=== PATIENT | female | born 1935 | race Caucasian/White ===

== ENCOUNTER 2016-03-07 17:02 | Inpatient (IN) | payer MEDICARE ==
[2016-03-07 18:18] LABS: Glucose,Whole Blood 240 mg/dL (75-99)
[2016-03-07] MEDS ORDERED: ALPRAZolam 0.25 MG TAB PO PRN (18:30)
[2016-03-07] MEDS ORDERED: TEMAZEPAM 7.5 MG CAP PO PRN (18:30)
[2016-03-07] MEDS ORDERED: LEVOFLOXACIN 500 MG TAB PO STA (18:34)
[2016-03-07] MEDS ORDERED: IPRATROPIUM-ALBUTEROL 3 ML NEB INHALATION PRN (18:40)
--- NOTE | 2016-03-07 19:24 | XR ---
EXAMINATION TYPE: XR chest 1V portable DATE OF EXAM: 03/07/2016 7:08 PM COMPARISON: 03/29/2015 HISTORY: Short of breath TECHNIQUE: Single frontal view of the chest is obtained. FINDINGS: Heart size is normal. Lungs are clear of consolidation. There are no hilar masses. Thoraci c aorta is atheromatous. There is no pleural effusion. IMPRESSION: No active cardiopulmonary disease. No change.
[2016-03-07 19:27] LABS: Basophils % (A) 0 %; CH 26.2; CHCM 29.6; Eosinophils # (A) 0.1 k/uL (0-0.7); Eosinophils % (A) 1 %; HCT 34.7 % (34.0-46.0); HDW 2.47; HGB 10.3 gm/dL (11.4-16.0); Hypochromasia Marked; Luc # (Auto) 0.03; Luc % (Auto) 0; Lymphocytes # (A) 0.5 k/uL (1.0-4.8); Lymphocytes % (A) 3 %; MCH 26.3 pg (25.0-35.0); MCHC 29.6 g/dL (31.0-37.0); MCV 88.8 fL (80.0-100.0); Mean Platelet Volume 6.7; Monocytes # (A) 0.3 k/uL (0-1.0); Monocytes % (A) 2 %; Neutrophils # (A) 15.3 k/uL (1.3-7.7); Neutrophils % (A) 94 %; RDW 13.1 % (11.5-15.5); WBC 16.3 k/uL (3.8-10.6); WBC (Perox) 17.69
[2016-03-07 19:34] LABS: Calcium 9.4 mg/dL (8.4-10.2); Potassium 5.3 mmol/L (3.5-5.1); Total Bilirubin 0.4 mg/dL (0.2-1.3); Total Protein 6.2 g/dL (6.3-8.2)
[2016-03-07] MEDS ORDERED: SYMBICORT 80-4.5 MCG INHALER INHALATION SCH (20:00)
[2016-03-07] MEDS ORDERED: SALMETEROL PO SCH (20:00)
[2016-03-07] MEDS ORDERED: FLUTICASONE PO SCH (20:00)
[2016-03-07 20:04] LABS: Hemoglobin A1C 6.3 % (4.2-6.1)
[2016-03-07] MEDS: IPRATROPIUM-ALBUTEROL 3 ML NEB INHALATION SCH (20:24)
[2016-03-07] MEDS: FUROSEMIDE 20 MG TAB PO SCH (21:30)
[2016-03-07] MEDS: LISINOPRIL 20 MG TAB PO SCH (21:31)
[2016-03-07] MEDS: ATORVASTATIN 10 MG TAB PO SCH (21:31)
[2016-03-07] MEDS: guaiFENesin 600 MG TABLET.ER PO SCH (21:33)
--- NOTE | 2016-03-07 22:33 | HP ---
Mrs. Beltrán is an 80-year-old female. She presented to the office with increasing shortness of breath over several weeks with some cough with marked dyspnea on exertion minimally with just getting up from her bed or chair and a little movement in the house. She was found by her home nursing to have FiO2s in the 70s and 80s and in the office she was initially 77, came up to 81. She has had no chest pain with this, but has generally been fatigued with a somewhat poor appetite. PAST MEDICAL HISTORY: Patient does have a history of COPD and has had some intermittent exacerbations. Her FEV1 in the past and has been only 34% predicted, indicating a rather severe state of COPD. Other history includes that of hypertension, osteoarthritis of the knees. She does have type 2 diabetes with chronic kidney disease stage 3. She does use oxygen at home. Other surgeries include a total knee replacement on the right and she has had a previous left breast lumpectomy associated with radiation treatments back in 2004. She has had previous esophageal dilation and right carotid endarterectomy repair also in the past. Her medications at home included: 1. Albuterol for her respiratory treatments 4 times a day. 2. Amlodipine 10 mg in the morning and 5 mg in the evening. 3. Aspirin 81 mg daily. 4. Atorvastatin 10 mg at bedtime here in hospital. 5. She was on Zocor at home at 20 mg at bedtime. 6. Metformin 500 mg at breakfast. 7. Prednisone 10 mg daily. 8. Quinapril 20 mg at bedtime for blood pressure. 9. Felodipine 10 mg daily with 5 mg in the evening. 10. Lasix 20 mg per 48 hours 11. Advair inhaler; 500/50, 1 inhalation twice a day. THERE WAS A HISTORY OF ALLERGY TO DOXYCYCLINE AND GLUCOSAMINE, IODINATED CONTRAST DYE TIME, SULFA AND BACLOFEN. WITH THE FIRST 4, SHE DEVELOPED RASHES. WITH BACLOFEN, SHE HAD SOME MENTAL CONFUSION. REVIEW OF SYSTEMS: As mentioned in the history of present illness, she had no unusual headache. No nausea or vomiting. No chest pain, but extreme shortness of breath and with minimal exertion along with orthopnea requiring her to lie in a recliner at night to rest, but no hemoptysis. No urinary or bowel symptomatology. No unusual edema. FAMILY HISTORY: Father at 57 of a lung blood clot. There is history of diabetes and coronary artery disease in her family. She had a sister that apparently had bladder cancer and also another sister had brain cancer. SOCIAL HISTORY: The patient does have her own home. Apparently, she for the most part takes care of herself, but has had some visiting nurses. She is a former heavy smoker. She is for several years now. On physical examination, her pulse was up to 108, temperature was 98, respirations were 18 with a prolonged expiratory phase. Blood pressure 128/75. Once again, saturations at the office were 77 and 81 on 2L. Here, her saturation has improved up to 92. There is some prolonged expiratory phase and pursed lip breathing, some use of accessory muscles. Head and neck otherwise extraocular movements are intact. Neck reveals no adenopathy, thyromegaly or bruits. Breasts and pelvic deferred. Lungs revealed diminished breath sounds diffusely. No definite wheeze. Heart tones were regular without murmurs, rubs appreciated. ABDOMEN: Mildly obese, but soft and nontender without organomegaly. EXTREMITIES: Reveal no unusual edema. NEUROLOGIC: She is alert. Cranial nerves were intact and no focal weakness noted. Laboratory testing revealed a white count elevated at 16 with hemoglobin 10.8 and a platelet count of 333. Electrolytes revealed sodium of 143 with potassium 5.3, chloride of 96, CO2 content of 40, BUN of 33 with creatinine of 1.4, glucose was 239, but her A1c is 6.3. Calcium was 9.4, albumin normal at 3.5. AST and, ALT and alk phos were normal, bilirubin was 0.4. The patient did have a chest x-ray, did not show any acute changes and. Overall impression at this point: 1. Acute exacerbation of chronic obstructive pulmonary disease with respiratory failure associated with dyspnea, shortness of breath and hypoxia. Patient with underlying severe chronic obstructive pulmonary disease with FEV1 of 34%. 2. She also does have underlying history diabetes type 2 with 3. Chronic kidney disease stage 3. 4. Hypertension. 5. Degenerative joint disease. 6. Previous right knee surgery. 7. There is a previous history of left breast lumpectomy and previous tamoxifen treatment. 8. History of previous right carotid endarterectomy. 9. Previous history of esophageal stenosis, post dilatation. 10. Previous history of left thyroid nodule, but has not changed for a couple years now. At this point, plans are to add corticosteroids, antibiotics, respiratory treatments. We will ask Pulmonary to evaluate for further recommendations. Also recommend physical and occupational therapy and further recommendations and treatment pending clinical response and results of above. MTDD
[2016-03-08] MEDS: methylPREDNISolone SOD SUCCI 40 MG/ML 1 ML VIAL IV SCH ×5 (00:37→23:39)
[2016-03-08 07:18] LABS: Glucose,Whole Blood 195 mg/dL (75-99)
--- NOTE | 2016-03-08 07:41 | P.PN ---
Progress Note - Text The patient is an 80-year-old female who yesterday presented to the office and was admitted with the gradual increasing in shortness of breath and dyspnea on exertion. Patient was unable to ambulate in her house without dropping her oxygen saturation down into the 70s and 80s. She had some cough but no chest pain. No hemoptysis. Patient does have underlying severe COPD with a previous FEV1 of 34%. She also has comorbidities with hypertension, osteoarthritis chronic kidney disease and is dependent on oxygen and also prednisone at home. This morning she states she did have some trouble sleeping. Vital signs this morning though reveals her temperature to be 97.5 with a pulse of 74 and respirations 16. Her blood pressure is elevated on corticosteroids at 185/75 and she is 97% saturated on 3 L nasal cannula. She is overall alert. Lungs are clear but diminished. Heart tones are regular. Abdomen nontender. No unusual edema or focal neurological changes at this time. Impressions and plans: We will continue with antibiotics in the form of Levaquin along with corticosteroids and her respiratory treatments. Please see results of her labs and chest x-ray. We will repeat basic metabolic panel tomorrow. Await further recommendations from pulmonary medicine. Patient wants to return home and we will ask physical and occupational therapy to evaluate. Overall prognosis is guarded in light of her underlying lung disease. Dr. Orozco is beef boner if any problems over the weekend.
[2016-03-08] MEDS: IPRATROPIUM-ALBUTEROL 3 ML NEB INHALATION SCH ×4 (07:49→19:10)
[2016-03-08] MEDS: metFORMIN 500 MG TAB PO SCH (08:39)
[2016-03-08] MEDS: INSULIN LISPRO (humaLOG) 300 UNIT/3 ML VIAL SQ SCH ×2 (08:40→17:31)
[2016-03-08] MEDS: VIT A,C & E-LUTEIN-MINERALS 1 EACH TAB PO SCH (09:12)
[2016-03-08] MEDS: guaiFENesin 600 MG TABLET.ER PO SCH ×2 (09:12→20:30)
[2016-03-08] MEDS: ASPIRIN 81 MG CHEW PO SCH (09:12)
[2016-03-08] MEDS: LEVOFLOXACIN 250 MG TAB PO SCH (09:12)
[2016-03-08] MEDS: amLODIPine 10 MG TAB PO SCH (09:12)
[2016-03-08 12:05] LABS: Glucose,Whole Blood 162 mg/dL (75-99)
--- NOTE | 2016-03-08 13:21 | P.CNPUL ---
History of Present Illness Consult date: 03/08/16 Requesting physician: Los Anderson Reason for consult: dyspnea Chief complaint: Shortness of breath with minimal exertion, cough, congestion History of present illness: This is a very pleasant 80-year-old female patient who follows in our office for advanced oxygen-dependent chronic obstructive pulmonary disease. Her baseline FEV1 value is 34% of predicted. She also has a history of diabetes mellitus, hyperlipidemia, hypertension, osteoarthritis, hypothyroidism, breast cancer, chronic anemia. She presented here on 03/07/2016 after being seen by her primary care physician Dr. Anderson. She had been complaining of worsening shortness of breath on minimal exertion, cough and congestion. She was quite hypoxic with O2 saturations in the 70s and 80s. We're consulting today for acute exacerbation of her chronic obstructive pulmonary disease. Her chest x- ray did not reveal any acute pulmonary process. She is afebrile. White count 16.3. His current maintaining good O2 saturations in the low 90s on 3 L/m per nasal cannula. She is slightly tachycardic. She has been initiated on bronchodilators, Symbicort, IV Solu-Medrol and empiric and hematocrit form of Levaquin. States she is breathing slightly better today as compared to yesterday but not quite back to her baseline. Her main concern is that of dyspnea on minimal exertion. Review of Systems 14 point review of system was conducted. All negative other than as mentioned in HPI. Past Medical History Past Medical History: COPD, Diabetes Mellitus, Hyperlipidemia, Hypertension, Osteoarthritis (OA), Pneumonia, Thyroid Disorder Additional Past Medical History / Comment(s): COPD , anemia, chronic hypoxic respiratory failure and the patient has been on oxygen at 2.5 L/m nasal cannula , lt breast cancer, , chronic sinus disease,djd emphysema, thyroid nodule History of Any Multi-Drug Resistant Organisms: None Reported Past Surgical History: Breast Surgery, Orthopedic Surgery, Tonsillectomy Additional Past Surgical History / Comment(s): 2002 lt lumpectomy and 35 radiation tx,2005 right carotid endarectomy, rt knee arthroscopy,2010 right knee replacement 2007 bilateral cataract , had esophageal dilation via EGD Past Anesthesia/Blood Transfusion Reactions: Postoperative Nausea & Vomiting ( PONV) Additional Past Anesthesia/Blood Transfusion Reaction / Comment(s): vomited after surg. Past Psychological History: No Psychological Hx Reported Smoking Status: Former smoker Past Alcohol Use History: None Reported Additional Past Alcohol Use History / Comment(s): per pt's daughter-pt quit smoking 20 years ago Past Drug Use History: None Reported - Past Family History Father Family Medical History: Coronary Artery Disease (CAD) Additional Family Medical History / Comment(s): young from heart problems Mother Family Medical History: Asthma, COPD Medications and Allergies Home Medications Medication Instructions Recorded Confirmed Type Quinapril HCl [Accupril] 20 mg PO HS 10/06/13 03/07/16 History Vit A,C & E/Lutein/Minerals 1 tab PO DAILY 10/06/13 03/07/16 History [Ocuvite with Lutein Tablet] metFORMIN HCL [Glucophage] 500 mg PO [id number] 10/06/13 03/07/16 History Felodipine [Felodipine ER] 5 mg PO DAILY 06/07/14 03/07/16 History Felodipine [Felodipine ER] 10 mg PO DAILY 06/07/14 03/07/16 History Albuterol Nebulized [Ventolin 2.5 mg INHALATION RT-QID PRN 06/28/14 03/07/16 History Nebulized] Aspirin EC [Ecotrin Low Dose] 81 mg PO HS 06/28/14 03/07/16 History Fluticasone/Salmeterol [Advair 1 inhalation PO RT-BID 03/07/16 03/07/16 History 500-50 Diskus] Furosemide [Lasix] 20 mg PO Q48H 03/07/16 03/07/16 History Simvastatin [Zocor] 20 mg PO HS 03/07/16 03/07/16 History predniSONE 10 mg PO DAILY 03/07/16 03/07/16 History Allergies Allergy/AdvReac Type Severity Reaction Status Date / Time doxycycline Allergy Rash/Hives Verified 03/07/16 19:09 glucosamine Allergy Rash/Hives Verified 03/07/16 19:09 Iodinated Contrast Media - Allergy Rash/Hives Verified 03/07/16 19:09 Oral and [Iodinated Contrast Media - IV Dye] Sulfa (Sulfonamide Allergy Rash/Hives Verified 03/07/16 19:09 Antibiotics) baclofen AdvReac Confusion Verified 03/07/16 19:09 Physical Exam Vitals: Vital Signs Temp Pulse Pulse Resp BP Pulse Ox 03/08/16 11:19 100 03/08/16 11:05 100 03/08/16 07:49 97 03/08/16 07:00 97.5 F L 74 16 185/75 97 03/07/16 23:00 96.5 F L 68 18 188/79 97 03/07/16 20:32 108 H 03/07/16 20:24 104 H 03/07/16 18:25 98.1 F 83 18 128/75 92 L Intake and Output 03/07/16 03/08/16 03/08/16 22:59 06:59 14:59 Other: Voiding Method Toilet # Voids 1 1 Weight 75 kg GENERAL EXAM: Alert, comfortable at rest in no apparent distress. HEAD: Normocephalic. EYES: Normal reaction of pupils, equal size. NOSE: Clear with pink turbinates. THROAT: No erythema or exudates. NECK: No masses, no JVD. CHEST: No chest wall deformity. LUNGS: Equal air entry with bilateral end expiratory wheeze. Diminished. CVS: S1 and S2 normal with no audible murmurs, regular rhythm. ABDOMEN: No hepatosplenomegaly, normal bowel sounds, no guarding or rigidity. SPINE: No scoliosis or deformity SKIN: No rashes CENTRAL NERVOUS SYSTEM: No focal deficits, tone is normal in all 4 extremities. Extremities: There is no significant peripheral edema. No clubbing, no cyanosis. Peripheral pulses are intact. Results - Laboratory Findings CBC and BMP: 03/07/16 19:07 03/07/16 19:07 Abnormal lab findings: Abnormal Labs 03/07/16 03/07/16 03/07/16 18:16 19:07 19:07 WBC 16.3 H Hgb 10.3 L MCHC 29.6 L Neutrophils # 15.3 H Lymphocytes # 0.5 L Potassium 5.3 H Chloride 96 L Carbon Dioxide 40 H* BUN 33 H Creatinine 1.34 H Glucose 239 H POC Glucose (mg/dL) 240 H Hemoglobin A1c Total Protein 6.2 L 03/07/16 03/08/16 03/08/16 19:07 07:17 11:47 WBC Hgb MCHC Neutrophils # Lymphocytes # Potassium Chloride Carbon Dioxide BUN Creatinine Glucose POC Glucose (mg/dL) 195 H 162 H Hemoglobin A1c 6.3 H Total Protein - Diagnostic Findings Chest x-ray: image reviewed (No acute pulmonary process.) Assessment and Plan Plan: Impression: #1 Acute exacerbation of severe Gold stage III/IV oxygen dependent chronic obstructive pulmonary disease, complicated by purulent tracheobronchitis. #2 Dyspnea on exertion secondary to above. #3 ML history of chronic tobacco addiction quit approximately 20 years ago. #4 Hyperlipidemia. #5 Hypertension. #6 Diabetes mellitus. #7 Osteoarthritis. #8 Hypothyroidism. #9 Chronic anemia. #10 Chronic sinus disease. #11 History of breast cancer. Plan: The patient was seen and evaluated by Dr. Hills. Her chest x-ray and labs were reviewed. We'll go ahead and continue with her current medications including bronchodilators, Symbicort, IV Solu-Medrol, para antibiotics in the form of Levaquin. We will increase her activity as tolerated. We'll continue to follow make further recommendations based on her clinical status. Time with Patient: Greater than 30
[2016-03-08 17:34] LABS: Glucose,Whole Blood 280 mg/dL (75-99)
[2016-03-08] MEDS: SYMBICORT 160-4.5 MCG INHALER INHALATION SCH (19:10)
[2016-03-08] MEDS: ATORVASTATIN 10 MG TAB PO SCH (20:30)
[2016-03-08] MEDS: LISINOPRIL 20 MG TAB PO SCH (20:30)
[2016-03-08] MEDS: TEMAZEPAM 15 MG CAP PO PRN (21:24)
[2016-03-09] MEDS: methylPREDNISolone SOD SUCCI 40 MG/ML 1 ML VIAL IV SCH ×3 (06:40→23:00)
[2016-03-09 07:45] LABS: Glucose,Whole Blood 215 mg/dL (75-99)
[2016-03-09] MEDS: SYMBICORT 160-4.5 MCG INHALER INHALATION SCH ×2 (08:17→20:48)
[2016-03-09] MEDS: IPRATROPIUM-ALBUTEROL 3 ML NEB INHALATION SCH ×4 (08:17→20:48)
[2016-03-09] MEDS: amLODIPine 10 MG TAB PO SCH (08:49)
[2016-03-09] MEDS: guaiFENesin 600 MG TABLET.ER PO SCH ×2 (08:49→21:44)
[2016-03-09] MEDS: LEVOFLOXACIN 250 MG TAB PO SCH (08:50)
[2016-03-09] MEDS: metFORMIN 500 MG TAB PO SCH (08:50)
[2016-03-09] MEDS: INSULIN LISPRO (humaLOG) 300 UNIT/3 ML VIAL SQ SCH ×3 (08:50→21:47)
[2016-03-09] MEDS: ASPIRIN 81 MG CHEW PO SCH (08:50)
[2016-03-09] MEDS: VIT A,C & E-LUTEIN-MINERALS 1 EACH TAB PO SCH (08:51)
--- NOTE | 2016-03-09 10:21 | P.PN ---
Progress Note - Text The patient is an 80-year-old female who 2 days previous was admitted with exacerbation of COPD. Acute on chronic respiratory failure. Patient does have rather severe COPD with an FEV1 of 34%, also requiring home oxygen and fairly chronic outpatient prednisone treatment. Patient has been on antibiotics and respiratory treatments along with her inhalers and is showing some improvement she states. She states she was able to shower with less shortness of breath. Last vital signs reveal temperature 90.8 with a pulse of 76 and respirations 16. Blood pressure is 142/72 and she is 99% saturated on 3 L. She is lying flat in bed. Head and neck exam unremarkable. Lungs do reveal some improvement in breath entry at the bases. No marked wheezing. Heart tones regular. Abdomen nontender. No unusual edema noted. She does have diffuse tremors but no focal deficits noted. Laboratory values Lactic acid level was down to 1.3. Blood sugars have been around or over 200 as she is on prednisone. Impressions and plans Exacerbation of underlying severe COPD with acute on chronic respiratory failure. Asthmatic bronchitis. Continue medications. Have tapered prednisone slightly to 40 mg every 8 hours. Repeat basic metabolic panel and thyroid labs are ordered. Continue with physical and occupational therapy treatment and evaluation. Hopefully discharge back to home over the next 24-48 hours. Pending clinical response and results of above. Long-term prognosis guarded. Discussed with patient and staff this morning. Pulmonary medicine note regarded and appreciated.
--- NOTE | 2016-03-09 13:37 | P.PN ---
Subjective Principal diagnosis: Acute exacerbation of COPD This is a very pleasant 80-year-old female patient who follows in our office for advanced oxygen-dependent chronic obstructive pulmonary disease. Her baseline FEV1 value is 34% of predicted. She also has a history of diabetes mellitus, hyperlipidemia, hypertension, osteoarthritis, hypothyroidism, breast cancer, chronic anemia. She presented here on 03/07/2016 after being seen by her primary care physician Dr. Anderson. She had been complaining of worsening shortness of breath on minimal exertion, cough and congestion. She was quite hypoxic with O2 saturations in the 70s and 80s. We're consulting today for acute exacerbation of her chronic obstructive pulmonary disease. Her chest x- ray did not reveal any acute pulmonary process. She is afebrile. White count 16.3. His current maintaining good O2 saturations in the low 90s on 3 L/m per nasal cannula. She is slightly tachycardic. She has been initiated on bronchodilators, Symbicort, IV Solu-Medrol and empiric and hematocrit form of Levaquin. States she is breathing slightly better today as compared to yesterday but not quite back to her baseline. Her main concern is that of dyspnea on minimal exertion. Patient was reevaluated today on 03/09/2016, she is feeling definitely better, breathing a bit easier, less shortness of breath, hardly any cough, no wheezing. Objective - Vital Signs Vital signs: Vital Signs Temp 98 F 03/09/16 07:00 Pulse 76 03/09/16 11:41 Resp 16 03/09/16 07:00 BP 142/72 03/09/16 07:00 Pulse Ox 99 03/09/16 08:18 Intake & Output 03/08/16 03/09/16 03/09/16 18:59 06:59 18:59 Other: Voiding Method Toilet # Voids 2 2 - Exam GENERAL EXAM: Alert, comfortable at rest in no apparent distress. HEAD: Normocephalic. EYES: Normal reaction of pupils, equal size. NOSE: Clear with pink turbinates. THROAT: No erythema or exudates. NECK: No masses, no JVD. CHEST: No chest wall deformity. LUNGS: Equal air entry with bilateral end expiratory wheeze. Diminished. CVS: S1 and S2 normal with no audible murmurs, regular rhythm. ABDOMEN: No hepatosplenomegaly, normal bowel sounds, no guarding or rigidity. SPINE: No scoliosis or deformity SKIN: No rashes CENTRAL NERVOUS SYSTEM: No focal deficits, tone is normal in all 4 extremities. Extremities: There is no significant peripheral edema. No clubbing, no cyanosis. Peripheral pulses are intact. - Labs CBC & Chem 7: 03/07/16 19:07 03/09/16 10:52 Labs: Abnormal Lab Results - Last 24 Hours (Table) 03/08/16 03/09/16 03/09/16 Range/Units 17:21 07:43 10:52 Chloride 97 L (98-107) mmol/L Carbon Dioxide 36 H (22-30) mmol/L BUN 45 H (7-17) mg/dL Creatinine 1.69 H (0.52-1.04) mg/dL Glucose 281 H (74-99) mg/dL POC Glucose (mg/dL) 280 H 215 H (75-99) mg/dL Assessment and Plan Plan: #1 Acute exacerbation of severe Gold stage III/IV oxygen dependent chronic obstructive pulmonary disease, complicated by purulent tracheobronchitis. #2 Dyspnea on exertion secondary to above. #3 ML history of chronic tobacco addiction quit approximately 20 years ago. #4 Hyperlipidemia. #5 Hypertension. #6 Diabetes mellitus. #7 Osteoarthritis. #8 Hypothyroidism. #9 Chronic anemia. #10 Chronic sinus disease. #11 History of breast cancer. Pulmonary: Continue present meds, continue bronchodilators and steroids, antibiotics, consider discharge planning in the next 24 hours. Time with Patient: Less than 30
[2016-03-09 16:39] LABS: Glucose,Whole Blood 164 mg/dL (75-99)
[2016-03-09] MEDS: FUROSEMIDE 20 MG TAB PO SCH (21:43)
[2016-03-09] MEDS: LISINOPRIL 20 MG TAB PO SCH (21:44)
[2016-03-09] MEDS: ATORVASTATIN 10 MG TAB PO SCH (21:44)
[2016-03-09 21:51] LABS: Glucose,Whole Blood 246 mg/dL (75-99)
[2016-03-09] MEDS: TEMAZEPAM 15 MG CAP PO PRN (23:00)
[2016-03-10 07:15] LABS: Glucose,Whole Blood 220 mg/dL (75-99)
[2016-03-10] MEDS: IPRATROPIUM-ALBUTEROL 3 ML NEB INHALATION SCH ×4 (07:35→20:27)
[2016-03-10] MEDS: SYMBICORT 160-4.5 MCG INHALER INHALATION SCH ×3 (07:35→20:27)
--- NOTE | 2016-03-10 08:08 | P.PN ---
Progress Note - Text The patient was admitted 3 days previous with exacerbation of severe COPD. Patient has been treated with antibiotics along with corticosteroids and respiratory treatments. She has had some problems with sleeping through the night. She also states she was somewhat more short of breath last night. Vital signs reveal temperature 96.3 with a pulse of 68 and respirations 19. Blood pressure was elevated this morning at 190/79 and she is 95% saturated on 2 L. Lungs are generally clear but diminished at bases. Heart tones were regular. No unusual edema. No focal deficits. Recent blood sugar was 220. Thyroid function testing was normal. Potassium was 5.0. Overall impressions and plans Patient continues to slowly respond with her exacerbation of COPD. Pulmonary notes regarded. Patient has been placed on oral prednisone 40 mg daily. We'll continue with physical therapy today and discharge planning. Further recommendations to follow.
[2016-03-10] MEDS: metFORMIN 500 MG TAB PO SCH (08:19)
[2016-03-10] MEDS: amLODIPine 10 MG TAB PO SCH (08:19)
[2016-03-10] MEDS: ASPIRIN 81 MG CHEW PO SCH (08:19)
[2016-03-10] MEDS: guaiFENesin 600 MG TABLET.ER PO SCH ×2 (08:19→21:24)
[2016-03-10] MEDS: VIT A,C & E-LUTEIN-MINERALS 1 EACH TAB PO SCH (08:19)
[2016-03-10] MEDS: LEVOFLOXACIN 250 MG TAB PO SCH (08:20)
[2016-03-10] MEDS: INSULIN LISPRO (humaLOG) 300 UNIT/3 ML VIAL SQ SCH ×4 (08:20→21:24)
[2016-03-10] MEDS: methylPREDNISolone SOD SUCCI 40 MG/ML 1 ML VIAL IV SCH (08:26)
[2016-03-10] MEDS ORDERED: predniSONE 20 MG TAB PO SCH (09:00)
--- NOTE | 2016-03-10 12:15 | P.PN ---
Subjective Principal diagnosis: This is a very pleasant 80-year-old female patient who follows in our office for advanced oxygen-dependent chronic obstructive pulmonary disease. Her baseline FEV1 value is 34% of predicted. She also has a history of diabetes, hyperlipidemia, hypertension, hypothyroidism, breast cancer and chronic anemia. She presented here on 03/07/2016 after being seen by her primary care physician Dr. Anderson. She is complaining of increasing shortness of breath. We are seeing her for an acute exacerbation of her COPD. Her chest x-ray did not reveal any acute pulmonary process. Today she is awake and alert in no acute distress. She's been up ambulating with assistance. She is better today as compared to yesterday. She is maintaining good O2 saturations in the mid 90s on 2 L/m per nasal cannula. Currently afebrile Objective - Vital Signs Vital signs: Vital Signs Temp 96.3 F L 03/10/16 07:00 Pulse 72 03/10/16 11:36 Resp 19 03/10/16 07:00 BP 190/79 03/10/16 07:00 Pulse Ox 95 03/10/16 07:35 Intake & Output 03/09/16 03/10/16 03/10/16 18:59 06:59 18:59 Intake Total 350 Balance 350 Weight 77 kg Intake: Oral 350 Other: Voiding Method Toilet Toilet # Voids 1 1 - Exam GENERAL EXAM: Alert, active, comfortable in no apparent distress. HEAD: Normocephalic. EYES: Normal reaction of pupils, equal size. NOSE: Clear with pink turbinates. THROAT: No erythema or exudates. NECK: No masses, no JVD. CHEST: No chest wall deformity. LUNGS: Equal air entry with end expiratory wheeze bilaterally. Diminished. CVS: S1 and S2 normal with no audible murmurs, regular rhythm. ABDOMEN: No hepatosplenomegaly, normal bowel sounds, no guarding or rigidity. SPINE: No scoliosis or deformity SKIN: No rashes CENTRAL NERVOUS SYSTEM: No focal deficits, tone is normal in all 4 extremities. Extremities: There is no significant peripheral edema. No clubbing, no cyanosis. Peripheral pulses are intact. - Labs CBC & Chem 7: 03/07/16 19:07 03/09/16 10:52 Labs: Abnormal Lab Results - Last 24 Hours (Table) 03/09/16 03/09/1603/10/17 Range/Units 16:26 21:47 07:13 POC Glucose (mg/dL) 164 H 246 H 220 H (75-99) mg/dL Assessment and Plan Plan: Impression: #1 Acute exacerbation of severe Gold stage III/IV oxygen dependent chronic obstructive pulmonary disease, complicated by purulent tracheobronchitis. #2 Dyspnea on exertion secondary to above. #3 ML history of chronic tobacco addiction quit approximately 20 years ago. #4 Hyperlipidemia. #5 Hypertension. #6 Diabetes mellitus. #7 Osteoarthritis. #8 Hypothyroidism. #9 Chronic anemia. #10 Chronic sinus disease. #11 History of breast cancer. Plan: The patient was seen and evaluated by Dr. Cordero. We will continue with her current medications including bronchodilators, Symbicort, IV Solu-Medrol, empiric antibiotics in the form of Levaquin. We will increase her activity as tolerated. We'll continue to follow make further recommendations based on her clinical status. We will plan for discharge in a.m.
[2016-03-10 12:42] LABS: Glucose,Whole Blood 165 mg/dL (75-99)
[2016-03-10] MEDS ORDERED: amLODIPine 5 MG TAB PO STA (14:56)
[2016-03-10 17:03] LABS: Glucose,Whole Blood 234 mg/dL (75-99)
[2016-03-10 21:09] LABS: Glucose,Whole Blood 300 mg/dL (75-99)
[2016-03-10] MEDS: LISINOPRIL 20 MG TAB PO SCH (21:24)
[2016-03-10] MEDS: ATORVASTATIN 10 MG TAB PO SCH (21:24)
[2016-03-10 22:31] LABS: Glucose,Whole Blood 235 mg/dL (75-99)
[2016-03-10] MEDS ORDERED: INSULIN LISPRO (humaLOG) 300 UNIT/3 ML VIAL SQ ONE (22:39)
[2016-03-10] MEDS: TEMAZEPAM 15 MG CAP PO PRN (23:25)
--- NOTE | 2016-03-11 07:28 | P.PN ---
Progress Note - Text The patient is a 80-year-old female with a severe COPD with exacerbation. She has been treated with a tapering dosages of corticosteroids along with respiratory treatments and antibiotics. She is also had physical therapy. She has been generally improving and doing better. Temperature is 96.2 with a pulse of 71 and respirations 18 and nonlabored. Blood pressure 141/64 and she is 95% saturated on room air. Lungs are generally clear although diminished. Heart tones regular. Abdomen soft and nontender. No unusual distal edema. No new neurological deficits. Accu-Cheks are still in the 200 range. Impressions and plans: Pulmonary note regarded. Patient clinically is doing better and would like to go home. Patient will continue on her respiratory treatments, diabetic medications and hypertensive medications at home. We will send into her [facility] pharmacy prednisone taper along with completing a course of Levaquin and medication temazepam 15 mg for insomnia. Overall prognosis is still very guarded. She will follow up in office in 7-10 days and call if any questions or concerns or problems. Continue with home nursing.
[2016-03-11 07:53] LABS: Glucose,Whole Blood 121 mg/dL (75-99)
[2016-03-11] MEDS: INSULIN LISPRO (humaLOG) 300 UNIT/3 ML VIAL SQ SCH (07:56)
[2016-03-11 08:03] VITALS: BP 190/74; RESP 22; TEMP 97.3
[2016-03-11] MEDS: SYMBICORT 160-4.5 MCG INHALER INHALATION SCH (08:26)
[2016-03-11] MEDS: IPRATROPIUM-ALBUTEROL 3 ML NEB INHALATION SCH ×2 (08:26→11:58)
[2016-03-11] MEDS: guaiFENesin 600 MG TABLET.ER PO SCH (08:59)
[2016-03-11] MEDS: ASPIRIN 81 MG CHEW PO SCH (08:59)
[2016-03-11] MEDS ORDERED: predniSONE 10 MG TAB PO SCH (09:00)
[2016-03-11] MEDS: LEVOFLOXACIN 250 MG TAB PO SCH (09:00)
[2016-03-11] MEDS: amLODIPine 10 MG TAB PO SCH (09:01)
[2016-03-11] MEDS: VIT A,C & E-LUTEIN-MINERALS 1 EACH TAB PO SCH (09:01)
--- NOTE | 2016-03-11 12:01 | P.PN ---
Subjective Principal diagnosis: This is a very pleasant 80-year-old female patient who follows in our office for advanced oxygen-dependent chronic obstructive pulmonary disease. Her baseline FEV1 value is 34% of predicted. She also has a history of diabetes, hyperlipidemia, hypertension, hypothyroidism, breast cancer and chronic anemia. She presented here on 03/07/2016 after being seen by her primary care physician Dr. Anderson. She was complaining of increasing shortness of breath. We are seeing her for an acute exacerbation of her COPD. Her chest x-ray did not reveal any acute pulmonary process. Today 03/11/16 she is awake and alert in no acute distress. She's been up ambulating with assistance. She is better today as compared to yesterday. She is maintaining good O2 saturations in the mid 90s on 2 L/m per nasal cannula. Currently afebrile and she is anxious to go home. Objective - Vital Signs Vital signs: Vital Signs Temp 97.3 F L 03/11/16 07:00 Pulse 76 03/11/16 08:39 Resp 22 03/11/16 08:00 BP 190/74 03/11/16 07:00 Pulse Ox 99 03/11/16 07:00 Intake & Output 03/10/16 03/11/16 03/11/16 18:59 06:59 18:59 Intake Total 100 Balance 100 Weight 78 kg Intake: Oral 100 Other: Voiding Method Toilet Toilet Toilet # Voids 2 1 - Exam GENERAL EXAM: Alert, active, comfortable in no apparent distress. HEAD: Normocephalic. EYES: Normal reaction of pupils, equal size. NOSE: Clear with pink turbinates. THROAT: No erythema or exudates. NECK: No masses, no JVD. CHEST: No chest wall deformity. LUNGS: Equal air entry with end expiratory wheeze bilaterally. Diminished. CVS: S1 and S2 normal with no audible murmurs, regular rhythm. ABDOMEN: No hepatosplenomegaly, normal bowel sounds, no guarding or rigidity. SPINE: No scoliosis or deformity SKIN: No rashes CENTRAL NERVOUS SYSTEM: No focal deficits, tone is normal in all 4 extremities. Extremities: There is no significant peripheral edema. No clubbing, no cyanosis. Peripheral pulses are intact. - Labs CBC & Chem 7: 03/07/16 19:07 03/09/16 10:52 Labs: Abnormal Lab Results - Last 24 Hours (Table) 03/10/16 03/10/16 03/10/16 Range/Units 12:32 17:00 21:05 POC Glucose (mg/dL) 165 H 234 H 300 H (75-99) mg/dL 03/10/16 03/11/16 Range/Units 22:29 07:25 POC Glucose (mg/dL) 235 H 121 H (75-99) mg/dL Assessment and Plan Plan: Impression: #1 Acute exacerbation of severe Gold stage III/IV oxygen dependent chronic obstructive pulmonary disease, complicated by purulent tracheobronchitis. #2 Dyspnea on exertion secondary to above. #3 ML history of chronic tobacco addiction quit approximately 20 years ago. #4 Hyperlipidemia. #5 Hypertension. #6 Diabetes mellitus. #7 Osteoarthritis. #8 Hypothyroidism. #9 Chronic anemia. #10 Chronic sinus disease. #11 History of breast cancer. Plan: The patient was seen and evaluated by Dr. Cordero. She is cleared for discharge from the pulmonary standpoint. She'll complete her course of antibiotics, prednisone burst taper and continue her current bronchodilators and Symbicort. She'll follow-up in our office in 1-2 weeks' time. She is however encouraged to call sooner with any recurrence of symptoms or other questions or concerns.
[2016-03-11 12:12] VITALS: PULSE 77
--- NOTE | 2016-03-12 17:48 | DS ---
DATE OF ADMISSION: 03/07/2016 DATE OF DISCHARGE: 03/11/2016 This is an 80-year-old female who presented initially with shortness of breath gradually worsening with some cough, mostly short of breath with any minimal exertion even getting up from her bed or moving small amounts in her house, going to the bathroom and shower and she was extremely short of breath. She was having pO2 in the 70s and 80s at home and office and she was admitted for further work-up and treatment and evaluation and previously was diagnosed with chronic obstructive pulmonary disease with an FEV1 of 34%. Other comorbidities included: Her hypertension and diabetes, chronic disease and degenerative joint disease. The patient was placed on corticosteroids and antibiotics, respiratory treatments and her inhalers and was seen in consultation by Dr. Hills from pulmonary medicine. The patient also seen by physical and occupational therapy. Initial laboratory work-up revealed a white count up to 16 and a hemoglobin 10.8 and a platelet count of 333. Sodium was 142, potassium 5.3, chloride 96, CO2 content of 40, BUN of 33 with creatinine of 1.4 and her glucose was elevated at 239. Her A1c was controlled at 6.3, calcium 9.4, albumin 3.5. Liver function tests were good. Her chest x-ray did not show any acute changes. Once again, patient gradually improved and was able to improve with therapy. She was able to be switched to oral prednisone. She did have some elevation in her blood sugars that were controlled to some extent with insulin but with general condition improving plans are for her to be discharged to home. She will remain on: 1. Albuterol, respiratory treatments 4 times a day. 2. Aspirin 81 mg. 3. She is on Felodipine 10 mg in the morning and 5 mg in the evening for her blood pressure. 4. Advair 500/550 1 inhalation twice a day. 5. Lasix 20 mg every other day. 6. Quinapril 20 mg at bedtime. 7. Zocor 20 mg. 8. Vitamin replacement therapy with Ocuvite. 9. Metformin 5 mg at breakfast. 10. Tapering dosages of prednisone 10 mg tablets 3 for 5 days, 2 for 5 days and one for 5 days. 11. She also may use of lorazepam 5 mg 1 during the day and one if needed at night for sleep. 12. Finish off her course of Levaquin 500 mg daily for 5 days. FINAL DIAGNOSIS(ES): 1. Acute exacerbation of chronic obstructive pulmonary disease with acute on chronic respiratory failure resulting in hypoxia and severe weakness in this patient with underlying severe chronic obstructive pulmonary disease with FEV1 of 34. 2. Hyperkalemia on presentation. 3. 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 4. Chronic kidney disease stage III by history. 5. Hypertension. 6. Degenerative joint disease. 7. Previous right knee surgery. 8. History of previous left breast lumpectomy and previous tamoxifen treatment for cancer. 9. History of right carotid endarterectomy. 10. History of esophageal stenosis status post dilatation. 11. Previous history of left thyroid nodule that has now been unchanged. Once again, the patient to follow-up in the office in 5 to 7 days. Call if any questions, concerns or problems. Also home visiting nurses. DIET: Regular. As tolerated. Activities as tolerated. Prognosis still is overall guarded in light of the multiple medical problems and the seriousness of her underlying lung disease. CHRIS
== END 2016-03-11 13:11 | disposition home health service (06) | DRG 190 ==
LOC: 4MS4W 17:32
PROVIDERS: ADMIT Internal Medicine; ATTEND Internal Medicine
DX: J44.1 Chronic obstructive pulmonary disease with (acute) exacerbation (principal); J96.21 Acute and chronic respiratory failure with hypoxia; E11.22 Type 2 diabetes mellitus with diabetic chronic kidney disease; E11.65 Type 2 diabetes mellitus with hyperglycemia; D64.9 Anemia, unspecified; E03.9 Hypothyroidism, unspecified; E66.9 Obesity, unspecified; E78.5 Hyperlipidemia, unspecified; E87.5 Hyperkalemia; G47.00 Insomnia, unspecified; I12.9 Hypertensive chronic kidney disease with stage 1 through stage 4 chronic kidney disease, or unspecified chronic kidney disease; J45.909 Unspecified asthma, uncomplicated; M17.0 Bilateral primary osteoarthritis of knee; N18.3 Chronic kidney disease, stage 3 (moderate); E04.1 Nontoxic single thyroid nodule; J32.9 Chronic sinusitis, unspecified; Z79.82 Long term (current) use of aspirin; Z79.84 Long term (current) use of oral hypoglycemic drugs; Z79.52 Long term (current) use of systemic steroids; Z79.899 Other long term (current) drug therapy; Z85.3 Personal history of malignant neoplasm of breast; Z87.891 Personal history of nicotine dependence; Z96.651 Presence of right artificial knee joint; Z99.81 Dependence on supplemental oxygen; Z88.2 Allergy status to sulfonamides; Z88.8 Allergy status to other drugs, medicaments and biological substances; Z88.1 Allergy status to other antibiotic agents; Z91.041 Radiographic dye allergy status; Z82.49 Family history of ischemic heart disease and other diseases of the circulatory system
CPT/HCPCS: 71010; 80048; 80053; 83036; 83605; 84443; 85025; 93005; 94640; 94760

== ENCOUNTER 2016-03-27 22:18 | Inpatient (IN) | payer MEDICARE ==
[2016-03-27] MEDS ORDERED: methylPREDNISolone SOD SUCCI 125 MG/2 ML VIAL IV STA (22:32)
[2016-03-27] MEDS ORDERED: IPRATROPIUM 0.5 MG/2.5 ML NEBU INHALATION STA (22:32)
[2016-03-27] MEDS ORDERED: ALBUTEROL NEBULIZED 2.5 MG/3 ML INHALATION STA (22:32)
[2016-03-27] MEDS ORDERED: LORazepam 2 MG/ML SYRINGE IV STA (22:32)
--- NOTE | 2016-03-27 22:35 | ED ---
General Adult HPI - General Chief complaint: Shortness of Breath Stated complaint: chest pains Time Seen by Provider: 03/27/16 22:22 Source: patient, RN notes reviewed, old records reviewed Mode of arrival: EMS Limitations: no limitations - History of Present Illness Initial comments: This is an 80-year-old female here for evaluation. This patient presents today for evaluation of shortness of breath, severe shortness of breath and history of COPD. Patient was last Hospital admission about a month ago. States she's had no fevers her chest pain since then, significant shortness of breath, patient is on home oxygen. No travel history no significant sick contacts, patient states he tries to keep herself. Again no leg pain or chest pain, no rashes, is taking medication as prescribed - Related Data Home Medications Medication Instructions Recorded Confirmed Quinapril HCl [Accupril] 20 mg PO HS 10/06/13 03/27/16 Vit A,C & E/Lutein/Minerals 1 tab PO DAILY 10/06/13 03/27/16 [Ocuvite with Lutein Tablet] metFORMIN HCL [Glucophage] 500 mg PO AC-[id number] 10/06/13 03/27/16 Felodipine [Felodipine ER] 5 mg PO DAILY 06/07/14 03/27/16 Felodipine [Felodipine ER] 10 mg PO DAILY 06/07/14 03/27/16 Albuterol Nebulized [Ventolin 2.5 mg INHALATION RT-QID PRN 06/28/14 03/27/16 Nebulized] Aspirin EC [Ecotrin Low Dose] 81 mg PO HS 06/28/14 03/27/16 Fluticasone/Salmeterol [Advair 1 puff INHALATION RT-BID 03/07/16 03/27/16 500-50 Diskus] Furosemide [Lasix] 20 mg PO Q48H 03/07/16 03/27/16 Simvastatin [Zocor] 20 mg PO HS 03/07/16 03/27/16 Allergies Allergy/AdvReac Type Severity Reaction Status Date / Time doxycycline Allergy Rash/Hives Verified 03/27/16 22:37 glucosamine Allergy Rash/Hives Verified 03/27/16 22:37 Iodinated Contrast Media - Allergy Rash/Hives Verified 03/27/16 22:37 Oral and [Iodinated Contrast Media - IV Dye] Sulfa (Sulfonamide Allergy Rash/Hives Verified 03/27/16 22:37 Antibiotics) baclofen AdvReac Confusion Verified 03/27/16 22:37 Review of Systems ROS Statement: Those systems with pertinent positive or pertinent negative responses have been documented in the HPI. ROS Other: All systems not noted in ROS Statement are negative. Past Medical History Past Medical History: COPD, Diabetes Mellitus, Hyperlipidemia, Hypertension, Osteoarthritis (OA), Pneumonia, Thyroid Disorder Additional Past Medical History / Comment(s): COPD , anemia, chronic hypoxic respiratory failure and the patient has been on oxygen at 2.5 L/m nasal cannula , lt breast cancer, , chronic sinus disease,djd emphysema, thyroid nodule History of Any Multi-Drug Resistant Organisms: None Reported Past Surgical History: Breast Surgery, Orthopedic Surgery, Tonsillectomy Additional Past Surgical History / Comment(s): 2002 lt lumpectomy and 35 radiation tx,2004 right carotid endarectomy, rt knee arthroscopy,2009 right knee replacement 2006 bilateral cataract , had esophageal dilation via EGD Past Anesthesia/Blood Transfusion Reactions: Postoperative Nausea & Vomiting ( PONV) Additional Past Anesthesia/Blood Transfusion Reaction / Comment(s): vomited after surg. Past Psychological History: No Psychological Hx Reported Smoking Status: Former smoker Past Alcohol Use History: None Reported Additional Past Alcohol Use History / Comment(s): per pt's daughter-pt quit smoking 20 years ago Past Drug Use History: None Reported - Past Family History Father Family Medical History: Coronary Artery Disease (CAD) Additional Family Medical History / Comment(s): young from heart problems Mother Family Medical History: Asthma, COPD General Exam Limitations: no limitations General appearance: alert, in no apparent distress, anxious, in distress, obese Head exam: Present: atraumatic, normocephalic, normal inspection Eye exam: Present: normal appearance, PERRL, EOMI. Absent: scleral icterus, conjunctival injection, periorbital swelling ENT exam: Present: normal exam, mucous membranes moist Neck exam: Present: normal inspection. Absent: tenderness, meningismus, lymphadenopathy Respiratory exam: Present: normal lung sounds bilaterally, wheezes, decreased breath sounds, prolonged expiratory. Absent: respiratory distress, rales, rhonchi, stridor Cardiovascular Exam: Present: regular rate, normal rhythm, normal heart sounds. Absent: systolic murmur, diastolic murmur, rubs, gallop, clicks GI/Abdominal exam: Present: soft, normal bowel sounds. Absent: distended, tenderness, guarding, rebound, rigid Extremities exam: Present: normal inspection, full ROM, normal capillary refill. Absent: tenderness, pedal edema, joint swelling, calf tenderness Back exam: Present: normal inspection Neurological exam: Present: alert, oriented X3, CN II-XII intact Psychiatric exam: Present: normal affect, normal mood Skin exam: Present: warm, dry, intact, normal color. Absent: rash Course Vital Signs 03/27/16 03/27/16 03/27/16 22:27 22:51 23:24 Temperature 98.2 F Pulse Rate 86 96 98 Respiratory 26 H Rate Blood Pressure 175/73 O2 Sat by Pulse 95 Oximetry 03/27/16 23:25 Temperature Pulse Rate 99 Respiratory 24 Rate Blood Pressure 169/67 O2 Sat by Pulse 97 Oximetry - Reevaluation(s) Reevaluation #1: 03/28/16 00:25 mild impreovement with prolonged breathing treatment EKG Findings - EKG Comments: EKG Findings:: EKG shows normal sinus rhythm rate of 91, DE 154, QRS 74, QTC 423 Medical Decision Making - Medical Decision Making 80 female here for evaluation. Patient coming in here for evaluation of multiple issues also shortness of breath cough and congestion. Patient is having severe COPD exacerbation will be admitted for breathing treatments and steroids. Monitoring of cardiopulmonary disease and collapse - Lab Data Result diagrams: 03/27/16 22:49 03/27/16 22:49 Lab Results 03/27/16 03/27/16 03/27/16 Range/Units 22:49 22:49 22:49 WBC 8.5 (3.8-10.6) k/uL RBC 3.61 L (3.80-5.40) m/uL Hgb 9.6 L (11.4-16.0) gm/dL Hct 31.9 L (34.0-46.0) % MCV 88.3 (80.0-100.0) fL MCH 26.5 (25.0-35.0) pg MCHC 30.0 L (31.0-37.0) g/dL RDW 13.4 (11.5-15.5) % Plt Count 232 (150-450) k/uL Neutrophils % 89 % Lymphocytes % 6 % Monocytes % 4 % Eosinophils % 1 % Basophils % 0 % Neutrophils # 7.5 (1.3-7.7) k/uL Lymphocytes # 0.5 L (1.0-4.8) k/uL Monocytes # 0.3 (0-1.0) k/uL Eosinophils # 0.1 (0-0.7) k/uL Basophils # 0.0 (0-0.2) k/uL Hypochromasia Marked PT (9.0-12.0) sec INR (<1.1) APTT (22.0-30.0) sec Sodium 143 (137-145) mmol/L Potassium 5.3 H (3.5-5.1) mmol/L Chloride 97 L (98-107) mmol/L Carbon Dioxide 41 H* (22-30) mmol/L Anion Gap 5 mmol/L BUN 26 H (7-17) mg/dL Creatinine 1.53 H (0.52-1.04) mg/dL Est GFR (MDRD) Af Amer 40 (>60 ml/min/1.73 sqM) Est GFR (MDRD) Non-Af 33 (>60 ml/min/1.73 sqM) Glucose 244 H (74-99) mg/dL Calcium 9.4 (8.4-10.2) mg/dL Magnesium 2.4 H (1.6-2.3) mg/dL Total Bilirubin 0.5 (0.2-1.3) mg/dL AST 177 H (14-36) U/L ALT 96 H (9-52) U/L Alkaline Phosphatase 240 H (38-126) U/L Total Creatine Kinase 22 L (30-135) U/L CK-MB (CK-2) 1.9 (0.0-2.4) ng/mL CK-MB (CK-2) Rel Index 8.6 Troponin I 0.045 H* (0.000-0.034) ng/mL NT-Pro-B Natriuret Pep pg/mL Total Protein 5.6 L (6.3-8.2) g/dL Albumin 3.1 L (3.5-5.0) g/dL Influenza Type A RNA (Not Detectd) Influenza Type B (PCR) (Not Detectd) 03/27/16 03/27/16 03/27/16 Range/Units 22:49 22:49 22:49 WBC (3.8-10.6) k/uL RBC (3.80-5.40) m/uL Hgb (11.4-16.0) gm/dL Hct (34.0-46.0) % MCV (80.0-100.0) fL MCH (25.0-35.0) pg MCHC (31.0-37.0) g/dL RDW (11.5-15.5) % Plt Count (150-450) k/uL Neutrophils % % Lymphocytes % % Monocytes % % Eosinophils % % Basophils % % Neutrophils # (1.3-7.7) k/uL Lymphocytes # (1.0-4.8) k/uL Monocytes # (0-1.0) k/uL Eosinophils # (0-0.7) k/uL Basophils # (0-0.2) k/uL Hypochromasia PT 9.3 (9.0-12.0) sec INR 0.9 (<1.1) APTT 22.1 (22.0-30.0) sec Sodium (137-145) mmol/L Potassium (3.5-5.1) mmol/L Chloride (98-107) mmol/L Carbon Dioxide (22-30) mmol/L Anion Gap mmol/L BUN (7-17) mg/dL Creatinine (0.52-1.04) mg/dL Est GFR (MDRD) Af Amer (>60 ml/min/1.73 sqM) Est GFR (MDRD) Non-Af (>60 ml/min/1.73 sqM) Glucose (74-99) mg/dL Calcium (8.4-10.2) mg/dL Magnesium (1.6-2.3) mg/dL Total Bilirubin (0.2-1.3) mg/dL AST (14-36) U/L ALT (9-52) U/L Alkaline Phosphatase (38-126) U/L Total Creatine Kinase (30-135) U/L CK-MB (CK-2) (0.0-2.4) ng/mL CK-MB (CK-2) Rel Index Troponin I (0.000-0.034) ng/mL NT-Pro-B Natriuret Pep 974 pg/mL Total Protein (6.3-8.2) g/dL Albumin (3.5-5.0) g/dL Influenza Type A RNA Not Detected (Not Detectd) Influenza Type B (PCR) Not Detected (Not Detectd) - Radiology Data Radiology results: report reviewed (Chest x-ray is no changes), image reviewed Critical Care Time Critical Care Time: Yes Total Critical Care Time: 31 Disposition Clinical Impression: COPD (chronic obstructive pulmonary disease), Acute exacerbation of chronic obstructive airways disease, Hypoxia Disposition: ADMITTED IP TO THIS HOSP Condition: Fair
[2016-03-27 23:01] LABS: Basophils % (A) 0 %; CH 26.5; Eosinophils # (A) 0.1 k/uL (0-0.7); Eosinophils % (A) 1 %; HCT 31.9 % (34.0-46.0); HGB 9.6 gm/dL (11.4-16.0); Hypochromasia Marked; Luc # (Auto) 0.06; Luc % (Auto) 1; Lymphocytes # (A) 0.5 k/uL (1.0-4.8); Lymphocytes % (A) 6 %; MCH 26.5 pg (25.0-35.0); MCV 88.3 fL (80.0-100.0); Mean Platelet Volume 7.6; Monocytes # (A) 0.3 k/uL (0-1.0); Monocytes % (A) 4 %; Neutrophils # (A) 7.5 k/uL (1.3-7.7); Neutrophils % (A) 89 %; RBC 3.61 m/uL (3.80-5.40); RDW 13.4 % (11.5-15.5); WBC 8.5 k/uL (3.8-10.6); WBC (Perox) 8.53
[2016-03-27 23:17] LABS: Calcium 9.4 mg/dL (8.4-10.2); Magnesium 2.4 mg/dL (1.6-2.3); Potassium 5.3 mmol/L (3.5-5.1); Total Bilirubin 0.5 mg/dL (0.2-1.3); Total Protein 5.6 g/dL (6.3-8.2)
[2016-03-27 23:21] LABS: INR 0.9 (<1.1); Partial Thromboplastin Time 22.1 sec (22.0-30.0); Prothrombin Time 9.3 sec (9.0-12.0)
[2016-03-27 23:33] LABS: Creatine Kinase MB 1.9 ng/mL (0.0-2.4)
[2016-03-27 23:44] LABS: Troponin I 0.045 ng/mL (0.000-0.034)
--- NOTE | 2016-03-27 23:49 | XR ---
EXAMINATION TYPE: XR chest 2V DATE OF EXAM: 03/27/2016 11:37 PM COMPARISON: 03/07/2016 HISTORY: Hypoxemia TECHNIQUE: Frontal and lateral views of the chest are obtained. FINDINGS: There is coarsening of interstitial markings. There is no pleural effusion. There is no gr oss heart failure. There are chest leads. Heart size is normal. There are no hilar masses. There is m ild thoracic kyphotic curvature. IMPRESSION: Mild pulmonary fibrotic changes. No heart failure or pulmonary consolidation. Inspiratio n is less than old exam.
[2016-03-28] MEDS: SODIUM CHLORIDE 0.9% 1,000 ML IV SCH ×3 (00:42→20:44)
--- NOTE | 2016-03-28 01:17 | US ---
EXAMINATION TYPE: US gallbladder DATE OF EXAM: 03/28/2016 12:25 AM COMPARISON: NONE CLINICAL HISTORY: elevLFTs. Difficult/limited exam. Patient constantly moving during exam, unable to take a deep breath in and hold it. EXAM MEASUREMENTS: Liver Length: 15.5 cm Gallbladder Wall: 0.3 cm CBD: 0.4 cm Right Kidney: 10.7 x 5.4 x 5.2 cm TECHNOLOGIST IMPRESSION: Pancreas: Obscured by bowel gas Liver: Limited visualization, Obscured by overlying bowel gas. Visualized portions are heterogeneous Gallbladder: Multiple echogenic foci with posterior shadowing present Evidence for sonographic Reyes's sign: No CBD: wnl as visualized, distal portion obscured by bowel gas Right Kidney: No hydronephrosis or masses seen IMPRESSION: Numerous gallstones. No dilated ducts. No focal liver defect.
[2016-03-28] MEDS ORDERED: LISINOPRIL 10 MG TAB PO STA (06:30)
[2016-03-28 06:47] LABS: Glucose,Whole Blood 253 mg/dL (75-99)
[2016-03-28] MEDS: methylPREDNISolone SOD SUCCI 125 MG/2 ML VIAL IV SCH ×4 (07:16→23:22)
[2016-03-28] MEDS: INSULIN LISPRO (humaLOG) 300 UNIT/3 ML VIAL SQ SCH ×4 (07:56→21:25)
[2016-03-28] MEDS ORDERED: SYMBICORT 160-4.5 MCG INHALER INHALATION SCH (08:00)
--- NOTE | 2016-03-28 08:11 | P.HPIM ---
History of Present Illness Patient presented with shortness of breath. History of present illness: The patient is an 80-year-old female who has underlying severe COPD and presented to the emergency room by EMS with shortness of breath last night. Apparently she woke up in the middle of the night and could not breathe at all. States she could not get any air in. She felt very panicky. She is having marked trouble with sleeping at night which has been somewhat of a chronic problem. She apparently is also getting weaker and having more difficulty taking care of herself at home. Past medical history: As mentioned patient does have rather severe COPD with an FEV1 of only 34%. Patient is on home oxygen and has home nebulizer treatments. The patient is followed by pulmonary medicine Dr. Arana as an outpatient. Other past medical history includes hypertension, degenerative joint disease of the knees. Type 2 diabetes and chronic kidney disease stage III. Previous surgeries include a right total knee replacement and a previous left breast lumpectomy with radiation treatments back in 2004. She has had previous esophageal dilatation and also a right carotid endarterectomy repair in the past. Medications: Patient relates ALLERGIES to doxycycline and glucosamine along with contrast dye and sulfa and baclofen. Apparently she developed rashes with the first 4 and mental confusion with baclofen. Home medications: Please refer to list Albuterol treatments at home 4 times a day. Amlodipine 10 mg in the morning and 5 mg in the evening Aspirin 81 mg daily Simvastatin 20 mg at at bedtime. For cholesterol Metformin 500 mg at breakfast Patient is on maintenance prednisone at home. Quinapril 20 mg at bedtime for blood pressure. Furosemide 20 mg every 48 hours. Advair Diskus 500-50 one inhalation twice a day. Review of systems: Basically as in the history of present illness. No definite fever or chills associated with this. No unusual headaches. No nausea or vomiting. Patient denies any abdominal pain. No new urinary or bowel symptoms. She does at times get some trace edema in the lower extremities. No hemoptysis. Family history: Apparently her father of blood clots at the age of 57. There is also a history of diabetes along with coronary artery disease in her family. The patient has a sister apparently had bladder cancer and another sister with brain cancer. Social history: Patient apparently still lives in her own home. Family members are present. Apparently they do have other responsibilities. She is a former heavy smoker. Has been for several years now about 10. Physical examination: The patient is a frail, tremulous female with prolonged expiratory phase breathing and shortness of breath at rest interfering with her conversation. Vital signs reveal temperature of 97.4 with a pulse of 90 and respirations 20. Blood pressure was 173/80 and she is 94% saturated on 3 L nasal cannula. Once again there is a prolonged expiratory phase. Head and neck exam that was unremarkable with extraocular movements intact. No definite adenopathy thyromegaly or bruits detected in the neck. Breath sounds are generally diminished especially at the bases. No definite wheezing heard at this time. Heart tones were regular. No definite murmurs or rubs appreciated. Abdomen was mildly distended but soft and nontender. No definite organomegaly. Pelvic and breast exam deferred. 1+ edema. No calf tenderness. She is alert and oriented. Moving all extremities without focal deficits. No cranial nerve deficits noted. Generally frail and generalized weakness noted. Lab testing: White count was 8.5 with a hemoglobin 9.6 and a MCV of 88. Platelet count of 232. INR is 0.9. Sodium 143 with a potassium of 5.3 and a CO2 content of 41. BUN was 26 with a creatinine of 1.53 given her GFR of 33. Blood sugar elevated at 244. AST is elevated at 177 with a a.l. T of 96. Alk phos also elevated 240. CK was low at 22 and troponin mildly elevated 0.045. Albumin low at 3.1. Influenza A and B were did not detected. Chest x-ray showed some mild fibrotic changes no acute evidence of failure or consolidation. Ultrasound of the gallbladder revealed some scaring by bowel gas. There was evidence of echogenic foci present. No hydro-nephrosis.. Impressions and plans: 1. Exacerbation of severe COPD with severe shortness of breath. 2. Elevated liver function testing of unknown origin at this time. 3. Chronic kidney disease stage III. 4. Other comorbidities include: Hypertension, osteoarthritis of the knees, underlying diabetes. 5. Previous surgeries that include esophageal dilatation and right carotid endarterectomy. History also of left breast lumpectomy with radiation treatments back in 2004. Patient to receive IV corticosteroids along with her respiratory treatments and other pulmonary medications. Consultation with pulmonary medicine. Patient also to have repeat laboratory testing to evaluate liver function tests. Further recommendations pending results. Discharge planning with social work consult. Discussed with patient and staff at bedside this morning. Long-term prognosis guarded. Past Medical History Past Medical History: COPD, Diabetes Mellitus, Hyperlipidemia, Hypertension, Osteoarthritis (OA), Pneumonia, Thyroid Disorder Additional Past Medical History / Comment(s): COPD , anemia, chronic hypoxic respiratory failure and the patient has been on oxygen at 2.5 L/m nasal cannula , lt breast cancer, , chronic sinus disease,djd emphysema, thyroid nodule History of Any Multi-Drug Resistant Organisms: None Reported Past Surgical History: Breast Surgery, Orthopedic Surgery, Tonsillectomy Additional Past Surgical History / Comment(s): 2002 lt lumpectomy and 35 radiation tx,2005 right carotid endarectomy, rt knee arthroscopy,2009 right knee replacement 2007 bilateral cataract , had esophageal dilation via EGD Past Anesthesia/Blood Transfusion Reactions: Postoperative Nausea & Vomiting ( PONV) Additional Past Anesthesia/Blood Transfusion Reaction / Comment(s): vomited after surg. Past Psychological History: No Psychological Hx Reported Smoking Status: Former smoker Past Alcohol Use History: None Reported Additional Past Alcohol Use History / Comment(s): per pt's daughter-pt quit smoking 20 years ago Past Drug Use History: None Reported - Past Family History Father Family Medical History: Coronary Artery Disease (CAD) Additional Family Medical History / Comment(s): young from heart problems Mother Family Medical History: Asthma, COPD Medications and Allergies Home Medications Medication Instructions Recorded Confirmed Type Quinapril HCl [Accupril] 20 mg PO HS 10/06/13 03/27/16 History Vit A,C & E/Lutein/Minerals 1 tab PO DAILY 10/06/13 03/27/16 History [Ocuvite with Lutein Tablet] metFORMIN HCL [Glucophage] 500 mg PO AC-BRKFST 10/06/13 03/27/16 History Felodipine [Felodipine ER] 5 mg PO DAILY 06/07/14 03/27/16 History Felodipine [Felodipine ER] 10 mg PO DAILY 06/07/14 03/27/16 History Albuterol Nebulized [Ventolin 2.5 mg INHALATION RT-QID PRN 06/28/14 03/27/16 History Nebulized] Aspirin EC [Ecotrin Low Dose] 81 mg PO HS 06/28/14 03/27/16 History Fluticasone/Salmeterol [Advair 1 puff INHALATION RT-BID 03/07/16 03/27/16 History 500-50 Diskus] Furosemide [Lasix] 20 mg PO Q48H 03/07/16 03/27/16 History Simvastatin [Zocor] 20 mg PO HS 03/07/16 03/27/16 History Allergies Allergy/AdvReac Type Severity Reaction Status Date / Time doxycycline Allergy Rash/Hives Verified 03/27/16 22:37 glucosamine Allergy Rash/Hives Verified 03/27/16 22:37 Iodinated Contrast Media - Allergy Rash/Hives Verified 03/27/16 22:37 Oral and [Iodinated Contrast Media - IV Dye] Sulfa (Sulfonamide Allergy Rash/Hives Verified 03/27/16 22:37 Antibiotics) baclofen AdvReac Confusion Verified 03/27/16 22:37 Physical Exam Vitals: Vital Signs Temp Pulse Pulse Resp BP BP Pulse Ox 03/28/16 04:00 97.4 F L 90 20 173/80 94 L 03/28/16 00:35 97.7 F 80 22 154/89 92 L Intake and Output 03/27/16 03/28/16 03/28/16 22:59 06:59 14:59 Intake Total 600 Balance 600 Intake: IV 600 Sodium Chloride 0.9% 1, 600 000 ml @ 100 mls/hr IV . Q10H [facility] Rx#:[id number] Other: Voiding Method Bedside Commode Weight 73.6 kg Results CBC & Chem 7: 03/27/16 22:49 03/27/16 22:49 Labs: Abnormal Lab Results - Last 24 Hours (Table) 03/28/16 Range/Units 06:46 POC Glucose (mg/dL) 253 H (75-99) mg/dL Thrombosis Risk Factor Assmnt - Choose All That Apply Any of the Below Risk Factors Present?: Yes Each Factor Represents 1 point: Abnormal pulmonary function (COPD), Obesity ( BMI >25) Other Risk Factors: Yes Each Risk Factor Represents 3 Points: Age 75 years or older Other congenital or acquired thrombophilia - If yes, enter type in comment: Yes Thrombosis Risk Factor Assessment Total Risk Factor Score: 5 Thrombosis Risk Factor Assessment Level: High Risk
[2016-03-28] MEDS: IPRATROPIUM-ALBUTEROL 3 ML NEB INHALATION SCH ×4 (08:59→20:21)
[2016-03-28] MEDS ORDERED: ENOXAPARIN 40 MG/0.4 ML SYRINGE SQ SCH (09:00)
[2016-03-28] MEDS ORDERED: FUROSEMIDE 20 MG TAB PO SCH (09:00)
[2016-03-28] MEDS ORDERED: FELODIPINE 10 MG PO SCH (09:00)
[2016-03-28 12:02] LABS: Glucose,Whole Blood 275 mg/dL (75-99)
[2016-03-28] MEDS: amLODIPine 5 MG TAB PO SCH (12:30)
[2016-03-28 12:31] LABS: Hemoglobin A1C 6.5 % (4.2-6.1)
[2016-03-28] MEDS: LISINOPRIL 20 MG TAB PO SCH (12:31)
[2016-03-28] MEDS: VIT A,C & E-LUTEIN-MINERALS 1 EACH TAB PO SCH (12:31)
[2016-03-28] MEDS: SERTRALINE 25 MG TAB PO SCH (12:32)
--- NOTE | 2016-03-28 16:45 | P.CNPUL ---
History of Present Illness Consult date: 03/28/16 Requesting physician: [place] Reason for consult: COPD Chief complaint: Shortness of breath History of present illness: This is an 80-year-old female with history of severe COPD, FEV1 is in the range of 34%, she is O2 dependent, but not prednisone dependent, patient usually sees Dr. Arana. Patient was admitted this time with relatively acute presentation of shortness of breath, patient woke up in the middle of the night last night with shortness of breath and did not get any air. Patient became more anxious, and as she became more panicky, shortness of breath became more pronounced. Patient was brought in admitted, and this consult was initiated. Denies any fever no chills no hemoptysis, she has occasional cough and wheezing , physical examination today revealed mostly diminished breath sounds, no rhonchi, no wheezes. I felt that the presentation is mostly a presentation of acute COPD exacerbation compounded by panic-like attack and anxiety as she became short of breath. Hence I recommended adding Zoloft today at 25 mg daily on a trial basis. Review of Systems 14 point review of systems were obtained, please refer to pertinent positives and negatives as per HPI Past Medical History Past Medical History: COPD, Diabetes Mellitus, Hyperlipidemia, Hypertension, Osteoarthritis (OA), Pneumonia, Thyroid Disorder Additional Past Medical History / Comment(s): COPD , anemia, chronic hypoxic respiratory failure and the patient has been on oxygen at 2.5 L/m nasal cannula , lt breast cancer, , chronic sinus disease,djd emphysema, thyroid nodule History of Any Multi-Drug Resistant Organisms: None Reported Past Surgical History: Breast Surgery, Orthopedic Surgery, Tonsillectomy Additional Past Surgical History / Comment(s): 2002 lt lumpectomy and 35 radiation tx,2005 right carotid endarectomy, rt knee arthroscopy,2010 right knee replacement 2007 bilateral cataract , had esophageal dilation via EGD Past Anesthesia/Blood Transfusion Reactions: Postoperative Nausea & Vomiting ( PONV) Additional Past Anesthesia/Blood Transfusion Reaction / Comment(s): vomited after surg. Past Psychological History: No Psychological Hx Reported Smoking Status: Former smoker Past Alcohol Use History: None Reported Additional Past Alcohol Use History / Comment(s): per pt's daughter-pt quit smoking 20 years ago Past Drug Use History: None Reported - Past Family History Father Family Medical History: Coronary Artery Disease (CAD) Additional Family Medical History / Comment(s): young from heart problems Mother Family Medical History: Asthma, COPD Medications and Allergies Home Medications Medication Instructions Recorded Confirmed Type Quinapril HCl [Accupril] 20 mg PO HS 10/06/13 03/27/16 History Vit A,C & E/Lutein/Minerals 1 tab PO DAILY 10/06/13 03/27/16 History [Ocuvite with Lutein Tablet] metFORMIN HCL [Glucophage] 500 mg PO AC-BRKFST 10/06/13 03/27/16 History Felodipine [Felodipine ER] 5 mg PO DAILY 06/07/14 03/27/16 History Felodipine [Felodipine ER] 10 mg PO DAILY 06/07/14 03/27/16 History Albuterol Nebulized [Ventolin 2.5 mg INHALATION RT-QID PRN 06/28/14 03/27/16 History Nebulized] Aspirin EC [Ecotrin Low Dose] 81 mg PO HS 06/28/14 03/27/16 History Fluticasone/Salmeterol [Advair 1 puff INHALATION RT-BID 03/07/16 03/27/16 History 500-50 Diskus] Furosemide [Lasix] 20 mg PO Q48H 03/07/16 03/27/16 History Simvastatin [Zocor] 20 mg PO HS 03/07/16 03/27/16 History Allergies Allergy/AdvReac Type Severity Reaction Status Date / Time doxycycline Allergy Rash/Hives Verified 03/27/16 22:37 glucosamine Allergy Rash/Hives Verified 03/27/16 22:37 Iodinated Contrast Media - Allergy Rash/Hives Verified 03/27/16 22:37 Oral and [Iodinated Contrast Media - IV Dye] Sulfa (Sulfonamide Allergy Rash/Hives Verified 03/27/16 22:37 Antibiotics) baclofen AdvReac Confusion Verified 03/27/16 22:37 Physical Exam Vitals: Vital Signs Temp Pulse Pulse Resp BP BP Pulse Ox 03/28/16 15:30 92 03/28/16 15:19 90 03/28/16 12:24 96 03/28/16 12:13 96 03/28/16 12:00 100 16 200/84 96 03/28/16 09:11 92 03/28/16 09:02 92 94 L 03/28/16 08:00 97 F L 92 20 195/91 92 L 03/28/16 04:00 97.4 F L 90 20 173/80 94 L 03/28/16 00:35 97.7 F 80 22 154/89 92 L Intake and Output 03/28/16 03/28/16 03/28/16 06:59 14:59 22:59 Intake Total 600 300 Balance 600 300 Intake: IV 600 Sodium Chloride 0.9% 1, 600 000 ml @ 100 mls/hr IV . Q10H [facility] Rx#:[id number] Oral 300 Other: Voiding Method Bedside Commode Bedside Commode # Voids 1 Weight 73.6 kg Physical Exam: Revealed an 80-year-old female in no distress HEENT:[Neck is supple.] [No neck masses.] [No thyromegaly.] [No JVD.] Chest: [Diminished breath sounds at the bases no crackles or rhonchi or wheezes. ] Cardiac Exam: [Normal S1 and S2, no S3 gallop, no murmur.] Abdomen: [Soft, nontender, no megaly, no rebound, no guarding, normal bowel sounds.] Extremities: [No clubbing, no edema, no cyanosis.] Neurological Exam: [No focal neurologic deficit.] Results - Laboratory Findings CBC and BMP: 03/27/16 22:49 03/27/16 22:49 PT/INR, D-dimer PT 9.3 sec (9.0-12.0) 03/27/16 22:49 INR 0.9 (<1.1) 03/27/16 22:49 Abnormal lab findings: Abnormal Labs 03/28/16 03/28/16 06:46 12:01 POC Glucose (mg/dL) 253 H 275 H - Diagnostic Findings Chest x-ray: image reviewed (Minimal fibrotic changes noted otherwise chest x- ray is unremarkable. There is mostly coarse interstitial markings no evidence of acute active disease.) Assessment and Plan Plan: Impression: 1 acute exacerbation of severe gold stage IV COPD. 2 acute anxiety compounding her symptoms of shortness of breath related mostly to COPD. 3 multiple comorbidities including hypertension, degenerative joint disease, diabetes. Recommendation: Patient seems to be doing quite well with the present course of treatment as outlined and recommended by Dr. Gil, I recommended that we continue the same, added to 25 mg of Zoloft on a daily basis, continue Xanax, consider discharge planning in the next 24 hours. Time with Patient: Greater than 30
[2016-03-28 16:48] LABS: Glucose,Whole Blood 174 mg/dL (75-99)
[2016-03-28] MEDS: SYMBICORT 160-4.5 MCG INHALER INHALATION SCH (20:21)
[2016-03-28] MEDS ORDERED: ATORVASTATIN 10 MG TAB PO SCH (21:00)
[2016-03-28] MEDS ORDERED: INSULIN LISPRO (humaLOG) 300 UNIT/3 ML VIAL SQ ONE (21:01)
[2016-03-28 21:12] LABS: Glucose,Whole Blood 257 mg/dL (75-99)
[2016-03-28] MEDS: ASPIRIN 81 MG CHEW PO SCH (21:25)
[2016-03-29] MEDS: SODIUM CHLORIDE 0.9% 1,000 ML IV SCH (06:12)
[2016-03-29 06:16] LABS: Basophils % (A) 0 %; CHCM 28.7; Eosinophils % (A) 0 %; HCT 31.6 % (34.0-46.0); HDW 2.42; HGB 9.2 gm/dL (11.4-16.0); Hypochromasia Marked; Luc # (Auto) 0.04; Luc % (Auto) 0; Lymphocytes # (A) 0.3 k/uL (1.0-4.8); Lymphocytes % (A) 2 %; MCH 26.5 pg (25.0-35.0); MCHC 29.2 g/dL (31.0-37.0); MCV 90.8 fL (80.0-100.0); Mean Platelet Volume 6.9; Monocytes # (A) 0.2 k/uL (0-1.0); Monocytes % (A) 1 %; Neutrophils # (A) 14.8 k/uL (1.3-7.7); Neutrophils % (A) 96 %; RBC 3.48 m/uL (3.80-5.40); RDW 13.1 % (11.5-15.5); WBC 15.3 k/uL (3.8-10.6); WBC (Perox) 16.44
[2016-03-29] MEDS: methylPREDNISolone SOD SUCCI 125 MG/2 ML VIAL IV SCH (06:28)
[2016-03-29] MEDS: INSULIN LISPRO (humaLOG) 300 UNIT/3 ML VIAL SQ SCH ×4 (06:30→20:36)
[2016-03-29 06:35] LABS: Calcium 9.1 mg/dL (8.4-10.2); Potassium 5.6 mmol/L (3.5-5.1); Total Bilirubin 0.3 mg/dL (0.2-1.3); Total Protein 5.8 g/dL (6.3-8.2)
[2016-03-29 06:41] LABS: Glucose,Whole Blood 240 mg/dL (75-99)
[2016-03-29] MEDS ORDERED: metFORMIN 500 MG TAB PO SCH (07:30)
[2016-03-29] MEDS: IPRATROPIUM-ALBUTEROL 3 ML NEB INHALATION SCH ×4 (08:09→19:53)
[2016-03-29] MEDS: SYMBICORT 160-4.5 MCG INHALER INHALATION SCH ×2 (08:10→19:54)
[2016-03-29] MEDS: VIT A,C & E-LUTEIN-MINERALS 1 EACH TAB PO SCH (08:48)
[2016-03-29] MEDS: SERTRALINE 25 MG TAB PO SCH (08:48)
[2016-03-29] MEDS: LISINOPRIL 20 MG TAB PO SCH (08:48)
[2016-03-29] MEDS: amLODIPine 5 MG TAB PO SCH (08:48)
[2016-03-29] MEDS: ENOXAPARIN 30 MG/0.3 ML SYRINGE SQ SCH (08:49)
--- NOTE | 2016-03-29 10:43 | P.PN ---
Progress Note - Text The patient is an 80-year-old female with very severe underlying COPD who presented to the emergency room 2 nights ago with worsening shortness of breath. It actually seemed to cause her to have a panic attack on top of her exacerbation of COPD. Patient has been seen by pulmonary medicine. Patient has been treated with corticosteroids along with her respiratory treatments and inhalers. Zoloft also has been added. She is somewhat doing better. Patient was seen by physical therapy yesterday and did have some weakness and balance difficulties. Blood sugar being on steroids her IV steroids has been elevated. Vital signs reveal a temperature of 96 with a pulse of 76 and respirations 20 nonlabored but shallow. Initial blood pressure was 193/78 and she is 92% saturated on 3 L nasal cannula. Breath sounds overall diminished. But no wheezing. Heart tones are distant but regular. Abdomen is soft and nontender. No edema. She does have mild tremulousness but no focal weakness noted. She is alert and oriented. Laboratory values: White count is elevated to 15.3 and her hemoglobin is 9.2 with a white blood count of 266. Sodium 141 with a elevated potassium of 5.6. Her CO2 content is 32. BUN is 38 with creatinine 1.71 giving her a GFR of 29 and her blood sugars have been in the 200 range. Liver function tests are still elevated but improved with a AST down to 33 but ALT of 78 and an alk phos of 190. Bilirubin was normal at 0.3. Albumin is low at 3.2. Impressions and plans: Overall this 80-year-old frail female with very severe COPD presents with further exacerbation along with panic attacks. We will change her prednisone to oral. Continue with physical therapy and her other pulmonary medications. We have added long-acting getting insulin and medication for her blood sugars. Discussed with patient and nursing staff and pulmonary medicine this morning. Possible discharge to home tomorrow. Home nursing care. Prognosis is guarded.
[2016-03-29] MEDS ORDERED: predniSONE 20 MG TAB PO SCH (10:45)
--- NOTE | 2016-03-29 11:10 | P.PN ---
Subjective Principal diagnosis: Acute exacerbation of COPD This is an 80-year-old female with history of severe COPD, FEV1 is in the range of 34%, she is O2 dependent, but not prednisone dependent, patient usually sees Dr. Arana. Patient was admitted this time with relatively acute presentation of shortness of breath, patient woke up in the middle of the night last night with shortness of breath and did not get any air. Patient became more anxious, and as she became more panicky, shortness of breath became more pronounced. Patient was brought in admitted, and this consult was initiated. Denies any fever no chills no hemoptysis, she has occasional cough and wheezing , physical examination today revealed mostly diminished breath sounds, no rhonchi, no wheezes. I felt that the presentation is mostly a presentation of acute COPD exacerbation compounded by panic-like attack and anxiety as she became short of breath. Hence I recommended adding Zoloft today at 25 mg daily on a trial basis. Patient was reevaluated today on 03/29/2016, feeling a bit better, breathing easier, no cough no wheezing no shortness of breath at rest. Patient did not sleep well last night. Remains a bit anxious. Labs were reviewed, she has a hyperkalemia with a potassium of 5.6, renal profile seems to be a bit worsening , and she has leukocytosis with WBC count of 15.3, hemoglobin is 9.2. Sugar seems to be running high. Liver enzymes seem to be improving. In the meantime I will go ahead and hold her atorvastatin and I will hold her Lasix. Considering the rise in her creatinine, metformin would have to be placed on hold also. Considering her insomnia I will go ahead and cut down her prednisone to 20 mg daily instead of 40 mg daily. Objective - Vital Signs Vital signs: Vital Signs Temp 96.0 F L 03/29/16 08:00 Pulse 76 03/29/16 08:20 Resp 20 03/29/16 08:00 BP 193/78 03/29/16 08:00 Pulse Ox 92 L 03/29/16 08:00 Intake & Output 03/28/16 03/29/16 03/29/16 18:59 06:59 18:59 Intake Total 500 1300 Output Total 250 Balance 500 -250 1300 Weight 75.1 kg Intake: IV 1200 Sodium Chloride 0.9% 1, 1200 000 ml @ 100 mls/hr IV . Q10H [facility] Rx#:[id number] Oral 500 100 Output: Urine 250 Other: Voiding Method Bedside Commode Bedside Commode Bedside Commode # Voids 1 1 # Bowel Movements 1 - Exam Physical Exam: Revealed an 80-year-old female in no distress HEENT:[Neck is supple.] [No neck masses.] [No thyromegaly.] [No JVD.] Chest: [Diminished breath sounds at the bases no crackles or rhonchi or wheezes. ] Cardiac Exam: [Normal S1 and S2, no S3 gallop, no murmur.] Abdomen: [Soft, nontender, no megaly, no rebound, no guarding, normal bowel sounds.] Extremities: [No clubbing, no edema, no cyanosis.] Neurological Exam: [No focal neurologic deficit.] - Labs CBC & Chem 7: 03/29/16 05:51 03/29/16 05:51 Labs: Abnormal Lab Results - Last 24 Hours (Table) 03/28/16 03/28/16 03/28/16 Range/Units 12:01 16:44 20:53 WBC (3.8-10.6) k/uL RBC (3.80-5.40) m/uL Hgb (11.4-16.0) gm/dL Hct (34.0-46.0) % MCHC (31.0-37.0) g/dL Neutrophils # (1.3-7.7) k/uL Lymphocytes # (1.0-4.8) k/uL Potassium (3.5-5.1) mmol/L Carbon Dioxide (22-30) mmol/L BUN (7-17) mg/dL Creatinine (0.52-1.04) mg/dL Glucose (74-99) mg/dL POC Glucose (mg/dL) 275 H 174 H 257 H (75-99) mg/dL ALT (9-52) U/L Alkaline Phosphatase (38-126) U/L Total Protein (6.3-8.2) g/dL Albumin (3.5-5.0) g/dL 03/29/16 03/29/16 03/29/16 Range/Units 05:51 05:51 06:15 WBC 15.3 H (3.8-10.6) k/uL RBC 3.48 L (3.80-5.40) m/uL Hgb 9.2 L (11.4-16.0) gm/dL Hct 31.6 L (34.0-46.0) % MCHC 29.2 L (31.0-37.0) g/dL Neutrophils # 14.8 H (1.3-7.7) k/uL Lymphocytes # 0.3 L (1.0-4.8) k/uL Potassium 5.6 H (3.5-5.1) mmol/L Carbon Dioxide 32 H (22-30) mmol/L BUN 38 H (7-17) mg/dL Creatinine 1.71 H (0.52-1.04) mg/dL Glucose 229 H (74-99) mg/dL POC Glucose (mg/dL) 240 H (75-99) mg/dL ALT 78 H (9-52) U/L Alkaline Phosphatase 190 H (38-126) U/L Total Protein 5.8 L (6.3-8.2) g/dL Albumin 3.2 L (3.5-5.0) g/dL Assessment and Plan Plan: Impression: 1 acute exacerbation of severe gold stage IV COPD. 2 acute anxiety compounding her symptoms of shortness of breath related mostly to COPD. 3 multiple comorbidities including hypertension, degenerative joint disease, diabetes. 4 worsening renal failure picture, abnormal liver enzymes, anxiety, hence I have recommended holding atorvastatin, discontinue Lasix, cut down prednisone to 20 mg daily, stop metformin and possible discharge planning early next week. Recommendation: Patient seems to be doing quite well with the present course of treatment as outlined and recommended by Dr. Gil, I recommended that we continue the same, added to 25 mg of Zoloft on a daily basis, continue Xanax, today, I have made changes to the medications above. And will continue to follow. Monitor renal profile and electrolytes closely. Monitor liver enzymes Time with Patient: Less than 30
[2016-03-29 11:51] LABS: Glucose,Whole Blood 282 mg/dL (75-99)
[2016-03-29 16:45] LABS: Glucose,Whole Blood 204 mg/dL (75-99)
[2016-03-29] MEDS: ALPRAZolam 0.25 MG TAB PO PRN (20:26)
[2016-03-29] MEDS: ASPIRIN 81 MG CHEW PO SCH (20:27)
[2016-03-29] MEDS: INSULIN GLARGINE 100 UNIT/ML 10 ML VIAL SQ SCH (20:35)
[2016-03-29 20:38] LABS: Glucose,Whole Blood 245 mg/dL (75-99)
[2016-03-30] MEDS: ALPRAZolam 0.25 MG TAB PO PRN ×2 (02:09→20:26)
[2016-03-30 05:58] LABS: Glucose,Whole Blood 142 mg/dL (75-99)
[2016-03-30] MEDS: INSULIN LISPRO (humaLOG) 300 UNIT/3 ML VIAL SQ SCH ×4 (06:53→21:44)
[2016-03-30] MEDS: GLIMEPIRIDE 1 MG TAB PO SCH (06:53)
[2016-03-30] MEDS: IPRATROPIUM-ALBUTEROL 3 ML NEB INHALATION SCH ×4 (07:42→20:04)
[2016-03-30] MEDS: SYMBICORT 160-4.5 MCG INHALER INHALATION SCH ×2 (07:42→20:04)
[2016-03-30] MEDS: SERTRALINE 25 MG TAB PO SCH (08:12)
[2016-03-30] MEDS: amLODIPine 5 MG TAB PO SCH (08:12)
[2016-03-30] MEDS: VIT A,C & E-LUTEIN-MINERALS 1 EACH TAB PO SCH (08:12)
[2016-03-30] MEDS: LISINOPRIL 20 MG TAB PO SCH (08:12)
[2016-03-30] MEDS: predniSONE 20 MG TAB PO SCH (08:12)
[2016-03-30] MEDS: ENOXAPARIN 30 MG/0.3 ML SYRINGE SQ SCH (08:13)
--- NOTE | 2016-03-30 10:19 | P.PN ---
Progress Note - Text The patient is an 80-year-old female who has very severe underlying COPD with a FEV1 of less than 34%. The patient was admitted to 3 nights ago with worsening shortness of breath. She has had some improvement with corticosteroids and respiratory treatments. She has also been started on Zoloft due to her anxiety and panic attacks related to her shortness of breath. This morning she is a bit harder to arouse but does answer questions appropriately. Denies any unusual pain. Vital signs reveal temperature 96.6 with a pulse of 78 and respirations 20. Blood pressure is 184/77 and she is 93% saturated on 3 L. Lungs do reveal some scattered crepitations. Heart tones were regular. Abdomen nontender. No unusual edema. No specific focal neurological deficits. Weight is down from 75.1 kg to 74.2 kg. Impressions and plans: Overall this lady with severe underlying COPD with exacerbation and acute on chronic respiratory failure. She is very frail and weak. Patient has had some laboratory abnormalities regarding potassium and renal function. We will repeat metabolic panel and CBC today. Also further arrangements for home care are to be made. Family is looking into obtaining a hospital bed. Discussed with patient and staff. They will need to work with social work. Possible discharge over the next 24-48 hours pending further clinical response and results of above. Long-term prognosis is very guarded in light of the severe underlying lung disease and other comorbidities. Pulmonary is attempting to wean her prednisone down to prevent further side effects. Patient can be placed on the general medical floor for further treatment.
[2016-03-30 11:09] LABS: Basophils % (A) 0 %; CH 25.9; CHCM 28.6; Eosinophils # (A) 0.1 k/uL (0-0.7); Eosinophils % (A) 0 %; HCT 30.9 % (34.0-46.0); HDW 2.47; HGB 9.3 gm/dL (11.4-16.0); Hypochromasia Marked; Luc # (Auto) 0.18; Luc % (Auto) 1; Lymphocytes # (A) 0.8 k/uL (1.0-4.8); Lymphocytes % (A) 5 %; MCH 27.2 pg (25.0-35.0); MCV 90.8 fL (80.0-100.0); Monocytes # (A) 0.7 k/uL (0-1.0); Monocytes % (A) 4 %; Neutrophils # (A) 15.4 k/uL (1.3-7.7); Neutrophils % (A) 90 %; RDW 13.1 % (11.5-15.5); WBC 17.2 k/uL (3.8-10.6)
[2016-03-30 11:10] LABS: Calcium 9.1 mg/dL (8.4-10.2); Total Bilirubin 0.3 mg/dL (0.2-1.3); Total Protein 5.5 g/dL (6.3-8.2)
[2016-03-30 12:02] LABS: Glucose,Whole Blood 159 mg/dL (75-99)
--- NOTE | 2016-03-30 12:11 | XR ---
EXAMINATION TYPE: XR chest 1V portable DATE OF EXAM: 03/30/2016 12:03 PM COMPARISON: 03/27/2016 INDICATION: Elevated white count difficulty breathing TECHNIQUE: Single frontal view of the chest is obtained. FINDINGS: The heart size is normal. The pulmonary vasculature is slightly prominent. Mild infiltrate is within the lingula. IMPRESSION: 1. Correlate for lingular atelectasis. Pneumonia is not excluded. 2. Mild volume overload developing from prior study
--- NOTE | 2016-03-30 12:14 | P.PN ---
Subjective Principal diagnosis: Acute exacerbation of COPD This is an 80-year-old female with history of severe COPD, FEV1 is in the range of 34%, she is O2 dependent, but not prednisone dependent, patient usually sees Dr. Arana. Patient was admitted this time with relatively acute presentation of shortness of breath, patient woke up in the middle of the night last night with shortness of breath and did not get any air. Patient became more anxious, and as she became more panicky, shortness of breath became more pronounced. Patient was brought in admitted, and this consult was initiated. Denies any fever no chills no hemoptysis, she has occasional cough and wheezing , physical examination today revealed mostly diminished breath sounds, no rhonchi, no wheezes. I felt that the presentation is mostly a presentation of acute COPD exacerbation compounded by panic-like attack and anxiety as she became short of breath. Hence I recommended adding Zoloft today at 25 mg daily on a trial basis. Patient was reevaluated today on 03/29/2016, feeling a bit better, breathing easier, no cough no wheezing no shortness of breath at rest. Patient did not sleep well last night. Remains a bit anxious. Labs were reviewed, she has a hyperkalemia with a potassium of 5.6, renal profile seems to be a bit worsening , and she has leukocytosis with WBC count of 15.3, hemoglobin is 9.2. Sugar seems to be running high. Liver enzymes seem to be improving. In the meantime I will go ahead and hold her atorvastatin and I will hold her Lasix. Considering the rise in her creatinine, metformin would have to be placed on hold also. Considering her insomnia I will go ahead and cut down her prednisone to 20 mg daily instead of 40 mg daily. Patient was reevaluated today on 03/30/2016, he seems to be doing a bit better compared to the last few days. Her labs were reviewed, potassium is down to 5.0. BUN and creatinine are a bit elevated at 47 and 1.78 respectively. WBC count is 17.2 looking back at my last note yesterday, I did recommend stopping her metformin, because of her worsening renal profile I have also stopped her atorvastatin because of her elevated liver enzymes . I have also cut down her prednisone because of leukocytosis. Another set of labs will be ordered for a.m. In the meantime the patient will remain on bronchodilators for her COPD. Objective - Vital Signs Vital signs: Vital Signs Temp 97.4 F L 03/30/16 11:19 Pulse 73 03/30/16 11:57 Resp 20 03/30/16 11:20 BP 151/67 03/30/16 11:19 Pulse Ox 98 03/30/16 11:19 Intake & Output 03/29/16 03/30/16 03/30/16 18:59 06:59 18:59 Intake Total 2040 220 Output Total 250 500 Balance 1790 -280 Weight 74.2 kg Intake: IV 1700 Sodium Chloride 0.9% 1, 1700 000 ml @ 100 mls/hr IV . Q10H [facility] Rx#:[id number] Oral 340 220 Output: Urine 250 500 Other: Voiding Method Bedside Commode Bedside Commode Bedside Commode # Voids 1 1 # Bowel Movements 1 - Exam Physical Exam: Revealed an 80-year-old female in no distress HEENT:[Neck is supple.] [No neck masses.] [No thyromegaly.] [No JVD.] Chest: [Diminished breath sounds at the bases no crackles or rhonchi or wheezes. ] Cardiac Exam: [Normal S1 and S2, no S3 gallop, no murmur.] Abdomen: [Soft, nontender, no megaly, no rebound, no guarding, normal bowel sounds.] Extremities: [No clubbing, no edema, no cyanosis.] Neurological Exam: [No focal neurologic deficit.] - Labs CBC & Chem 7: 03/30/16 10:39 03/30/16 07:31 Labs: Abnormal Lab Results - Last 24 Hours (Table) 03/29/16 03/29/16 03/30/16 Range/Units 16:43 20:30 05:56 WBC (3.8-10.6) k/uL RBC (3.80-5.40) m/uL Hgb (11.4-16.0) gm/dL Hct (34.0-46.0) % MCHC (31.0-37.0) g/dL Neutrophils # (1.3-7.7) k/uL Lymphocytes # (1.0-4.8) k/uL Carbon Dioxide (22-30) mmol/L BUN (7-17) mg/dL Creatinine (0.52-1.04) mg/dL Glucose (74-99) mg/dL POC Glucose (mg/dL) 204 H 245 H 142 H (75-99) mg/dL ALT (9-52) U/L Alkaline Phosphatase (38-126) U/L Total Protein (6.3-8.2) g/dL Albumin (3.5-5.0) g/dL 03/30/16 03/30/16 03/30/16 Range/Units 07:31 10:39 11:41 WBC 17.2 H (3.8-10.6) k/uL RBC 3.40 L (3.80-5.40) m/uL Hgb 9.3 L (11.4-16.0) gm/dL Hct 30.9 L (34.0-46.0) % MCHC 30.0 L (31.0-37.0) g/dL Neutrophils # 15.4 H (1.3-7.7) k/uL Lymphocytes # 0.8 L (1.0-4.8) k/uL Carbon Dioxide 32 H (22-30) mmol/L BUN 47 H (7-17) mg/dL Creatinine 1.78 H (0.52-1.04) mg/dL Glucose 161 H (74-99) mg/dL POC Glucose (mg/dL) 159 H (75-99) mg/dL ALT 67 H (9-52) U/L Alkaline Phosphatase 147 H (38-126) U/L Total Protein 5.5 L (6.3-8.2) g/dL Albumin 3.0 L (3.5-5.0) g/dL Assessment and Plan Plan: Impression: 1 acute exacerbation of severe gold stage IV COPD. 2 acute anxiety compounding her symptoms of shortness of breath related mostly to COPD. 3 multiple comorbidities including hypertension, degenerative joint disease, diabetes. 4 worsening renal failure picture, abnormal liver enzymes, anxiety, hence I have recommended holding atorvastatin, discontinue Lasix, cut down prednisone to 20 mg daily, stop metformin and possible discharge planning early next week. Recommendation: Recheck labs tomorrow, and if improved, consider discharge planning and follow-up on outpatient basis. Time with Patient: Less than 30
[2016-03-30 17:31] LABS: Glucose,Whole Blood 223 mg/dL (75-99)
[2016-03-30 21:08] LABS: Glucose,Whole Blood 178 mg/dL (75-99)
[2016-03-30] MEDS: INSULIN GLARGINE 100 UNIT/ML 10 ML VIAL SQ SCH (21:43)
[2016-03-30] MEDS: ASPIRIN 81 MG CHEW PO SCH (23:28)
[2016-03-31] MEDS: ALPRAZolam 0.25 MG TAB PO PRN ×2 (05:02→22:41)
[2016-03-31] MEDS: SYMBICORT 160-4.5 MCG INHALER INHALATION SCH ×3 (07:18→20:06)
[2016-03-31] MEDS: IPRATROPIUM-ALBUTEROL 3 ML NEB INHALATION SCH ×4 (07:18→20:07)
[2016-03-31 07:42] LABS: Glucose,Whole Blood 94 mg/dL (75-99)
[2016-03-31 07:42] LABS: Glucose,Whole Blood 68 mg/dL (75-99)
--- NOTE | 2016-03-31 08:31 | P.PN ---
Progress Note - Text The patient is a 80-year-old female with the very severe underlying COPD with an FEV1 of 34%. Patient has been hospitalized here about 4 days now and did show some improvement with corticosteroids and respiratory treatments. She was started on Zoloft because she has had some recurrent panic attacks. Anxiety seemed to worsen her spells of shortness of breath. This morning she is somewhat fatigued but easily aroused. Vital signs reveal a temperature 97.5 with a pulse of 92 and respirations 24. Blood pressure is 160/101 and she is 90% saturated on 4 L although previous O2 saturation was 80. There is use of accessory muscles at rest. Breath sounds are generally diminished as they have been. Heart tones are regular. Abdomen is distended but nontender. No unusual edema or focal weakness noted. Blood sugar this morning from 68-94. Her chest x-ray was rotated but there was some question of lingular atelectasis and mild volume overload. Impressions and plans: Acute on chronic respiratory failure with exacerbation of very severe COPD in this frail patient with generalized medical debility. He has been discussion with patient returning to home with a hospital bed and home care. Waiting finalization of discharge planning and social care. We have increased her Zoloft to 50 mg to prevent further panic attacks and for her anxiety. Increased her Xanax to 4 times a day if needed for anxiety. Her prednisone has been decreased down to 20 mg and blood sugars seem to be doing better despite stopping her metformin. Labs attempting to obtain a.m. blood work. I do not see any notes from physical therapy from yesterday. Further recommendations to follow.
[2016-03-31 09:55] LABS: Calcium 9.5 mg/dL (8.4-10.2); Potassium 5.4 mmol/L (3.5-5.1)
[2016-03-31] MEDS: GLIMEPIRIDE 1 MG TAB PO SCH (10:04)
[2016-03-31] MEDS: INSULIN LISPRO (humaLOG) 300 UNIT/3 ML VIAL SQ SCH ×4 (10:04→22:19)
[2016-03-31] MEDS: ENOXAPARIN 30 MG/0.3 ML SYRINGE SQ SCH (10:10)
[2016-03-31] MEDS: amLODIPine 5 MG TAB PO SCH (10:10)
[2016-03-31] MEDS: predniSONE 20 MG TAB PO SCH (10:10)
[2016-03-31] MEDS: VIT A,C & E-LUTEIN-MINERALS 1 EACH TAB PO SCH (10:11)
[2016-03-31] MEDS: LISINOPRIL 20 MG TAB PO SCH (10:11)
--- NOTE | 2016-03-31 11:49 | P.PN ---
Subjective Progress note dated 03/31/2016 next This is a 80-year-old female who was admitted back on March 27. The patient apparently had a bad night last night and her COPD is really getting the best of her. 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 Today we talk about CODE STATUS. She would not want to be on life support I think that's appropriate. We are going to attempt some BiPAP therapy to see if we can't bridge her back to her normal baseline. She is very short of breath. Very lethargic and somnolent. I gave BiPAP orders with settings of 10 and 5 for IPAP and EPAP ingest enough FiO2 her so that her saturations are in the high 80s low 90s. Also, we should be very careful by any sedatives hypnotics narcotics, etc. The nurse to put in the DO NOT RESUSCITATE order. Objective - Vital Signs Vital signs: Vital Signs Temp 97.5 F L 03/31/16 07:20 Pulse 76 03/31/16 11:42 Resp 24 03/31/16 07:20 BP 168/101 03/31/16 07:20 Pulse Ox 90 L 03/31/16 07:45 Intake & Output 03/30/16 03/31/16 03/31/16 18:59 06:59 18:59 Intake Total 440 500 125 Output Total 500 Balance -60 500 125 Intake: Oral 440 500 125 Output: Urine 500 Other: Voiding Method Bedside Commode Bedside Commode # Voids 2 2 # Bowel Movements 1 0 - Exam No acute distress. Very lethargic. Somewhat tachypnea. No audible wheezing. HEENT examination is grossly unremarkable. Mucous membranes are moist. There are no oral lesions. Neck supple. Full range of motion. No adenopathy. Cardiovascular examination reveals distant heart sounds. S1-S2 normal. No S3- S4 or murmur. Lungs reveal some coarse rhonchi. Breath sounds are diminished. This prolongation on forced maneuver. Abdomen soft bowel sounds are heard. Extremities are intact. - Labs CBC & Chem 7: 03/30/16 10:39 03/31/16 08:31 Labs: Abnormal Lab Results - Last 24 Hours (Table) 03/30/16 03/30/16 03/30/16 Range/Units 11:41 17:03 20:36 Sodium (137-145) mmol/L Potassium (3.5-5.1) mmol/L Chloride (98-107) mmol/L Carbon Dioxide (22-30) mmol/L BUN (7-17) mg/dL Creatinine (0.52-1.04) mg/dL Glucose (74-99) mg/dL POC Glucose (mg/dL) 159 H 223 H 178 H (75-99) mg/dL 03/31/16 03/31/16 Range/Units 07:17 08:31 Sodium 151 H (137-145) mmol/L Potassium 5.4 H (3.5-5.1) mmol/L Chloride 109 H (98-107) mmol/L Carbon Dioxide 34 H (22-30) mmol/L BUN 45 H (7-17) mg/dL Creatinine 1.35 H (0.52-1.04) mg/dL Glucose 109 H (74-99) mg/dL POC Glucose (mg/dL) 68 L (75-99) mg/dL Assessment and Plan (1) Acute exacerbation of chronic obstructive airways disease Status: Acute (2) COPD (chronic obstructive pulmonary disease) Status: Acute (3) Hypoxia Status: Acute (4) Hypoxemia Status: Acute (5) Pneumonia Status: Acute (6) Respiratory distress, acute Status: Acute Plan: Plan dated 03/31/2016 The patient will go on BiPAP at 10 and 5 and oxygen will be bled in to maintain saturations in the high 80s low 90s. The patient has very severe COPD. I review her medications. We did talk about CODE STATUS. She would not want to be on life support. I think it's appropriate. Anyway discussed that with the nurse. We'll continue to follow. Medications labs and x-rays all reviewed. Time with Patient: Less than 30
[2016-03-31 12:34] LABS: Glucose,Whole Blood 118 mg/dL (75-99)
[2016-03-31 17:13] LABS: Glucose,Whole Blood 125 mg/dL (75-99)
[2016-03-31] MEDS: SERTRALINE 50 MG TAB PO SCH ×2 (21:12→22:28)
[2016-03-31] MEDS: ASPIRIN 81 MG CHEW PO SCH ×2 (21:12→22:27)
[2016-03-31] MEDS: INSULIN GLARGINE 100 UNIT/ML 10 ML VIAL SQ SCH (22:19)
[2016-03-31 22:21] LABS: Glucose,Whole Blood 303 mg/dL (75-99)
[2016-04-01] MEDS: SYMBICORT 160-4.5 MCG INHALER INHALATION SCH ×2 (07:09→19:24)
[2016-04-01] MEDS: IPRATROPIUM-ALBUTEROL 3 ML NEB INHALATION SCH ×4 (07:09→19:24)
[2016-04-01 07:54] LABS: Glucose,Whole Blood 61 mg/dL (75-99)
[2016-04-01 08:15] LABS: Glucose,Whole Blood 102 mg/dL (75-99)
--- NOTE | 2016-04-01 08:19 | P.PN ---
Progress Note - Text The patient is an 80-year-old female with very severe COPD who was readmitted on the ninth of this month with an exacerbation. She was also having intermittent panic attacks and very anxious about her situation. She was becoming more and more fatigued with decreasing FiO2's. The patient was seen by pulmonary medicine yesterday and placed on BiPAP. The patient this morning states she feels very weak. She does seem to be in less respiratory distress with less use of accessory muscles this morning. She is trying to eat some breakfast this morning with assistance. Not all of this morning's vitals are documented but so far she is 98% saturated on 5 L high flow. Her pulse is 68. Her last temperature was 97 axillary and blood pressure 164/59. Respiratory rate was 20. There is some mild inspiratory wheeze and diminished breath sounds. Heart tones are regular. No abdominal discomfort. No unusual edema at this time and no focal neurological changes. She is very frail with generalized weakness. Accu-Chek is 102 this morning but had been down to 61 and up to 303 during the night. Impressions and plans: Overall does appear this 80-year-old female with very severe COPD is doing somewhat better this morning although will await further pulmonary reevaluation today. She has been made a no code no CPR. If there is more improvement I do think she may be a extended care facility candidate as opposed to returning to her home. She does seem to need a lot of ancillary care. It appears she may the ready for placement with further improvement over the next 24-48 hours.
[2016-04-01] MEDS: INSULIN LISPRO (humaLOG) 300 UNIT/3 ML VIAL SQ SCH ×4 (08:37→20:51)
[2016-04-01] MEDS: VIT A,C & E-LUTEIN-MINERALS 1 EACH TAB PO SCH (08:39)
[2016-04-01] MEDS: predniSONE 20 MG TAB PO SCH (08:39)
[2016-04-01] MEDS: ENOXAPARIN 30 MG/0.3 ML SYRINGE SQ SCH (08:40)
[2016-04-01] MEDS: amLODIPine 5 MG TAB PO SCH (08:40)
[2016-04-01] MEDS: GLIMEPIRIDE 1 MG TAB PO SCH (08:40)
[2016-04-01] MEDS: LISINOPRIL 20 MG TAB PO SCH (08:40)
--- NOTE | 2016-04-01 10:48 | CDI ---
In responding to this query, please exercise your independent professional judgment. The [facility] Coding Staff and Clinical Documentation Specialists appreciate your assistance in clarifying documentation, maintaining compliance with coding guidelines, accurately documenting patients condition and capturing severity of illness. The fact that a question is asked does not imply that any particular answer is desired or expected. Communication forms are a method of clarifying documentation and are not made part of the Legal Health Record. Thank you in advance for your clarification. Last Revision, December 2014 Tammy Talbert [address] [facility] [place] [address] Documentation Clarification Form Date: 04/01/2016 10:33:00 AM From: Sandra Angeles RN, CCDS Admit Date: 03/27/2016 11:35:00 PM Patient Name: Mita Beltrán Visit Number: [id number] Dr. Los Anderson History/Risk Factors: Severe Gold stage 4 COPD, acute anxiety Clinical Indicators: Patient presents with a BUN: //47/45 CR: 1.53/1.71/1.78/1.35 GFR: /// Patients baseline 03/11/16 BUN: 45 CR: 1.34/1.69 GFR: 38/03/30 Pulmonary Progress Note: "worsening renal failure picture, abnormal liver enzymes, anxiety, hence I have recommended holding atorvastatin, discontinue Lasix, cut down prednisone to 20 mg daily, stop metformin and possible discharge planning early next week." Treatment: Consults: IVF: 0.9%NS @ 100 cc/hr Lasix: 20 mg PO Q 48 hrs In order to capture the severity of condition, please clarify if the condition signifies: Acute renal failure Please specify (if known): Cortical, Medullary, or Tubular Necrosis? Acute kidney injury Acute on chronic renal failure Chronic renal failure, please stage Chronic kidney disease (CKD) and please stage Stage 1 GFR >90 Stage 2 GFR 60-89 Stage 3 GFR 30-59 Stage 4 GFR 15-29 Stage 5 GFR <15 ESRD Unable to determine Other, specify Please document in your progress notes and discharge summary in order to capture severity of illness and risk of mortality. Include clinical findings that support your diagnosis. FYI: Press F11 to launch patient chart. Place X here if this finding has no clinical significance, is not applicable or if you are not able to provide any additional documentation. MTDD
[2016-04-01 12:03] LABS: Glucose,Whole Blood 161 mg/dL (75-99)
--- NOTE | 2016-04-01 14:57 | P.PN ---
Subjective Progress note dated 03/31/2016 next This is a 80-year-old female who was admitted back on March 27. The patient apparently had a bad night last night and her COPD is really getting the best of her. 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 Today we talk about CODE STATUS. She would not want to be on life support I think that's appropriate. We are going to attempt some BiPAP therapy to see if we can't bridge her back to her normal baseline. She is very short of breath. Very lethargic and somnolent. I gave BiPAP orders with settings of 10 and 5 for IPAP and EPAP ingest enough FiO2 her so that her saturations are in the high 80s low 90s. Also, we should be very careful by any sedatives hypnotics narcotics, etc. The nurse to put in the DO NOT RESUSCITATE order. Progress note dated 04/01/2016 This is an 80-year-old female who was admitted admitted back on March 27. She has history of severe COPD. We placed her on BiPAP therapy. She's got gold stage III/4 COPD. The patient is doing better. Feeling better. It seems like the BiPAP has helped. She is no code. We talked about CODE STATUS couple days ago. He is awake and alert. Sitting on the commode. Family members present. We explained the problem with CO2 retention. She is a do not DO NOT RESUSCITATE. I did mention to the nurse it was very important to discontinue all sedatives hypnotics and narcotics because they can contribute to her respiratory demise. Objective - Vital Signs Vital signs: Vital Signs Temp 96.2 F L 04/01/16 07:00 Pulse 81 04/01/16 11:42 Resp 18 04/01/16 07:00 BP 161/67 04/01/16 07:00 Pulse Ox 98 04/01/16 07:10 Intake & Output 03/31/16 04/01/16 04/01/16 18:59 06:59 18:59 Intake Total 125 325 Output Total 1200 Balance 125 -875 Intake: Oral 125 325 Output: Urine 1200 Other: # Voids 1 3 # Bowel Movements 1 - Exam No acute distress. Very lethargic. Somewhat tachypnea. No audible wheezing. HEENT examination is grossly unremarkable. Mucous membranes are moist. There are no oral lesions. Neck supple. Full range of motion. No adenopathy. Cardiovascular examination reveals distant heart sounds. S1-S2 normal. No S3- S4 or murmur. Lungs reveal some coarse rhonchi. Breath sounds are diminished. This prolongation on forced maneuver. Abdomen soft bowel sounds are heard. Extremities are intact. - Labs CBC & Chem 7: 03/30/16 10:39 03/31/16 08:31 Labs: Abnormal Lab Results - Last 24 Hours (Table) 03/31/16 03/31/16 04/01/16 Range/Units 16:46 21:52 07:52 POC Glucose (mg/dL) 125 H 303 H 61 L (75-99) mg/dL 04/01/16 04/01/16 Range/Units 08:13 12:01 POC Glucose (mg/dL) 102 H 161 H (75-99) mg/dL Assessment and Plan (1) Acute exacerbation of chronic obstructive airways disease Status: Acute (2) COPD (chronic obstructive pulmonary disease) Status: Acute (3) Hypoxia Status: Acute (4) Hypoxemia Status: Acute (5) Pneumonia Status: Acute (6) Respiratory distress, acute Status: Acute Plan: Plan dated 03/31/2016 The patient will go on BiPAP at 10 and 5 and oxygen will be bled in to maintain saturations in the high 80s low 90s. The patient has very severe COPD. I review her medications. We did talk about CODE STATUS. She would not want to be on life support. I think it's appropriate. Anyway discussed that with the nurse. We'll continue to follow. Medications labs and x-rays all reviewed. Plan dated 04/01/2016 The patient is doing much better. The BiPAP seemed to help. She is a no code. Family members are in the room. Hopefully this Can be discharged soon from the hospital. She may benefit from either a Trilogy ventilator at nighttime or BiPAP at night time for chronic respiratory failure. We'll discuss that with her before discharge. Additional recommendations suggestions are forthcoming. Time with Patient: Less than 30
[2016-04-01 17:26] LABS: Glucose,Whole Blood 105 mg/dL (75-99)
[2016-04-01 20:37] LABS: Glucose,Whole Blood 293 mg/dL (75-99)
[2016-04-01] MEDS: SERTRALINE 50 MG TAB PO SCH (20:51)
[2016-04-01] MEDS: ASPIRIN 81 MG CHEW PO SCH (20:51)
[2016-04-01] MEDS: INSULIN GLARGINE 100 UNIT/ML 10 ML VIAL SQ SCH (20:51)
[2016-04-02 02:05] LABS: Glucose,Whole Blood 69 mg/dL (75-99)
[2016-04-02 03:04] LABS: Glucose,Whole Blood 110 mg/dL (75-99)
[2016-04-02] MEDS: SYMBICORT 160-4.5 MCG INHALER INHALATION SCH ×2 (07:15→19:37)
[2016-04-02] MEDS: IPRATROPIUM-ALBUTEROL 3 ML NEB INHALATION SCH ×4 (07:15→19:37)
[2016-04-02 07:16] LABS: Glucose,Whole Blood 64 mg/dL (75-99)
[2016-04-02 07:47] LABS: Glucose,Whole Blood 90 mg/dL (75-99)
--- NOTE | 2016-04-02 08:28 | P.PN ---
Progress Note - Text The patient is a 80-year-old female with very severe underlying COPD readmitted with acute exacerbation. The patient has been seen by pulmonary medicine and given a trial of BiPAP. According to staff she was on 3 L nasal through the night and generally did well. She is somewhat fatigued this morning but aroused. Temperature is 97.6 with a pulse of 76 and respirations 18. Blood pressure is elevated this morning at 191/77 but she has not received her morning blood pressure medications yet. Lungs are generally diminished. Heart tones are regular. Abdomen nontender. No unusual edema. No focal neurological changes. Basic metabolic panel is pending this morning. Patient has continued to have some low blood sugars in the morning. We will decrease her evening Lantus to 6 units. Impressions and plans: Overall this frail female with very severe COPD. Other comorbidities include chronic stage III renal failure and hypertension. Discharge planning and social work are on the case. We'll await further recommendations from pulmonary medicine. Overall prognosis is very guarded. She is no code no CPR. Discussed with patient and staff this morning.
[2016-04-02] MEDS: INSULIN LISPRO (humaLOG) 300 UNIT/3 ML VIAL SQ SCH ×4 (08:34→20:52)
[2016-04-02] MEDS: predniSONE 20 MG TAB PO SCH (08:36)
[2016-04-02] MEDS: ENOXAPARIN 30 MG/0.3 ML SYRINGE SQ SCH (08:36)
[2016-04-02] MEDS: VIT A,C & E-LUTEIN-MINERALS 1 EACH TAB PO SCH (08:36)
[2016-04-02] MEDS: GLIMEPIRIDE 1 MG TAB PO SCH (08:36)
[2016-04-02] MEDS: LISINOPRIL 20 MG TAB PO SCH (08:36)
[2016-04-02] MEDS: amLODIPine 5 MG TAB PO SCH (08:36)
[2016-04-02 09:17] LABS: Calcium 9.1 mg/dL (8.4-10.2); Potassium 4.7 mmol/L (3.5-5.1)
--- NOTE | 2016-04-02 11:00 | P.PN ---
Subjective Progress note dated 03/31/2016 next This is a 80-year-old female who was admitted back on March 27. The patient apparently had a bad night last night and her COPD is really getting the best of her. 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 Today we talk about CODE STATUS. She would not want to be on life support I think that's appropriate. We are going to attempt some BiPAP therapy to see if we can't bridge her back to her normal baseline. She is very short of breath. Very lethargic and somnolent. I gave BiPAP orders with settings of 10 and 5 for IPAP and EPAP ingest enough FiO2 her so that her saturations are in the high 80s low 90s. Also, we should be very careful by any sedatives hypnotics narcotics, etc. The nurse to put in the DO NOT RESUSCITATE order. Progress note dated 04/01/2016 This is an 80-year-old female who was admitted admitted back on March 27. She has history of severe COPD. We placed her on BiPAP therapy. She's got gold stage III/4 COPD. The patient is doing better. Feeling better. It seems like the BiPAP has helped. She is no code. We talked about CODE STATUS couple days ago. He is awake and alert. Sitting on the commode. Family members present. We explained the problem with CO2 retention. She is a do not DO NOT RESUSCITATE. I did mention to the nurse it was very important to discontinue all sedatives hypnotics and narcotics because they can contribute to her respiratory demise. Progress note dated 04/02/2016 This is a pleasant 80-year-old female with a history of severe COPD. She has stage IV disease. Currently doing recently well. Seem to be improved on BiPAP therapy. We talked about some options for discharge including BiPAP versus an AVAPS vs a trilogy ventilator. We are going to have them remove her blood gas her oxygen and check a blood gas of 15-20 minutes. Overall prognosis is poor though. She is a DO NOT RESUSCITATE and does not one intubation mechanical ventilation. Objective - Vital Signs Vital signs: Vital Signs Temp 97.6 F 04/02/16 07:00 Pulse 76 04/02/16 07:25 Resp 18 04/02/16 07:00 BP 191/77 04/02/16 07:00 Pulse Ox 93 L 04/02/16 07:00 Intake & Output 04/01/16 04/02/16 04/02/16 18:59 06:59 18:59 Other: Voiding Method Bedside Commode # Voids 4 2 1 # Bowel Movements 1 1 - Exam No acute distress. Very lethargic. Somewhat tachypnea. No audible wheezing. HEENT examination is grossly unremarkable. Mucous membranes are moist. There are no oral lesions. Neck supple. Full range of motion. No adenopathy. Cardiovascular examination reveals distant heart sounds. S1-S2 normal. No S3- S4 or murmur. Heart sounds are distant Lungs reveal some coarse rhonchi. Breath sounds are diminished. This prolongation on forced maneuver. Abdomen soft bowel sounds are heard. Extremities are intact. No edema - Labs CBC & Chem 7: 03/30/16 10:39 04/02/16 08:01 Labs: Abnormal Lab Results - Last 24 Hours (Table) 04/01/16 04/01/16 04/01/16 Range/Units 12:01 17:25 20:35 Carbon Dioxide (22-30) mmol/L BUN (7-17) mg/dL Creatinine (0.52-1.04) mg/dL POC Glucose (mg/dL) 161 H 105 H 293 H (75-99) mg/dL 04/02/16 04/02/16 04/02/16 Range/Units 02:03 03:03 07:15 Carbon Dioxide (22-30) mmol/L BUN (7-17) mg/dL Creatinine (0.52-1.04) mg/dL POC Glucose (mg/dL) 69 L 110 H 64 L (75-99) mg/dL 04/02/16 Range/Units 08:01 Carbon Dioxide 41 H* (22-30) mmol/L BUN 32 H (7-17) mg/dL Creatinine 1.20 H (0.52-1.04) mg/dL POC Glucose (mg/dL) (75-99) mg/dL Assessment and Plan (1) Acute exacerbation of chronic obstructive airways disease Status: Acute (2) COPD (chronic obstructive pulmonary disease) Status: Acute (3) Hypoxia Status: Acute (4) Hypoxemia Status: Acute (5) Pneumonia Status: Acute (6) Respiratory distress, acute Status: Acute Plan: Plan dated 03/31/2016 The patient will go on BiPAP at 10 and 5 and oxygen will be bled in to maintain saturations in the high 80s low 90s. The patient has very severe COPD. I review her medications. We did talk about CODE STATUS. She would not want to be on life support. I think it's appropriate. Anyway discussed that with the nurse. We'll continue to follow. Medications labs and x-rays all reviewed. Plan dated 04/01/2016 The patient is doing much better. The BiPAP seemed to help. She is a no code. Family members are in the room. Hopefully this Can be discharged soon from the hospital. She may benefit from either a Trilogy ventilator at nighttime or BiPAP at night time for chronic respiratory failure. We'll discuss that with her before discharge. Additional recommendations suggestions are forthcoming. Plan dated 04/02/2016 The patient will have her oxygen removed. We'll do a room air resting arterial blood gas. We'll see if she qualifies for one of the post discharge ventilator assist device as mentioned above. Overall prognosis is poor. When she is discharged, she apparently is undergoing move in with her daughter. Likewise, she should be discharged discharged on all her usual medications including a prednisone burst and taper and some antibiotics. Time with Patient: Less than 30
[2016-04-02 11:21] LABS: ABG PH 7.33 (7.35-7.45)
[2016-04-02 11:22] LABS: ABG Base Excess 13.7 mmol/L; ABG HCO3 40 mmol/L (21-25); ABG PCO2 77 mmHg (35-45); ABG PO2 29 mmHg (83-108); ABG TCO2 42 mmol/L (19-24)
[2016-04-02 11:53] LABS: Glucose,Whole Blood 145 mg/dL (75-99)
[2016-04-02 16:54] LABS: ABG PCO2 65 mmHg (35-45)
[2016-04-02 16:55] LABS: ABG HCO3 40 mmol/L (21-25); ABG PO2 65 mmHg (83-108); ABG TCO2 42 mmol/L (19-24)
[2016-04-02 17:11] LABS: Glucose,Whole Blood 243 mg/dL (75-99)
[2016-04-02 20:37] LABS: Glucose,Whole Blood 194 mg/dL (75-99)
[2016-04-02] MEDS: SERTRALINE 50 MG TAB PO SCH (20:52)
[2016-04-02] MEDS: INSULIN GLARGINE 100 UNIT/ML 10 ML VIAL SQ SCH (20:52)
[2016-04-02] MEDS: ASPIRIN 81 MG CHEW PO SCH (20:52)
[2016-04-02 23:43] LABS: Glucose,Whole Blood 40 mg/dL (75-99)
[2016-04-03 00:12] LABS: Glucose,Whole Blood 79 mg/dL (75-99)
[2016-04-03 07:35] LABS: Glucose,Whole Blood 73 mg/dL (75-99)
[2016-04-03] MEDS: INSULIN LISPRO (humaLOG) 300 UNIT/3 ML VIAL SQ SCH ×4 (07:39→21:18)
[2016-04-03] MEDS: GLIMEPIRIDE 1 MG TAB PO SCH (07:39)
[2016-04-03] MEDS: SYMBICORT 160-4.5 MCG INHALER INHALATION SCH ×2 (07:42→20:07)
[2016-04-03] MEDS: IPRATROPIUM-ALBUTEROL 3 ML NEB INHALATION SCH ×4 (07:42→20:07)
--- NOTE | 2016-04-03 08:06 | P.PN ---
Progress Note - Text The patient once again is an 80-year-old female who does have underlying very severe COPD who was readmitted with acute exacerbation. Please refer to notes by pulmonary medicine. She has had a trial of BiPAP previously. This morning she was awakened. She seems much calmer and states she feels somewhat better this morning. She is alert and oriented and not as somnolent. No chest pain. Vital signs reveal temperature 97.7 with a pulse of 80 and respirations 22. Blood pressure is 164/68 and she is 95% saturated on 3 L nasal cannula at this time. Head and neck exam unremarkable. Lungs are diminished at bases but overall clear without wheezing this morning. Heart tones are distant but regular. Abdomen is nontender. No edema. No focal neurological changes. Laboratory: The patient blood sugar did go down to 40 late last night and is presently 73. Blood gases from yesterday revealed the pH is 7.4 with a pCO2 65 and a pO2 of 65. Total CO2 was 42. And O2 saturation was 91 on FiO2 of 32. Electrolytes from yesterday reveal the potassium 4.7 is sodium 145. Carbon dioxide was 41. BUN was 32 with creatinine 1.2 given her a GFR of 43. Impressions and plans: Overall this 80-year-old female with very severe COPD seems to be gradually improving clinically. Social service and discharge planning are on the case to try to arrange for the best outpatient situation for her as once again patient is very frail and debilitated along with her underlying COPD. Prognosis guarded. Patient is no code no CPR.
[2016-04-03] MEDS: amLODIPine 5 MG TAB PO SCH (09:49)
[2016-04-03] MEDS: ENOXAPARIN 30 MG/0.3 ML SYRINGE SQ SCH (09:49)
[2016-04-03] MEDS: VIT A,C & E-LUTEIN-MINERALS 1 EACH TAB PO SCH (09:50)
[2016-04-03] MEDS: predniSONE 20 MG TAB PO SCH (09:50)
[2016-04-03] MEDS: LISINOPRIL 20 MG TAB PO SCH (09:50)
[2016-04-03 11:01] VITALS: BMI 30.9
[2016-04-03 11:37] LABS: Glucose,Whole Blood 167 mg/dL (75-99)
--- NOTE | 2016-04-03 14:16 | P.PN ---
Subjective Progress note dated 03/31/2016 next This is a 80-year-old female who was admitted back on March 27. The patient apparently had a bad night last night and her COPD is really getting the best of her. 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 Today we talk about CODE STATUS. She would not want to be on life support I think that's appropriate. We are going to attempt some BiPAP therapy to see if we can't bridge her back to her normal baseline. She is very short of breath. Very lethargic and somnolent. I gave BiPAP orders with settings of 10 and 5 for IPAP and EPAP ingest enough FiO2 her so that her saturations are in the high 80s low 90s. Also, we should be very careful by any sedatives hypnotics narcotics, etc. The nurse to put in the DO NOT RESUSCITATE order. Progress note dated 04/01/2016 This is an 80-year-old female who was admitted admitted back on March 27. She has history of severe COPD. We placed her on BiPAP therapy. She's got gold stage III/4 COPD. The patient is doing better. Feeling better. It seems like the BiPAP has helped. She is no code. We talked about CODE STATUS couple days ago. He is awake and alert. Sitting on the commode. Family members present. We explained the problem with CO2 retention. She is a do not DO NOT RESUSCITATE. I did mention to the nurse it was very important to discontinue all sedatives hypnotics and narcotics because they can contribute to her respiratory demise. Progress note dated 04/02/2016 This is a pleasant 80-year-old female with a history of severe COPD. She has stage IV disease. Currently doing recently well. Seem to be improved on BiPAP therapy. We talked about some options for discharge including BiPAP versus an AVAPS vs a trilogy ventilator. We are going to have them remove her blood gas her oxygen and check a blood gas of 15-20 minutes. Overall prognosis is poor though. She is a DO NOT RESUSCITATE and does not one intubation mechanical ventilation. Progress note dated 04/03/2016 This is a pleasant 80-year-old female with history of severe COPD. Her room air resting blood gas yesterday showed profound hypoxemia and significant hypercapnia. I believe her PaCO2 is close to 80. Anyway we thought that we would discharge her with BiPAP or another device to help her with the work of breathing particularly at nighttime. Today heard daughters in the room. The patient looks excellent. Seems brighter. More alert. Doesn't appear to be in any distress. I think the plan is to discharge her to [facility] leg care home. If they do, I can see her there. Objective - Vital Signs Vital signs: Vital Signs Temp 97.7 F 04/03/16 07:00 Pulse 82 04/03/16 07:58 Resp 22 04/03/16 07:00 BP 164/68 04/03/16 07:00 Pulse Ox 95 04/03/16 07:00 Intake & Output 04/02/16 04/03/16 04/03/16 18:59 06:59 18:59 Intake Total 200 Balance 200 Weight 74.2 kg Intake: Oral 200 Other: Voiding Method Bedside Commode Bedside Commode # Voids 1 3 # Bowel Movements 1 - Exam No acute distress. Very lethargic. Somewhat tachypnea. No audible wheezing. HEENT examination is grossly unremarkable. Mucous membranes are moist. There are no oral lesions. Neck supple. Full range of motion. No adenopathy. Cardiovascular examination reveals distant heart sounds. S1-S2 normal. No S3- S4 or murmur. Heart sounds are distant Lungs reveal some coarse rhonchi. Breath sounds are diminished. This prolongation on forced maneuver. Abdomen soft bowel sounds are heard. Extremities are intact. No edema - Labs CBC & Chem 7: 03/30/16 10:39 04/02/16 08:01 Labs: Abnormal Lab Results - Last 24 Hours (Table) 04/02/16 04/02/16 04/02/16 Range/Units 15:22 17:10 20:35 ABG pCO2 65 H (35-45) mmHg ABG pO2 65 L (83-108) mmHg ABG HCO3 40 H* (21-25) mmol/L ABG Total CO2 42 H (19-24) mmol/L ABG O2 Saturation 91.0 L (94-97) % POC Glucose (mg/dL) 243 H 194 H (75-99) mg/dL 04/02/16 04/03/16 04/03/16 Range/Units 23:31 07:11 11:35 ABG pCO2 (35-45) mmHg ABG pO2 (83-108) mmHg ABG HCO3 (21-25) mmol/L ABG Total CO2 (19-24) mmol/L ABG O2 Saturation (94-97) % POC Glucose (mg/dL) 40 L 73 L 167 H (75-99) mg/dL Assessment and Plan (1) Acute exacerbation of chronic obstructive airways disease Status: Acute (2) COPD (chronic obstructive pulmonary disease) Status: Acute (3) Hypoxia Status: Acute (4) Hypoxemia Status: Acute (5) Pneumonia Status: Acute (6) Respiratory distress, acute Status: Acute Plan: Plan dated 03/31/2016 The patient will go on BiPAP at 10 and 5 and oxygen will be bled in to maintain saturations in the high 80s low 90s. The patient has very severe COPD. I review her medications. We did talk about CODE STATUS. She would not want to be on life support. I think it's appropriate. Anyway discussed that with the nurse. We'll continue to follow. Medications labs and x-rays all reviewed. Plan dated 04/01/2016 The patient is doing much better. The BiPAP seemed to help. She is a no code. Family members are in the room. Hopefully this Can be discharged soon from the hospital. She may benefit from either a Trilogy ventilator at nighttime or BiPAP at night time for chronic respiratory failure. We'll discuss that with her before discharge. Additional recommendations suggestions are forthcoming. Plan dated 04/02/2016 The patient will have her oxygen removed. We'll do a room air resting arterial blood gas. We'll see if she qualifies for one of the post discharge ventilator assist device as mentioned above. Overall prognosis is poor. When she is discharged, she apparently is undergoing move in with her daughter. Likewise, she should be discharged discharged on all her usual medications including a prednisone burst and taper and some antibiotics. Plan dated 04/03/2016 Likely discharge probably tomorrow. She probably will go to [facility] or I can see her in consultation. I'm not sure who her doctor there will be. She she been placed on a prednisone burst and taper beginning with 40 or 50 mg a day and tapering the dose down by 10 mg every 3 for 5 days. In addition, she should be discharged home on usual medications and a short course of antibiotics. Finally, we think either a BiPAP device a Trilogy ventilator for AVAPS device would be reasonable for her. We'll see what is allowed. Again I can see her at [facility] should she be discharged there. Time with Patient: Less than 30
[2016-04-03 17:35] LABS: Glucose,Whole Blood 158 mg/dL (75-99)
[2016-04-03 20:55] LABS: Glucose,Whole Blood 203 mg/dL (75-99)
[2016-04-03] MEDS: ASPIRIN 81 MG CHEW PO SCH (21:18)
[2016-04-03] MEDS: SERTRALINE 50 MG TAB PO SCH (21:18)
[2016-04-03] MEDS: INSULIN GLARGINE 100 UNIT/ML 10 ML VIAL SQ SCH (21:28)
[2016-04-04] MEDS: ALPRAZolam 0.25 MG TAB PO PRN (01:28)
[2016-04-04 02:01] LABS: Glucose,Whole Blood 140 mg/dL (75-99)
[2016-04-04 07:08] LABS: Glucose,Whole Blood 76 mg/dL (75-99)
[2016-04-04] MEDS: INSULIN LISPRO (humaLOG) 300 UNIT/3 ML VIAL SQ SCH ×2 (07:41→13:35)
[2016-04-04 07:47] VITALS: RESP 19
[2016-04-04] MEDS: SYMBICORT 160-4.5 MCG INHALER INHALATION SCH (07:47)
[2016-04-04] MEDS: IPRATROPIUM-ALBUTEROL 3 ML NEB INHALATION SCH ×2 (07:47→12:20)
[2016-04-04] MEDS: amLODIPine 5 MG TAB PO SCH (08:08)
[2016-04-04] MEDS: ENOXAPARIN 30 MG/0.3 ML SYRINGE SQ SCH (08:08)
[2016-04-04] MEDS: GLIMEPIRIDE 1 MG TAB PO SCH (08:08)
--- NOTE | 2016-04-04 08:08 | P.DS ---
Providers Date of admission: 03/27/16 23:35 The patient is an 80-year-old female with the severe COPD gold stage IV with an FEV1 of less than 34%. She presented with an exacerbation on March 27 along with panic episodes associating with worsening shortness of breath and cough. Patient was admitted and placed on respiratory therapy along with corticosteroids and seen in consult by pulmonary medicine. Patient was started on Zoloft to try to help control the panic attacks. Initial laboratory values revealed a white count 8.5 and hemoglobin of 9.6 with a platelet count of 232 and an MCV of 88. Sodium was 143 with a potassium 5.3 and a CO2 content of 41. BUN was 26 with a creatinine of 1.53 given her GFR of 33 and random blood sugar was 244. Albumin low at 3.1. Influenza A and B were checked but were not detected. An initial chest x-ray showed some fibrotic changes but no definite evidence of failure or pneumonia. Despite treatment patient's initial respiratory response seemed to deteriorate. She seemed to become more somnolent. At one point she was placed on BiPAP and after a few days showed some gradual improvement. At one point blood gases showed a pH of 7.33 with a pCO2 as high as 77 and a pO2 of 29 and a CO2 content of 42. This did somewhat improve with treatment to 7.4 and pCO2 of 65 and O2 of 65. She also has been advanced with physical therapy. Social service and discharge planning have been involved. Pulmonary medicine is recommending some sort of either BiPAP device or a trilogy ventilator or AVAPS device and arrangements are being made with possible extended care facility at [facility]. If this can be arranged I can follow the patient at [facility] along with Dr. Cordero. Discharge medications: Alprazolam 0.25 mg 3 times a day as needed for severe anxiety. Aspirin 81 mg daily. Symbicort 160-4.52 inhalations twice a day. Amaryl 1 mg before breakfast. Lantus insulin 6 units at at bedtime. Respiratory treatments with unit dose DuoNeb 4 times a day and when necessary shortness of breath. Lisinopril 20 mg daily. Zoloft 50 mg at at bedtime Amlodipine 10 mg daily. Prednisone 20 mg daily for 7 days then decrease to 10 mg daily as maintenance or otherwise recommended by pulmonary medicine. Multiple vitamin daily. Regular diet as tolerated. Physical and occupational therapy evaluation and treatment. If patient does go to [facility] consultation with Dr. Cordero, pulmonary medicine. Final discharge diagnoses: 1. Exacerbation of severe COPD gold stage IV with CO2 retention and need for oxygen therapy. Acute on chronic respiratory failure. 2. Type 2 diabetes on insulin. Control aggravated by prednisone usage. 3. Chronic steroid dependent. 4. Hypertension 5. Acute on chronic kidney disease stage III. 6. 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 7. Previous surgical history that includes right knee replacement along with previous left breast lumpectomy and radiation treatments back in 2004 and also esophageal dilatation in the past and right carotid endarterectomy. 8. Moderate medical debility and overall frail state. 9. Anxiety generalized with panic attacks. 10. Anemia of chronic disease. Patient is no code and no CPR. Prognosis very guarded. Attending physician: Los Anderson Consults: 03/28/16 07:46 Consult Physician Urgent Consulting Provider: Lea Arana Consult Reason/Comments: COPD/SOB Do you want consulting provider notified?: Yes Primary care physician: Los Anderson Patient Condition at Discharge: Fair Plan - Discharge Summary Discharge Medication List Quinapril HCl [Accupril] 20 mg PO HS 10/06/13 [History] Vit A,C & E/Lutein/Minerals [Ocuvite with Lutein Tablet] 1 tab PO DAILY [History] metFORMIN HCL [Glucophage] 500 mg PO [id number] 10/06/13 [History] Felodipine [Felodipine ER] 5 mg PO DAILY 06/07/14 [History] Felodipine [Felodipine ER] 10 mg PO DAILY 06/07/14 [History] Albuterol Nebulized [Ventolin Nebulized] 2.5 mg INHALATION RT-QID PRN 06/28/14 [ History] Aspirin EC [Ecotrin Low Dose] 81 mg PO HS 06/28/14 [History] Fluticasone/Salmeterol [Advair 500-50 Diskus] 1 puff INHALATION RT-BID 03/07/16 [History] Furosemide [Lasix] 20 mg PO Q48H 03/07/16 [History] Simvastatin [Zocor] 20 mg PO HS 03/07/16 [History] Follow up Appointment(s)/Referral(s): Los Anderson MD [Primary Care Provider] - 1-2 days Patient Instructions/Handouts: Type 2 Diabetes in Adults (DC)
[2016-04-04] MEDS: predniSONE 20 MG TAB PO SCH (08:09)
[2016-04-04] MEDS: VIT A,C & E-LUTEIN-MINERALS 1 EACH TAB PO SCH (08:09)
[2016-04-04] MEDS: LISINOPRIL 20 MG TAB PO SCH (08:09)
[2016-04-04 11:47] LABS: Appearance,Urine Clear (Clear); Bilirubin,Urine Negative (Negative); Glucose,Urine (UA) Negative (Negative); Ketones,Urine Negative (Negative); Leukocyte Esterase,Urine Negative (Negative); Nitrite,Urine Negative (Negative); Particle Count 1190; Protein,Urine 3+ (Negative); RBC,Urine 1 /hpf (0-5); Specific Gravity,Urine 1.012 (1.001-1.035); Squamous Epithelial Cell,Urine 2 /hpf (0-4); UA Billing (MACRO vs. MICRO) MICRO; Urobilinogen,Urine <2.0 mg/dL (<2.0); WBC,Urine 11 /hpf (0-5)
[2016-04-04 12:23] LABS: Glucose,Whole Blood 140 mg/dL (75-99)
[2016-04-04 12:35] VITALS: TEMP 97.7
--- NOTE | 2016-04-04 13:37 | P.PN ---
Subjective Progress note dated 03/31/2016 next This is a 80-year-old female who was admitted back on March 27. The patient apparently had a bad night last night and her COPD is really getting the best of her. 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 Today we talk about CODE STATUS. She would not want to be on life support I think that's appropriate. We are going to attempt some BiPAP therapy to see if we can't bridge her back to her normal baseline. She is very short of breath. Very lethargic and somnolent. I gave BiPAP orders with settings of 10 and 5 for IPAP and EPAP ingest enough FiO2 her so that her saturations are in the high 80s low 90s. Also, we should be very careful by any sedatives hypnotics narcotics, etc. The nurse to put in the DO NOT RESUSCITATE order. Progress note dated 04/01/2016 This is an 80-year-old female who was admitted admitted back on March 27. She has history of severe COPD. We placed her on BiPAP therapy. She's got gold stage III/4 COPD. The patient is doing better. Feeling better. It seems like the BiPAP has helped. She is no code. We talked about CODE STATUS couple days ago. He is awake and alert. Sitting on the commode. Family members present. We explained the problem with CO2 retention. She is a do not DO NOT RESUSCITATE. I did mention to the nurse it was very important to discontinue all sedatives hypnotics and narcotics because they can contribute to her respiratory demise. Progress note dated 04/02/2016 This is a pleasant 80-year-old female with a history of severe COPD. She has stage IV disease. Currently doing recently well. Seem to be improved on BiPAP therapy. We talked about some options for discharge including BiPAP versus an AVAPS vs a trilogy ventilator. We are going to have them remove her blood gas her oxygen and check a blood gas of 15-20 minutes. Overall prognosis is poor though. She is a DO NOT RESUSCITATE and does not one intubation mechanical ventilation. Progress note dated 04/03/2016 This is a pleasant 80-year-old female with history of severe COPD. Her room air resting blood gas yesterday showed profound hypoxemia and significant hypercapnia. I believe her PaCO2 is close to 80. Anyway we thought that we would discharge her with BiPAP or another device to help her with the work of breathing particularly at nighttime. Today heard daughters in the room. The patient looks excellent. Seems brighter. More alert. Doesn't appear to be in any distress. I think the plan is to discharge her to [facility] on [facility]. If they do, I can see her there. Progress note dated 04/04/2016 This is a pleasant 80-year-old female with history of severe end-stage COPD. She is likely to be discharged one of the nursing homes today. On resting room air blood gas, she was quite hypoxemic and very hypercapnic. The patient will be discharged on BiPAP at 10 and 5 and 40%. The patient's medications are reviewed by myself and my nurse practitioner. If she goes to [facility] on the [facility], I'll be up to see her there. She did not wear her BiPAP last night. We encourage her to do so. She may end up back in the hospital she does not use her BiPAP. We emphasized that very much to her. Objective - Vital Signs Vital signs: Vital Signs Temp 97.7 F 04/04/16 12:35 Pulse 78 04/04/16 12:35 Resp 19 04/04/16 12:35 BP 183/79 04/04/16 12:35 Pulse Ox 94 L 04/04/16 12:35 Intake & Output 04/03/16 04/04/16 04/04/16 18:59 06:59 18:59 Intake Total 200 Balance 200 Weight 74.2 kg Intake: Oral 200 Other: Voiding Method Bedside Commode Bedside Commode Bedside Commode # Voids 2 3 # Bowel Movements 1 0 - Exam No acute distress. Very lethargic. Somewhat tachypnea. No audible wheezing. She has a cushingoid face HEENT examination is grossly unremarkable. Mucous membranes are moist. There are no oral lesions. Neck supple. Full range of motion. No adenopathy. Cardiovascular examination reveals distant heart sounds. S1-S2 normal. No S3- S4 or murmur. Heart sounds are distant Lungs reveal some coarse rhonchi. Breath sounds are diminished. This prolongation on forced maneuver. Abdomen soft bowel sounds are heard. Extremities are intact. No edema - Labs CBC & Chem 7: 03/30/16 10:39 04/02/16 08:01 Labs: Abnormal Lab Results - Last 24 Hours (Table) 04/03/16 04/03/16 04/04/16 Range/Units 17:33 20:52 01:57 POC Glucose (mg/dL) 158 H 203 H 140 H (75-99) mg/dL Urine Protein (Negative) Urine WBC (0-5) /hpf 04/04/16 04/04/16 Range/Units 11:30 12:22 POC Glucose (mg/dL) 140 H (75-99) mg/dL Urine Protein 3+ H (Negative) Urine WBC 11 H (0-5) /hpf Microbiology - Last 24 Hours (Table) 04/03/16 14:15 Urine Culture - Preliminary Urine,Clean Catch Assessment and Plan (1) Acute exacerbation of chronic obstructive airways disease Status: Acute (2) COPD (chronic obstructive pulmonary disease) Status: Acute (3) Hypoxia Status: Acute (4) Hypoxemia Status: Acute (5) Pneumonia Status: Acute (6) Respiratory distress, acute Status: Acute Plan: Plan dated 03/31/2016 The patient will go on BiPAP at 10 and 5 and oxygen will be bled in to maintain saturations in the high 80s low 90s. The patient has very severe COPD. I review her medications. We did talk about CODE STATUS. She would not want to be on life support. I think it's appropriate. Anyway discussed that with the nurse. We'll continue to follow. Medications labs and x-rays all reviewed. Plan dated 04/01/2016 The patient is doing much better. The BiPAP seemed to help. She is a no code. Family members are in the room. Hopefully this Can be discharged soon from the hospital. She may benefit from either a Trilogy ventilator at nighttime or BiPAP at night time for chronic respiratory failure. We'll discuss that with her before discharge. Additional recommendations suggestions are forthcoming. Plan dated 04/02/2016 The patient will have her oxygen removed. We'll do a room air resting arterial blood gas. We'll see if she qualifies for one of the post discharge ventilator assist device as mentioned above. Overall prognosis is poor. When she is discharged, she apparently is undergoing move in with her daughter. Likewise, she should be discharged discharged on all her usual medications including a prednisone burst and taper and some antibiotics. Plan dated 04/03/2016 Likely discharge probably tomorrow. She probably will go to [facility] or I can see her in consultation. I'm not sure who her doctor there will be. She she been placed on a prednisone burst and taper beginning with 40 or 50 mg a day and tapering the dose down by 10 mg every 3 for 5 days. In addition, she should be discharged home on usual medications and a short course of antibiotics. Finally, we think either a BiPAP device a Trilogy ventilator for AVAPS device would be reasonable for her. We'll see what is allowed. Again I can see her at [facility] should she be discharged there. Plan dated 04/04/2016 The patient is a no code. Her medications are reviewed by myself and our nurse practitioner. She'll be discharged on BiPAP with BiPAP settings of an IPAP of 10 and EPAP of 5 and 40% FiO2. She'll have to wear the BiPAP device otherwise she'll be readmitted to the hospital. All her medications were reviewed including her inhalers and prednisone and antibiotics. She'll be on a prednisone taper 20 mg a day for 7 days getting back to her usual dose of 10 mg a day. She'll start a Z-Wilber either today or tomorrow. She'll go back on Advair 500/50 one puff twice a day. She'll also be on DuoNeb's 4 times a day and when necessary. Time with Patient: Greater than 30
[2016-04-04 14:43] VITALS: BP 171/71; PULSE 77
== END 2016-04-04 15:23 | DRG 190 ==
LOC: EC 22:18 → 6SEL 23:35 → 4MS4W 03-30 11:32 → 6SEL 03-30 11:32 → 4MS4W 03-30 13:05
PROVIDERS: ADMIT Internal Medicine; ATTEND Internal Medicine
DX: J44.1 Chronic obstructive pulmonary disease with (acute) exacerbation (principal); J96.21 Acute and chronic respiratory failure with hypoxia; E87.2 Acidosis; E11.22 Type 2 diabetes mellitus with diabetic chronic kidney disease; D63.8 Anemia in other chronic diseases classified elsewhere; E78.5 Hyperlipidemia, unspecified; E87.5 Hyperkalemia; F41.0 Panic disorder [episodic paroxysmal anxiety]; F41.1 Generalized anxiety disorder; G47.00 Insomnia, unspecified; I12.9 Hypertensive chronic kidney disease with stage 1 through stage 4 chronic kidney disease, or unspecified chronic kidney disease; M17.0 Bilateral primary osteoarthritis of knee; N18.3 Chronic kidney disease, stage 3 (moderate); Z66 Do not resuscitate; Z79.4 Long term (current) use of insulin; Z79.52 Long term (current) use of systemic steroids; Z79.82 Long term (current) use of aspirin; Z82.49 Family history of ischemic heart disease and other diseases of the circulatory system; Z85.3 Personal history of malignant neoplasm of breast; Z87.891 Personal history of nicotine dependence; Z99.81 Dependence on supplemental oxygen
CPT/HCPCS: 36415; 36600; 71010; 71020; 76705; 80048; 80053; 81001; 82550; 82553; 82805; 83036; 83520; 83735; 83880; 84484; 85025; 85610; 85730; 87040; 87086; 87502; 93005; 94640; 94660; 94760; 96374; 96375; 99291

== ENCOUNTER 2016-04-14 21:20 | Inpatient (IN) | payer MEDICARE ==
[2016-04-14] MEDS ORDERED: SODIUM CHLORIDE 0.9% 1,000 ML IV STA (21:58)
[2016-04-14] MEDS ORDERED: NITROGLYCERIN OINT 1 INCH/GM PACKET TOPICAL STA (21:58)
--- NOTE | 2016-04-14 22:50 | XR ---
EXAM: XR Chest, 2 Views. CLINICAL HISTORY: Reason: Chest Pain TECHNIQUE: Frontal and lateral views of the chest. COMPARISON: 03/30/16 portable chest. FINDINGS: Lungs: No definite focal parenchymal infiltrate is seen. The pulmonary vascular markings remain mildly prominent, although without evidence of pleural effusion to suggest overt CHF. There are again surgical clips overlying the left lung base. Pleural spaces: See above. Heart: The cardiomediastinal silhouette is stable. Mediastinum: See above. Bones: Bones are stable including osteopenia and degenerative changes without acute displaced fracture seen. IMPRESSION: No new acute intrathoracic abnormality is seen, as above.
[2016-04-14 23:06] LABS: Basophils % (A) 0 %; CHCM 30.4; Eosinophils # (A) 0.1 k/uL (0-0.7); Eosinophils % (A) 1 %; HCT 33.6 % (34.0-46.0); HDW 2.61; HGB 9.8 gm/dL (11.4-16.0); Hypochromasia Moderate; Luc # (Auto) 0.12; Luc % (Auto) 1; Lymphocytes % (A) 9 %; MCH 25.9 pg (25.0-35.0); MCHC 29.1 g/dL (31.0-37.0); Monocytes # (A) 0.7 k/uL (0-1.0); Monocytes % (A) 6 %; Neutrophils # (A) 9.5 k/uL (1.3-7.7); Neutrophils % (A) 83 %; RBC 3.78 m/uL (3.80-5.40); RDW 14.3 % (11.5-15.5); WBC 11.4 k/uL (3.8-10.6); WBC (Perox) 12.57
[2016-04-14] MEDS ORDERED: hydrALAZINE HCL 20 MG/ML 1 ML VIAL IVP STA (23:20)
[2016-04-14 23:22] LABS: Calcium 8.7 mg/dL (8.4-10.2); Magnesium 2.3 mg/dL (1.6-2.3); Potassium 4.6 mmol/L (3.5-5.1); Total Bilirubin 0.3 mg/dL (0.2-1.3); Total Protein 5.5 g/dL (6.3-8.2)
[2016-04-14 23:24] LABS: INR 0.9 (<1.1); Prothrombin Time 9.4 sec (9.0-12.0)
[2016-04-14 23:28] LABS: Partial Thromboplastin Time 21.1 sec (22.0-30.0)
--- NOTE | 2016-04-14 23:31 | ED ---
General Adult HPI - General Chief complaint: Recheck/Abnormal Lab/Rx Stated complaint: Hypertension Time Seen by Provider: 04/14/16 21:26 Source: patient, EMS Mode of arrival: EMS Limitations: no limitations - History of Present Illness Initial comments: Resented with a very high blood pressure and chest pain, she is at [facility] she said she wears oxygen [id number] and accidentally she forgot to put her oxygen off or accidentally oxygen went off. Then she developed the chest pain she had this chest pain for about an hour then she noticed some blood pressure was very high than the [facility] staff got concerned and sent her over since she got her oxygen back chest pain is resolved blood pressure stays high. Denies any headaches no neck stiffness no chest pain now and chest pain does not come with the deep breaths. No fever no chills no abdominal pain no frequency urgency dysuria - Related Data Home Medications Medication Instructions Recorded Confirmed Vit A,C & E/Lutein/Minerals 1 tab PO DAILY@0900 10/06/13 04/14/16 [Ocuvite with Lutein Tablet] Aspirin EC [Ecotrin Low Dose] 81 mg PO DAILY@0900 06/28/14 04/14/16 Furosemide [Lasix] 20 mg PO Q48H 03/07/16 04/14/16 ALPRAZolam [Xanax] 0.25 mg PO Q8H PRN 04/14/16 04/14/16 Basaglar 100units/Ml 6 units SQ HS@2100 04/14/16 04/14/16 Fluticasone/Vilanterol [Breo 1 puff INHALATION RT-DAILY@0904/14/16 04/14/16 Ellipta 200-25 Mcg INH] Glimepiride [Amaryl] 1 mg PO DAILY@0604/14/16 04/14/16 Insulin Lispro [humaLOG] See Protocol SQ BID@0643,9540 04/14/16 04/14/16 Ipratropium-Albuterol Nebulize 3 ml INHALATION RT-Q6H PRN 04/14/16 04/14/16 [Duoneb 0.5 mg-3 mg/3 ml Soln] Ipratropium-Albuterol Nebulize 3 ml INHALATION RT-QID 04/14/16 04/14/16 [Duoneb 0.5 mg-3 mg/3 ml Soln] Lisinopril [Prinivil] 20 mg PO HS@209904/14/16 04/14/16 Sertraline [Zoloft] 50 mg PO HS@2100 04/14/16 04/14/16 predniSONE 10 mg PO DAILY@0900 04/14/16 04/14/16 Allergies Allergy/AdvReac Type Severity Reaction Status Date / Time doxycycline Allergy Rash/Hives Verified 04/14/16 22:05 glucosamine Allergy Rash/Hives Verified 04/14/16 22:05 Iodinated Contrast Media - Allergy Rash/Hives Verified 04/14/16 22:05 Oral and [Iodinated Contrast Media - IV Dye] Sulfa (Sulfonamide Allergy Rash/Hives Verified 04/14/16 22:05 Antibiotics) baclofen AdvReac Confusion Verified 04/14/16 22:05 Review of Systems ROS Statement: Those systems with pertinent positive or pertinent negative responses have been documented in the HPI. ROS Other: All systems not noted in ROS Statement are negative. Past Medical History Past Medical History: COPD, Diabetes Mellitus, Hyperlipidemia, Hypertension, Osteoarthritis (OA), Pneumonia, Thyroid Disorder Additional Past Medical History / Comment(s): COPD , anemia, chronic hypoxic respiratory failure and the patient has been on oxygen at 2.5 L/m nasal cannula , lt breast cancer, , chronic sinus disease,djd emphysema, thyroid nodule History of Any Multi-Drug Resistant Organisms: None Reported Past Surgical History: Breast Surgery, Orthopedic Surgery, Tonsillectomy Additional Past Surgical History / Comment(s): 2002 lt lumpectomy and 35 radiation tx,2004 right carotid endarectomy, rt knee arthroscopy,2009 right knee replacement 2007 bilateral cataract , had esophageal dilation via EGD Past Anesthesia/Blood Transfusion Reactions: Postoperative Nausea & Vomiting ( PONV) Additional Past Anesthesia/Blood Transfusion Reaction / Comment(s): vomited after surg. Past Psychological History: No Psychological Hx Reported Smoking Status: Former smoker Past Alcohol Use History: None Reported Additional Past Alcohol Use History / Comment(s): per pt's daughter-pt quit smoking 20 years ago Past Drug Use History: None Reported - Past Family History Father Family Medical History: Coronary Artery Disease (CAD) Additional Family Medical History / Comment(s): young from heart problems Mother Family Medical History: Asthma, COPD General Exam - General Exam Comments Initial Comments: General: The patient is awake and alert, in no distress, and does not appear acutely ill. GCS is 15 Skin: Skin is warm and dry and no rashes or lesions are noted. Eye: Pupils are equal, round and reactive to light, external ocular muscles are intact. Ears, nose, mouth and throat: There are moist mucous membranes and no oral lesions. Neck: The neck is supple, there is no tenderness or JVD. Cardiovascular: There is a regular rate and rhythm. No murmur, rub or gallop is appreciated. Respiratory: To auscultation bilateral, decreased breath sounds bilaterally Gastrointestinal: Soft, non-distended, non-tender abdomen without masses or organomegaly noted. There is no rebound or guarding present. Bowel sounds are unremarkable. Back: There is no tenderness to palpation in the midline. There is no obvious deformity. Musculoskeletal: Normal ROM, no tenderness, There is no pedal edema. There is no calf tenderness or swelling. No cords were appreciated. Neurological: CN II-XII intact, Cranial nerves III through XII are intact. There are no obvious motor or sensory deficits. Coordination appears grossly intact. Speech is normal. Psychiatric: Cooperative, appropriate mood & affect, normal judgment. Limitations: no limitations Course Vital Signs 04/14/16 04/14/16 04/14/16 21:21 22:03 22:27 Temperature 99.4 F Pulse Rate 95 77 Pulse Rate [ 80 Right Radial] Respiratory 16 18 Rate Blood Pressure 226/98 210/91 O2 Sat by Pulse 92 L 98 Oximetry 04/14/16 04/14/16 23:28 23:59 Temperature Pulse Rate 79 70 Pulse Rate [ Right Radial] Respiratory 18 18 Rate Blood Pressure 203/81 161/69 O2 Sat by Pulse 97 98 Oximetry EKG Findings - EKG Comments: EKG Findings:: EKG is a normal sinus rhythm, ventricular rate is 83 AK interval is 154 QRS duration is 76 QT/QTc is 360/423, this EKG has no ST elevation noticed some T-wave inversion in lead aVL. Medical Decision Making - Lab Data Result diagrams: 04/14/16 21:28 04/14/16 21:28 Lab Results 04/14/16 04/14/16 04/14/16 Range/Units 21:28 21:28 21:28 WBC 11.4 H (3.8-10.6) k/uL RBC 3.78 L (3.80-5.40) m/uL Hgb 9.8 L (11.4-16.0) gm/dL Hct 33.6 L (34.0-46.0) % MCV 89.0 (80.0-100.0) fL MCH 25.9 (25.0-35.0) pg MCHC 29.1 L (31.0-37.0) g/dL RDW 14.3 (11.5-15.5) % Plt Count 334 (150-450) k/uL Neutrophils % 83 % Lymphocytes % 9 % Monocytes % 6 % Eosinophils % 1 % Basophils % 0 % Neutrophils # 9.5 H (1.3-7.7) k/uL Lymphocytes # 1.0 (1.0-4.8) k/uL Monocytes # 0.7 (0-1.0) k/uL Eosinophils # 0.1 (0-0.7) k/uL Basophils # 0.0 (0-0.2) k/uL Hypochromasia Moderate PT (9.0-12.0) sec INR (<1.1) APTT (22.0-30.0) sec Sodium 144 (137-145) mmol/L Potassium 4.6 (3.5-5.1) mmol/L Chloride 100 (98-107) mmol/L Carbon Dioxide 37 H (22-30) mmol/L Anion Gap 7 mmol/L BUN 29 H (7-17) mg/dL Creatinine 1.30 H (0.52-1.04) mg/dL Est GFR (MDRD) Af Amer 48 (>60 ml/min/1.73 sqM) Est GFR (MDRD) Non-Af 39 (>60 ml/min/1.73 sqM) Glucose 165 H (74-99) mg/dL Calcium 8.7 (8.4-10.2) mg/dL Magnesium 2.3 (1.6-2.3) mg/dL Total Bilirubin 0.3 (0.2-1.3) mg/dL AST 20 (14-36) U/L ALT 44 (9-52) U/L Alkaline Phosphatase 75 (38-126) U/L Total Creatine Kinase 29 L (30-135) U/L CK-MB (CK-2) 2.1 (0.0-2.4) ng/mL CK-MB (CK-2) Rel Index 7.2 Troponin I 0.078 H* (0.000-0.034) ng/mL NT-Pro-B Natriuret Pep pg/mL Total Protein 5.5 L (6.3-8.2) g/dL Albumin 3.2 L (3.5-5.0) g/dL 04/14/16 04/14/16 Range/Units 21:28 21:28 WBC (3.8-10.6) k/uL RBC (3.80-5.40) m/uL Hgb (11.4-16.0) gm/dL Hct (34.0-46.0) % MCV (80.0-100.0) fL MCH (25.0-35.0) pg MCHC (31.0-37.0) g/dL RDW (11.5-15.5) % Plt Count (150-450) k/uL Neutrophils % % Lymphocytes % % Monocytes % % Eosinophils % % Basophils % % Neutrophils # (1.3-7.7) k/uL Lymphocytes # (1.0-4.8) k/uL Monocytes # (0-1.0) k/uL Eosinophils # (0-0.7) k/uL Basophils # (0-0.2) k/uL Hypochromasia PT 9.4 (9.0-12.0) sec INR 0.9 (<1.1) APTT 21.1 L (22.0-30.0) sec Sodium (137-145) mmol/L Potassium (3.5-5.1) mmol/L Chloride (98-107) mmol/L Carbon Dioxide (22-30) mmol/L Anion Gap mmol/L BUN (7-17) mg/dL Creatinine (0.52-1.04) mg/dL Est GFR (MDRD) Af Amer (>60 ml/min/1.73 sqM) Est GFR (MDRD) Non-Af (>60 ml/min/1.73 sqM) Glucose (74-99) mg/dL Calcium (8.4-10.2) mg/dL Magnesium (1.6-2.3) mg/dL Total Bilirubin (0.2-1.3) mg/dL AST (14-36) U/L ALT (9-52) U/L Alkaline Phosphatase (38-126) U/L Total Creatine Kinase (30-135) U/L CK-MB (CK-2) (0.0-2.4) ng/mL CK-MB (CK-2) Rel Index Troponin I (0.000-0.034) ng/mL NT-Pro-B Natriuret Pep 2690 pg/mL Total Protein (6.3-8.2) g/dL Albumin (3.5-5.0) g/dL Critical Care Time Total Critical Care Time: 45 Critical Care Time: Symptom had a chest pain at [facility], oxygen to get of the chest pain that her blood pressure was quite high in spite of being on some antihypertensive therapy hydralazine now was administered she responded well blood pressure is not better, her labs are reviewed CBC is within normal range with slight elevation of white count is 11.6 INR is normal creatinine is 1.30, CO2 is a 37 and troponin is 0.078 according to our labs her troponin is elevated Disposition Clinical Impression: Hypertension, Chest pain, Myocardial infarction Disposition: ADMITTED IP TO THIS HOSP Condition: Fair
[2016-04-15 00:02] LABS: Creatine Kinase MB 2.1 ng/mL (0.0-2.4)
[2016-04-15 00:06] LABS: Troponin I 0.078 ng/mL (0.000-0.034)
[2016-04-15] MEDS ORDERED: hydrALAZINE HCL 20 MG/ML 1 ML VIAL IVP STA (00:36)
[2016-04-15] MEDS ORDERED: HEPARIN SODIUM,PORCINE 5,000 UNIT/ML 1 ML VIAL IV ONE (00:42)
[2016-04-15] MEDS ORDERED: NITROGLYCERIN SL TABS 0.4 MG TAB SUBLINGUAL PRN (00:42)
[2016-04-15] MEDS ORDERED: ACETAMINOPHEN TAB 325 MG TAB PO PRN (00:42)
[2016-04-15] MEDS ORDERED: MORPHINE SULFATE 2 MG/ML SYRINGE IVP PRN (00:42)
[2016-04-15] MEDS ORDERED: ALPRAZolam 0.25 MG TAB PO PRN (00:48)
[2016-04-15] MEDS ORDERED: IPRATROPIUM-ALBUTEROL 3 ML NEB INHALATION PRN (00:48)
[2016-04-15] MEDS: HEPARIN SODIUM,PORCINE/D5W PMX 25,000 UNIT in DEXTROSE/WATER 1 500ML.BAG IV SCH (01:40)
[2016-04-15 03:08] VITALS: BMI 32.3
[2016-04-15 04:34] LABS: Glucose,Whole Blood 117 mg/dL (75-99)
[2016-04-15 04:43] LABS: Creatine Kinase MB 2.7 ng/mL (0.0-2.4); Troponin I 0.125 ng/mL (0.000-0.034)
[2016-04-15 06:31] LABS: Glucose,Whole Blood 139 mg/dL (75-99)
--- NOTE | 2016-04-15 08:09 | P.HPIM ---
History of Present Illness Chief complaint and history of present illness: The patient is a 80-year-old female who had been staying recently at the [facility] where she had been recovering from an episode of acute exacerbation of COPD. Patient does have very severe COPD, Gold stage IV and with FEV1 less than 34%. She is oxygen dependent and also on prednisone regularly. Apparently her oxygen came off during the night and her blood pressure began to elevate and she developed some chest pain which radiated down both arms. Apparently the pain improved after the use of oxygen was resumed at the home. She states she has had this pain at times in the past. Overall though she was doing well at [facility] until this episode happened. Past medical history: 1. Severe COPD as stated above. 2. Hypertension 3. Degenerative joint disease of the knees. 4. Chronic kidney disease stage III 5. Type 2 diabetes 6. Surgical history that includes left breast lumpectomy with radiation treatments back in 2004. Right total knee replacement in the past. Previous esophageal dilatation and right carotid endarterectomy. No definite previous history of myocardial infarction or definitive stroke. Medications: Patient has had history of ALLERGIES to doxycycline and glucosamine along with contrast dye and sulfa. Also Baclofen. Patient has confusion with baclofen and rashes with the other medications. Medications from the [facility]: 1. Xanax 0.25 3 times a day. 2. DuoNeb 4 times a day and when necessary 3. Humalog Accu-Cheks before breakfast and dinner with coverage. 4. Zoloft 50 mg at at bedtime 5. Lisinopril 20 mg at at bedtime 6. Lasix 20 mg every 48 hours 7. Fluticasone-Vilanterol 200-25 one inhalation daily 8. Basaglar insulin 6 units at bedtime 9. Amaryl 1 mg daily 10. Aspirin 81 mg daily. Review of systems: Patient has had the chest pain as described above. No fever or chills or unusual cough. Patient does get short of breath with minimal exertion due to her underlying COPD. No nausea or vomiting. No urinary or bowel symptoms. No unusual leg edema. Family history: Her father of blood clots at the age of 57. There is also history of diabetes and coronary artery disease in her family. She has a sister that has bladder cancer and another sister with brain cancer. Social history: Once again patient presently lives at [facility] [place]. Before that she did live in her own home with some family members present. Normally she is a heavy smoker. She is for about 10 years now. No history of any heavy alcohol usage. Physical examination: Temperature is 96.9 with a pulse of 87 respirations 20. Blood pressure 181/69 and she is 98% saturated on 3 L nasal cannula. She is lying on her side in bed in no acute distress this morning. Head is atraumatic. Extraocular movements intact. Neck is supple without adenopathy, bruits or thyromegaly. Lungs are generally clear but diminished. Heart tones are regular without murmurs or rubs appreciated. Breast and pelvic exam is deferred. Abdomen is soft and nontender without organomegaly. Extremities revealed no edema. She is overall alert. Cranial nerves intact. No focal weakness noted. Laboratory values: White count is 11.4 with a hemoglobin 9.8 and MCV of 89. Platelet count is 334. INR was 0.9. Sodium 144 with a potassium 4.6 and a BUN of 29 with creatinine 1.30 given her GFR 39. Blood sugar this morning is 139. CK was low at 29. Troponin that was elevated on admission at 0.078 and has risen to 0.125. BNP is 2690. Albumin is low at 3.2. EKG showed a normal sinus rhythm with a premature atrial contractions but no definite ischemic changes noted. Chest x-ray shows no definite acute changes. Impressions: 1. Angina with elevated troponins. likely aggravated by the drop in O2 and elevated blood pressures. 2. Severe COPD with an FEV1 less than 34% in the past. Oxygen and steroid dependent. 3. Hypertension hypertensive heart disease. 4. Chronic kidney disease stage III 5. Degenerative joint disease of the knees. 6. Previous surgical history includes right knee replacement along with previous left breast lumpectomy with radiation back in 2004 and also esophageal dilatation in the past and right carotid endarterectomy. 7. Medical debility and overall frail state with low albumin and generalized weakness. 8. History of anxiety and previous panic attacks. 9. Anemia of chronic disease. Plans: At this point we will continue her respiratory treatments along with her lisinopril and Lasix. We'll await for cardiology opinion regarding further workup and treatment. She is a no code and no CPR. As discussed with patient and staff. She has been placed on heparin in the emergency room. Long-term prognosis is definitively guarded. Past Medical History Past Medical History: COPD, Diabetes Mellitus, Hyperlipidemia, Hypertension, Myocardial Infarction ([place]), Osteoarthritis (OA), Pneumonia, Thyroid Disorder Additional Past Medical History / Comment(s): COPD , anemia, chronic hypoxic respiratory failure and the patient has been on oxygen at 2.5 L/m nasal cannula , lt breast cancer, , chronic sinus disease,djd emphysema, thyroid nodule Last Myocardial Infarction Date:: 04/15/16 History of Any Multi-Drug Resistant Organisms: None Reported Past Surgical History: Breast Surgery, Orthopedic Surgery, Tonsillectomy Additional Past Surgical History / Comment(s): 2002 lt lumpectomy and 35 radiation tx,2004 right carotid endarectomy, rt knee arthroscopy,2009 right knee replacement 2006 bilateral cataract , had esophageal dilation via EGD Past Anesthesia/Blood Transfusion Reactions: Postoperative Nausea & Vomiting ( PONV) Additional Past Anesthesia/Blood Transfusion Reaction / Comment(s): vomited after surg. Past Psychological History: No Psychological Hx Reported, Anxiety Smoking Status: Former smoker Past Alcohol Use History: None Reported Additional Past Alcohol Use History / Comment(s): per pt's daughter-pt quit smoking 20 years ago Past Drug Use History: None Reported - Past Family History Father Family Medical History: Coronary Artery Disease (CAD) Additional Family Medical History / Comment(s): young from heart problems Mother Family Medical History: Asthma, COPD Medications and Allergies Home Medications Medication Instructions Recorded Confirmed Type Vit A,C & E/Lutein/Minerals 1 tab PO DAILY@0900 10/06/13 04/14/16 History [Ocuvite with Lutein Tablet] Aspirin EC [Ecotrin Low Dose] 81 mg PO DAILY@0900 06/28/14 04/14/16 History Furosemide [Lasix] 20 mg PO Q48H 03/07/16 04/14/16 History ALPRAZolam [Xanax] 0.25 mg PO Q8H PRN 04/14/16 04/14/16 History Basaglar 100units/Ml 6 units SQ HS@2100 04/14/16 04/14/16 History Fluticasone/Vilanterol [Breo 1 puff INHALATION RT-DAILY@0900 04/14/16 04/14/16 History Ellipta 200-25 Mcg INH] Glimepiride [Amaryl] 1 mg PO DAILY@0600 04/14/16 04/14/16 History Insulin Lispro [humaLOG] See Protocol SQ BID@0730,1730 04/14/16 04/14/16 History Ipratropium-Albuterol Nebulize 3 ml INHALATION RT-Q6H PRN 04/14/16 04/14/16 History [Duoneb 0.5 mg-3 mg/3 ml Soln] Ipratropium-Albuterol Nebulize 3 ml INHALATION RT-QID 04/14/16 04/14/16 History [Duoneb 0.5 mg-3 mg/3 ml Soln] Lisinopril [Prinivil] 20 mg PO HS@2100 04/14/16 04/14/16 History Sertraline [Zoloft] 50 mg PO HS@2100 04/14/16 04/14/16 History predniSONE 10 mg PO DAILY@0900 04/14/16 04/14/16 History Allergies Allergy/AdvReac Type Severity Reaction Status Date / Time doxycycline Allergy Rash/Hives Verified 04/14/16 22:05 glucosamine Allergy Rash/Hives Verified 04/14/16 22:05 Iodinated Contrast Media - Allergy Rash/Hives Verified 04/14/16 22:05 Oral and [Iodinated Contrast Media - IV Dye] Sulfa (Sulfonamide Allergy Rash/Hives Verified 04/14/16 22:05 Antibiotics) baclofen AdvReac Confusion Verified 04/14/16 22:05 Physical Exam Vitals: Vital Signs Temp Pulse Pulse Resp BP BP Pulse Ox 04/15/16 04:00 96.9 F L 87 20 181/69 98 04/15/16 02:25 97.0 F L 93 20 173/74 95 04/15/16 02:15 97.0 F L 93 20 173/74 95 04/15/16 01:39 89 20 152/64 96 04/15/16 01:20 89 18 177/74 96 04/15/16 01:14 66 04/15/16 01:07 61 04/15/16 01:00 80 18 179/88 96 Intake and Output 04/14/16 04/15/16 04/15/16 22:59 06:59 14:59 Output Total 300 Balance -300 Output: Urine 300 Other: Voiding Method Toilet # Voids 1 Weight 75 kg Results CBC & Chem 7: 04/14/16 21:28 04/14/16 21:28 Labs: Abnormal Lab Results - Last 24 Hours (Table) 04/15/16 04/15/16 04/15/16 Range/Units 03:22 04:32 06:29 POC Glucose (mg/dL) 117 H 139 H (75-99) mg/dL Total Creatine Kinase 28 L (30-135) U/L CK-MB (CK-2) 2.7 H* (0.0-2.4) ng/mL Troponin I 0.125 H* (0.000-0.034) ng/mL Thrombosis Risk Factor Assmnt - Choose All That Apply Each Risk Factor Represents 3 Points: Age 75 years or older Thrombosis Risk Factor Assessment Total Risk Factor Score: 3 Thrombosis Risk Factor Assessment Level: Moderate Risk
[2016-04-15] MEDS: IPRATROPIUM-ALBUTEROL 3 ML NEB INHALATION SCH ×4 (08:47→20:06)
[2016-04-15] MEDS: SYMBICORT 160-4.5 MCG INHALER INHALATION SCH ×2 (08:47→20:06)
[2016-04-15 08:50] LABS: Hemoglobin A1C 6.7 % (4.2-6.1)
[2016-04-15] MEDS ORDERED: FUROSEMIDE 20 MG TAB PO SCH (09:00)
[2016-04-15] MEDS: INSULIN LISPRO (humaLOG) 300 UNIT/3 ML VIAL SQ SCH ×4 (09:31→22:51)
[2016-04-15] MEDS: ASPIRIN 81 MG CHEW PO SCH (09:33)
[2016-04-15] MEDS: VIT A,C & E-LUTEIN-MINERALS 1 EACH TAB PO SCH (09:34)
[2016-04-15] MEDS: predniSONE 10 MG TAB PO SCH (10:11)
[2016-04-15 10:23] LABS: Creatine Kinase MB 3.2 ng/mL (0.0-2.4); Troponin I 0.128 ng/mL (0.000-0.034)
--- NOTE | 2016-04-15 11:41 | P.CRDCN ---
History of Present Illness Consult date: 04/15/16 Requesting physician: [place] Consult reason: chest pain Chief complaint: Chest pain History of present illness: This is a pleasant 80-year-old female with history of hypertension, severe COPD oxygen dependent, sleep apnea, diabetes, hyperlipidemia, hypothyroidism, history of breast cancer with prior radiation, patient has had multiple admissions to the hospital with exacerbation of COPD. She was currently at [facility], undergoing rehab. She apparently had gone without her oxygen for approximately 2 hours, patient then developed a midsternal chest pressure and heaviness with radiation down both of her arms. Oxygen was applied and shortly thereafter she states that the symptoms subsided. On transfer here, she did state that she had some recurrent chest pressure. At the time of my examination this morning patient denies any chest discomfort. She states that her breathing this morning labored than her usual. EKG on arrival here showed a normal sinus rhythm with nonspecific ST-T wave changes. Chest x-ray did not reveal any new intrathoracic abnormality. Blood pressure on arrival here to 26/ 98 with a heart rate in the 80s, 92% on 3 L of oxygen. Blood pressure this morning 162/76 with a heart rate in the 70s. CBC, white blood cell count 11.4, hemoglobin 9.8, platelet count 334. Potassium 4.6, BUN 29 and creatinine 1.3. Magnesium level is 2.3. Troponins 0.078, 0.125, 0.128. BNP level 2690. Past Medical History Past Medical History: COPD, Diabetes Mellitus, Hyperlipidemia, Hypertension, Myocardial Infarction ([place]), Osteoarthritis (OA), Pneumonia, Thyroid Disorder Additional Past Medical History / Comment(s): COPD , anemia, chronic hypoxic respiratory failure and the patient has been on oxygen at 2.5 L/m nasal cannula , lt breast cancer, , chronic sinus disease,djd emphysema, thyroid nodule Last Myocardial Infarction Date:: 04/15/16 History of Any Multi-Drug Resistant Organisms: None Reported Past Surgical History: Breast Surgery, Orthopedic Surgery, Tonsillectomy Additional Past Surgical History / Comment(s): 2002 lt lumpectomy and 35 radiation tx,2005 right carotid endarectomy, rt knee arthroscopy,2009 right knee replacement 2006 bilateral cataract , had esophageal dilation via EGD Past Anesthesia/Blood Transfusion Reactions: Postoperative Nausea & Vomiting ( PONV) Additional Past Anesthesia/Blood Transfusion Reaction / Comment(s): vomited after surg. Past Psychological History: No Psychological Hx Reported, Anxiety Smoking Status: Former smoker Past Alcohol Use History: None Reported Additional Past Alcohol Use History / Comment(s): per pt's daughter-pt quit smoking 20 years ago Past Drug Use History: None Reported - Past Family History Father Family Medical History: Coronary Artery Disease (CAD) Additional Family Medical History / Comment(s): young from heart problems Mother Family Medical History: Asthma, COPD Medications and Allergies Home Medications Medication Instructions Recorded Confirmed Type Vit A,C & E/Lutein/Minerals 1 tab PO DAILY@0910/06/13 04/14/16 History [Ocuvite with Lutein Tablet] Aspirin EC [Ecotrin Low Dose] 81 mg PO DAILY@89906/28/14 04/14/16 History Furosemide [Lasix] 20 mg PO Q48H 03/07/16 04/14/16 History ALPRAZolam [Xanax] 0.25 mg PO Q8H PRN 04/14/16 04/14/16 History Basaglar 100units/Ml 6 units SQ HS@209904/14/16 04/14/16 History Fluticasone/Vilanterol [Breo 1 puff INHALATION RT-DAILY@89904/14/16 04/14/16 History Ellipta 200-25 Mcg INH] Glimepiride [Amaryl] 1 mg PO DAILY@0604/14/16 04/14/16 History Insulin Lispro [humaLOG] See Protocol SQ BID@0730,1730 04/14/16 04/14/16 History Ipratropium-Albuterol Nebulize 3 ml INHALATION RT-Q6H PRN 04/14/16 04/14/16 History [Duoneb 0.5 mg-3 mg/3 ml Soln] Ipratropium-Albuterol Nebulize 3 ml INHALATION RT-QID 04/14/16 04/14/16 History [Duoneb 0.5 mg-3 mg/3 ml Soln] Lisinopril [Prinivil] 20 mg PO HS@209904/14/16 04/14/16 History Sertraline [Zoloft] 50 mg PO HS@209904/14/16 04/14/16 History predniSONE 10 mg PO DAILY@0900 04/14/16 04/14/16 History Allergies Allergy/AdvReac Type Severity Reaction Status Date / Time doxycycline Allergy Rash/Hives Verified 04/14/16 22:05 glucosamine Allergy Rash/Hives Verified 04/14/16 22:05 Iodinated Contrast Media - Allergy Rash/Hives Verified 04/14/16 22:05 Oral and [Iodinated Contrast Media - IV Dye] Sulfa (Sulfonamide Allergy Rash/Hives Verified 04/14/16 22:05 Antibiotics) baclofen AdvReac Confusion Verified 04/14/16 22:05 Physical Exam Vitals: Vital Signs Temp Pulse Pulse Pulse Resp BP BP 04/15/16 09:06 84 04/15/16 08:50 78 04/15/16 08:25 97.3 F L 83 18 162/77 04/15/16 04:00 96.9 F L 87 20 181/69 04/15/16 02:25 97.0 F L 93 20 173/74 04/15/16 02:15 97.0 F L 93 20 173/74 04/15/16 01:39 89 20 152/64 04/15/16 01:20 89 18 177/74 04/15/16 01:14 66 04/15/16 01:07 61 04/15/16 01:00 80 18 179/88 Pulse Ox 04/15/16 09:06 04/15/16 08:50 96 04/15/16 08:25 97 04/15/16 04:00 98 04/15/16 02:25 95 04/15/16 02:15 95 04/15/16 01:39 96 04/15/16 01:20 96 04/15/16 01:14 04/15/16 01:07 04/15/16 01:00 96 Intake and Output 04/14/16 04/15/16 04/15/16 22:59 06:59 14:59 Output Total 300 200 Balance -300 -200 Output: Urine 300 200 Other: Voiding Method Toilet Toilet # Voids 1 Weight 75 kg PHYSICAL EXAMINATION: HEENT: Head is atraumatic, normocephalic. Pupils equal, round. Neck is supple. There is no elevated jugular venous pressure. HEART EXAMINATION: Heart S1, S2 normal. No murmur or gallop heard. CHEST EXAMINATION: Lungs reveal decreased air exchange throughout ABDOMEN: Soft, nontender. Bowel sounds are heard. No organomegaly noted. EXTREMITIES: 2+ peripheral pulses with no evidence of peripheral edema and no calf tenderness noted. NEUROLOGIC patient is awake, alert and oriented -3. . Results 04/14/16 21:28 04/14/16 21:28 Cardiac Enzymes 04/15/16 04/15/16 Range/Units 03:22 08:46 CK-MB (CK-2) 2.7 H* 3.2 H* (0.0-2.4) ng/mL Troponin I 0.125 H* 0.128 H* (0.000-0.034) ng/mL Coagulation 04/15/16 Range/Units 08:46 APTT 63.4 H (22.0-30.0) sec Current Medications Generic Name Dose Route Start Last Admin Trade Name Freq PRN Reason Stop Dose Admin Acetaminophen 650 mg 04/15/16 00:42 04/15/16 06:15 Tylenol Tab PO 650 mg Q4HR PRN Administration Pain Albuterol/Ipratropium 3 ml 04/15/16 00:48 04/15/16 01:07 Duoneb 0.5 Mg-3 Mg/3 Ml Soln INHALATION 3 ml RT-Q6H PRN Administration Shortness Of Breath Albuterol/Ipratropium 3 ml 04/15/16 08:00 04/15/16 08:47 Duoneb 0.5 Mg-3 Mg/3 Ml Soln INHALATION 3 ml RT-QID KARSON Administration Alprazolam 0.25 mg 04/15/16 00:48 Xanax PO Q8H PRN Anxiety Aspirin 325 mg 04/16/16 09:00 Aspirin PO DAILY KARSON Aspirin 81 mg 04/15/16 09:00 04/15/16 09:33 Aspirin PO 81 mg DAILY@0900 KARSON Administration Budesonide/Formoterol Fumarate 2 puff 04/15/16 08:00 04/15/16 08:47 Symbicort 160-4.5 Mcg Inhaler INHALATION 2 puff RT-BID KARSON Administration Furosemide 20 mg 04/15/16 09:00 04/15/16 09:33 Lasix PO 20 mg Q48H KARSON Administration Glimepiride 1 mg 04/15/16 06:00 Amaryl PO DAILY@0600 [facility] Sodium Chloride 1,000 mls @ 50 mls/hr 04/14/16 21:58 04/14/16 22:16 Saline 0.9% IV 04/15/16 17:57 50 mls/hr .Q20H STA Administration Heparin Sodium/Dextrose 25,000 500 mls @ 20.02 mls/hr 04/15/16 00:45 01:40 unit/ IV Solution IV 5.71 units/kg/hr .Q24H KARSON 20 mls/hr Protocol Administration 5.72 UNITS/KG/HR Insulin Glargine 6 unit 04/15/16 21:00 Lantus SQ HS@2100 [facility] Insulin Human Lispro 0 unit 04/15/16 07:30 04/15/16 09:31 Humalog SQ Not Given [facility] Protocol Lisinopril 20 mg 04/15/16 21:00 Zestril PO HS@2100 [facility] Lorazepam 0.5 mg 04/15/16 21:00 Ativan PO [facility] Morphine Sulfate 2 mg 04/15/16 00:42 Morphine Sulfate (Inj) IVP Q5M PRN Chest Pain Multivitamins/Minerals 1 each 04/15/16 09:00 04/15/16 09:34 Ivite PO 1 each DAILY@0900 [facility] Administration Nitroglycerin 0.4 mg 04/15/16 00:42 04/15/16 01:28 Nitrostat SUBLINGUAL 0.4 mg Q5M PRN Administration Chest Pain Prednisone 10 mg 04/15/16 09:00 04/15/16 10:11 PO 10 mg DAILY@0900 [facility] Administration Sertraline HCl 50 mg 04/15/16 21:00 Zoloft PO HS@2100 [facility] Intake and Output 04/14/16 04/15/16 04/15/16 22:59 06:59 14:59 Output Total 300 200 Balance -300 -200 Output: Urine 300 200 Other: Voiding Method Toilet Toilet # Voids 1 Weight 75 kg EKG Interpretations (text) EKG shows normal sinus rhythm with nonspecific ST-T wave changes Assessment and Plan Plan: Assessment and plan #1 symptoms of midsternal chest pressure and heaviness with radiation down bilateral arms. Suggestive of acute coronary syndrome. Troponins 0.078, 0.125 , 0.128. EKG shows normal sinus rhythm with nonspecific ST-T wave changes. #2 accelerated hypertension #3 history of hypertension #4 history of diabetes #5 severe COPD, O2 dependent #6 hypothyroidism #7 history of breast cancer with prior radiation #8 mild congestive cardiac failure, BNP level 2690. Unsure of LV function at this time. #9 acute on chronic renal failure #10 anemia Plan Will obtain an echocardiogram with Doppler study to assess the patient's LV function. We will also add statin and low-dose beta concha to the patient's medication regime. Decrease aspirin 81 mg daily. Initiate IV Lasix. Decrease IV fluids. Further recommendations to follow DNP note has been reviewed, I agree with a documented findings and plan of care. Patient was seen and examined.
[2016-04-15 11:52] LABS: Glucose,Whole Blood 166 mg/dL (75-99)
--- NOTE | 2016-04-15 12:11 | P.PN ---
Progress Note - Text this is an addendum to the dictated cardiology consultation. The patient has a known history of severe chronic obstructive lung disease on home O2. History of hypertension and diabetes who presented with symptoms of chest and arm discomfort. Yesterday she did not have her oxygen running for 2 hours and started to have the discomfort that resolved after initiating oxygen treatment. She has no history of obstructive coronary artery disease in the past. No history of CHF, arrhythmia or syncope. She is very limited in her physical activity because of her chronic dyspnea on exertion. She has a history of chronic kidney disease. On her physical examination she has scattered bilateral wheezing, a systolic murmur at the base and no peripheral edema. Her EKG shows mild nonspecific T wave changes and her troponin is elevated consistent with non-STEMI. The patient presents with an acute coronary syndrome and non-STEMI most likely exacerbated by the hypoxemia because of the lack of oxygen flow. I would favor maximizing her medical therapy and avoiding cardiac catheterization because of her renal failure and severe COPD.we will obtain an echocardiogram with Doppler and if she has recurrent chest discomfort in spite of of maximal medical therapy then further recommendations will be made. We will continue on IV heparin for the next 24 hours. Thank you for this consult we will follow with you.
[2016-04-15] MEDS: GLIMEPIRIDE 1 MG TAB PO SCH (12:55)
[2016-04-15] MEDS: FUROSEMIDE 10 MG/ML 4 ML VIAL IV SCH ×2 (12:56→22:37)
[2016-04-15] MEDS: METOPROLOL SUCCINATE (ER) 25 MG TAB.ER.24H PO SCH (12:56)
[2016-04-15] MEDS: LISINOPRIL 20 MG TAB PO SCH (16:16)
[2016-04-15 16:31] LABS: Glucose,Whole Blood 197 mg/dL (75-99)
[2016-04-15 20:52] LABS: Glucose,Whole Blood 115 mg/dL (75-99)
[2016-04-15] MEDS: ATORVASTATIN 80 MG TAB PO SCH (22:37)
[2016-04-15] MEDS: INSULIN GLARGINE 100 UNIT/ML 10 ML VIAL SQ SCH (22:38)
[2016-04-15] MEDS: SERTRALINE 50 MG TAB PO SCH (22:39)
[2016-04-15] MEDS: LORazepam 0.5 MG TAB PO SCH (22:51)
[2016-04-16 06:05] LABS: Glucose,Whole Blood 75 mg/dL (75-99)
[2016-04-16] MEDS: INSULIN LISPRO (humaLOG) 300 UNIT/3 ML VIAL SQ SCH ×4 (07:36→22:43)
[2016-04-16] MEDS: HEPARIN SODIUM,PORCINE/D5W PMX 25,000 UNIT in DEXTROSE/WATER 1 500ML.BAG IV SCH (07:36)
--- NOTE | 2016-04-16 07:41 | P.PN ---
Progress Note - Text The patient is a 80-year-old female with very severe stage IV pulmonary disease that presented with angina like chest pain and was found to have elevated troponins consistent with a non-ST elevated myocardial infarction. Patient has been seen by cardiology. She has been on heparin therapy. She is on nitrates and Alex inhibitors. She is on aspirin and statins. Presently she denies any further chest pain. According to nursing staff she has been up to the bathroom. She does get short of breath with minimal exertion. Vital signs reveal temperature 97.1 with a pulse of 58 and respirations 20. Blood pressure is 166/81 and she is 98% saturated on 3 L. Lung and heart examination is clear although diminished. Abdomen nontender. No unusual edema. No focal neurological changes. Laboratory values: Last troponin was 0.128. Her heparin PTT this morning is 49.9 and blood sugar 75. Impressions and plans: 1. The patient with severe COPD and presents with a acute non-ST segment elevated myocardial infarction. With elevated troponins and chest and arm pains. Cardiology has evaluated. They do not feel in light of her comorbidities with her severe COPD and stage III chronic renal disease and diabetes that she is a good candidate for further invasive workup. Plans are to continue to treat medically as stated above. They are planning likely to adjust medication further today. We will continue to ambulate the patient. We will ask pulmonary to see her in regards to maximizing her pulmonary medications and anticipate likely discharge back to extended care facility over the next 24 hours. This was discussed with patient and staff.
[2016-04-16 07:47] LABS: Calcium 8.6 mg/dL (8.4-10.2); Potassium 3.5 mmol/L (3.5-5.1)
[2016-04-16] MEDS ORDERED: ASPIRIN 325 MG TAB PO SCH (09:00)
[2016-04-16] MEDS: SYMBICORT 160-4.5 MCG INHALER INHALATION SCH ×2 (09:09→20:26)
[2016-04-16] MEDS: IPRATROPIUM-ALBUTEROL 3 ML NEB INHALATION SCH ×4 (09:09→20:28)
[2016-04-16] MEDS: predniSONE 10 MG TAB PO SCH (10:29)
[2016-04-16] MEDS: METOPROLOL SUCCINATE (ER) 25 MG TAB.ER.24H PO SCH (10:29)
[2016-04-16] MEDS: GLIMEPIRIDE 1 MG TAB PO SCH (10:29)
[2016-04-16] MEDS: VIT A,C & E-LUTEIN-MINERALS 1 EACH TAB PO SCH (10:29)
[2016-04-16] MEDS: ASPIRIN 81 MG CHEW PO SCH (10:29)
[2016-04-16] MEDS: FUROSEMIDE 10 MG/ML 4 ML VIAL IV SCH ×2 (10:30→22:43)
--- NOTE | 2016-04-16 11:20 | ECHOF ---
Referral Reason:chf MEASUREMENTS -------- HEIGHT: 152.4 cm WEIGHT: 74.8 kg BP: 162/77 RVIDd: 2.7 cm (< 3.3) IVSd: 1.2 cm (0.6 - 1.1) LVIDd: 4.3 cm (3.9 - 5.3) LVPWd: 1.3 cm (0.6 - 1.1) IVSs: 1.5 cm LVIDs: 2.8 cm LVPWs: 1.7 cm LA Diam: 3.7 cm (2.7 - 3.8) LAESV Index (A-L): 35.87 ml/m Ao Diam: 2.6 cm (2.0 - 3.7) AV Cusp: 2.1 cm (1.5 - 2.6) MV EXCURSION: 14.382 mm (> 18.000) MV EF SLOPE: 99 mm/s (70 - 150) EPSS: 0.4 cm MV E Marcellus: 1.56 m/s MV DecT: 166 ms MV A Marcellus: 1.64 m/s MV E/A Ratio: 0.95 AV maxP.90 mmHg AV meanP.33 mmHg RAP: 5.00 mmHg RVSP: 54.08 mmHg FINDINGS -------- Sinus rhythm. This was a technically adequate study. The left ventricular size is normal. There is mild concentric left ventricular hypertrophy. Overall left ventricular systolic function is normal with, an EF between 60 - 65 %. Pseudonormal LV filling pattern, consistent with elevated LA pressure. The right ventricle is normal in size. LA is moderately dilated 34-39 ml/m2 The right atrium is normal in size. Aortic valve is trileaflet and is mildly thickened. There is mild aortic stenosis present. Peak/mean gradient across the Aortic Valve is 26.90mmHg / 13.33mmHg. The mitral valve leaflets are mildly thickened. Mild mitral annular calcification present. There is trace to mild mitral regurgitation. Mild tricuspid regurgitation present. There is moderate pulmonary hypertension. The right ventricular systolic pressure, as measured by Doppler, is 54.08mmHg. The pulmonic valve was not well visualized. The aortic root size is normal. Normal inferior vena cava with normal inspiratory collapse consistent with estimated right atrial pressure of 5 mmHg. There is no pericardial effusion. CONCLUSIONS -------- 1. Sinus rhythm. 2. Aortic valve is trileaflet and is mildly thickened. 3. There is mild aortic stenosis present. 4. Peak/mean gradient across the Aortic Valve is 26.90mmHg / 13.33mmHg. 5. The mitral valve leaflets are mildly thickened. 6. Mild mitral annular calcification present. 7. There is trace to mild mitral regurgitation. 8. Mild tricuspid regurgitation present. 9. There is moderate pulmonary hypertension. 10. The right ventricular systolic pressure, as measured by Doppler, is 54.08mmHg. 11. The pulmonic valve was not well visualized. 12. This was a technically adequate study. 13. The aortic root size is normal. 14. Normal inferior vena cava with normal inspiratory collapse consistent with estimated right atrial pressure of 5 mmHg. 15. There is no pericardial effusion. 16. The left ventricular size is normal. 17. There is mild concentric left ventricular hypertrophy. 18. Overall left ventricular systolic function is normal with, an EF between 60 - 65 %. 19. Pseudonormal LV filling pattern, consistent with elevate LA pressure. 20. The right ventricle is normal in size. 21. LA is moderately dilated 34-39 ml/m2 22. The right atrium is normal in size. [employer]: Nataliya Terry RDCS
[2016-04-16 12:08] LABS: Glucose,Whole Blood 190 mg/dL (75-99)
--- NOTE | 2016-04-16 12:22 | CDI ---
In responding to this query, please exercise your independent professional judgment. The [facility] Coding Staff and Clinical Documentation Specialists appreciate your assistance in clarifying documentation, maintaining compliance with coding guidelines, accurately documenting patients condition and capturing severity of illness. The fact that a question is asked does not imply that any particular answer is desired or expected. Communication forms are a method of clarifying documentation and are not made part of the Legal Health Record. Thank you in advance for your clarification. Last Revision, December 2014 Tammy Talbert [address] [place] [address] Documentation Clarification Form Date: 04/16/2016 12:10:00 PM From: Rubi Rolle Admit Date: 04/15/2016 12:36:00 AM Patient Name: Mita Beltrán Visit Number: [id number] Dr. Los Anderson "Blood pressure began to elevate" per H&P Patient history/risk factors Hypertension COPD CKD stage 3 O2 dependent - was off during the night NSTEMI per Cardiology notes Clinical Indicators: Vital Signs: bp on admission 226/98 Developed chest pain which resolved once O2 back on Treatment: Consults: Cardiology IV Apresoline administered x2 In your professional opinion, can you please specify the appropriate condition? Hypertensive Crisis SBP > 180 or DBP > 120 Stroke, Heart Attack, Heart Failure, Kidney Failure Hypertensive Emergency SBP > 180 or DBP > 120 with chest pain or end organ damage Hypertensive encephalopathy, retinal hemorrhages, papilledema, JUNG Hypertensive Urgency SBP > 180 or DBP > 120 without symptoms or with headache Essential Hypertension Unable to determine Other Condition, please specify Please document in your progress notes and discharge summary in order to capture severity of illness and risk of mortality. Include clinical findings that support your diagnosis. FYI: Press F11 to launch patient chart. Place X here if this finding has no clinical significance, is not applicable or if you are not able to provide any additional documentation. CHRIS
--- NOTE | 2016-04-16 13:55 | P.CNPUL ---
History of Present Illness Consult date: 04/16/16 Requesting physician: Los Anderson Reason for consult: COPD Chief complaint: Chest pain History of present illness: This is an 80-year-old female with history of severe end-stage COPD, gold stage IV, FEV1 is less than 30%. Patient is O2 dependent, and she is prednisone dependent maintained on 10 mg of prednisone daily. Her other medical problems include sleep apnea, hyperlipidemia, hypothyroidism, history of breast cancer with previous radiation treatment. Patient has been staying at the [facility]. And she is undergoing rehab since her last admission to the hospital. Somehow fraction was not turned on for about 2 hours, and maybe longer. Patient woke up with this severe midsternal chest pressure and heaviness with radiation to both arms. As well as oxygen was applied, her symptoms have resolved. On the way to the ER, patient had some recurrence of her chest pressure. But upon arrival her symptoms have completely resolved. EKG showed nonspecific ST and T wave changes. Chest x-ray showed no evidence of active disease. Her cardiac panel was positive and her troponins where on the rise from 0.0782 -0.125-0.128 rest of the labs were noted to be unremarkable. BNP level was noted to be slightly elevated. Patient was admitted with a possible non-ST elevation myocardial infarction, and I was asked to see her on consultation for COPD. Pulmonary-pavon, patient has chronic shortness of breath, presently no cough no wheezing no shortness of breath at rest. And she is relatively asymptomatic at the time of my evaluation. Review of Systems 14 point review of systems were obtained, please refer to pertinent positives and negatives in HPI Past Medical History Past Medical History: COPD, Diabetes Mellitus, Hyperlipidemia, Hypertension, Myocardial Infarction (NH), Osteoarthritis (OA), Pneumonia, Thyroid Disorder Additional Past Medical History / Comment(s): COPD , anemia, chronic hypoxic respiratory failure and the patient has been on oxygen at 2.5 L/m nasal cannula , lt breast cancer, , chronic sinus disease,djd emphysema, thyroid nodule Last Myocardial Infarction Date:: 04/15/16 History of Any Multi-Drug Resistant Organisms: None Reported Past Surgical History: Breast Surgery, Orthopedic Surgery, Tonsillectomy Additional Past Surgical History / Comment(s): 2002 lt lumpectomy and 35 radiation tx,2004 right carotid endarectomy, rt knee arthroscopy,2009 right knee replacement 2006 bilateral cataract , had esophageal dilation via EGD Past Anesthesia/Blood Transfusion Reactions: Postoperative Nausea & Vomiting ( PONV) Additional Past Anesthesia/Blood Transfusion Reaction / Comment(s): vomited after surg. Past Psychological History: No Psychological Hx Reported, Anxiety Smoking Status: Former smoker Past Alcohol Use History: None Reported Additional Past Alcohol Use History / Comment(s): per pt's daughter-pt quit smoking 20 years ago Past Drug Use History: None Reported - Past Family History Father Family Medical History: Coronary Artery Disease (CAD) Additional Family Medical History / Comment(s): young from heart problems Mother Family Medical History: Asthma, COPD Medications and Allergies Home Medications Medication Instructions Recorded Confirmed Type Vit A,C & E/Lutein/Minerals 1 tab PO DAILY@0900 10/06/13 04/14/16 History [Ocuvite with Lutein Tablet] Aspirin EC [Ecotrin Low Dose] 81 mg PO DAILY@0900 06/28/14 04/14/16 History Furosemide [Lasix] 20 mg PO Q48H 03/07/16 04/14/16 History ALPRAZolam [Xanax] 0.25 mg PO Q8H PRN 04/14/16 04/14/16 History Basaglar 100units/Ml 6 units SQ HS@209904/14/16 04/14/16 History Fluticasone/Vilanterol [Breo 1 puff INHALATION RT-DAILY@0904/14/16 04/14/16 History Ellipta 200-25 Mcg INH] Glimepiride [Amaryl] 1 mg PO DAILY@0600 04/14/16 04/14/16 History Insulin Lispro [humaLOG] See Protocol SQ BID@0730,1730 04/14/16 04/14/16 History Ipratropium-Albuterol Nebulize 3 ml INHALATION RT-Q6H PRN 04/14/16 04/14/16 History [Duoneb 0.5 mg-3 mg/3 ml Soln] Ipratropium-Albuterol Nebulize 3 ml INHALATION RT-QID 04/14/16 04/14/16 History [Duoneb 0.5 mg-3 mg/3 ml Soln] Lisinopril [Prinivil] 20 mg PO HS@209904/14/16 04/14/16 History Sertraline [Zoloft] 50 mg PO HS@2100 04/14/16 04/14/16 History predniSONE 10 mg PO DAILY@0900 04/14/16 04/14/16 History Allergies Allergy/AdvReac Type Severity Reaction Status Date / Time doxycycline Allergy Rash/Hives Verified 04/14/16 22:05 glucosamine Allergy Rash/Hives Verified 04/14/16 22:05 Iodinated Contrast Media - Allergy Rash/Hives Verified 04/14/16 22:05 Oral and [Iodinated Contrast Media - IV Dye] Sulfa (Sulfonamide Allergy Rash/Hives Verified 04/14/16 22:05 Antibiotics) baclofen AdvReac Confusion Verified 04/14/16 22:05 Physical Exam Vitals: Vital Signs Temp Pulse Pulse Pulse Resp BP Pulse Ox 04/16/16 11:36 51 L 18 160/69 94 L 04/16/16 10:00 96.9 F L 69 18 192/80 96 04/16/16 09:24 80 04/16/16 09:10 76 04/16/16 04:00 97.1 F L 58 L 20 166/81 98 04/16/16 00:00 97.5 F L 82 20 184/67 95 04/15/16 20:07 84 04/15/16 19:57 96.8 F L 71 71 20 191/79 95 04/15/16 16:52 84 04/15/16 16:38 84 04/15/16 15:20 97.7 F 75 18 188/80 97 Intake and Output 04/15/16 04/16/16 04/16/16 22:59 06:59 14:59 Intake Total 220 180 Output Total 400 1600 1600 Balance -180 -1600 -1420 Intake: Oral 220 180 Output: Urine 400 1600 1600 Other: Voiding Method Toilet Toilet Toilet # Bowel Movements 0 Weight 75 kg 72.6 kg HEENT: Neck supple no neck masses no JVD no thyromegaly. No stridor. HEART EXAMINATION: Heart S1, S2 normal. No murmur or gallop heard. CHEST EXAMINATION: Lungs reveal diminished breath sound bilaterally, no rhonchi , no wheezes. ABDOMEN: Soft, nontender. Bowel sounds are heard. No organomegaly noted. EXTREMITIES: 2+ peripheral pulses with no evidence of peripheral edema and no calf tenderness noted. NEUROLOGIC : No focal neurologic deficit. . Results - Laboratory Findings CBC and BMP: 04/14/16 21:28 04/16/16 06:14 PT/INR, D-dimer PT 9.4 sec (9.0-12.0) 04/14/16 21:28 INR 0.9 (<1.1) 04/14/16 21:28 Abnormal lab findings: Abnormal Labs 04/15/16 04/15/16 04/15/16 03:22 03:22 04:32 APTT Chloride Carbon Dioxide BUN Creatinine Glucose POC Glucose (mg/dL) 117 H Hemoglobin A1c 6.7 H Total Creatine Kinase 28 L CK-MB (CK-2) 2.7 H* Troponin I 0.125 H* Cholesterol LDL Cholesterol, Calc HDL Cholesterol 04/15/16 04/15/16 04/15/16 06:29 08:46 08:46 APTT 63.4 H Chloride Carbon Dioxide BUN Creatinine Glucose POC Glucose (mg/dL) 139 H Hemoglobin A1c Total Creatine Kinase 26 L CK-MB (CK-2) 3.2 H* Troponin I 0.128 H* Cholesterol LDL Cholesterol, Calc HDL Cholesterol 04/15/16 04/15/16 04/15/16 11:50 16:30 20:51 APTT Chloride Carbon Dioxide BUN Creatinine Glucose POC Glucose (mg/dL) 166 H 197 H 115 H Hemoglobin A1c Total Creatine Kinase CK-MB (CK-2) Troponin I Cholesterol LDL Cholesterol, Calc HDL Cholesterol 04/16/16 04/16/16 04/16/16 06:14 06:14 12:02 APTT 49.9 H Chloride 94 L Carbon Dioxide 44 H* BUN 32 H Creatinine 1.49 H Glucose 71 L POC Glucose (mg/dL) 190 H Hemoglobin A1c Total Creatine Kinase CK-MB (CK-2) Troponin I Cholesterol 206 H LDL Cholesterol, Calc 102 H HDL Cholesterol 80 H - Diagnostic Findings Chest x-ray: image reviewed Assessment and Plan Plan: Impression: 1 acute coronary syndrome, acute non-ST elevation myocardial infarction. 2 severe underlying COPD but relatively stable 3 chronic hypoxic respiratory failure secondary to COPD 4 multiple comorbidities including hypertension and diabetes hypothyroidism history of breast cancer and previous radiation history of acute on chronic renal failure and history of chronic anemia. Recommendation: I fully agree with the present treatment plan, patient is on proper bronchodilators for his COPD she is back on her maintenance dose of prednisone, we'll continue to follow. Discussed her condition with her and with her daughter at bedside. Time with Patient: Greater than 30
--- NOTE | 2016-04-16 15:20 | P.PN ---
Subjective Principal diagnosis: Non-Q-wave This is a pleasant 80-year-old female with history of hypertension, severe COPD oxygen dependent, sleep apnea, diabetes, hyperlipidemia, hypothyroidism, history of breast cancer with prior radiation, patient has had multiple admissions to the hospital with exacerbation of COPD. She was currently at [facility], undergoing rehab. She apparently had gone without her oxygen for approximately 2 hours, patient then developed a midsternal chest pressure and heaviness with radiation down both of her arms. Oxygen was applied and shortly thereafter she states that the symptoms subsided. She ruled in for non-Q-wave myocardial infarction. He was also very hypertensive admission here. Medication adjustments have been made. Blood pressure 166/80 today. Patient has had no further chest discomfort and overall her breathing has been stable. Echocardiogram with Doppler study was performed which revealed an ejection fraction of 60-65%. Objective - Vital Signs Vital signs: Vital Signs Temp 96.9 F L 04/16/16 10:00 Pulse 51 L 04/16/16 11:36 Resp 20 04/16/16 11:36 BP 160/69 04/16/16 11:36 Pulse Ox 94 L 04/16/16 11:36 Intake & Output 04/15/16 04/16/16 04/16/16 18:59 06:59 18:59 Intake Total 420 180 Output Total 300 1999 1600 Balance 120 -2000 -1420 Weight 72.6 kg Intake: Oral 420 180 Output: Urine 300 1999 1600 Other: Voiding Method Toilet Toilet Toilet # Voids 3 # Bowel Movements 0 - Exam PHYSICAL EXAMINATION: HEENT: Head is atraumatic, normocephalic. Pupils equal, round. Neck is supple. There is no elevated jugular venous pressure. HEART EXAMINATION: Heart S1, S2 normal. No murmur or gallop heard. CHEST EXAMINATION: Lungs reveal decreased air exchange throughout ABDOMEN: Soft, nontender. Bowel sounds are heard. No organomegaly noted. EXTREMITIES: 2+ peripheral pulses with no evidence of peripheral edema and no calf tenderness noted. NEUROLOGIC patient is awake, alert and oriented -3. . - Labs CBC & Chem 7: 04/14/16 21:28 04/16/16 06:14 Labs: Abnormal Lab Results - Last 24 Hours (Table) 04/15/16 04/15/16 04/16/16 Range/Units 16:30 20:51 06:14 APTT (22.0-30.0) sec Chloride 94 L (98-107) mmol/L Carbon Dioxide 44 H* (22-30) mmol/L BUN 32 H (7-17) mg/dL Creatinine 1.49 H (0.52-1.04) mg/dL Glucose 71 L (74-99) mg/dL POC Glucose (mg/dL) 197 H 115 H (75-99) mg/dL Cholesterol 206 H (<200) mg/dL LDL Cholesterol, Calc 102 H (0-99) mg/dL HDL Cholesterol 80 H (40-60) mg/dL 04/16/16 04/16/16 Range/Units 06:14 12:02 APTT 49.9 H (22.0-30.0) sec Chloride (98-107) mmol/L Carbon Dioxide (22-30) mmol/L BUN (7-17) mg/dL Creatinine (0.52-1.04) mg/dL Glucose (74-99) mg/dL POC Glucose (mg/dL) 190 H (75-99) mg/dL Cholesterol (<200) mg/dL LDL Cholesterol, Calc (0-99) mg/dL HDL Cholesterol (40-60) mg/dL Assessment and Plan Plan: Assessment and plan #1 symptoms of midsternal chest pressure and heaviness with radiation down bilateral arms. Non-Q-wave myocardial infarction #2 accelerated hypertension #3 history of hypertension #4 history of diabetes #5 severe COPD, O2 dependent #6 hypothyroidism #7 history of breast cancer with prior radiation #8 mild congestive cardiac failure, BNP level 2690. Unsure of LV function at this time. #9 acute on chronic renal failure #10 anemia Plan Cardiology's perspective, we'll discontinue the patient's IV heparin today. Plan for possible transfer back to [facility] tomorrow if stable. DNP note has been reviewed, I agree with a documented findings and plan of care. Patient was seen and examined.
[2016-04-16 17:01] LABS: Glucose,Whole Blood 180 mg/dL (75-99)
[2016-04-16] MEDS: LISINOPRIL 20 MG TAB PO SCH (20:13)
[2016-04-16 21:15] LABS: Glucose,Whole Blood 164 mg/dL (75-99)
[2016-04-16] MEDS: INSULIN GLARGINE 100 UNIT/ML 10 ML VIAL SQ SCH (22:42)
[2016-04-16] MEDS: SERTRALINE 50 MG TAB PO SCH (22:43)
[2016-04-16] MEDS: ATORVASTATIN 80 MG TAB PO SCH (22:43)
[2016-04-17 06:27] LABS: Glucose,Whole Blood 71 mg/dL (75-99)
[2016-04-17] MEDS: LORazepam 0.5 MG TAB PO SCH (07:21)
[2016-04-17] MEDS: GLIMEPIRIDE 1 MG TAB PO SCH (07:21)
[2016-04-17 08:07] VITALS: TEMP 98.3
[2016-04-17] MEDS: INSULIN LISPRO (humaLOG) 300 UNIT/3 ML VIAL SQ SCH ×2 (08:09→11:52)
[2016-04-17] MEDS: IPRATROPIUM-ALBUTEROL 3 ML NEB INHALATION SCH ×2 (08:11→11:50)
[2016-04-17] MEDS: SYMBICORT 160-4.5 MCG INHALER INHALATION SCH (08:12)
--- NOTE | 2016-04-17 08:23 | P.DS ---
Providers Date of admission: 04/15/16 00:36 The patient is an 80-year-old female who was a resident at [facility] when she developed chest pain which appeared to be related to lack of her nasal oxygen that had fallen off during the night. Patient also has underlying severe COPD Gold stage IV with an FEV1 less than 34. She was also found to have an elevated blood pressure and with the chest pain was brought to the emergency room. The pain cleared with the use of oxygen and nitroglycerin. But subsequent troponin levels were elevated. EKGs did not show acute changes. The patient was admitted and placed on heparin therapy and consultation was obtained with cardiology and pulmonary medicine and further labs were done. Echocardiogram revealed an ejection fraction of 60-65%. Chest x-ray did not show any acute changes. Laboratory values revealed troponins initially at 0.078 rising up to 0.128. BUN and creatinine were 29 and 1.3 given her GFR of 39. The patient with type 2 diabetes and her blood sugars ranged in the low to mid 100s. Albumin slightly low at 3.2. BNP was 2690. White count was 11.4 with a hemoglobin 9.8 and a platelet count of 334. As mentioned patient was seen by cardiology. Patient remained pain-free and was felt that patient would be a candidate for medical therapy only and further invasive testing with catheterization was not indicated taking especially in light of her chronic renal failure. Diuretics were increased and nitrates were added. Patient was ambulated. She was also seen by pulmonary medicine who felt that she was stable from the pulmonary standpoint and continue her maintenance medications. At this time plans are to transfer back to [facility]. Discharge medications pending any further cardiology changes. 1. Xanax 0.25 every 8 hours as needed for anxiety. 2. Tylenol 650 mg every 4 hours when necessary for pain 3. Aspirin 81 mg daily 4. Atorvastatin 80 mg daily at bedtime 5. Symbicort 160-4.5 g 2 in relations twice a day. 6. Furosemide 40 mg orally daily. 7. Amaryl 1 mg daily. 8. Lantus 6 units at at bedtime. 9. Accu-Cheks before meals with Humalog coverage. 10. Her respiratory treatments with DuoNeb 3 mL 4 times a day and when necessary shortness of breath. 11. Ativan 0.5 mg at at bedtime as needed for sleep. 12. Lisinopril 20 mg at at bedtime 13. Metoprolol 25 mg daily. 14. Imdur 15 mg daily. 15. Nitroglycerin 0.4 mg sublingual when necessary chest pain 16. Zoloft 50 mg at at bedtime. 17. Prednisone 10 mg daily 18. Multiple vitamin daily. Discharge diagnoses 1. Acute non-Q-wave myocardial infarction with chest pain and elevated troponin values. 2. Severe Gold stage IV COPD with FEV1 less than 34% and oxygen dependence. 3. Hypertensive crisis with elevated blood pressures noted to greater than 180 in the face of myocardial infarction. 4. Chronic hypertension and hypertensive heart disease 5. Chronic kidney disease stage III 6. Type 2 diabetes on insulin 7. Previous surgical history that includes a left breast lumpectomy with radiation back in 2004. Previous right total knee replacement. Previous esophageal dilatation. And previous right carotid endarterectomy. 8. Hypothyroidism on replacement therapy. 9. Acute on chronic diastolic congestive heart failure with elevated BNP values. 10. Anemia of chronic disease. 11. Overall frail state with low albumin and muscle atrophy in general weakness. We'll medical debility. Once again patient to remain on her oxygen therapy along with respiratory treatments as stated above. Resume her physical and occupational therapy at the custodial. Hopefully gradually increasing activity and strength. Overall prognosis still very guarded in light of the underlying coronary artery disease and multiple medical problems and severe COPD as stated above. Patient is no code no CPR patient. Attending physician: Los Anderson Consults: 04/15/16 00:42 Consult Physician Urgent Consulting Provider: Renu Castillo Consult Reason/Comments: Myocardial infarction Do you want consulting provider notified?: Yes 04/16/16 07:32 Consult Physician Urgent Consulting Provider: Edu Cordero Consult Reason/Comments: copd Do you want consulting provider notified?: Yes Primary care physician: Los Anderson Patient Condition at Discharge: Fair Plan - Discharge Summary Discharge Medication List Vit A,C & E/Lutein/Minerals [Ocuvite with Lutein Tablet] 1 tab PO DAILY@0900 [History] Aspirin EC [Ecotrin Low Dose] 81 mg PO DAILY@0900 06/28/14 [History] Furosemide [Lasix] 20 mg PO Q48H 03/07/16 [History] ALPRAZolam [Xanax] 0.25 mg PO Q8H PRN 04/14/16 [History] Basaglar 100units/Ml 6 units SQ HS@209904/14/16 [History] Fluticasone/Vilanterol [Breo Ellipta 200-25 Mcg INH] 1 puff INHALATION RT-DAILY@ 89904/14/16 [History] Glimepiride [Amaryl] 1 mg PO DAILY@0604/14/16 [History] Insulin Lispro [humaLOG] See Protocol SQ BID@0730,1730 04/14/16 [History] Ipratropium-Albuterol Nebulize [Duoneb 0.5 mg-3 mg/3 ml Soln] 3 ml INHALATION RT -Q6H PRN 04/14/16 [History] Ipratropium-Albuterol Nebulize [Duoneb 0.5 mg-3 mg/3 ml Soln] 3 ml INHALATION RT -QID 04/14/16 [History] Lisinopril [Prinivil] 20 mg PO HS@209904/14/16 [History] Sertraline [Zoloft] 50 mg PO HS@209904/14/16 [History] predniSONE 10 mg PO DAILY@89904/14/16 [History] Follow up Appointment(s)/Referral(s): Los Anderson MD [Primary Care Provider] - 1-2 days
[2016-04-17] MEDS: ASPIRIN 81 MG CHEW PO SCH (08:56)
[2016-04-17] MEDS: VIT A,C & E-LUTEIN-MINERALS 1 EACH TAB PO SCH (08:56)
[2016-04-17] MEDS: FUROSEMIDE 10 MG/ML 4 ML VIAL IV SCH (08:56)
[2016-04-17] MEDS: predniSONE 10 MG TAB PO SCH (08:56)
[2016-04-17] MEDS: METOPROLOL SUCCINATE (ER) 25 MG TAB.ER.24H PO SCH (08:56)
[2016-04-17] MEDS ORDERED: ISOSORBIDE MONONITRATE ER 15 MG TAB PO SCH (09:00)
[2016-04-17 11:18] VITALS: BP 145/66; RESP 16
[2016-04-17 11:40] LABS: Glucose,Whole Blood 114 mg/dL (75-99)
[2016-04-17 11:54] VITALS: PULSE 80
--- NOTE | 2016-04-17 14:40 | P.PN ---
Subjective Principal diagnosis: Acute non-ST elevation myocardial infarction History of present illness: This is an 80-year-old female with history of severe end-stage COPD, gold stage IV, FEV1 is less than 30%. Patient is O2 dependent, and she is prednisone dependent maintained on 10 mg of prednisone daily. Her other medical problems include sleep apnea, hyperlipidemia, hypothyroidism, history of breast cancer with previous radiation treatment. Patient has been staying at the [facility]. And she is undergoing rehab since her last admission to the hospital. Somehow fraction was not turned on for about 2 hours, and maybe longer. Patient woke up with this severe midsternal chest pressure and heaviness with radiation to both arms. As well as oxygen was applied, her symptoms have resolved. On the way to the ER, patient had some recurrence of her chest pressure. But upon arrival her symptoms have completely resolved. EKG showed nonspecific ST and T wave changes. Chest x-ray showed no evidence of active disease. Her cardiac panel was positive and her troponins where on the rise from 0.0782 -0.125-0.128 rest of the labs were noted to be unremarkable. BNP level was noted to be slightly elevated. Patient was admitted with a possible non-ST elevation myocardial infarction, and I was asked to see her on consultation for COPD. Pulmonary-pavon, patient has chronic shortness of breath, presently no cough no wheezing no shortness of breath at rest. And she is relatively asymptomatic at the time of my evaluation. Patient was reevaluated today on 04/17/2016, she seems to be doing better, breathing a lot easier. No more chest pain, and her pulmonary status is relatively stable in spite of its severity. No cough no wheezing, she has chronic shortness of breath related to severe underlying COPD/emphysema. Objective - Vital Signs Vital signs: Vital Signs Temp 98.3 F 04/17/16 07:45 Pulse 80 04/17/16 12:06 Resp 16 04/17/16 11:15 BP 145/66 04/17/16 11:15 Pulse Ox 97 04/17/16 11:15 Intake & Output 04/16/16 04/17/16 04/17/16 18:59 06:59 18:59 Intake Total 180 200 700 Output Total 1600 800 Balance -1420 -600 700 Weight 72 kg Intake: Oral 180 200 700 Output: Urine 1600 800 Other: Voiding Method Toilet Toilet Toilet # Voids 4 1 # Bowel Movements 0 - Exam Physical Exam: Revealed an 80-year-old female in no distress HEENT:[Neck is supple.] [No neck masses.] [No thyromegaly.] [No JVD.] Chest: [Diminished breath sounds at the bases no crackles or rhonchi or wheezes] Cardiac Exam: [Normal S1 and S2, no S3 gallop, no murmur.] Abdomen: [Soft, nontender, no megaly, no rebound, no guarding, normal bowel sounds.] Extremities: [No clubbing, no edema, no cyanosis.] Neurological Exam: [No focal neurologic deficit.] - Labs CBC & Chem 7: 04/14/16 21:28 04/16/16 06:14 Labs: Abnormal Lab Results - Last 24 Hours (Table) 04/16/16 04/16/16 04/17/16 Range/Units 16:53 20:53 06:24 POC Glucose (mg/dL) 180 H 164 H 71 L (75-99) mg/dL 04/17/16 Range/Units 11:38 POC Glucose (mg/dL) 114 H (75-99) mg/dL Assessment and Plan Plan: Impression: 1 acute coronary syndrome, acute non-ST elevation myocardial infarction. 2 severe underlying COPD but relatively stable 3 chronic hypoxic respiratory failure secondary to COPD 4 multiple comorbidities including hypertension and diabetes hypothyroidism history of breast cancer and previous radiation history of acute on chronic renal failure and history of chronic anemia. Recommendation: I fully agree with the present treatment plan, patient is being considered for discharge today, follow up with us on outpatient basis for her COPD cleared for discharge by cardiology. Time with Patient: Less than 30
--- NOTE | 2016-04-17 15:10 | P.PN ---
Subjective Principal diagnosis: Non-Q-wave This is a pleasant 80-year-old female with history of hypertension, severe COPD oxygen dependent, sleep apnea, diabetes, hyperlipidemia, hypothyroidism, history of breast cancer with prior radiation, patient has had multiple admissions to the hospital with exacerbation of COPD. She was currently at [facility], undergoing rehab. She apparently had gone without her oxygen for approximately 2 hours, patient then developed a midsternal chest pressure and heaviness with radiation down both of her arms. Oxygen was applied and shortly thereafter she states that the symptoms subsided. She ruled in for non-Q-wave myocardial infarction. Patient was seen and examined today, no further chest discomfort, breathing is stable.. Blood pressure 144/66 with a heart rate in the 60s. Objective - Vital Signs Vital signs: Vital Signs Temp 98.3 F 04/17/16 07:45 Pulse 80 04/17/16 12:06 Resp 16 04/17/16 11:15 BP 145/66 04/17/16 11:15 Pulse Ox 97 04/17/16 11:15 Intake & Output 04/16/16 04/17/16 04/17/16 18:59 06:59 18:59 Intake Total 180 200 700 Output Total 1600 800 Balance -1420 -600 700 Weight 72 kg Intake: Oral 180 200 700 Output: Urine 1600 800 Other: Voiding Method Toilet Toilet Toilet # Voids 4 1 # Bowel Movements 0 - Exam PHYSICAL EXAMINATION: HEENT: Head is atraumatic, normocephalic. Pupils equal, round. Neck is supple. There is no elevated jugular venous pressure. HEART EXAMINATION: Heart S1, S2 normal. No murmur or gallop heard. CHEST EXAMINATION: Lungs reveal decreased air exchange throughout ABDOMEN: Soft, nontender. Bowel sounds are heard. No organomegaly noted. EXTREMITIES: 2+ peripheral pulses with no evidence of peripheral edema and no calf tenderness noted. NEUROLOGIC patient is awake, alert and oriented -3. . - Labs CBC & Chem 7: 04/14/16 21:28 04/16/16 06:14 Labs: Abnormal Lab Results - Last 24 Hours (Table) 04/16/16 04/16/16 04/17/16 Range/Units 16:53 20:53 06:24 POC Glucose (mg/dL) 180 H 164 H 71 L (75-99) mg/dL 04/17/16 Range/Units 11:38 POC Glucose (mg/dL) 114 H (75-99) mg/dL Assessment and Plan Plan: Assessment and plan #1 symptoms of midsternal chest pressure and heaviness with radiation down bilateral arms. Non-Q-wave myocardial infarction #2 accelerated hypertension #3 history of hypertension #4 history of diabetes #5 severe COPD, O2 dependent #6 hypothyroidism #7 history of breast cancer with prior radiation #8 mild congestive cardiac failure, diastolic, acute on chronic. Echocardiogram with Doppler study revealed an ejection fraction of 60-65%. Moderate pulmonary hypertension. #9 acute on chronic renal failure #10 anemia Plan Cardiology's perspective, she may be able to be discharged once cleared by the primary. We will make her a follow-up appointment in the office post discharge. DNP note has been reviewed, I agree with a documented findings and plan of care. Patient was seen and examined.
[2016-04-18] MEDS ORDERED: FUROSEMIDE 20 MG TAB PO SCH (09:00)
== END 2016-04-17 16:04 | DRG 280 ==
LOC: EC 21:20 → 6SEL 04-15 00:36
PROVIDERS: ADMIT Internal Medicine; ATTEND Internal Medicine
DX: I21.4 Non-ST elevation (NSTEMI) myocardial infarction (principal); I50.33 Acute on chronic diastolic (congestive) heart failure; N17.9 Acute kidney failure, unspecified; J96.11 Chronic respiratory failure with hypoxia; I27.2 Other secondary pulmonary hypertension; I13.0 Hypertensive heart and chronic kidney disease with heart failure and stage 1 through stage 4 chronic kidney disease, or unspecified chronic kidney disease; I16.9 Hypertensive crisis, unspecified; E11.22 Type 2 diabetes mellitus with diabetic chronic kidney disease; Z99.81 Dependence on supplemental oxygen; J44.9 Chronic obstructive pulmonary disease, unspecified; N18.3 Chronic kidney disease, stage 3 (moderate); D63.8 Anemia in other chronic diseases classified elsewhere; I25.119 Atherosclerotic heart disease of native coronary artery with unspecified angina pectoris; E03.9 Hypothyroidism, unspecified; F17.200 Nicotine dependence, unspecified, uncomplicated; G47.30 Sleep apnea, unspecified; E04.1 Nontoxic single thyroid nodule; F41.9 Anxiety disorder, unspecified; F41.0 Panic disorder [episodic paroxysmal anxiety]; M17.12 Unilateral primary osteoarthritis, left knee; E78.5 Hyperlipidemia, unspecified; Z92.3 Personal history of irradiation; Z98.42 Cataract extraction status, left eye; Z98.41 Cataract extraction status, right eye; Z85.3 Personal history of malignant neoplasm of breast; Z96.651 Presence of right artificial knee joint; Z79.4 Long term (current) use of insulin; Z79.82 Long term (current) use of aspirin; Z82.49 Family history of ischemic heart disease and other diseases of the circulatory system; Z79.52 Long term (current) use of systemic steroids
CPT/HCPCS: 36415; 71020; 80048; 80053; 80061; 82550; 82553; 83036; 83735; 83880; 84484; 85025; 85610; 85730; 93005; 93306; 94640; 94760; 96365; 96375; 96376; 99291

== ENCOUNTER → 2016-07-07 | Outpatient (CLI) | payer MEDICARE ==
[2016-07-07 16:09] LABS: Basophils % (A) 0 %; CH 24.8; CHCM 28.7; Eosinophils # (A) 0.3 k/uL (0-0.7); Eosinophils % (A) 3 %; HCT 30.2 % (34.0-46.0); HDW 2.78; HGB 8.7 gm/dL (11.4-16.0); Hypochromasia Marked; Luc # (Auto) 0.17; Luc % (Auto) 2; Lymphocytes # (A) 1.1 k/uL (1.0-4.8); Lymphocytes % (A) 10 %; MCHC 28.8 g/dL (31.0-37.0); MCV 86.7 fL (80.0-100.0); Mean Platelet Volume 7.1; Monocytes # (A) 0.7 k/uL (0-1.0); Monocytes % (A) 6 %; Neutrophils # (A) 9.2 k/uL (1.3-7.7); Neutrophils % (A) 79 %; RBC 3.49 m/uL (3.80-5.40); RDW 14.8 % (11.5-15.5); WBC 11.6 k/uL (3.8-10.6); WBC (Perox) 12.27
[2016-07-07 16:23] LABS: Calcium 9.1 mg/dL (8.4-10.2); Potassium 4.4 mmol/L (3.5-5.1); Total Bilirubin 0.6 mg/dL (0.2-1.3)
== END | disposition home or self-care (01) ==
LOC: LABWHC1 15:32
PROVIDERS: ATTEND Internal Medicine Critical Care Medicine
DX: N18.9 Chronic kidney disease, unspecified (principal)
CPT/HCPCS: 36415; 80053; 85025; 99214

== ENCOUNTER 2016-07-12 08:55 | Inpatient (IN) | payer MEDICARE ==
[2016-07-12] MEDS ORDERED: HYDROcodone/APAP 5-325MG 1 EACH TAB PO STA (09:21)
--- NOTE | 2016-07-12 09:56 | ED ---
General Adult HPI - General Chief complaint: Extremity Injury, Upper Stated complaint: Fall Time Seen by Provider: 07/12/16 09:15 Source: patient, RN notes reviewed Mode of arrival: EMS Limitations: no limitations - History of Present Illness Initial comments: Patient 81-year-old female who presents emergency room today by EMS, the chief complaint of a fall that occurred just prior to arrival. Patient does admit that she was up and going to take her medications in the morning. She states that she was using her walker and forgot to put the brakes on and it rolled out in front of her causing her to fall down onto her right side. Patient states she does not remember hitting her head. She states there was no loss consciousness. She does admit pain greatest in the right shoulder and right elbow. She does admit to some bruising over the right knee. She denies any other complaints or symptoms at this time. Patient denies any recent fever, chills, shortness of breath, chest pain, back pain, abdominal pain, nausea or vomiting, numbness or tingling, dysuria or hematuria, constipation or diarrhea, headaches or visual changes, or any other complaints. - Related Data Home Medications Medication Instructions Recorded Confirmed Vit A,C & E/Lutein/Minerals 1 tab PO DAILY@0910/06/13 07/12/16 [Ocuvite with Lutein Tablet] Aspirin EC [Ecotrin Low Dose] 81 mg PO DAILY@0906/28/14 07/12/16 ALPRAZolam [Xanax] 0.25 mg PO Q8H PRN 04/14/16 07/12/16 Fluticasone/Vilanterol [Breo 1 puff INHALATION RT-DAILY@89904/14/16 07/12/16 Ellipta 200-25 Mcg INH] Glimepiride [Amaryl] 1 mg PO DAILY@0604/14/16 07/12/16 Insulin Lispro [humaLOG] See Protocol SQ BID@4930,1900 04/14/16 07/12/16 Ipratropium-Albuterol Nebulize 3 ml INHALATION RT-QID 04/14/16 07/12/16 [Duoneb 0.5 mg-3 mg/3 ml Soln] Lisinopril [Prinivil] 20 mg PO BID 04/14/16 07/12/16 Sertraline [Zoloft] 50 mg PO HS@2100 04/14/16 07/12/16 predniSONE 10 mg PO DAILY@0900 04/14/16 07/12/16 Isosorbide Mononitrate ER [Imdur] 30 mg PO DAILY 05/19/16 07/12/16 hydrALAZINE HCL [Apresoline] 50 mg PO TID 05/19/16 07/12/16 Previous Rx's Medication Instructions Recorded Acetaminophen Tab [Tylenol] 650 mg PO Q4HR PRN #0 tab 04/17/16 Atorvastatin [Lipitor] 80 mg PO HS tab 04/17/16 Furosemide [Lasix] 20 mg PO DAILY tab 04/17/16 Insulin Glargine [Lantus] 6 unit SQ HS@2100 vial 04/17/16 LORazepam [Ativan] 0.5 mg PO HS tab 04/17/16 Metoprolol Succinate (ER) [Toprol 25 mg PO DAILY tab.er.24h 04/17/16 XL] Nitroglycerin Sl Tabs [Nitrostat] 0.4 mg SUBLINGUAL Q5M PRN #0 tab 04/17/16 Clopidogrel Bisulfate [Plavix] 75 mg PO DAILY #30 tab 05/22/16 Furosemide [Lasix] 20 mg PO BID #60 tab 05/22/16 Isosorbide Mononitrate ER [Imdur] 60 mg PO DAILY #30 tab 05/22/16 predniSONE 10 mg PO DIRECTED #10 tab 05/22/16 Allergies Allergy/AdvReac Type Severity Reaction Status Date / Time doxycycline Allergy Rash/Hives Verified 07/12/16 09:03 glucosamine Allergy Rash/Hives Verified 07/12/16 09:03 Iodinated Contrast Media - Allergy Rash/Hives Verified 07/12/16 09:03 Oral and [Iodinated Contrast Media - IV Dye] Sulfa (Sulfonamide Allergy Rash/Hives Verified 07/12/16 09:03 Antibiotics) baclofen AdvReac Confusion Verified 07/12/16 09:03 Review of Systems ROS Statement: Those systems with pertinent positive or pertinent negative responses have been documented in the HPI. ROS Other: All systems not noted in ROS Statement are negative. Past Medical History Past Medical History: COPD, Diabetes Mellitus, Hyperlipidemia, Hypertension, Myocardial Infarction (VA), Osteoarthritis (OA), Thyroid Disorder Additional Past Medical History / Comment(s): COPD , anemia, chronic hypoxic respiratory failure and the patient has been on oxygen at 2.5 L/m nasal cannula , lt breast cancer, , chronic sinus disease,djd emphysema, thyroid nodule, chronic renal failure, chronic anemia, osteoarthritis Last Myocardial Infarction Date:: 04/15/16 History of Any Multi-Drug Resistant Organisms: None Reported Past Surgical History: Breast Surgery, Orthopedic Surgery, Tonsillectomy Additional Past Surgical History / Comment(s): 2002 lt lumpectomy and 35 radiation tx,2004 right carotid endarectomy, rt knee arthroscopy,2009 right knee replacement 2006 bilateral cataract , had esophageal dilation via EGD Past Anesthesia/Blood Transfusion Reactions: Postoperative Nausea & Vomiting ( PONV) Additional Past Anesthesia/Blood Transfusion Reaction / Comment(s): vomited after surg. Past Psychological History: No Psychological Hx Reported, Anxiety Additional Psychological History / Comment(s): Pt resides with her daughter, Jamilah Mason. She uses a walker to ambulate. She lives in a one level home. She has visiting nurses. She does not drive, her elo's take her to appts. She has home O2 at 3L/NC ATC. She has a nebulizer and a glucose meter. Smoking Status: Former smoker Past Alcohol Use History: None Reported Additional Past Alcohol Use History / Comment(s): per pt's daughter-pt quit smoking 20 years ago Past Drug Use History: None Reported - Past Family History Father Family Medical History: Coronary Artery Disease (CAD) Additional Family Medical History / Comment(s): young from heart problems Mother Family Medical History: Asthma, COPD General Exam - General Exam Comments Initial Comments: General: The patient is awake and alert, in no distress, and does not appear acutely ill. Eye: Pupils are equal, round and reactive to light, extra-ocular movements are intact. No nystagmus. There is normal conjunctiva bilaterally. No signs of icterus. Ears, nose, mouth and throat: There are moist mucous membranes and no oral lesions. Neck: The neck is supple, there is no tenderness or JVD. Cardiovascular: There is a regular rate and rhythm. No murmur, rub or gallop is appreciated. Respiratory: Lungs are clear to auscultation, respirations are non-labored, breath sounds are equal. No wheezes, stridor, rales, or rhonchi. Gastrointestinal: Soft, non-distended, non-tender abdomen without masses or organomegaly noted. There is no rebound or guarding present. No CVA tenderness. Bowel sounds are unremarkable. Musculoskeletal: Patient has normal appearance of the cervical, thoracic, lumbar spine. No step-offs forms appreciated. No tenderness over the midline. Patient has normal appearance of the right shoulder and right elbow with no obvious deformity. Patient's has full range of motion of the right wrist right hand. No bony tenderness in this area. Does have tenderness over the posterior aspect of the right elbow. Posterior aspect of the right shoulder as well. Shows limited range of motion due to pain. Does have bruising and swelling locally over the anterior aspect of the right knee. Mild tenderness in this area. Shows good range of motion. No point tenderness to the right hip or left hip. No tenderness on the left upper or lower extremity exam. No obvious deformity. Shows full range of motion of the left and upper extremity with strength 5/5. Sensation intact bilaterally. Pulses equal bilaterally 2+. Neurological: A&O x 3. CN II-XII intact, There are no obvious motor or sensory deficits. Coordination appears grossly intact. Speech is normal. Skin: Skin is warm and dry and no rashes or lesions are noted. Psychiatric: Cooperative, appropriate mood & affect, normal judgment. Limitations: no limitations Course Vital Signs 07/12/16 07/12/16 07/12/16 08:57 10:26 11:27 Temperature 97.9 F Pulse Rate 66 66 Respiratory 18 18 Rate Blood Pressure 220/81 190/93 181/87 O2 Sat by Pulse 99 96 Oximetry - Reevaluation(s) Reevaluation #1: 07/12/16 10:38 Patient's x-rays and CAT scans reviewed. X-ray of the right shoulder does show proximal humerus fracture. Results were discussed with the patient and family. At this time do not feel comfortable being discharged due to patient living by herself having a difficult time taking care of herself she needs to use walker get up and move around if she has limited mobility of the right arm. At this time unsure of her family doctor. Patient will call her daughter to find out. 11:15: Walt Correa was paged and awaiting callback. 1135: Orthopedic Madeline physician assistant Morales has called back and will review the films. 11:43 Orthopedic physician child welfare assistant Andrew has called back and states that discuss case and will admit to Dr. Nuno with consult for medicine and case management. Medical Decision Making - Medical Decision Making Patient's x-rays reviewed. Does show proximal right shoulder humerus fracture. Patient's CT of head and neck is negative for any acute abnormalities. There is evidence for a left-sided pulmonary nodule. Remaining x-rays reviewed and are unremarkable. Results were discussed with the patient and son at bedside. They do not feel comfortable going home as she does live on her own and uses a walker the unable to use his arm. Son does admit that she's been to [facility] for rehab in the past. Disposition Clinical Impression: Proximal humerus fracture, Fall Disposition: ADMITTED IP TO THIS [facility] Condition: Good Referrals: None,Stated [Primary Care Provider] - 1-2 days Time of Disposition: 11:40
--- NOTE | 2016-07-12 10:20 | XR ---
EXAMINATION TYPE: XR Hip RT and AP Pelvis DATE OF EXAM: 07/12/2016 COMPARISON: NONE HISTORY: Trauma and pain TECHNIQUE: A single AP view of the pelvis is obtained. Two views of the right hip are obtained. FINDINGS: Bone mineralization is mildly reduced. Alignment is maintained. Joint space loss is presen t within the hips. There are vascular calcifications within the pelvis. IMPRESSION: There is no acute fracture or dislocation in the pelvis or right hip.
--- NOTE | 2016-07-12 10:25 | XR ---
Right knee HISTORY: Trauma and pain 3 views of the right knee, comparison to previous exam 03 Jul 2009 Bone mineralization, joint spaces and alignment are maintained. Patient is status post right knee art hroplasty. Soft tissue swelling is present. IMPRESSION: No fracture or dislocation.
--- NOTE | 2016-07-12 10:26 | XR ---
Right elbow HISTORY: Trauma, pain, limited range of motion 2 views of the right elbow No comparisons Views are nonstandard. No definite effusion. Bone mineralization, joint spaces and alignment. Be main tained. IMPRESSION: No fracture or dislocation is evident, follow-up as indicated.
--- NOTE | 2016-07-12 10:26 | XR ---
Right shoulder HISTORY: Trauma and pain 2 views of the right shoulder correlated to prior right shoulder 21 February 2010 There is a comminuted proximal right humeral fracture, no definite associated dislocation. IMPRESSION: Proximal humeral fracture.
--- NOTE | 2016-07-12 10:31 | CT ---
EXAMINATION TYPE: CT brain cspine wo con DATE OF EXAM: 07/12/2016 COMPARISON: CT brain 19 August 2011 HISTORY: Fall CT DLP: DLP brain 1108.4 and cervical 390 mGycm Automated exposure control for dose reduction was used. TECHNIQUE: CT scan of the head and cervical spine are performed without contrast. FINDINGS: There is no acute intracranial hemorrhage, mass effect, or midline shift identified. The ventricles and sulci are within normal limits in size. The globes are intact and the visualized sin uses are remarkable for inflammatory change in the mastoids on the left greater than right. Cervical spine is visualized in its entirety from C1 through upper thoracic levels and demonstrates s atisfactory alignment without evidence of acute fracture or dislocation. Prevertebral soft tissue ap pears within normal limits. The C1-C2 articulation is unremarkable. Extensive emphysematous changes are present within the lungs. May be pleural thickening on the right, indeterminate nodule present at the left lung apex measuring 5 mm axial image 66. IMPRESSION: 1. There is no acute fracture or dislocation evident in the cervical spine. 2. No acute intracranial hemorrhage, mass effect, or midline shift is seen. 3. Indeterminate pulmonary nodule left upper lobe. Additional findings above, follow-up recommended.
[2016-07-12] MEDS ORDERED: MORPHINE SULFATE 4 MG/ML SYRINGE IV STA (10:42)
[2016-07-12] MEDS ORDERED: SODIUM CHLORIDE 0.9% 1,000 ML IV STA (11:16)
[2016-07-12] MEDS ORDERED: hydrALAZINE HCL 20 MG/ML 1 ML VIAL IVP STA (11:27)
[2016-07-12] MEDS ORDERED: NALOXONE 0.4 MG/ML 1 ML VIAL IV PRN (11:45)
[2016-07-12] MEDS ORDERED: SODIUM CHLORIDE 0.9% 1,000 ML IV ONE (11:45)
[2016-07-12] MEDS ORDERED: ONDANSETRON 4 MG/2 ML VIAL IVP PRN (11:45)
[2016-07-12 12:29] LABS: Basophils % (A) 0 %; CH 24.5; CHCM 28.6; Eosinophils # (A) 0.2 k/uL (0-0.7); Eosinophils % (A) 1 %; HCT 29.6 % (34.0-46.0); HDW 2.84; HGB 8.4 gm/dL (11.4-16.0); Hypochromasia Marked; Luc # (Auto) 0.11; Luc % (Auto) 1; Lymphocytes # (A) 0.5 k/uL (1.0-4.8); Lymphocytes % (A) 4 %; MCH 24.2 pg (25.0-35.0); MCHC 28.3 g/dL (31.0-37.0); MCV 85.8 fL (80.0-100.0); Mean Platelet Volume 7.9; Monocytes # (A) 0.5 k/uL (0-1.0); Monocytes % (A) 4 %; Neutrophils # (A) 12.4 k/uL (1.3-7.7); Neutrophils % (A) 90 %; RBC 3.45 m/uL (3.80-5.40); RDW 14.8 % (11.5-15.5); WBC 13.8 k/uL (3.8-10.6); WBC (Perox) 13.91
[2016-07-12 12:39] LABS: Calcium 9.1 mg/dL (8.4-10.2); Potassium 4.2 mmol/L (3.5-5.1); Total Bilirubin 0.6 mg/dL (0.2-1.3); Total Protein 5.9 g/dL (6.3-8.2)
[2016-07-12 12:43] LABS: INR 0.9 (<1.1); Prothrombin Time 9.6 sec (9.0-12.0)
[2016-07-12 12:49] LABS: Partial Thromboplastin Time 20.6 sec (22.0-30.0)
[2016-07-12] MEDS: MORPHINE SULFATE 4 MG/ML SYRINGE IV PRN ×2 (13:23→17:26)
[2016-07-12 14:54] VITALS: BMI 28.7
[2016-07-12] MEDS ORDERED: ACETAMINOPHEN TAB 325 MG TAB PO PRN (15:39)
[2016-07-12] MEDS ORDERED: NITROGLYCERIN SL TABS 0.4 MG TAB SUBLINGUAL PRN (15:39)
[2016-07-12] MEDS ORDERED: ALPRAZolam 0.25 MG TAB PO PRN (15:39)
[2016-07-12] MEDS ORDERED: IPRATROPIUM-ALBUTEROL 3 ML NEB INHALATION SCH (16:00)
[2016-07-12] MEDS: LISINOPRIL 20 MG TAB PO SCH ×2 (17:13→21:02)
[2016-07-12] MEDS: hydrALAZINE HCL 50 MG TAB PO SCH ×2 (17:13→21:01)
[2016-07-12] MEDS: METOPROLOL TARTRATE 25 MG TAB PO SCH (17:13)
[2016-07-12] MEDS: GLIMEPIRIDE 1 MG TAB PO SCH (17:13)
[2016-07-12 17:50] LABS: Glucose,Whole Blood 121 mg/dL (75-99)
[2016-07-12] MEDS ORDERED: IPRATROPIUM-ALBUTEROL 3 ML NEB INHALATION PRN (19:07)
[2016-07-12 19:54] LABS: Glucose,Whole Blood 140 mg/dL (75-99)
[2016-07-12] MEDS ORDERED: ATORVASTATIN 80 MG TAB PO SCH (21:00)
[2016-07-12] MEDS: SERTRALINE 50 MG TAB PO SCH (21:01)
[2016-07-12] MEDS: ISOSORBIDE MONONITRATE ER 60 MG TAB.ER.24H PO SCH (21:02)
[2016-07-12] MEDS: LORazepam 0.5 MG TAB PO SCH (21:04)
[2016-07-12] MEDS: INSULIN LISPRO (humaLOG) 300 UNIT/3 ML VIAL SQ SCH (21:16)
[2016-07-13 03:25] LABS: Amorphous Sediment,Urine Rare /hpf; Appearance,Urine Clear (Clear); Bilirubin,Urine Negative (Negative); Glucose,Urine (UA) Negative (Negative); Ketones,Urine Negative (Negative); Leukocyte Esterase,Urine Negative (Negative); Mucus,Urine Rare /hpf; Nitrite,Urine Negative (Negative); Particle Count 4197; Protein,Urine 3+ (Negative); RBC,Urine 1 /hpf (0-5); Specific Gravity,Urine 1.012 (1.001-1.035); UA Billing (MACRO vs. MICRO) MICRO; Urobilinogen,Urine <2.0 mg/dL (<2.0); WBC,Urine 1 /hpf (0-5)
[2016-07-13] MEDS: IPRATROPIUM-ALBUTEROL 3 ML NEB INHALATION SCH ×5 (03:54→20:27)
[2016-07-13 05:05] LABS: Glucose,Whole Blood 54 mg/dL (75-99)
[2016-07-13 05:08] LABS: Glucose,Whole Blood 70 mg/dL (75-99)
[2016-07-13 05:59] LABS: Glucose,Whole Blood 81 mg/dL (75-99)
[2016-07-13 05:59] LABS: Glucose,Whole Blood 134 mg/dL (75-99)
[2016-07-13] MEDS: SYMBICORT 160-4.5 MCG INHALER INHALATION SCH ×2 (07:09→20:27)
[2016-07-13] MEDS: INSULIN LISPRO (humaLOG) 300 UNIT/3 ML VIAL SQ SCH ×4 (07:32→23:50)
[2016-07-13 07:37] LABS: Basophils % (A) 0 %; CH 24.8; CHCM 29.1; Eosinophils # (A) 0.2 k/uL (0-0.7); Eosinophils % (A) 1 %; HCT 29.7 % (34.0-46.0); HDW 3.04; HGB 8.9 gm/dL (11.4-16.0); Hypochromasia Marked; Luc # (Auto) 0.16; Luc % (Auto) 1; Lymphocytes # (A) 0.7 k/uL (1.0-4.8); Lymphocytes % (A) 5 %; MCH 25.5 pg (25.0-35.0); MCHC 29.8 g/dL (31.0-37.0); MCV 85.5 fL (80.0-100.0); Mean Platelet Volume 7.4; Monocytes # (A) 0.8 k/uL (0-1.0); Monocytes % (A) 6 %; Neutrophils % (A) 86 %; RBC 3.47 m/uL (3.80-5.40); RDW 14.9 % (11.5-15.5); WBC 13.9 k/uL (3.8-10.6); WBC (Perox) 14.45
[2016-07-13 07:56] LABS: Glucose,Whole Blood 110 mg/dL (75-99)
[2016-07-13] MEDS ORDERED: IPRATROPIUM-ALBUTEROL 3 ML NEB INHALATION SCH (08:00)
[2016-07-13 08:03] LABS: Calcium 9.1 mg/dL (8.4-10.2)
[2016-07-13] MEDS: FAMOTIDINE 20 MG TAB PO SCH ×2 (08:39→08:48)
[2016-07-13] MEDS: GLIMEPIRIDE 1 MG TAB PO SCH (08:39)
[2016-07-13] MEDS: FUROSEMIDE 20 MG TAB PO SCH ×3 (08:39→13:06)
[2016-07-13] MEDS: predniSONE 10 MG TAB PO SCH ×2 (08:39→08:48)
[2016-07-13] MEDS: ASPIRIN 81 MG CHEW PO SCH ×2 (08:39→08:47)
[2016-07-13] MEDS: METOPROLOL TARTRATE 25 MG TAB PO SCH ×2 (08:39→08:48)
[2016-07-13] MEDS: ISOSORBIDE MONONITRATE ER 60 MG TAB.ER.24H PO SCH ×2 (08:40→23:01)
[2016-07-13] MEDS: LISINOPRIL 20 MG TAB PO SCH ×3 (08:40→23:01)
[2016-07-13] MEDS: hydrALAZINE HCL 50 MG TAB PO SCH ×3 (08:46→23:25)
[2016-07-13 09:12] LABS: Glucose,Whole Blood 116 mg/dL (75-99)
[2016-07-13 09:44] LABS: ABG HCO3 32 mmol/L (21-25); ABG PCO2 73 mmHg (35-45); ABG PH 7.27 (7.35-7.45); ABG PO2 73 mmHg (83-108); ABG TCO2 34 mmol/L (19-24)
[2016-07-13 11:06] LABS: Hemoglobin A1C 6.4 % (4.2-6.1)
[2016-07-13] MEDS ORDERED: DEXTROSE 5% IN WATER 1,000 ML IV ONE (11:38)
[2016-07-13 11:53] LABS: Glucose,Whole Blood 123 mg/dL (75-99)
--- NOTE | 2016-07-13 12:26 | P.HPOR ---
History of Present Illness H&P Date: 07/13/16 Chief Complaint: Left comminuted proximal humerus fracture status post fall Patient is a 81-year-old female who is seen and examined at the bedside further treatment and evaluation for a right proximal humerus fracture. Patient presented to the emergency department yesterday after sustaining an injury after a fall. Patient usually ambulates with the assistance of a walker. She forgot to use the brake on the walker and it rolled out in front of her causing her to fall on her right side. Since that time, patient has been experiencing some discomfort at her right shoulder and elbow. Imaging was taken which did show evidence of right proximal humerus fracture. Patient was placed in a sling in the emergency department and admitted to our service. This morning patient is also been seen and examined by medicine. Labs showed some evidence of CO2 retention. Patient has been placed on BiPAP. Per nursing, patient's family states over the past several weeks she's becoming more tired and dizzy with increased difficulty with ambulation. She usually ambulates with the assistance of a walker. Nursing also states patient is significantly more lethargic this morning as compared to yesterday. She needed a sternal rub in order to be aroused this morning. Patient does have difficulty with answering questions at the bedside today. She states she does have some pain over the fracture site of the right humerus but is not currently complaining of other pain. Nursing also states due to her lethargic state, she has not been receiving pain medications. Patient is not currently complaining of significant pain. Past Medical History Past Medical History: COPD, Diabetes Mellitus, Hyperlipidemia, Hypertension, Myocardial Infarction ([place]), Osteoarthritis (OA), Thyroid Disorder Additional Past Medical History / Comment(s): COPD , anemia, chronic hypoxic respiratory failure and the patient has been on oxygen at 2.5 L/m nasal cannula , lt breast cancer, , chronic sinus disease,djd emphysema, thyroid nodule, chronic renal failure, chronic anemia, osteoarthritis Last Myocardial Infarction Date:: 04/15/16 History of Any Multi-Drug Resistant Organisms: None Reported Past Surgical History: Breast Surgery, Orthopedic Surgery, Tonsillectomy Additional Past Surgical History / Comment(s): 2002 lt lumpectomy and 35 radiation tx,2004 right carotid endarectomy, rt knee arthroscopy,2009 right knee replacement 2006 bilateral cataract , had esophageal dilation via EGD Past Anesthesia/Blood Transfusion Reactions: Postoperative Nausea & Vomiting ( PONV) Additional Past Anesthesia/Blood Transfusion Reaction / Comment(s): vomited after surg. Past Psychological History: No Psychological Hx Reported, Anxiety Additional Psychological History / Comment(s): Pt resides with her daughter, Jamilah Mason. She uses a walker to ambulate. She lives in a one level home. She has visiting nurses. She does not drive, her elo's take her to appts. She has home O2 at 3L/NC ATC. She has a nebulizer and a glucose meter. Smoking Status: Former smoker Past Alcohol Use History: None Reported Additional Past Alcohol Use History / Comment(s): per pt's daughter-pt quit smoking 20 years ago Past Drug Use History: None Reported - Past Family History Father Family Medical History: Coronary Artery Disease (CAD) Additional Family Medical History / Comment(s): young from heart problems Mother Family Medical History: Asthma, COPD Medications and Allergies Home Medications Medication Instructions Recorded Confirmed Type Vit A,C & E/Lutein/Minerals 1 tab PO QAM 10/06/13 07/12/16 History [Ocuvite with Lutein Tablet] Aspirin EC [Ecotrin Low Dose] 81 mg PO QAM 06/28/14 07/12/16 History ALPRAZolam [Xanax] 0.25 mg PO Q8H PRN 04/14/16 07/12/16 History Fluticasone/Vilanterol [Breo 1 puff INHALATION RT-DAILY@0900 04/14/16 07/12/16 History Ellipta 200-25 Mcg INH] Glimepiride [Amaryl] 1 mg PO QAM 04/14/16 07/12/16 History Ipratropium-Albuterol Nebulize 3 ml INHALATION RT-QID 04/14/16 07/12/16 History [Duoneb 0.5 mg-3 mg/3 ml Soln] Lisinopril [Prinivil] 20 mg PO BID 04/14/16 07/12/16 History Sertraline [Zoloft] 50 mg PO HS 04/14/16 07/12/16 History predniSONE 10 mg PO Q48H 04/14/16 07/12/16 History hydrALAZINE HCL [Apresoline] 50 mg PO TID 05/19/16 07/12/16 History Clopidogrel Bisulfate [Plavix] 75 mg PO QAM 07/12/16 07/12/16 History Famotidine [Pepcid] 20 mg PO QAM 07/12/16 07/12/16 History Furosemide [Lasix] 20 mg PO BID@0900,1300 07/12/16 07/12/16 History Isosorbide Mononitrate ER [Imdur] 60 mg PO BID 07/12/16 07/12/16 History Metoprolol Tartrate [Lopressor] 25 mg PO QAM 07/12/16 07/12/16 History Umeclidinium [place] [Incruse 1 puff INHALATION RT-DAILY 07/12/16 07/12/16 History Ellipta] Allergies Allergy/AdvReac Type Severity Reaction Status Date / Time doxycycline Allergy Rash/Hives Verified 07/12/16 09:03 glucosamine Allergy Rash/Hives Verified 07/12/16 09:03 Iodinated Contrast Media - Allergy Rash/Hives Verified 07/12/16 09:03 Oral and [Iodinated Contrast Media - IV Dye] Sulfa (Sulfonamide Allergy Rash/Hives Verified 07/12/16 09:03 Antibiotics) baclofen AdvReac Confusion Verified 07/12/16 09:03 Physical Examination Physical Exam: Patient is lethargic and difficult to awake; she has some difficulty answering questions Vital signs appear stable Good chest excursion with deep inspiration and expiration; patient currently on BiPAP Abdomen soft nontender No signs or symptoms of DVT; no calf pain Some pain with palpation over the right proximal humerus at the fracture site No evidence of significant bruising or swelling over the fracture site No pain with palpation of the right elbow, wrist, hand, thumb, or fingers of the right hand Active for range of motion of the right wrist and fingers without any difficulty Right upper extremity sling currently intact Results Pertinent studies: X-ray of the right shoulder: Evidence of comminuted right proximal humeral fracture with no definite associated dislocation X-ray of the right elbow: No evidence of fracture dislocation X-ray of the right hip and pelvis: No acute fracture or dislocation evident within the right hip; may be evidence of a left superior rami fracture X-ray of the right knee: No evidence of fracture dislocation Head and cervical spine CT: No evidence of fracture or dislocation evident with his cervical spine; no evidence of acute intracranial hemorrhage, mass effect, or midline shift; intermediate pulmonary nodule left upper lobe measuring 5 mm - Labs Labs: Abnormal Lab Results - Last 24 Hours (Table) 07/12/16 07/12/16 07/12/16 Range/Units 12:16 12:16 12:16 WBC 13.8 H (3.8-10.6) k/uL RBC 3.45 L (3.80-5.40) m/uL Hgb 8.4 L (11.4-16.0) gm/dL Hct 29.6 L (34.0-46.0) % MCH 24.2 L (25.0-35.0) pg MCHC 28.3 L (31.0-37.0) g/dL Neutrophils # 12.4 H (1.3-7.7) k/uL Lymphocytes # 0.5 L (1.0-4.8) k/uL APTT 20.6 L (22.0-30.0) sec ABG pH (7.35-7.45) ABG pCO2 (35-45) mmHg ABG pO2 (83-108) mmHg ABG HCO3 (21-25) mmol/L ABG Total CO2 (19-24) mmol/L ABG O2 Saturation (94-97) % Sodium 146 H (137-145) mmol/L Carbon Dioxide 39 H (22-30) mmol/L BUN 32 H (7-17) mg/dL Creatinine 1.64 H (0.52-1.04) mg/dL Glucose 114 H (74-99) mg/dL POC Glucose (mg/dL) (75-99) mg/dL Hemoglobin A1c (4.2-6.1) % Total Protein 5.9 L (6.3-8.2) g/dL Albumin 3.4 L (3.5-5.0) g/dL Urine Protein (Negative) Amorphous Sediment (None) /hpf Hyaline Casts (0-2) /lpf Urine Mucus (None) /hpf 07/12/16 07/12/16 07/12/16 Range/Units 12:16 17:39 19:51 WBC (3.8-10.6) k/uL RBC (3.80-5.40) m/uL Hgb (11.4-16.0) gm/dL Hct (34.0-46.0) % MCH (25.0-35.0) pg MCHC (31.0-37.0) g/dL Neutrophils # (1.3-7.7) k/uL Lymphocytes # (1.0-4.8) k/uL APTT (22.0-30.0) sec ABG pH (7.35-7.45) ABG pCO2 (35-45) mmHg ABG pO2 (83-108) mmHg ABG HCO3 (21-25) mmol/L ABG Total CO2 (19-24) mmol/L ABG O2 Saturation (94-97) % Sodium (137-145) mmol/L Carbon Dioxide (22-30) mmol/L BUN (7-17) mg/dL Creatinine (0.52-1.04) mg/dL Glucose (74-99) mg/dL POC Glucose (mg/dL) 121 H 140 H (75-99) mg/dL Hemoglobin A1c 6.4 H (4.2-6.1) % Total Protein (6.3-8.2) g/dL Albumin (3.5-5.0) g/dL Urine Protein (Negative) Amorphous Sediment (None) /hpf Hyaline Casts (0-2) /lpf Urine Mucus (None) /hpf 07/13/16 07/13/16 07/13/16 Range/Units 03:05 04:55 05:08 WBC (3.8-10.6) k/uL RBC (3.80-5.40) m/uL Hgb (11.4-16.0) gm/dL Hct (34.0-46.0) % MCH (25.0-35.0) pg MCHC (31.0-37.0) g/dL Neutrophils # (1.3-7.7) k/uL Lymphocytes # (1.0-4.8) k/uL APTT (22.0-30.0) sec ABG pH (7.35-7.45) ABG pCO2 (35-45) mmHg ABG pO2 (83-108) mmHg ABG HCO3 (21-25) mmol/L ABG Total CO2 (19-24) mmol/L ABG O2 Saturation (94-97) % Sodium (137-145) mmol/L Carbon Dioxide (22-30) mmol/L BUN (7-17) mg/dL Creatinine (0.52-1.04) mg/dL Glucose (74-99) mg/dL POC Glucose (mg/dL) 54 L 70 L (75-99) mg/dL Hemoglobin A1c (4.2-6.1) % Total Protein (6.3-8.2) g/dL Albumin (3.5-5.0) g/dL Urine Protein 3+ H (Negative) Amorphous Sediment Rare H (None) /hpf Hyaline Casts 8 H (0-2) /lpf Urine Mucus Rare H (None) /hpf 07/13/16 07/13/16 07/13/16 Range/Units 05:36 06:56 06:56 WBC 13.9 H (3.8-10.6) k/uL RBC 3.47 L (3.80-5.40) m/uL Hgb 8.9 L (11.4-16.0) gm/dL Hct 29.7 L (34.0-46.0) % MCH (25.0-35.0) pg MCHC 29.8 L (31.0-37.0) g/dL Neutrophils # 12.0 H (1.3-7.7) k/uL Lymphocytes # 0.7 L (1.0-4.8) k/uL APTT (22.0-30.0) sec ABG pH (7.35-7.45) ABG pCO2 (35-45) mmHg ABG pO2 (83-108) mmHg ABG HCO3 (21-25) mmol/L ABG Total CO2 (19-24) mmol/L ABG O2 Saturation (94-97) % Sodium (137-145) mmol/L Carbon Dioxide 36 H (22-30) mmol/L BUN 40 H (7-17) mg/dL Creatinine 2.03 H (0.52-1.04) mg/dL Glucose (74-99) mg/dL POC Glucose (mg/dL) 134 H (75-99) mg/dL Hemoglobin A1c (4.2-6.1) % Total Protein (6.3-8.2) g/dL Albumin (3.5-5.0) g/dL Urine Protein (Negative) Amorphous Sediment (None) /hpf Hyaline Casts (0-2) /lpf Urine Mucus (None) /hpf 07/13/16 07/13/16 07/13/16 Range/Units 07:50 08:59 09:20 WBC (3.8-10.6) k/uL RBC (3.80-5.40) m/uL Hgb (11.4-16.0) gm/dL Hct (34.0-46.0) % MCH (25.0-35.0) pg MCHC (31.0-37.0) g/dL Neutrophils # (1.3-7.7) k/uL Lymphocytes # (1.0-4.8) k/uL APTT (22.0-30.0) sec ABG pH 7.27 L (7.35-7.45) ABG pCO2 73 H* (35-45) mmHg ABG pO2 73 L (83-108) mmHg ABG HCO3 32 H (21-25) mmol/L ABG Total CO2 34 H (19-24) mmol/L ABG O2 Saturation 91.0 L (94-97) % Sodium (137-145) mmol/L Carbon Dioxide (22-30) mmol/L BUN (7-17) mg/dL Creatinine (0.52-1.04) mg/dL Glucose (74-99) mg/dL POC Glucose (mg/dL) 110 H 116 H (75-99) mg/dL Hemoglobin A1c (4.2-6.1) % Total Protein (6.3-8.2) g/dL Albumin (3.5-5.0) g/dL Urine Protein (Negative) Amorphous Sediment (None) /hpf Hyaline Casts (0-2) /lpf Urine Mucus (None) /hpf 07/13/16 Range/Units 11:50 WBC (3.8-10.6) k/uL RBC (3.80-5.40) m/uL Hgb (11.4-16.0) gm/dL Hct (34.0-46.0) % MCH (25.0-35.0) pg MCHC (31.0-37.0) g/dL Neutrophils # (1.3-7.7) k/uL Lymphocytes # (1.0-4.8) k/uL APTT (22.0-30.0) sec ABG pH (7.35-7.45) ABG pCO2 (35-45) mmHg ABG pO2 (83-108) mmHg ABG HCO3 (21-25) mmol/L ABG Total CO2 (19-24) mmol/L ABG O2 Saturation (94-97) % Sodium (137-145) mmol/L Carbon Dioxide (22-30) mmol/L BUN (7-17) mg/dL Creatinine (0.52-1.04) mg/dL Glucose (74-99) mg/dL POC Glucose (mg/dL) 123 H (75-99) mg/dL Hemoglobin A1c (4.2-6.1) % Total Protein (6.3-8.2) g/dL Albumin (3.5-5.0) g/dL Urine Protein (Negative) Amorphous Sediment (None) /hpf Hyaline Casts (0-2) /lpf Urine Mucus (None) /hpf H & H 07/12/16 07/13/16 Range/Units 12:16 06:56 Hgb 8.4 L 8.9 L (11.4-16.0) gm/dL Hct 29.6 L 29.7 L (34.0-46.0) % Coagulation 07/12/16 Range/Units 12:16 INR 0.9 (<1.1) Result Diagrams: 07/13/16 06:56 07/13/16 06:56 Assessment and Plan (1) Generalized weakness Status: Acute (2) Carbon dioxide retention Status: Acute (3) Lethargic Status: Acute (4) Fall Status: Acute (5) Proximal humerus fracture Status: Acute (6) COPD (chronic obstructive pulmonary disease) Status: Acute Plan: Assessment: Comminuted right proximal humerus fracture Status post fall Lethargy Carbon dioxide retention; currently on BiPAP Generalized weakness COPD Plan: 1. We will currently planned to continue with conservative treatment in regards to her comminuted right proximal humerus fracture. Patient was placed in a sling in the emergency department. We will currently plan to place her in a right shoulder immobilizer. She should keep this immobilizer intact at all times. She should avoid excessive activities in regards to her right upper extremity. She should remove her elbow from the immobilizer/sling and work on range of motion of the elbow daily. She may continue to use her right hand as needed. 2. Medicine to continue following the patient for her other medical diagnoses and further workup; patient currently experiencing CO2 retention and is currently on BiPAP. Patient has also experiencing increased generalized weakness with dizziness over the past several weeks. She presents in a more lethargic state today. We will defer further evaluation and plan of care to medicine. 3. We will continue follow patient closely. 4. Patient will be discussed with case management to work on possible placement at the time of discharge 5. Patient has been discussed in detail with Dr. Claus Nuno and he agrees with this plan Time with Patient: Less than 30
[2016-07-13] MEDS: VIT A,C & E-LUTEIN-MINERALS 1 EACH TAB PO SCH (13:06)
[2016-07-13] MEDS: HYDROcodone/APAP 5-325MG 1 EACH TAB PO PRN ×2 (13:06→20:13)
--- NOTE | 2016-07-13 14:20 | P.CNPUL ---
History of Present Illness Consult date: 07/13/16 Requesting physician: Josh Nuno Reason for consult: COPD Chief complaint: Fall and right upper extremity injury. History of present illness: This is an 81-year-old female with history of severe end-stage COPD, primarily a patient with Dr. Anderson, we have seen this patient in the past for her end- stage COPD, a shunt is normally O2 dependent, and an FEV1 has been less than 50 % of the predicted for many years. Her last admission to the hospital was about a month ago, and we saw on consultation for Dr. Anderson. Patient presented this time with right upper extremity injury and right humerus fracture after falling and landing on her right side while she was using her walker. Patient was admitted, and she was receiving pain medications, her pulmonary status apparently deteriorated, and she was developing hypercapnia and lethargy. Patient was placed on BiPAP, and I was asked to see her on consultation. Apparently the patient did quite well after she was placed on BiPAP, and initial ABG prior to BiPAP showed a pO2 of 73 pCO2 of 73 and pH of 7.27. Clearly her hypercapnia is related to her underlying COPD as the patient seems to be a pCO2 retainer, however giving the patient narcotics would contribute more and more to have hypercapnia. Since the patient is not having much pain, her narcotics are presently on hold and I believe that is appropriate. Patient describes chronic shortness of breath, intermittent episodes of cough and wheezing. And again she is O2 dependent but not prednisone dependent. Patient is steroid responsive. Presently upon my evaluation, patient denies any headaches, no blurred vision, no dizziness. No chest pain no cough no wheezing, no fever, no chills, she has mostly symptoms of pain in her right upper extremity. No nausea no vomiting no abdominal pain no melena no hematemesis is no dysuria and no frequency no urgency. Review of Systems 13 point review of systems were obtained. Refer to pertinent positives and negatives in HPI. Past Medical History Past Medical History: COPD, Diabetes Mellitus, Hyperlipidemia, Hypertension, Myocardial Infarction ([place]), Osteoarthritis (OA), Thyroid Disorder Additional Past Medical History / Comment(s): COPD , anemia, chronic hypoxic respiratory failure and the patient has been on oxygen at 2.5 L/m nasal cannula , lt breast cancer, , chronic sinus disease,djd emphysema, thyroid nodule, chronic renal failure, chronic anemia, osteoarthritis Last Myocardial Infarction Date:: 04/15/16 History of Any Multi-Drug Resistant Organisms: None Reported Past Surgical History: Breast Surgery, Orthopedic Surgery, Tonsillectomy Additional Past Surgical History / Comment(s): 2002 lt lumpectomy and 35 radiation tx,2004 right carotid endarectomy, rt knee arthroscopy,2009 right knee replacement 2006 bilateral cataract , had esophageal dilation via EGD Past Anesthesia/Blood Transfusion Reactions: Postoperative Nausea & Vomiting ( PONV) Additional Past Anesthesia/Blood Transfusion Reaction / Comment(s): vomited after surg. Past Psychological History: No Psychological Hx Reported, Anxiety Additional Psychological History / Comment(s): Pt resides with her daughter, Jamilah Mason. She uses a walker to ambulate. She lives in a one level home. She has visiting nurses. She does not drive, her elo's take her to appts. She has home O2 at 3L/NC ATC. She has a nebulizer and a glucose meter. Smoking Status: Former smoker Past Alcohol Use History: None Reported Additional Past Alcohol Use History / Comment(s): per pt's daughter-pt quit smoking 20 years ago Past Drug Use History: None Reported - Past Family History Father Family Medical History: Coronary Artery Disease (CAD) Additional Family Medical History / Comment(s): young from heart problems Mother Family Medical History: Asthma, COPD Medications and Allergies Home Medications Medication Instructions Recorded Confirmed Type Vit A,C & E/Lutein/Minerals 1 tab PO QAM 10/06/13 07/12/16 History [Ocuvite with Lutein Tablet] Aspirin EC [Ecotrin Low Dose] 81 mg PO QAM 06/28/14 07/12/16 History ALPRAZolam [Xanax] 0.25 mg PO Q8H PRN 04/14/16 07/12/16 History Fluticasone/Vilanterol [Breo 1 puff INHALATION RT-DAILY@0900 04/14/16 07/12/16 History Ellipta 200-25 Mcg INH] Glimepiride [Amaryl] 1 mg PO QAM 04/14/16 07/12/16 History Ipratropium-Albuterol Nebulize 3 ml INHALATION RT-QID 04/14/16 07/12/16 History [Duoneb 0.5 mg-3 mg/3 ml Soln] Lisinopril [Prinivil] 20 mg PO BID 04/14/16 07/12/16 History Sertraline [Zoloft] 50 mg PO HS 04/14/16 07/12/16 History predniSONE 10 mg PO Q48H 04/14/16 07/12/16 History hydrALAZINE HCL [Apresoline] 50 mg PO TID 05/19/16 07/12/16 History Clopidogrel Bisulfate [Plavix] 75 mg PO QAM 07/12/16 07/12/16 History Famotidine [Pepcid] 20 mg PO QAM 07/12/16 07/12/16 History Furosemide [Lasix] 20 mg PO BID@0900,1300 07/12/16 07/12/16 History Isosorbide Mononitrate ER [Imdur] 60 mg PO BID 07/12/16 07/12/16 History Metoprolol Tartrate [Lopressor] 25 mg PO QAM 07/12/16 07/12/16 History Umeclidinium [place] [Incruse 1 puff INHALATION RT-DAILY 07/12/16 07/12/16 History Ellipta] Allergies Allergy/AdvReac Type Severity Reaction Status Date / Time doxycycline Allergy Rash/Hives Verified 07/12/16 09:03 glucosamine Allergy Rash/Hives Verified 07/12/16 09:03 Iodinated Contrast Media - Allergy Rash/Hives Verified 07/12/16 09:03 Oral and [Iodinated Contrast Media - IV Dye] Sulfa (Sulfonamide Allergy Rash/Hives Verified 07/12/16 09:03 Antibiotics) baclofen AdvReac Confusion Verified 07/12/16 09:03 Physical Exam Vitals: Vital Signs Temp Pulse Pulse Resp BP Pulse Ox 07/13/16 11:08 90 07/13/16 10:56 88 07/13/16 10:20 16 07/13/16 09:06 16 07/13/16 07:23 94 07/13/16 07:12 92 07/13/16 07:00 95.8 F L 71 18 138/81 92 L 07/12/16 21:18 98.3 F 16 07/12/16 20:59 61 141/94 95 07/12/16 15:14 62 18 07/12/16 15:00 96.2 F L 62 16 170/70 95 Intake and Output 07/12/16 07/13/16 07/13/16 22:59 06:59 14:59 Intake Total 160 400 Output Total 350 Balance 160 50 Intake: Intake, IV Titration 160 160 Amount Sodium Chloride 0.9% 1, 160 160 000 ml @ 20 mls/hr IV . Q24H ONE Rx#:[id number] Oral 240 Output: Urine 350 Other: Voiding Method Bedside Commode Bedside Commode Bedpan Diaper Diaper Weight 71.21 kg Physical Exam: Revealed an 80-year-old female in no distress, patient is on BiPAP, seems to be doing well with BiPAP, and in no distress. HEENT:[Neck is supple.] [No neck masses.] [No thyromegaly.] [No JVD.] Chest: [Diminished breath sounds at the bases no crackles or rhonchi or wheezes. ] Cardiac Exam: [Normal S1 and S2, no S3 gallop, no murmur.] Abdomen: [Soft, nontender, no megaly, no rebound, no guarding, normal bowel sounds.] Extremities: [Right upper extremity sling is noted, otherwise unremarkable findings. Neurological Exam: [No focal neurologic deficit.] Results - Laboratory Findings CBC and BMP: 07/13/16 06:56 07/13/16 06:56 ABG ABG pH 7.27 (7.35-7.45) L 07/13/16 09:20 ABG pCO2 73 mmHg (35-45) H* 07/13/16 09:20 ABG pO2 73 mmHg (83-108) L 07/13/16 09:20 ABG O2 Saturation 91.0 % (94-97) L 07/13/16 09:20 PT/INR, D-dimer PT 9.6 sec (9.0-12.0) 07/12/16 12:16 INR 0.9 (<1.1) 07/12/16 12:16 Abnormal lab findings: Abnormal Labs 07/12/16 07/12/16 07/12/16 12:16 12:16 12:16 WBC 13.8 H RBC 3.45 L Hgb 8.4 L Hct 29.6 L MCH 24.2 L MCHC 28.3 L Neutrophils # 12.4 H Lymphocytes # 0.5 L APTT 20.6 L ABG pH ABG pCO2 ABG pO2 ABG HCO3 ABG Total CO2 ABG O2 Saturation Sodium 146 H Carbon Dioxide 39 H BUN 32 H Creatinine 1.64 H Glucose 114 H POC Glucose (mg/dL) Hemoglobin A1c Total Protein 5.9 L Albumin 3.4 L Urine Protein Amorphous Sediment Hyaline Casts Urine Mucus 07/12/16 07/12/16 07/12/16 12:16 17:39 19:51 WBC RBC Hgb Hct MCH MCHC Neutrophils # Lymphocytes # APTT ABG pH ABG pCO2 ABG pO2 ABG HCO3 ABG Total CO2 ABG O2 Saturation Sodium Carbon Dioxide BUN Creatinine Glucose POC Glucose (mg/dL) 121 H 140 H Hemoglobin A1c 6.4 H Total Protein Albumin Urine Protein Amorphous Sediment Hyaline Casts Urine Mucus 07/13/16 07/13/16 07/13/16 03:05 04:55 05:08 WBC RBC Hgb Hct MCH MCHC Neutrophils # Lymphocytes # APTT ABG pH ABG pCO2 ABG pO2 ABG HCO3 ABG Total CO2 ABG O2 Saturation Sodium Carbon Dioxide BUN Creatinine Glucose POC Glucose (mg/dL) 54 L 70 L Hemoglobin A1c Total Protein Albumin Urine Protein 3+ H Amorphous Sediment Rare H Hyaline Casts 8 H Urine Mucus Rare H 07/13/16 07/13/16 07/13/16 05:36 06:56 06:56 WBC 13.9 H RBC 3.47 L Hgb 8.9 L Hct 29.7 L MCH MCHC 29.8 L Neutrophils # 12.0 H Lymphocytes # 0.7 L APTT ABG pH ABG pCO2 ABG pO2 ABG HCO3 ABG Total CO2 ABG O2 Saturation Sodium Carbon Dioxide 36 H BUN 40 H Creatinine 2.03 H Glucose POC Glucose (mg/dL) 134 H Hemoglobin A1c Total Protein Albumin Urine Protein Amorphous Sediment Hyaline Casts Urine Mucus 07/13/16 07/13/16 07/13/16 07:50 08:59 09:20 WBC RBC Hgb Hct MCH MCHC Neutrophils # Lymphocytes # APTT ABG pH 7.27 L ABG pCO2 73 H* ABG pO2 73 L ABG HCO3 32 H ABG Total CO2 34 H ABG O2 Saturation 91.0 L Sodium Carbon Dioxide BUN Creatinine Glucose POC Glucose (mg/dL) 110 H 116 H Hemoglobin A1c Total Protein Albumin Urine Protein Amorphous Sediment Hyaline Casts Urine Mucus 07/13/16 11:50 WBC RBC Hgb Hct MCH MCHC Neutrophils # Lymphocytes # APTT ABG pH ABG pCO2 ABG pO2 ABG HCO3 ABG Total CO2 ABG O2 Saturation Sodium Carbon Dioxide BUN Creatinine Glucose POC Glucose (mg/dL) 123 H Hemoglobin A1c Total Protein Albumin Urine Protein Amorphous Sediment Hyaline Casts Urine Mucus Assessment and Plan Plan: Impression: 1: Acute on chronic hypercapnic respiratory failure secondary to COPD, exacerbated by narcotics to control pain of right humerus fracture. 2 acute right humerus fracture related to recent injury on 07/12/2016, this is being addressed by orthopedics. 3 advanced COPD with chronic hypoxic and hypercapnic respiratory failure FEV1 is no more than 30% of predicted. 4 history of coronary artery disease and previous non-ST segment elevation myocardial infarction. 5 history of chronic renal failure 6 history of diabetes type 2 7 history of hyperlipidemia 8 history of hypertension 9 history of thyroid nodule 10 history of breast cancer 11 history of chronic anemia of chronic disease 12 medical debility and patient has poor baseline performance and functional status secondary to above-mentioned comorbidities. Recommendation: Continue present treatment plan including bronchodilators, BiPAP , steroids to help improve her COPD status, patient is not quite clear that this point for any surgical intervention. We'll continue to follow. Nose is definitely poor and guarded. Time with Patient: Greater than 30
--- NOTE | 2016-07-13 14:44 | CONS ---
DATE OF CONSULTATION: 07/13/2016 Attending physician: Dr. Nuno. Consulting physician: Dr. Mauro Harrington for Dr. Anderson. CHIEF COMPLAINT: Medical evaluation. HISTORY OF PRESENT ILLNESS: This 81-year-old female who was admitted to this hospital after being brought into the emergency room following a fall at home. According to the EMS notes, the patient's did not have the breaks on her four wheel walker and as she moved forward she fell. The patient when picked up by the EMS, patient was alert. Vitals stable with mildly elevated blood pressure. The patient does have a history of COPD . The patient was transferred to the emergency room where further evaluation, including a CAT scan of the C-spine and brain were done with no evidence of any significant intracranial injury or C-spine fractures. The patient is noted to have humeral fracture and is admitted to the orthopedic surgery for surgical service. The patient is obtunded this morning. This was noted on my evaluation. The nurse reported the patient's blood sugar was low and she was given dextrose. The patient's repeat blood sugar now is 116. Patient is still unresponsive. ( ) all obtained from the records. Including EMS and ER record and previous hospital record. Also noted to have some pain in the right knee at the time of admission. The patient has a long-standing history of COPD and tobacco dependency. The patient unknown whether she is still an active smoker. The patient is on oxygen at 2.5 liters at home. The patient has Gold stage IV COPD . She also has underlying history of coronary artery disease with a previous subendocardial myocardial infarction back in May 2016. She has history of chronic kidney disease, stage IV, chronic congestive cardiac failure diastolic, diastolic dysfunction, diabetes mellitus type 2, and anemia of chronic disease, hypothyroidism, debility and previous history of carcinoma of the left breast with lumpectomy and radiation in 2004. She has had a previous esophageal dilatation for gastroesophageal reflux. The patient past surgical history is significant for left breast lumpectomy, history of esophageal dilatation and right carotid endarterectomy. ALLERGIES: INCLUDE DOXYCYCLINE, GLUCOSAMINE, CONTRAST MEDIA, SULFA AND BACLOFEN. Medications at home include: 1. Prednisone 10 mg every 48 hours. 2. Hydralazine 50 mg t.i.d. 3. I-vitamins. 4. Ellipta 1 puff daily. 5. Zoloft 50 mg at bedtime. 6. Nitrostat sublingual p.r.n. 7. Metoprolol 25 mg morning. 8. Lisinopril 20 mg b.i.d. 9. Lorazepam 80 mg 0.5, at bedtime. 10. Imdur 60 mg b.i.d. 11. Duoneb updraft q.i.d. 12. Glimepiride 1 mg daily. 13. Lasix 20 mg b.i.d. 14. Breo 1 puff daily. 15. Pepcid 20 mg daily. 16. Plavix 75 mg daily. 17. Lipitor 80 mg at bedtime. 18. Aspirin 81 mg daily. 19. Tylenol as needed. 20. Xanax 0.25 mg q.8h. p.r.n. SOCIAL HISTORY: Patient lives alone. FAMILY MEDICAL HISTORY: Her mother had asthma and COPD . Father had coronary artery disease. No other history available. Review of systems obtainable from the patient. The patient is obtunded. PHYSICAL EXAMINATION: VITAL SIGNS: Vital signs reveal temperature 97.8, pulse 71, respirations 18, blood pressure 138/81, pulse ox 92% on 3 liters. HEENT: Normocephalic. NECK: No JVD. Pupils small, equal, difficult to assess for reactivity. The conjunctivae pink. Facial structure suggestive of delgado faces. Neck reveals no JVD or carotid bruits. CHEST EXAMINATION: Generalized decreased air flow. No rhonchi or wheezing. CARDIAC: Distant heart sounds. S1, S2 with no gallops. Systolic murmur 2/6 left sternal border. ABDOMEN: Protuberant, soft. Bowel sounds are active. Extremities revealed no edema. Adequate pulses upper extremities. Decreased pedal pulses. NEUROLOGICALLY: Obtunded, responds to pain only. Tries to open her eyes when calls her name. No asterixis. The plantar right downgoing, left is equivocal. Has generalized decreased muscle tone. ASSESSMENT: 1. Altered mental status this morning. Suspect probably metabolic encephalopathy rule out hypercarbia and hypoglycemia. 2. History of fall at home. 3. Diabetes mellitus. 4. Chronic obstructive pulmonary disease. 5. Chronic respiratory failure. 6. Coronary artery disease. 7. History of diabetes mellitus. 8. Hypothyroidism. PLAN: Hold the medications. Stat ABGs. Will require probably repeat the CAT scan once the blood gases are available. First blood gases are available and there is no evidence of hypercarbia. Prognosis remains guarded. Continue present medical regimen. We will try to contact family.
[2016-07-13] MEDS: methylPREDNISolone SOD SUCCI 40 MG/ML 1 ML VIAL IV SCH ×2 (16:46→23:01)
[2016-07-13] MEDS: HEPARIN SODIUM,PORCINE 5,000 UNIT/ML 1 ML VIAL SQ SCH ×2 (16:47→23:02)
[2016-07-13 17:27] LABS: Glucose,Whole Blood 173 mg/dL (75-99)
[2016-07-13 20:41] LABS: Glucose,Whole Blood 238 mg/dL (75-99)
[2016-07-13] MEDS: LORazepam 0.5 MG TAB PO SCH (23:01)
[2016-07-13] MEDS: SERTRALINE 50 MG TAB PO SCH (23:01)
[2016-07-14] MEDS: HYDROcodone/APAP 5-325MG 1 EACH TAB PO PRN ×4 (01:14→21:39)
[2016-07-14] MEDS: IPRATROPIUM-ALBUTEROL 3 ML NEB INHALATION SCH ×4 (06:57→20:24)
[2016-07-14] MEDS: SYMBICORT 160-4.5 MCG INHALER INHALATION SCH ×2 (06:58→20:24)
[2016-07-14 07:17] LABS: Glucose,Whole Blood 248 mg/dL (75-99)
--- NOTE | 2016-07-14 08:07 | XR ---
EXAMINATION TYPE: XR chest 1V portable DATE OF EXAM: 07/14/2016 COMPARISON: Chest x-ray 05/21/2016 HISTORY: COPD, respiratory failure TECHNIQUE: Single frontal view of the chest is obtained. FINDINGS: The heart remains enlarged. There is no pneumothorax or pleural effusion evident. There is proximal humeral fracture on the right. Patchy basilar density is present. Pulmonary vascularity and davi not significantly changed. IMPRESSION: There may be basilar atelectasis versus pneumonia or edema, follow-up recommended. Cardi omegaly.
[2016-07-14] MEDS: ISOSORBIDE MONONITRATE ER 60 MG TAB.ER.24H PO SCH ×2 (08:09→21:20)
[2016-07-14] MEDS: ASPIRIN 81 MG CHEW PO SCH (08:09)
[2016-07-14] MEDS: FUROSEMIDE 20 MG TAB PO SCH ×2 (08:09→11:58)
[2016-07-14] MEDS: LISINOPRIL 20 MG TAB PO SCH ×2 (08:09→21:20)
[2016-07-14] MEDS: FAMOTIDINE 20 MG TAB PO SCH (08:09)
[2016-07-14] MEDS: hydrALAZINE HCL 50 MG TAB PO SCH ×3 (08:09→21:20)
[2016-07-14] MEDS: METOPROLOL TARTRATE 25 MG TAB PO SCH (08:10)
[2016-07-14] MEDS: HEPARIN SODIUM,PORCINE 5,000 UNIT/ML 1 ML VIAL SQ SCH ×3 (08:11→23:10)
[2016-07-14] MEDS: INSULIN LISPRO (humaLOG) 300 UNIT/3 ML VIAL SQ SCH ×4 (08:11→21:18)
[2016-07-14] MEDS: methylPREDNISolone SOD SUCCI 40 MG/ML 1 ML VIAL IV SCH ×2 (08:15→21:20)
[2016-07-14] MEDS ORDERED: KETOROLAC 30 MG/ML 1 ML VIAL ONE (09:07)
[2016-07-14] MEDS: KETOROLAC 30 MG/ML 1 ML VIAL IVP SCH ×3 (09:15→23:10)
[2016-07-14 11:46] LABS: Glucose,Whole Blood 131 mg/dL (75-99)
--- NOTE | 2016-07-14 11:47 | P.PN ---
Subjective Principal diagnosis: Fracture right humerus History of present illness: This 81-year-old female was admitted to orthopedic services for a fractured right humerus. The patient has quite a few other significant comorbid conditions. Infected the time of my evaluation yesterday for medical management patient was obtunded. Suspected she might have a metabolic encephalopathy. The patient had a stat blood gases done which did reveal a pH of 7.27 and a pCO2 of 73. The patient obviously had hypercarbia associated with mental changes. The patient's much more alert today and able to answer. She did receive BiPAP therapy yesterday. She is on CPAP at home and that was continued through the night. The patient is however morning and complains of restless masses from nursing due to pain. She did not want to eat any breakfast but was coaxed into eating some. The patient denies hypoglycemia yesterday. She is on a low-dose dextrose drip at 50 mL per hour. Accu-Cheks are being monitored and covered as needed. Due to significant pain narcotics are being held the patient will be given Toradol. Obviously with regarding renal in the setting of diabetes mellitus. Patient's still not very appropriately able to give much history. REVIEW OF SYSTEMS: Neuro: Denies any headaches dizziness. Psych: Some confusion Cardiac: Denies chest pain Respiratory: Denies shortness of breath. Reported to have some coughing. GI: Denies any nausea vomiting abdominal pain poor appetite : No dysuria hematuria Extremities: Pain right knee and right arm. Skin: Reported intact. Constitutional: No fever, chills. Objective - Vital Signs Vital signs: Vital Signs Temp 97.6 F 07/14/16 07:00 Pulse 90 07/14/16 11:25 Resp 20 07/14/16 08:00 BP 198/82 07/14/16 07:00 Pulse Ox 96 07/14/16 07:02 Intake & Output 07/13/16 07/14/16 07/14/16 18:59 06:59 18:59 Intake Total 350 550 Balance 350 550 Weight 71.5 kg Intake: IV 350 400 Dextrose 5% in Water 1, 350 400 000 ml @ 50 mls/hr IV . Q20H ONE Rx#:[id number] Intake, IV Titration 150 Amount Dextrose 5% in Water 1, 150 000 ml @ 50 mls/hr IV . Q20H ONE Rx#:[id number] Other: Voiding Method Bedside Commode Diaper Diaper Diaper # Voids 1 1 PHYSICAL EXAMINATION: Cooperative, at present patient is somewhat restless due to pain in the right arm and right knee area. HEENT: Short neck, cushingoid faces. He couldn't assess for JVD Chest: Generalized decreased airflow Cardiac: Normal S1-S2 no gallops systolic murmur 2/6 left sternal border. Abdomen: Soft bowel sounds present. Extremities: No edema mild tenderness right knee with some ecchymosis. Previous surgical scar of a total knee arthroplasty. Right elbow in a sling patient has ecchymosis in the triceps area Neurologically: Awake alert and answers some questions but still somewhat confused. - Labs CBC & Chem 7: 07/13/16 06:56 07/13/16 06:56 Labs: Abnormal Lab Results - Last 24 Hours (Table) 07/13/16 07/13/16 07/13/16 Range/Units 11:50 17:22 20:21 POC Glucose (mg/dL) 123 H 173 H 238 H (75-99) mg/dL 07/14/16 Range/Units 06:56 POC Glucose (mg/dL) 248 H (75-99) mg/dL Assessment and Plan Plan: ASSESSMENT: 1. Metabolic encephalopathy improved. 2. Acute on chronic respiratory failure secondary to hypercarbia. 3. Acute respiratory acidosis improved. 4. COPD. 5. Diabetes mellitus. 6. Iatrogenic cushingoid syndrome. 7. Fractured right humerus. 8. Contusion right knee. PLAN: Continue present medical regimen. 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 Patient's prognosis remains guarded. We will have limited narcotic use and use Toradol for pain. Dr. Anderson for whom I'm covering for this patient will be back and resume care tomorrow.
[2016-07-14] MEDS: VIT A,C & E-LUTEIN-MINERALS 1 EACH TAB PO SCH (11:58)
[2016-07-14] MEDS: PIPERACILLIN-TAZOBACTAM 3.375 GM in DEXTROSE/WATER 1 50ML.BAG IVPB SCH ×2 (11:58→21:20)
--- NOTE | 2016-07-14 13:01 | P.PN ---
Subjective Principal diagnosis: Right proximal humerus fracture status post fall; CO2 retention; COPD; weakness Patient is a 81-year-old female who is seen and examined at bedside for follow- up evaluation for right proximal humerus fracture. Since being seen and examined yesterday, a shoulder immobilizer has been delivered and fitted appropriately. Patient continues to have other significant medical diagnoses. She continues to have some difficulty with communication. She states she has had some pain at the right proximal humerus fracture site. She continues to be seen by Dr. Harrington in medicine. She continues to be on BiPAP. She is known to have COPD. Yesterday she was experiencing critical ABG labs. She has also been refusing to eat and has been having episodes of hypoglycemia. Nursing states her blood sugar yesterday was approximately 54. Nursing states her family says prior to her recent fall she lived at home alone. Patient is significantly weak and has not been ambulating. Patient states she does not ambulate frequently at home. Patient also has some bruising over the right knee following her recent fall without significant swelling. She does have a well-healed incision over the right knee from her previous total knee arthroplasty. In regards to her right shoulder, her symptoms have been controlled. Family feels they are unable to take care of her and she will need some rehabilitation placement at discharge. Patient was discussed in detail with nursing. At this time, we do not feel it is an appropriate plan of care for orthopedics to continue as her admitting physician. We will plan to have medicine take over her admit status. She is currently full code. Patient does not have any new complaints at the bedside today Objective - Vital Signs Vital signs: Vital Signs Temp 97.6 F 07/14/16 07:00 Pulse 90 07/14/16 11:25 Resp 20 07/14/16 08:00 BP 198/82 07/14/16 07:00 Pulse Ox 96 07/14/16 07:02 Intake & Output 07/13/16 07/14/16 07/14/16 18:59 06:59 18:59 Intake Total 350 550 Balance 350 550 Weight 71.5 kg Intake: IV 350 400 Dextrose 5% in Water 1, 350 400 000 ml @ 50 mls/hr IV . Q20H ONE Rx#:[id number] Intake, IV Titration 150 Amount Dextrose 5% in Water 1, 150 000 ml @ 50 mls/hr IV . Q20H ONE Rx#:[id number] Other: Voiding Method Bedside Commode Diaper Diaper Diaper # Voids 1 1 - Exam Physical Exam: Patient is lethargic and difficult to awake; she has some difficulty answering questions Vital signs appear stable Good chest excursion with deep inspiration and expiration; patient currently on BiPAP Abdomen soft nontender No signs or symptoms of DVT; no calf pain Some pain with palpation over the right proximal humerus at the fracture site No evidence of significant bruising or swelling over the fracture site No pain with palpation of the right elbow, wrist, hand, thumb, or fingers of the right hand Active for range of motion of the right wrist and fingers without any difficulty Right upper extremity sling currently intact Significantly weak with range of motion bilateral lower extremities Evidence of a right anterior knee contusion; evidence of a well-healed incision over the anterior right knee No significant pain with palpation of the right knee - Labs CBC & Chem 7: 07/13/16 06:56 07/13/16 06:56 Labs: Abnormal Lab Results - Last 24 Hours (Table) 07/13/16 07/13/16 07/14/16 Range/Units 17:22 20:21 06:56 POC Glucose (mg/dL) 173 H 238 H 248 H (75-99) mg/dL 07/14/16 Range/Units 11:44 POC Glucose (mg/dL) 131 H (75-99) mg/dL Assessment and Plan (1) Generalized weakness Status: Acute (2) Carbon dioxide retention Status: Acute (3) Lethargic Status: Acute (4) Fall Status: Acute (5) Proximal humerus fracture Status: Acute (6) COPD (chronic obstructive pulmonary disease) Status: Acute (7) Hypoglycemia Status: Acute (8) Contusion of knee, right Status: Acute Plan: Assessment: Comminuted right proximal humerus fracture Status post fall Lethargy Carbon dioxide retention; currently on BiPAP Generalized weakness COPD Hypoglycemia Right knee contusion Plan: 1. We will currently planned to continue with conservative treatment in regards to her comminuted right proximal humerus fracture. Patient has been placed in a right shoulder immobilizer. She should keep this immobilizer intact at all times. She should avoid excessive activities in regards to her right upper extremity. She should remove her elbow from the immobilizer/sling and work on range of motion of the elbow daily. She may continue to use her right hand as needed. 2. At this time, we do not feel it is an appropriate plan of care for orthopedics to continue as her admitting physician given her significant medical diagnoses. We will plan to have medicine take over her admit status. She is currently full code. 3. Medicine to continue following the patient for her other medical diagnoses and further workup. Patient currently is on BiPAP is known have COPD. Patient continues to experience increased generalized weakness and appears lethargic. She has also been refusing to eat and has been experiencing hypoglycemia. We will defer further evaluation and plan of care to medicine. 4. We will continue follow patient; from an orthopedic standpoint, patient is clear for discharge once cleared by medicine 5. Patient will be discussed with case management to work on possible placement at the time of discharge 6. Following discharge, patient may follow-up with Jason Buenrostro PA-C or Dr. Claus Nuno at [facility] in approximately 2-3 weeks for further evaluation 7. Patient has been discussed in detail with Dr. Claus Nuno and he agrees with this plan Time with Patient: Less than 30
--- NOTE | 2016-07-14 13:22 | P.PN ---
Subjective Principal diagnosis: Acute right humerus fracture and acute hypoxic/hypercapnic respiratory failure. This is an 81-year-old female with history of severe end-stage COPD, primarily a patient with Dr. Anderson, we have seen this patient in the past for her end- stage COPD, a shunt is normally O2 dependent, and an FEV1 has been less than 50 % of the predicted for many years. Her last admission to the hospital was about a month ago, and we saw on consultation for Dr. Anderson. Patient presented this time with right upper extremity injury and right humerus fracture after falling and landing on her right side while she was using her walker. Patient was admitted, and she was receiving pain medications, her pulmonary status apparently deteriorated, and she was developing hypercapnia and lethargy. Patient was placed on BiPAP, and I was asked to see her on consultation. Apparently the patient did quite well after she was placed on BiPAP, and initial ABG prior to BiPAP showed a pO2 of 73 pCO2 of 73 and pH of 7.27. Clearly her hypercapnia is related to her underlying COPD as the patient seems to be a pCO2 retainer, however giving the patient narcotics would contribute more and more to have hypercapnia. Since the patient is not having much pain, her narcotics are presently on hold and I believe that is appropriate. Patient describes chronic shortness of breath, intermittent episodes of cough and wheezing. And again she is O2 dependent but not prednisone dependent. Patient is steroid responsive. Presently upon my evaluation, patient denies any headaches, no blurred vision, no dizziness. No chest pain no cough no wheezing, no fever, no chills, she has mostly symptoms of pain in her right upper extremity. No nausea no vomiting no abdominal pain no melena no hematemesis is no dysuria and no frequency no urgency. Patient was reevaluated today on 07/14/2016, remains on BiPAP, she remains on bronchodilators, she had issues with hypoglycemia being addressed by internal medicine. Pulmonary-pavon she is about the same, and it is not surprising knowing that the patient has severe underlying COPD, pain medications will definitely contribute to worsening hypercapnia. And should be given at minimum just left to control the pain. Intermittently the patient could be taken off BiPAP and placed on nasal cannula, but she would have to be monitored closely for increased lethargy and obtundation related to pCO2 retention. Objective - Vital Signs Vital signs: Vital Signs Temp 97.6 F 07/14/16 07:00 Pulse 90 07/14/16 11:25 Resp 20 07/14/16 08:00 BP 198/82 07/14/16 07:00 Pulse Ox 96 07/14/16 07:02 Intake & Output 07/13/16 07/14/16 07/14/16 18:59 06:59 18:59 Intake Total 350 550 Balance 350 550 Weight 71.5 kg Intake: IV 350 400 Dextrose 5% in Water 1, 350 400 000 ml @ 50 mls/hr IV . Q20H ONE Rx#:[id number] Intake, IV Titration 150 Amount Dextrose 5% in Water 1, 150 000 ml @ 50 mls/hr IV . Q20H ONE Rx#:[id number] Other: Voiding Method Bedside Commode Diaper Diaper Diaper # Voids 1 1 - Exam Physical Exam: Revealed an 80-year-old female in no distress, patient is on BiPAP, seems to be doing well with BiPAP, and in no distress. HEENT:[Neck is supple.] [No neck masses.] [No thyromegaly.] [No JVD.] Chest: [Diminished breath sounds at the bases no crackles or rhonchi or wheezes. ] Cardiac Exam: [Normal S1 and S2, no S3 gallop, no murmur.] Abdomen: [Soft, nontender, no megaly, no rebound, no guarding, normal bowel sounds.] Extremities: [Right upper extremity sling is noted, otherwise unremarkable findings. Neurological Exam: [No focal neurologic deficit.] - Labs CBC & Chem 7: 07/13/16 06:56 07/13/16 06:56 Labs: Abnormal Lab Results - Last 24 Hours (Table) 07/13/16 07/13/16 07/14/16 Range/Units 17:22 20:21 06:56 POC Glucose (mg/dL) 173 H 238 H 248 H (75-99) mg/dL 07/14/16 Range/Units 11:44 POC Glucose (mg/dL) 131 H (75-99) mg/dL Assessment and Plan Plan: Impression: 1: Acute on chronic hypercapnic respiratory failure secondary to COPD, exacerbated by narcotics to control pain of right humerus fracture. 2 acute right humerus fracture related to recent injury on 07/12/2016, this is being addressed by orthopedics. No plans for surgery, conservative measures were recommended by orthopedics today. 3 advanced COPD with chronic hypoxic and hypercapnic respiratory failure FEV1 is no more than 30% of predicted. 4 history of coronary artery disease and previous non-ST segment elevation myocardial infarction. 5 history of chronic renal failure 6 history of diabetes type 2 7 history of hyperlipidemia 8 history of hypertension 9 history of thyroid nodule 10 history of breast cancer 11 history of chronic anemia of chronic disease 12 medical debility and patient has poor baseline performance and functional status secondary to above-mentioned comorbidities. 13 right lower lobe atelectasis, possible pneumonia, however considering the patient's overall pulmonary status, it would be best to empirically start the patient on antibiotics in the form of Zosyn. Continue incentive spirometry, and follow-up chest x-ray in a.m. Recommendation: Continue present treatment plan including bronchodilators, BiPAP , steroids , antibiotics to help improve her COPD status, patient is not quite clear that this point for any surgical intervention. We'll continue to follow. Nose is definitely poor and guarded. Time with Patient: Less than 30
[2016-07-14 16:58] LABS: Glucose,Whole Blood 135 mg/dL (75-99)
[2016-07-14 20:53] LABS: Glucose,Whole Blood 150 mg/dL (75-99)
[2016-07-14] MEDS: LORazepam 0.5 MG TAB PO SCH (21:20)
[2016-07-14] MEDS: SERTRALINE 50 MG TAB PO SCH (21:20)
[2016-07-15] MEDS: KETOROLAC 30 MG/ML 1 ML VIAL IVP SCH ×4 (06:11→23:57)
[2016-07-15] MEDS: IPRATROPIUM-ALBUTEROL 3 ML NEB INHALATION SCH ×4 (07:07→18:57)
[2016-07-15] MEDS: SYMBICORT 160-4.5 MCG INHALER INHALATION SCH ×2 (07:07→18:57)
[2016-07-15 07:18] LABS: Glucose,Whole Blood 166 mg/dL (75-99)
[2016-07-15] MEDS: INSULIN LISPRO (humaLOG) 300 UNIT/3 ML VIAL SQ SCH ×4 (07:50→20:58)
[2016-07-15] MEDS: HEPARIN SODIUM,PORCINE 5,000 UNIT/ML 1 ML VIAL SQ SCH ×3 (07:52→23:59)
[2016-07-15] MEDS: ASPIRIN 81 MG CHEW PO SCH (07:53)
[2016-07-15] MEDS: FUROSEMIDE 20 MG TAB PO SCH ×2 (07:53→13:21)
--- NOTE | 2016-07-15 07:53 | P.PN ---
Progress Note - Text The patient is a 81-year-old female. The patient had a fall prior to admission suffering a right humeral fracture. Patient does have underlying severe COPD and developed respiratory failure that required a BiPAP treatment for. If time and was associated with elevated carbon dioxide levels with a CO2 content of 73 and blood gases. She states her pain is generally controlled although it is difficult for her to move because of the pain in the right arm. She has been having some cough and shortness of breath. She overall appears frail and somewhat shaky but she is alert this morning. Vital signs reveal a pulse of 60 with a blood pressure 157/67. Respirations are somewhat shallow this morning but nonlabored. Patient is alert and answering questions appropriately. Lungs sounds are generally diminished. Heart tones are distant but rate controlled. Abdomen is nontender. No distal edema. Cranial nerves intact and no focal deficits noted. Blood sugar this morning is 166. Yesterday's chest x-ray revealed atelectasis versus pneumonia with cardiomegaly. Impressions and plans: Overall this 81-year-old female with a fractured right humerus after a fall. Acute on chronic respiratory failure with underlying severe COPD and CO2 narcosis. Other multiple comorbidities which include coronary artery disease, chronic renal failure, type 2 diabetes, hyperlipidemia, hypertension, previous history of thyroid nodule, and history of breast cancer along with anemia of chronic disease. General frail state. Patient is presently to continue on IV antibiotics and corticosteroids. Consult to be placed with physical and occupational therapy. Patient will likely need placement at discharge.
[2016-07-15] MEDS: hydrALAZINE HCL 50 MG TAB PO SCH ×3 (07:54→20:52)
[2016-07-15] MEDS: FAMOTIDINE 20 MG TAB PO SCH (07:54)
[2016-07-15] MEDS: ISOSORBIDE MONONITRATE ER 60 MG TAB.ER.24H PO SCH ×2 (07:55→20:52)
[2016-07-15] MEDS: LISINOPRIL 20 MG TAB PO SCH ×2 (07:55→20:52)
[2016-07-15] MEDS: methylPREDNISolone SOD SUCCI 40 MG/ML 1 ML VIAL IV SCH ×2 (07:56→20:52)
[2016-07-15] MEDS: METOPROLOL TARTRATE 25 MG TAB PO SCH (08:06)
[2016-07-15] MEDS: PIPERACILLIN-TAZOBACTAM 3.375 GM in DEXTROSE/WATER 1 50ML.BAG IVPB SCH ×2 (08:09→20:51)
--- NOTE | 2016-07-15 08:43 | P.PN ---
Subjective Principal diagnosis: Right proximal humerus fracture status post fall; CO2 retention; COPD; weakness Patient is a 81-year-old female who is seen and examined at bedside for follow- up evaluation for right proximal humerus fracture. Since being seen and examined yesterday, her shoulder immobilizer remains intact and fitted appropriately. She's had significant improvement today as compared yesterday in terms of being awake, alert, and oriented. She is able to carry on a conversation without significant difficulty. She does not currently have her BiPAP in place. She is currently drinking fluids without difficulty. She states she has had some pain at the right proximal humerus fracture site. Her pain is exacerbated with movement of the right upper extremity. She continues to have some discomfort at the right knee but not significant pain. She was seen and examined at the bedside this morning by Dr. Anedrson. He states she may plan remain in the hospital over the next 1-2 days for being cleared for discharge. She is known to have COPD. patient states she feels better today as compared to yesterday. She states she liked to improve her overall strength with plans to be discharged to her to her sister's home. She states she does not want to go to rehabilitation facility as she felt a significant decline in her overall health at her last rehabilitation stay. Patient does not have any new complaints at the bedside today Objective - Vital Signs Vital signs: Vital Signs Temp 98.7 F 07/14/16 14:04 Pulse 60 07/15/16 07:20 Resp 20 07/14/16 15:57 BP 157/67 07/15/16 00:18 Pulse Ox 90 L 07/14/16 14:04 Intake & Output 07/14/16 07/15/16 07/15/16 18:59 06:59 18:59 Intake Total 300 Balance 300 Intake: IV 300 Piperacillin-Tazobactam 3 50 .375 gm In Dextrose/Water 1 50ml.bag @ 12.5 mls/hr IVPB Q12HR [facility] Rx#: [id number] ns@50 250 Other: Voiding Method Diaper Bedpan Diaper Incontinent # Voids 2 - Exam Physical Exam: Patient is awake alert and oriented 3; patient able to communicate easily Vital signs appear stable Good chest excursion with deep inspiration and expiration Abdomen soft nontender No signs or symptoms of DVT; no calf pain Some pain with palpation over the right proximal humerus at the fracture site No evidence of significant bruising or swelling over the fracture site No pain with palpation of the right elbow, wrist, hand, thumb, or fingers of the right hand Active for range of motion of the right wrist and fingers without any difficulty Right upper extremity shoulder immobilizer currently intact Significantly weak with range of motion bilateral lower extremities Evidence of a right anterior knee contusion; evidence of a well-healed incision over the anterior right knee No significant pain with palpation of the right knee - Labs CBC & Chem 7: 07/13/16 06:56 07/13/16 06:56 Labs: Abnormal Lab Results - Last 24 Hours (Table) 07/14/16 07/14/16 07/14/16 Range/Units 11:44 16:57 20:49 POC Glucose (mg/dL) 131 H 135 H 150 H (75-99) mg/dL 07/15/16 Range/Units 07:15 POC Glucose (mg/dL) 166 H (75-99) mg/dL Assessment and Plan (1) Generalized weakness Status: Acute (2) Carbon dioxide retention Status: Acute (3) Lethargic Status: Acute (4) Fall Status: Acute (5) Proximal humerus fracture Status: Acute (6) COPD (chronic obstructive pulmonary disease) Status: Acute (7) Hypoglycemia Status: Acute (8) Contusion of knee, right Status: Acute Plan: Assessment: Comminuted right proximal humerus fracture Status post fall Lethargy Carbon dioxide retention; currently on BiPAP Generalized weakness COPD Hypoglycemia Right knee contusion Plan: 1. We will currently planned to continue with conservative treatment in regards to her comminuted right proximal humerus fracture. Patient has been placed in a right shoulder immobilizer. She should keep this immobilizer intact at all times. She should avoid excessive activities in regards to her right upper extremity. She should remove her elbow from the immobilizer/sling and work on range of motion of the elbow daily. She may continue to use her right hand as needed. 2. Medicine to continue following the patient for her other medical diagnoses and further workup. Patient currently known to have COPD. She appears to have significant improvement as compared to yesterday. We will defer further evaluation and plan of care to medicine. 4. We will continue follow patient; from an orthopedic standpoint, patient is clear for discharge once cleared by medicine 5. Patient will be discussed with case management to work on possible placement at the time of discharge; patient would prefer to be discharged home to stay with her sister 6. Following discharge, patient may follow-up with Jason Buenrostro PA-C or Dr. Claus Nuno at [facility] in approximately 2-3 weeks for further evaluation 7. Patient has been discussed in detail with Dr. Claus Nuno and he agrees with this plan Time with Patient: Less than 30
[2016-07-15 11:35] LABS: Glucose,Whole Blood 208 mg/dL (75-99)
[2016-07-15] MEDS: VIT A,C & E-LUTEIN-MINERALS 1 EACH TAB PO SCH (11:48)
--- NOTE | 2016-07-15 11:53 | P.PN ---
Subjective Principal diagnosis: Status post fall with acute right humerus fracture. This is an 81-year-old female with history of severe end-stage COPD, primarily a patient with Dr. Anderson, we have seen this patient in the past for her end- stage COPD, a shunt is normally O2 dependent, and an FEV1 has been less than 50 % of the predicted for many years. Her last admission to the hospital was about a month ago, and we saw on consultation for Dr. Anderson. Patient presented this time with right upper extremity injury and right humerus fracture after falling and landing on her right side while she was using her walker. Patient was admitted, and she was receiving pain medications, her pulmonary status apparently deteriorated, and she was developing hypercapnia and lethargy. Patient was placed on BiPAP, and I was asked to see her on consultation. Apparently the patient did quite well after she was placed on BiPAP, and initial ABG prior to BiPAP showed a pO2 of 73 pCO2 of 73 and pH of 7.27. Clearly her hypercapnia is related to her underlying COPD as the patient seems to be a pCO2 retainer, however giving the patient narcotics would contribute more and more to have hypercapnia. Since the patient is not having much pain, her narcotics are presently on hold and I believe that is appropriate. Patient describes chronic shortness of breath, intermittent episodes of cough and wheezing. And again she is O2 dependent but not prednisone dependent. Patient is steroid responsive. Presently upon my evaluation, patient denies any headaches, no blurred vision, no dizziness. No chest pain no cough no wheezing, no fever, no chills, she has mostly symptoms of pain in her right upper extremity. No nausea no vomiting no abdominal pain no melena no hematemesis is no dysuria and no frequency no urgency. Patient was reevaluated today on 07/14/2016, remains on BiPAP, she remains on bronchodilators, she had issues with hypoglycemia being addressed by internal medicine. Pulmonary-pavon she is about the same, and it is not surprising knowing that the patient has severe underlying COPD, pain medications will definitely contribute to worsening hypercapnia. And should be given at minimum just left to control the pain. Intermittently the patient could be taken off BiPAP and placed on nasal cannula, but she would have to be monitored closely for increased lethargy and obtundation related to pCO2 retention. The patient is seen again today 07/15/2016 in follow-up on the regular medical floor. She is currently awake and alert in no acute distress. She is oriented 3. Her breathing is about the same as compared to yesterday. She does utilize BiPAP throughout the evenings and during the day as needed. She is currently maintaining O2 saturations in the 90s on 3 L/m per nasal cannula. She 's been afebrile. Objective - Vital Signs Vital signs: Vital Signs Temp 98 F 07/15/16 07:00 Pulse 68 07/15/16 11:07 Resp 20 07/15/16 08:00 BP 192/80 07/15/16 07:00 Pulse Ox 93 L 07/15/16 07:00 Intake & Output 07/14/16 07/15/16 07/15/16 18:59 06:59 18:59 Intake Total 300 Balance 300 Weight 71.5 kg Intake: IV 300 Piperacillin-Tazobactam 3 50 .375 gm In Dextrose/Water 1 50ml.bag @ 12.5 mls/hr IVPB Q12HR [facility] Rx#: [id number] ns@50 250 Other: Voiding Method Diaper Bedpan Bedpan Diaper Diaper Incontinent Incontinent # Voids 2 - Exam Physical Exam: Revealed an 80-year-old female in no distress, patient is on BiPAP, seems to be doing well with BiPAP, and in no distress. HEENT:[Neck is supple.] [No neck masses.] [No thyromegaly.] [No JVD.] Chest: [Diminished breath sounds at the bases no crackles or rhonchi or wheezes. ] Cardiac Exam: [Normal S1 and S2, no S3 gallop, no murmur.] Abdomen: [Soft, nontender, no megaly, no rebound, no guarding, normal bowel sounds.] Extremities: [Right upper extremity sling is noted, otherwise unremarkable findings. Neurological Exam: [No focal neurologic deficit.] - Labs CBC & Chem 7: 07/13/16 06:56 07/13/16 06:56 Labs: Abnormal Lab Results - Last 24 Hours (Table) 07/14/16 07/14/16 07/15/16 Range/Units 16:57 20:49 07:15 POC Glucose (mg/dL) 135 H 150 H 166 H (75-99) mg/dL 07/15/16 Range/Units 11:25 POC Glucose (mg/dL) 208 H (75-99) mg/dL Assessment and Plan Plan: Impression: 1 Acute on chronic hypercapnic respiratory failure secondary to COPD, exacerbated by narcotics to control pain of right humerus fracture. 2 acute right humerus fracture related to recent injury on 07/12/2016, this is being addressed by orthopedics. No plans for surgery, conservative measures were recommended by orthopedics today. 3 advanced COPD with chronic hypoxic and hypercapnic respiratory failure FEV1 is no more than 30% of predicted. 4 history of coronary artery disease and previous non-ST segment elevation myocardial infarction. 5 history of chronic renal failure 6 history of diabetes type 2 7 history of hyperlipidemia 8 history of hypertension 9 history of thyroid nodule 10 history of breast cancer 11 history of chronic anemia of chronic disease 12 medical debility and patient has poor baseline performance and functional status secondary to above-mentioned comorbidities. 13 right lower lobe atelectasis, possible pneumonia, however considering the patient's overall pulmonary status, it would be best to empirically start the patient on antibiotics in the form of Zosyn. Continue incentive spirometry, and follow-up chest x-ray in a.m. Plan: The patient was seen and evaluated by Dr. Cordero. Her chest x-ray and labs were reviewed. She is more stable from the pulmonary standpoint. We'll continue with her COPD exacerbation medications. Continue empiric antibiotics. She is on heparin subcu for DVT prophylaxis. Continue diuretics. Continue to utilize the BiPAP intermittently throughout the day and during the evenings. No plans for surgical intervention regarding to her right humerus fracture. We will continue to follow make further recommendations based on her clinical status. The plan is for discharge to [facility] for further inpatient rehabilitation once cleared medically.
[2016-07-15] MEDS: HYDROcodone/APAP 5-325MG 1 EACH TAB PO PRN (16:05)
[2016-07-15 17:32] LABS: Glucose,Whole Blood 190 mg/dL (75-99)
[2016-07-15] MEDS: LORazepam 0.5 MG TAB PO SCH (20:51)
[2016-07-15] MEDS: SERTRALINE 50 MG TAB PO SCH (20:52)
[2016-07-15 20:58] LABS: Glucose,Whole Blood 182 mg/dL (75-99)
[2016-07-16] MEDS: KETOROLAC 30 MG/ML 1 ML VIAL IVP SCH ×4 (06:13→23:19)
[2016-07-16 06:49] LABS: Glucose,Whole Blood 141 mg/dL (75-99)
[2016-07-16] MEDS: FUROSEMIDE 20 MG TAB PO SCH ×2 (08:18→11:47)
[2016-07-16] MEDS: ASPIRIN 81 MG CHEW PO SCH (08:18)
[2016-07-16] MEDS: FAMOTIDINE 20 MG TAB PO SCH (08:18)
[2016-07-16] MEDS: HEPARIN SODIUM,PORCINE 5,000 UNIT/ML 1 ML VIAL SQ SCH ×3 (08:18→23:19)
[2016-07-16] MEDS: INSULIN LISPRO (humaLOG) 300 UNIT/3 ML VIAL SQ SCH ×4 (08:18→21:19)
[2016-07-16] MEDS: hydrALAZINE HCL 50 MG TAB PO SCH ×3 (08:18→22:45)
[2016-07-16] MEDS: methylPREDNISolone SOD SUCCI 40 MG/ML 1 ML VIAL IV SCH ×2 (08:19→21:18)
[2016-07-16] MEDS: METOPROLOL TARTRATE 25 MG TAB PO SCH (08:19)
[2016-07-16] MEDS: LISINOPRIL 20 MG TAB PO SCH ×2 (08:19→21:20)
[2016-07-16] MEDS: ISOSORBIDE MONONITRATE ER 60 MG TAB.ER.24H PO SCH ×2 (08:19→21:20)
[2016-07-16] MEDS: IPRATROPIUM-ALBUTEROL 3 ML NEB INHALATION SCH ×4 (08:39→20:31)
[2016-07-16] MEDS: SYMBICORT 160-4.5 MCG INHALER INHALATION SCH ×2 (08:39→20:31)
--- NOTE | 2016-07-16 08:46 | P.DS ---
Providers Date of admission: 07/13/16 14:23 Attending physician: Los Anderson Consults: 07/12/16 11:45 Consult Physician Stat Consulting Provider: Los Anderson Consult Reason/Comments: proximal humerus fracture, medical Do you want consulting provider notified?: Yes 07/13/16 10:12 Consult Physician Urgent Consulting Provider: Tamia Hills Consult Reason/Comments: COPD Do you want consulting provider notified?: Yes Primary care physician: Stated None The patient is an 81-year-old female who presented to the emergency room and was admitted on July 13 after a fall at home as she was apparently walking with her walker. Patient sustained a fracture of the proximal right humerus. Patient does have severe COPD. Patient was admitted to the orthopedic service. Patient seen by Dr. Nuno. Patient did develop further respiratory failure requiring BiPAP and further respiratory treatments, antibiotics and corticosteroids. She was seen in consult by pulmonary medicine Dr. Cordero and Dr. Hills. Please refer to their consultations. The patient has improved with the their course of care. Patient has been evaluated by physical and occupational therapy. Also discharge planning and social work are involved in the case. We are anticipating possible discharge to extended care facility rehab if all needs her set and arrangements with family and patient are satisfactory. This morning she is sitting up in bed but mildly agitated. In no acute distress. Respirations are 22 and unlabeled and her temperature is 98.4 pulse is 68 and her O2 saturation was 96 on 3 L. Blood pressure this morning was 216/ 87 but she has not received her medicines yet. Lungs are generally clear but diminished. Heart tones are regular and controlled. Abdomen is nontender. No unusual distal leg edema. No focal neurological deficits. Laboratory results: Initially white count was 13.8 with a hemoglobin of 8.4 and a platelet count 252. INR was 0.9 with a PTT of 20.6. Sodium was 146 with potassium 4.2 and a CO2 content of 39. Blood urea nitrogen was 32 with a creatinine 1.6 for given her GFR of 30. Blood sugar on admission was 114 and her A1c was 6.4. Other liver function tests were satisfactory. Albumin slightly low at 3.4 with a total protein of 5.9. Urinalysis was negative for leukocyte esterase. Chest x-ray showed basilar pneumonias versus atelectasis. Computed tomography scan of the brain showed no acute intracranial hemorrhage or mass effect. Discharge medications: Acetaminophen 650 mg every 4 hours as needed for pain Xanax 0.25 every 8 hours when necessary anxiety Aspirin 81 mg daily Symbicort 160-4.5, 2 inhalations twice a day. Pepcid 20 mg daily Furosemide 20 mg twice a day Hydralazine 50 mg 3 times a day Heparin 5000 units subcu every 12 hours DuoNeb 0.5 mg-3 mg in 3 mL cc solution every 6 hours [id number] and when necessary for shortness of breath Isorbid mononitrate 60 mg twice a day. Lisinopril 20 mg twice a day Metoprolol 25 mg every morning Nitroglycerin 0.4 mg sublingual when necessary chest pain Zoloft 50 mg at at bedtime Multiple vitamin daily Patient to take Augmentin 500 mg-125 one twice a day for 5 more days. Patient to take prednisone taper at 40 mg daily for 4 days, then 30 mg daily for 4 days, then 20 mg daily for 4 days and then remain on 10 mg maintenance daily. Accu-Cheks before breakfast and dinner recommended with Humalog or other short- acting insulin to scale. Patient to continue with her BiPAP as used in the hospital. Discharge diagnoses: 1. Fall with the acute fracture of the right proximal humerus and contusion to the right knee. 2. Overall frail state and frequent falls. Mild malnutrition with albumin 3.4. 3. Underlying severe COPD with acute on chronic respiratory failure requiring IV corticosteroids and BiPAP. Also associated with CO2 retention and CO2 narcosis 4. Metabolic encephalopathy secondary to CO2 narcosis and acute on chronic respiratory failure 5. Other chronic comorbidities that include coronary artery disease 6. Chronic renal failure stage IV. 7. Type 2 diabetes 8. Hypertension 9. History of thyroid nodule 10. History of breast cancer 11. Anemia of chronic disease 12. Bibasilar pneumonia. Diet as tolerated. Continue with physical and occupational therapy. Prognosis guarded. Patient Condition at Discharge: Good Plan - Discharge Summary New Discharge Prescriptions: No Action Vit A,C & E/Lutein/Minerals [Ocuvite with Lutein Tablet] 1 tab PO QAM Aspirin EC [Ecotrin Low Dose] 81 mg PO QAM predniSONE 10 mg PO Q48H Lisinopril [Prinivil] 20 mg PO BID Ipratropium-Albuterol Nebulize [Duoneb 0.5 mg-3 mg/3 ml Soln] 3 ml INHALATION RT-QID Fluticasone/Vilanterol [Breo Ellipta 200-25 Mcg INH] 1 puff INHALATION RT- DAILY@0900 Glimepiride [Amaryl] 1 mg PO QAM ALPRAZolam [Xanax] 0.25 mg PO Q8H PRN PRN Reason: Anxiety Sertraline [Zoloft] 50 mg PO HS Acetaminophen Tab [Tylenol] 650 mg PO Q4HR PRN #0 tab PRN Reason: Pain Atorvastatin [Lipitor] 80 mg PO HS tab LORazepam [Ativan] 0.5 mg PO HS tab Nitroglycerin Sl Tabs [Nitrostat] 0.4 mg SUBLINGUAL Q5M PRN #0 tab PRN Reason: Chest Pain hydrALAZINE HCL [Apresoline] 50 mg PO TID Metoprolol Tartrate [Lopressor] 25 mg PO QAM Isosorbide Mononitrate ER [Imdur] 60 mg PO BID Furosemide [Lasix] 20 mg PO BID@0900,1300 Clopidogrel Bisulfate [Plavix] 75 mg PO QAM Famotidine [Pepcid] 20 mg PO QAM Umeclidinium Miracle [Incruse Ellipta] 1 puff INHALATION RT-DAILY Discharge Medication List Vit A,C & E/Lutein/Minerals [Ocuvite with Lutein Tablet] 1 tab PO QAM 10/06/13 [ History] Aspirin EC [Ecotrin Low Dose] 81 mg PO QAM 06/28/14 [History] ALPRAZolam [Xanax] 0.25 mg PO Q8H PRN 04/14/16 [History] Fluticasone/Vilanterol [Breo Ellipta 200-25 Mcg INH] 1 puff INHALATION RT-DAILY@ 0900 04/14/16 [History] Glimepiride [Amaryl] 1 mg PO QAM 04/14/16 [History] Ipratropium-Albuterol Nebulize [Duoneb 0.5 mg-3 mg/3 ml Soln] 3 ml INHALATION RT -QID 04/14/16 [History] Lisinopril [Prinivil] 20 mg PO BID 04/14/16 [History] Sertraline [Zoloft] 50 mg PO HS 04/14/16 [History] predniSONE 10 mg PO Q48H 04/14/16 [History] Acetaminophen Tab [Tylenol] 650 mg PO Q4HR PRN #0 tab 04/17/16 [Rx] Atorvastatin [Lipitor] 80 mg PO HS tab 04/17/16 [Rx] LORazepam [Ativan] 0.5 mg PO HS tab 04/17/16 [Rx] Nitroglycerin Sl Tabs [Nitrostat] 0.4 mg SUBLINGUAL Q5M PRN #0 tab 04/17/16 [Rx] hydrALAZINE HCL [Apresoline] 50 mg PO TID 05/19/16 [History] Clopidogrel Bisulfate [Plavix] 75 mg PO QAM 07/12/16 [History] Famotidine [Pepcid] 20 mg PO QAM 07/12/16 [History] Furosemide [Lasix] 20 mg PO BID@0900,1300 07/12/16 [History] Isosorbide Mononitrate ER [Imdur] 60 mg PO BID 07/12/16 [History] Metoprolol Tartrate [Lopressor] 25 mg PO QAM 07/12/16 [History] Umeclidinium Miracle [Incruse Ellipta] 1 puff INHALATION RT-DAILY 07/12/16 [ History] Follow up Appointment(s)/Referral(s): Jason Buenrostro, PIERCE [PHYSICIAN CLINICAL DATA SPECIALIST] - 2 Weeks (Patient may follow-up with Jason Buenrostro PA-C or Dr. Claus Nuno at [facility] in 2-3 weeks following discharge. ) None,Stated [Primary Care Provider] - 1-2 days Activity/Diet/Wound Care/Special Instructions: 1. Keep shoulder mobilizer intact at the right upper extremity 2. Avoid excessive activities regards to right upper extremity 3. Patient may remove elbow from the shoulder immobilizer and may work on active range of motion of the right elbow daily
[2016-07-16] MEDS: PIPERACILLIN-TAZOBACTAM 3.375 GM in DEXTROSE/WATER 1 50ML.BAG IVPB SCH ×2 (09:12→21:26)
[2016-07-16 10:49] LABS: Glucose,Whole Blood 101 mg/dL (75-99)
--- NOTE | 2016-07-16 11:38 | PN ---
This is an 81-year-old female with history of end-stage COPD. She is a little bit more lethargic and sleepy today. She did receive some Ativan and also some narcotic. I told the nurse to discontinue both. She is a big time CO2 retainer based on her severe COPD. Much less awake and alert today. Apparently pulling off her BiPAP and threatening to pull out her IVs and so forth. Restless and agitated according to the nurse today. Anyway, the patient is otherwise doing about the same. Her temperature is 98.4, heart rate 68, respiratory rate 22, blood pressure is 139/75, saturations are 96% on 3 L. Appears in no acute distress, just lethargic and very somnolent. Does not remember my name today. HEENT examination is grossly unremarkable. Mucous membranes are moist. No oral lesions. Neck is supple. Full range of motion. There is no adenopathy or thyromegaly. Neck veins are flat. Cardiovascular examination reveals distant heart sounds. Heart rate is about 75. S1, S2 normal. No distinct murmur. No S3, S4. Lungs reveal severely diminished breath sounds throughout. A few scattered mild rhonchi. No wheezes or crackles. Abdomen is soft. Bowel sounds are heard. Extremities are intact. Minimal edema. Skin is without rash. Labs are reviewed. Nothing new to report. I looked back with the bedside nurse. She did have a blood gas on 07/13 showing a pO2 of 73, a pCO2 of 73, and a pH of 7.27. Microbiology is reviewed. No recent chest x-ray to review. ASSESSMENT: 1. Acute on chronic hypoxemic and hypercapnic respiratory failure secondary to severe chronic obstructive pulmonary disease. 2. Acute right humeral fracture with chronic pain. 3. History of coronary artery disease with previous non-ST segment elevation myocardial infarction. 4. History of chronic renal failure. 5. Diabetes. 6. Hyperlipidemia. 7. Essential hypertension. 8. Thyroid nodule. 9. Breast cancer. 10. Anemia of chronic disease. PLAN: The patient may be discharged in the next day or 2 to [facility] the [facility]. I have seen her there in the past. I asked the nurse to discontinue all her narcotics, sedatives, hypnotics, and tranquilizers. She has a history of significant CO2 retention. Based on her baseline bicarbonate concentration and using the Winter's formula and working backwards, we calculate her baseline CO2 to be right around 60 +/- 2 mmHg. On the most recent blood gas, her PCO2 was 73 and her pH was 7.33 and this would confirm my last statement. The patient otherwise is reasonably stable. If she is still here tomorrow, I would like to get a baseline BMP. Additional recommendations and suggestions are forthcoming. Prognosis is very poor. She is a DNR. She should not go on life-support.
[2016-07-16] MEDS: VIT A,C & E-LUTEIN-MINERALS 1 EACH TAB PO SCH (11:45)
[2016-07-16] MEDS: DOCUSATE 100 MG CAP PO SCH ×2 (13:10→21:20)
--- NOTE | 2016-07-16 15:30 | P.PN ---
Subjective Principal diagnosis: Right proximal humerus fracture status post fall; CO2 retention; COPD; weakness Patient is a 81-year-old female who is seen and examined at bedside for follow- up evaluation for right proximal humerus fracture. Since being seen and examined yesterday, her shoulder immobilizer continues to remain intact and fitted appropriately. While being seen at the bedside today, patient is quite agitated and annoyed that she is still in the hospital. She states she is unsure why she has not been discharged. We discussed in detail she was previously having significant medical diagnoses including CO2 retention and hypoglycemia. She was near unresponsive for multiple days. Patient states she would like to go home today. She continues to be awake, alert, and oriented. She is able to carry on a conversation without significant difficulty. She does not currently have her BiPAP in place. She is currently drinking fluids without difficulty. She states she has had some pain at the right proximal humerus fracture site. Her pain is exacerbated with movement of the right upper extremity. She continues to have some discomfort at the right knee but not significant pain. She was seen and examined at the bedside this morning by Dr. Anderson. A discharge summary has been dictated. She is known to have COPD. She states she liked to improve her overall strength with plans to be discharged to her to her sister's home. She states she does not want to go to rehabilitation facility as she felt a significant decline in her overall health at her last rehabilitation stay. Objective - Vital Signs Vital signs: Vital Signs Temp 97.6 F 07/16/16 15:00 Pulse 70 07/16/16 15:00 Resp 18 07/16/16 15:00 BP 186/76 07/16/16 15:00 Pulse Ox 98 07/16/16 15:00 Intake & Output 07/15/16 07/16/16 07/16/16 18:59 06:59 18:59 Intake Total 450 690.0 450 Output Total 350 Balance 100 690.0 450 Weight 71.5 kg Intake: IV 400 450.0 450 Piperacillin-Tazobactam 3 400 50.0 50 .375 gm In Dextrose/Water 1 50ml.bag @ 12.5 mls/hr IVPB Q12HR [facility] Rx#: [id number] ns@50 400 400 Intake, IV Titration 50 Amount Piperacillin-Tazobactam 3 50 .375 gm In Dextrose/Water 1 50ml.bag @ 12.5 mls/hr IVPB Q12HR [facility] Rx#: [id number] Oral 240 Output: Urine 350 Other: Voiding Method Bedpan Bedpan Bedpan Diaper Diaper Diaper Incontinent Incontinent Incontinent # Voids 2 1 2 # Bowel Movements 1 - Exam Physical Exam: Patient is awake alert and oriented 3; patient able to communicate easily Vital signs appear stable Good chest excursion with deep inspiration and expiration Abdomen soft nontender No signs or symptoms of DVT; no calf pain Some pain with palpation over the right proximal humerus at the fracture site No evidence of significant bruising or swelling over the fracture site No pain with palpation of the right elbow, wrist, hand, thumb, or fingers of the right hand Active for range of motion of the right wrist and fingers without any difficulty Right upper extremity shoulder immobilizer currently intact Significantly weak with range of motion bilateral lower extremities Evidence of a right anterior knee contusion; evidence of a well-healed incision over the anterior right knee No significant pain with palpation of the right knee - Labs CBC & Chem 7: 07/13/16 06:56 07/13/16 06:56 Labs: Abnormal Lab Results - Last 24 Hours (Table) 07/15/16 07/15/16 07/16/16 Range/Units 17:26 20:57 06:47 POC Glucose (mg/dL) 190 H 182 H 141 H (75-99) mg/dL 07/16/16 Range/Units 10:47 POC Glucose (mg/dL) 101 H (75-99) mg/dL Assessment and Plan (1) Generalized weakness Status: Acute (2) Carbon dioxide retention Status: Acute (3) Lethargic Status: Acute (4) Fall Status: Acute (5) Proximal humerus fracture Status: Acute (6) COPD (chronic obstructive pulmonary disease) Status: Acute (7) Hypoglycemia Status: Acute (8) Contusion of knee, right Status: Acute Plan: Assessment: Comminuted right proximal humerus fracture Status post fall Lethargy Carbon dioxide retention; currently on BiPAP Generalized weakness COPD Hypoglycemia Right knee contusion Plan: 1. We will currently planned to continue with conservative treatment in regards to her comminuted right proximal humerus fracture. Patient has been placed in a right shoulder immobilizer. She should keep this immobilizer intact at all times. She should avoid excessive activities in regards to her right upper extremity. She should remove her elbow from the immobilizer/sling and work on range of motion of the elbow daily. She may continue to use her right hand as needed. 2. Medicine to continue following the patient for her other medical diagnoses and further workup. Patient currently known to have COPD. She continues to have significant improvement as compared to two days ago. We will defer further evaluation and plan of care to medicine. 4. We will continue follow patient; from an orthopedic standpoint, patient is clear for discharge once cleared by medicine 5. Patient will be discussed with case management to work on possible placement at the time of discharge; patient would prefer to be discharged home to stay with her sister 6. Following discharge, patient may follow-up with Jason Buenrostro PA-C or Dr. Claus Nuno at [facility] in approximately 2-3 weeks for further evaluation 7. Patient has been discussed in detail with Dr. Claus Nuno and he agrees with this plan Time with Patient: Less than 30
[2016-07-16 20:41] LABS: Glucose,Whole Blood 95 mg/dL (75-99)
[2016-07-16] MEDS: SERTRALINE 50 MG TAB PO SCH (21:20)
[2016-07-17] MEDS: KETOROLAC 30 MG/ML 1 ML VIAL IVP SCH ×2 (04:48→12:55)
--- NOTE | 2016-07-17 07:47 | P.PN ---
Progress Note - Text The patient is a 81-year-old female who was admitted on July 13 after a fall at home and sustaining a proximal right humeral fracture. She does have severe COPD and underwent acute on chronic respiratory failure requiring BiPAP. Patient presently is doing better. She denies any chest pain. She appears comfortable at rest. Temperature is 97.5 with a pulse of 72 and respirations 20. Blood pressure still elevated systolically at 187/76 and her O2 saturation is 94 on 5 L nasal cannula. Breath sounds are diffusely diminished but present and without wheezing. Heart tones for the most part are regular and controlled. No unusual edema. She is alert. No focal neurological deficits. Laboratory results: Blood sugars have been running fairly good despite the corticosteroid therapy. Impressions and plans: Anticipating likely discharge to extended care facility rehab as discussed with patient this morning. Please see dictated discharge summary for yesterday for orders and discharge medications. Please add referral to Dr. Cordero for patient if she is transferred to [facility] on the [place]. We have both followed her there in the past previously
[2016-07-17] MEDS: hydrALAZINE HCL 50 MG TAB PO SCH (08:00)
[2016-07-17] MEDS: METOPROLOL TARTRATE 25 MG TAB PO SCH (08:00)
[2016-07-17] MEDS: FAMOTIDINE 20 MG TAB PO SCH (08:01)
[2016-07-17] MEDS: ASPIRIN 81 MG CHEW PO SCH (08:01)
[2016-07-17] MEDS: LISINOPRIL 20 MG TAB PO SCH (08:01)
[2016-07-17] MEDS: ISOSORBIDE MONONITRATE ER 60 MG TAB.ER.24H PO SCH (08:01)
[2016-07-17] MEDS: DOCUSATE 100 MG CAP PO SCH (08:01)
[2016-07-17] MEDS: HEPARIN SODIUM,PORCINE 5,000 UNIT/ML 1 ML VIAL SQ SCH (08:01)
[2016-07-17] MEDS: FUROSEMIDE 20 MG TAB PO SCH ×2 (08:01→12:55)
[2016-07-17] MEDS: methylPREDNISolone SOD SUCCI 40 MG/ML 1 ML VIAL IV SCH (08:01)
[2016-07-17 08:10] LABS: Glucose,Whole Blood 215 mg/dL (75-99)
[2016-07-17] MEDS: PIPERACILLIN-TAZOBACTAM 3.375 GM in DEXTROSE/WATER 1 50ML.BAG IVPB SCH (08:31)
[2016-07-17] MEDS: INSULIN LISPRO (humaLOG) 300 UNIT/3 ML VIAL SQ SCH ×2 (08:32→12:56)
--- NOTE | 2016-07-17 09:16 | P.PN ---
Progress Note - Text Patient is seen and examined today at bedside. She still has some soreness at her right shoulder as expected. She denies any new pains. She denies any shortness of breath. At her right arm she has some tenderness to palpation of her proximal humerus. There is no significant swelling or skin breakdown. Her compartments are soft. Neurologically she is intact at her right upper extremity. She still has good motion in her right elbow wrist and hand. Assessment and plan Right proximal humerus fracture, acute status post fall Multiple medical issues The patient's medical issues have been treated and are stabilizing well. She should continue with her medical management. Her proximal humerus fracture appears to be healing appropriately. She should continue with her right shoulder immobilizer and will likely need this for the next 6-8 weeks. It is okay for her to ambulate with the shoulder immobilizer intact. She should keep the upper arm strap intact but each day May remove the forearm strap to allow her to flex and extend her elbow to try to prevent any stiffness at her elbow itself. I instructed her of this as well as the nursing staff and they understand. They will pass this along to retirement staff as well. I would like to see her back in approximately 10-14 days for recheck evaluation and repeat x-rays of her right shoulder. I discussed this with her and she is agreeable. From an orthopedic standpoint is okay for the patient be discharged to retirement with follow-up in 1-2 weeks.
[2016-07-17] MEDS: SYMBICORT 160-4.5 MCG INHALER INHALATION SCH ×2 (10:40→10:44)
[2016-07-17] MEDS: IPRATROPIUM-ALBUTEROL 3 ML NEB INHALATION SCH ×2 (10:40→10:44)
[2016-07-17 11:49] LABS: Glucose,Whole Blood 152 mg/dL (75-99)
[2016-07-17] MEDS: VIT A,C & E-LUTEIN-MINERALS 1 EACH TAB PO SCH (12:55)
[2016-07-17 15:23] VITALS: BP 150/72; PULSE 63; RESP 16; TEMP 97.2
--- NOTE | 2016-07-17 18:44 | PN ---
This is an 81-year-old female who was admitted back on July 13. She has a history of end-stage COPD. She may be discharged to [facility] on the [facility] today; we are not sure. She was to go home yesterday, but there may be something else keeping her. From the pulmonary standpoint, she could go. She does have waxing and waning mental status, I believe related to underlying hypercapnic respiratory failure. She has both hypoxemic and hypercapnic respiratory failure, but anytime she gets too much sedative hypnotic narcotic tranquilizer or any medication that would depress the respiratory centers of the brain, she becomes more hypercapnic and more confused and lethargic. Two days ago she did not know my name. I have been taking care of her for years. Today she was much improved. Current vital signs include temperature 98.2, heart rate 72, respiratory rate 18, blood pressure 186/81, mean 116. Five-liter saturation 96% to 97%. Appears in no acute distress. No respiratory distress. HEENT examination is grossly unremarkable. Mucous membranes are moist. No oral lesions. She has a delgado face. Neck is supple. Full range of motion. No adenopathy or thyromegaly. Neck veins are flat. Cardiovascular examination reveals regular rhythm and rate. S1, S2 normal. No S3, S4 or murmur. Lungs reveal a few scattered rhonchi. Breath sounds are diminished. There are a few expiratory wheezes. No crackles. Breath sounds are generally diminished but equal. ABDOMEN: Soft. Bowel sounds are heard. No masses or tenderness. Extremities are intact. No cyanosis, clubbing or edema. Skin is without rash. There are a few areas of ecchymosis. Neurological examination is nonfocal. No new labs to report. No new x-rays to report. Medications are reviewed. ASSESSMENT: 1. Acute on chronic hypoxemic and hypercapnic respiratory failure secondary to severe end-stage chronic obstructive pulmonary disease. 2. Acute right humeral fracture with chronic pain. 3. History of coronary artery disease with previous itz-BG-mrnnqos-elevation myocardial infarction. 4. History of chronic renal failure. 5. Diabetes mellitus. 6. Hyperlipidemia. 7. Essential hypertension. 8. Thyroid nodule. 9. Breast cancer. 10. Anemia of chronic disease. PLAN: The patient's medications are all reviewed. Additional recommendations and suggestions are forthcoming. Will continue to follow closely. Prognosis is guarded. She has multiple medical problems. She will probably be discharged again to the [facility] on the [facility], where she has gone before. If she does, I will see her there.
== END 2016-07-17 15:27 | DRG 562 ==
LOC: EC 08:55 → 5MS5E 11:49 → OBSVTOIN 07-13 14:23
PROVIDERS: ADMIT Internal Medicine; ATTEND Internal Medicine
DX: S42.201A Unspecified fracture of upper end of right humerus, initial encounter for closed fracture (principal); G93.41 Metabolic encephalopathy; J96.21 Acute and chronic respiratory failure with hypoxia; J18.9 Pneumonia, unspecified organism; I13.0 Hypertensive heart and chronic kidney disease with heart failure and stage 1 through stage 4 chronic kidney disease, or unspecified chronic kidney disease; J44.0 Chronic obstructive pulmonary disease with (acute) lower respiratory infection; E87.2 Acidosis; N18.4 Chronic kidney disease, stage 4 (severe); D63.8 Anemia in other chronic diseases classified elsewhere; S80.01XA Contusion of right knee, initial encounter; J96.22 Acute and chronic respiratory failure with hypercapnia; E44.1 Mild protein-calorie malnutrition; J44.1 Chronic obstructive pulmonary disease with (acute) exacerbation; E11.22 Type 2 diabetes mellitus with diabetic chronic kidney disease; E11.649 Type 2 diabetes mellitus with hypoglycemia without coma; E04.1 Nontoxic single thyroid nodule; E03.9 Hypothyroidism, unspecified; E78.5 Hyperlipidemia, unspecified; G89.29 Other chronic pain; I25.10 Atherosclerotic heart disease of native coronary artery without angina pectoris; I25.2 Old myocardial infarction; K21.9 Gastro-esophageal reflux disease without esophagitis; R29.6 Repeated falls; W19.XXXA Unspecified fall, initial encounter; Y92.009 Unspecified place in unspecified non-institutional (private) residence as the place of occurrence of the external cause; Z79.02 Long term (current) use of antithrombotics/antiplatelets; Z79.4 Long term (current) use of insulin; Z79.82 Long term (current) use of aspirin; Z79.84 Long term (current) use of oral hypoglycemic drugs; Z79.899 Other long term (current) drug therapy; Z82.49 Family history of ischemic heart disease and other diseases of the circulatory system; Z82.5 Family history of asthma and other chronic lower respiratory diseases; Z85.3 Personal history of malignant neoplasm of breast; Z87.891 Personal history of nicotine dependence; Z92.3 Personal history of irradiation; Z96.651 Presence of right artificial knee joint; Z99.81 Dependence on supplemental oxygen; Z88.2 Allergy status to sulfonamides; Z88.1 Allergy status to other antibiotic agents; Z91.041 Radiographic dye allergy status
CPT/HCPCS: 36600; 70450; 71010; 72125; 73502; 80048; 80053; 81001; 82805; 83036; 85025; 85610; 85730; 94640; 94660; 94760; 96374; 96375; 96376; 99285

== ENCOUNTER 2016-07-22 20:32 | Inpatient (IN) | payer MEDICARE ==
[2016-07-22] MEDS ORDERED: SODIUM CHLORIDE 0.9% 1,000 ML IV STA (20:34)
--- NOTE | 2016-07-22 20:34 | ED ---
General Adult HPI - General Stated complaint: abn labs Time Seen by Provider: 07/22/16 20:34 Source: RN notes reviewed, old records reviewed - History of Present Illness Initial comments: This is an 81-year-old female here for evaluation. Patient presents today for evaluation of altered her abnormal lab tests. Patient's of has no complaints feels mildly weak, dehydrated. No free worse. Patient denies blood in her stool, denies nausea vomiting, denies abdominal pain. Not blood no blood thinners. Patient again admits decreased appetite. No recent change in medications, no travel history, no recent hospitalizations - Related Data Home Medications Medication Instructions Recorded Confirmed Vit A,C & E/Lutein/Minerals 1 tab PO QAM 10/06/13 07/22/16 [Ocuvite with Lutein Tablet] Fluticasone/Vilanterol [Breo 1 puff INHALATION RT-DAILY@0900 04/14/16 07/22/16 Ellipta 200-25 Mcg INH] Ipratropium-Albuterol Nebulize 3 ml INHALATION RT-QID 04/14/16 07/22/16 [Duoneb 0.5 mg-3 mg/3 ml Soln] Sertraline [Zoloft] 50 mg PO HS 04/14/16 07/22/16 hydrALAZINE HCL [Apresoline] 50 mg PO TID 05/19/16 07/22/16 Clopidogrel Bisulfate [Plavix] 75 mg PO QAM 07/12/16 07/22/16 Famotidine [Pepcid] 20 mg PO QAM 07/12/16 07/22/16 traMADol HCL [Ultram] 50 mg PO Q6HR PRN 07/22/16 07/22/16 Allergies Allergy/AdvReac Type Severity Reaction Status Date / Time doxycycline Allergy Rash/Hives Verified 07/22/16 21:47 glucosamine Allergy Rash/Hives Verified 07/22/16 21:47 Iodinated Contrast Media - Allergy Rash/Hives Verified 07/22/16 21:47 Oral and [Iodinated Contrast Media - IV Dye] Sulfa (Sulfonamide Allergy Rash/Hives Verified 07/22/16 21:47 Antibiotics) baclofen AdvReac Confusion Verified 07/22/16 21:47 Review of Systems ROS Statement: Those systems with pertinent positive or pertinent negative responses have been documented in the HPI. ROS Other: All systems not noted in ROS Statement are negative. Past Medical History Past Medical History: COPD, Diabetes Mellitus, Hyperlipidemia, Hypertension, Myocardial Infarction (CA), Osteoarthritis (OA), Thyroid Disorder Additional Past Medical History / Comment(s): COPD , anemia, chronic hypoxic respiratory failure and the patient has been on oxygen at 2.5 L/m nasal cannula , lt breast cancer, , chronic sinus disease,djd emphysema, thyroid nodule, chronic renal failure, chronic anemia, osteoarthritis Last Myocardial Infarction Date:: 04/15/16 History of Any Multi-Drug Resistant Organisms: None Reported Past Surgical History: Breast Surgery, Orthopedic Surgery, Tonsillectomy Additional Past Surgical History / Comment(s): 2002 lt lumpectomy and 35 radiation tx,2004 right carotid endarectomy, rt knee arthroscopy,2009 right knee replacement 2006 bilateral cataract , had esophageal dilation via EGD Past Anesthesia/Blood Transfusion Reactions: Postoperative Nausea & Vomiting ( PONV) Additional Past Anesthesia/Blood Transfusion Reaction / Comment(s): vomited after surg. Past Psychological History: No Psychological Hx Reported, Anxiety Additional Psychological History / Comment(s): Pt resides with her daughter, Jamilah Mason. She uses a walker to ambulate. She lives in a one level home. She has visiting nurses. She does not drive, her elo's take her to appts. She has home O2 at 3L/NC ATC. She has a nebulizer and a glucose meter. Smoking Status: Former smoker Past Alcohol Use History: None Reported Additional Past Alcohol Use History / Comment(s): per pt's daughter-pt quit smoking 20 years ago Past Drug Use History: None Reported - Past Family History Father Family Medical History: Coronary Artery Disease (CAD) Additional Family Medical History / Comment(s): young from heart problems Mother Family Medical History: Asthma, COPD General Exam General appearance: alert, in no apparent distress Head exam: Present: atraumatic, normocephalic, normal inspection Eye exam: Present: normal appearance, PERRL, EOMI. Absent: scleral icterus, conjunctival injection, periorbital swelling ENT exam: Present: normal exam, mucous membranes moist Neck exam: Present: normal inspection. Absent: tenderness, meningismus, lymphadenopathy Respiratory exam: Present: normal lung sounds bilaterally. Absent: respiratory distress, wheezes, rales, rhonchi, stridor Cardiovascular Exam: Present: regular rate, normal rhythm, normal heart sounds. Absent: systolic murmur, diastolic murmur, rubs, gallop, clicks GI/Abdominal exam: Present: soft, normal bowel sounds. Absent: distended, tenderness, guarding, rebound, rigid Extremities exam: Present: normal inspection, full ROM, normal capillary refill. Absent: tenderness, pedal edema, joint swelling, calf tenderness Back exam: Present: normal inspection Neurological exam: Present: alert, oriented X3, CN II-XII intact Psychiatric exam: Present: normal affect, normal mood Skin exam: Present: warm, dry, intact, normal color. Absent: rash Course Vital Signs 07/22/16 07/22/16 07/22/16 20:41 20:50 22:09 Temperature 98.3 F Pulse Rate 77 76 Respiratory 20 20 20 Rate Blood Pressure 171/73 194/81 O2 Sat by Pulse 93 L 97 Oximetry - Reevaluation(s) Reevaluation #1: 07/22/16 22:25 Patient does have anemia, no history for transfusion and is time we'll monitor lab values Medical Decision Making - Medical Decision Making A1cNow the ER for evaluation regarding low hemoglobin, increased renal failure. Patient be admitted for nephrology evaluation, possible transfusion and further IV resuscitation - Lab Data Result diagrams: 07/22/16 21:45 07/22/16 21:45 Lab Results 07/22/16 07/22/16 Range/Units 21:45 21:45 WBC 16.4 H (3.8-10.6) k/uL RBC 2.89 L (3.80-5.40) m/uL Hgb 7.1 L D (11.4-16.0) gm/dL Hct 23.5 L (34.0-46.0) % MCV 81.3 (80.0-100.0) fL MCH 24.7 L (25.0-35.0) pg MCHC 30.3 L (31.0-37.0) g/dL RDW 16.4 H (11.5-15.5) % Plt Count 314 (150-450) k/uL Neutrophils % 92 % Lymphocytes % 3 % Monocytes % 3 % Eosinophils % 1 % Basophils % 0 % Neutrophils # 15.1 H (1.3-7.7) k/uL Lymphocytes # 0.6 L (1.0-4.8) k/uL Monocytes # 0.6 (0-1.0) k/uL Eosinophils # 0.1 (0-0.7) k/uL Basophils # 0.0 (0-0.2) k/uL Hypochromasia Marked Anisocytosis Slight Sodium 145 (137-145) mmol/L Potassium 5.5 H (3.5-5.1) mmol/L Chloride 104 (98-107) mmol/L Carbon Dioxide 33 H (22-30) mmol/L Anion Gap 8 mmol/L BUN 83 H* (7-17) mg/dL Creatinine 3.28 H (0.52-1.04) mg/dL Est GFR (MDRD) Af Amer 16 (>60 ml/min/1.73 sqM) Est GFR (MDRD) Non-Af 14 (>60 ml/min/1.73 sqM) Glucose 177 H (74-99) mg/dL Calcium 8.1 L (8.4-10.2) mg/dL Total Bilirubin 0.5 (0.2-1.3) mg/dL AST 28 (14-36) U/L ALT 41 (9-52) U/L Alkaline Phosphatase 66 (38-126) U/L Total Protein 5.7 L (6.3-8.2) g/dL Albumin 3.3 L (3.5-5.0) g/dL Disposition Clinical Impression: Acute exacerbation of chronic obstructive airways disease, COPD exacerbation, Anemia, Renal failure Disposition: ADMITTED IP TO THIS HOSP Condition: Fair Referrals: None,Stated [Primary Care Provider] - 1-2 days
[2016-07-22 22:11] LABS: Anisocytosis Slight; Basophils % (A) 0 %; CH 24.9; CHCM 30.7; Eosinophils # (A) 0.1 k/uL (0-0.7); Eosinophils % (A) 1 %; HCT 23.5 % (34.0-46.0); HDW 3.19; Hypochromasia Marked; Luc # (Auto) 0.13; Luc % (Auto) 1; Lymphocytes # (A) 0.6 k/uL (1.0-4.8); Lymphocytes % (A) 3 %; MCH 24.7 pg (25.0-35.0); MCHC 30.3 g/dL (31.0-37.0); MCV 81.3 fL (80.0-100.0); Mean Platelet Volume 7.6; Monocytes # (A) 0.6 k/uL (0-1.0); Monocytes % (A) 3 %; Neutrophils # (A) 15.1 k/uL (1.3-7.7); Neutrophils % (A) 92 %; RBC 2.89 m/uL (3.80-5.40); RDW 16.4 % (11.5-15.5); WBC 16.4 k/uL (3.8-10.6); WBC (Perox) 16.29
[2016-07-22 22:12] LABS: HGB 7.1 gm/dL (11.4-16.0)
[2016-07-22 22:14] LABS: INR 0.9 (<1.1); Prothrombin Time 9.5 sec (9.0-12.0)
[2016-07-22 22:15] LABS: Calcium 8.1 mg/dL (8.4-10.2); Potassium 5.5 mmol/L (3.5-5.1); Total Bilirubin 0.5 mg/dL (0.2-1.3); Total Protein 5.7 g/dL (6.3-8.2)
[2016-07-22] MEDS ORDERED: hydrALAZINE HCL 50 MG TAB PO STA (22:17)
[2016-07-22] MEDS ORDERED: traMADol 50 MG TAB PO STA (22:17)
[2016-07-22 22:26] LABS: Partial Thromboplastin Time 21.6 sec (22.0-30.0)
[2016-07-22] MEDS ORDERED: IPRATROPIUM-ALBUTEROL 3 ML NEB INHALATION STA (22:26)
[2016-07-22 22:37] LABS: Creatine Kinase MB 2.2 ng/mL (0.0-2.4)
[2016-07-22 22:44] LABS: Troponin I 0.046 ng/mL (0.000-0.034)
[2016-07-23 00:01] LABS: Glucose,Whole Blood 184 mg/dL (75-99)
[2016-07-23] MEDS ORDERED: ACETAMINOPHEN TAB 325 MG TAB PO PRN (03:11)
[2016-07-23] MEDS: IPRATROPIUM-ALBUTEROL 3 ML NEB INHALATION PRN ×5 (03:14→20:22)
[2016-07-23] MEDS: amLODIPine 5 MG TAB PO SCH ×2 (03:39→08:25)
[2016-07-23] MEDS: SODIUM CHLORIDE 0.9% 1,000 ML IV SCH (03:41)
[2016-07-23 07:14] LABS: Glucose,Whole Blood 132 mg/dL (75-99)
[2016-07-23 10:24] LABS: Calcium 8.2 mg/dL (8.4-10.2); Potassium 5.6 mmol/L (3.5-5.1)
[2016-07-23] MEDS: HYDROcodone/APAP 5-325MG 1 EACH TAB PO PRN ×3 (11:27→22:08)
[2016-07-23] MEDS: hydrALAZINE HCL 50 MG TAB PO SCH ×3 (11:31→22:08)
[2016-07-23 11:51] LABS: Glucose,Whole Blood 202 mg/dL (75-99)
--- NOTE | 2016-07-23 13:09 | CONS ---
DATE OF CONSULTATION: 07/23/2016 REASON FOR CONSULTATION: Renal failure. HISTORY OF PRESENT ILLNESS: Patient is an 81-year-old white female who was admitted to the hospital with significant pain in her right arm. Patient stated that she fell and had significant bruising and swelling in her right arm. She was also noted to have abnormal labs on this visit and was therefore admitted. Patient was just hospitalized end of June and discharged on 07/17/2016. She had sustained a fall prior to her previous admission and had acute right humerus fracture. She was seen by Orthopedics and the plan was to continue with conservative management. The right shoulder was immobilized. Patient denies the use of any nonsteroidal anti-inflammatory agents prior to admission. She denies any prior history of kidney diseases. I do not see any NSAIDs on her med list. The serum creatinine was 3.28 mg/dL on this admission. Her previous creatinine was at 2.0 on 07/13 and prior to that, it was around 1.5 to 1.6 mg/dL. Blood pressure has been high during this admission. Currently patient has been voiding with no difficulty. PAST MEDICAL HISTORY: Recent admission post fall and right humerus fracture with plans for conservative management. Patient also has underlying severe COPD stage IV. She has coronary artery disease with recent non-Q-wave [place], CKD stage III based on previous labs with creatinine at about 1.5 to 1.6 mg/dL. Etiology is likely diabetic nephropathy as a previous UA showed 3+ protein. Past medical history is also significant for hypertension, anemia of chronic disease, osteoarthritis. PAST SURGICAL HISTORY: Left breast lumpectomy, radiation therapy, right total knee arthroplasty, esophageal dilation and right carotid endarterectomy. Allergies include Doxycycline, Glucosamine, IV DYE, SULFONAMIDES, confusion with BACLOFEN, rash with SULFA. Medications at home prior to admission include: Breo, Plavix, hydralazine, Zoloft, Pepcid, Ultram. REVIEW OF SYSTEMS: As per HPI, other systems negative. SOCIAL HISTORY: The patient is an ex-smoker. No history of drug abuse or alcohol abuse, currently. On examination, she is currently lying in bed. She is comfortable. She is not in any acute distress. Blood pressure is 194/81, heart rate 76 per minute. She is afebrile. EXAMINATION OF THE HEART: S1 and S2. EXAMINATION OF THE LUNGS: Bilateral breath sounds are heard. ABDOMEN: Soft, nontender. Examination of lower extremities shows edema 1+ mainly in the thighs. There is significant edema noted in her right upper extremity as well. Some bruising is noted. SATELLITE DISH TECHNICIAN exam is otherwise grossly intact. Patient is able to move all 4 extremities. She is not moving her right upper extremity much because of the pain. Labs show sodium 146, potassium 5.6, BUN 82, serum creatinine 3.16. Hemoglobin was at 7.1 g/dL. There is no UA from this admission. However, previously UA had shown 3+ protein. No significant blood was noted at that time. ASSESSMENT: 1. Acute kidney injury, most likely acute tubular necrosis. Will repeat another urinalysis. No nephrotoxic agents on board at this time. I will start her on gentle IV hydration. She does have swelling, mainly in her right upper arm from recent injury and fracture. Her lungs are fairly clear. We will also obtain a chest x-ray. Previous chest x-ray from 07/14 did not show any significant pulmonary vascular congestion. 2. Recent fall and fracture of right humerus currently plan for conservative management. 3. Morbidly dilated left atrium on echocardiogram in March of this year with ejection fraction 60% to 65%. 4. Anemia with no active bleeding noted. Will check iron studies. 5. Increase hydralazine if blood pressure remains uncontrolled. Control pain, which may help with the blood pressure as well. PLAN: Check urinalysis. Check ultrasound of the kidneys. Check iron studies. I will give her Kayexalate x1 for the hyperkalemia. Start gentle IV hydration. Check chest x-ray and repeat labs in the a.m. Thank you for this consultation. Will continue to follow the patient with you during her hospitalization.
[2016-07-23 13:14] LABS: % Iron Saturation 8.4 % (20-50)
[2016-07-23] MEDS: INSULIN LISPRO (humaLOG) 300 UNIT/3 ML VIAL SQ SCH ×3 (13:17→22:09)
[2016-07-23] MEDS: SODIUM CHLORIDE 0.45% 1,000 ML IV SCH (13:19)
--- NOTE | 2016-07-23 14:17 | US ---
EXAMINATION TYPE: US kidneys/renal and bladder DATE OF EXAM: 07/23/2016 COMPARISON: NONE CLINICAL HISTORY: renal failure. EXAM MEASUREMENTS: Right Kidney: 10.5 x 5.4 x 5.1 cm Left Kidney: 8.5 x 3.9 x 3.5 cm Right Kidney: echogenic, cystic area lower pole = 1.1 x 0.9 x 0.9cm, small amount of free fluid adjac ent to lower pole Left Kidney: atrophic, echogenic in appearance, difficult to visualize, limited evaluation. Cystic ar ea = 1.3 x 1.0 x 1.2cm Bladder: appears wnl Bilateral Jets seen: no Lesion in the lower pole of the right kidney does not meet the requirements of simple cyst. There is a small amount of perinephric fluid. Cystic lesion in the left kidney also does not meet the strict criteria of a simple cyst. The bladder is unremarkable. Neither ureteral jet was seen. IMPRESSION: 1. RIGHT KIDNEY SMALLER THAN LEFT MAY REPRESENT ATROPHY. 2. MODERATE LATERAL CYSTIC LESIONS WITHIN THE KIDNEYS DO NOT MEET THE REQUIREMENTS OF A SIMPLE CYST. IF FELT CLINICALLY RELEVANT FURTHER IMAGING WITH CT OR MR WOULD BE SUGGESTED.
[2016-07-23 16:32] LABS: Appearance,Urine Clear (Clear); Bacteria,Urine Occasional /hpf; Bilirubin,Urine Negative (Negative); Glucose,Urine (UA) 1+ (Negative); Ketones,Urine Negative (Negative); Leukocyte Esterase,Urine Negative (Negative); Nitrite,Urine Negative (Negative); PH, Urine 5.5 (5.0-8.0); Particle Count 3480; Protein,Urine 1+ (Negative); RBC,Urine 1 /hpf (0-5); Specific Gravity,Urine 1.011 (1.001-1.035); Squamous Epithelial Cell,Urine 1 /hpf (0-4); UA Billing (MACRO vs. MICRO) MICRO; Urobilinogen,Urine <2.0 mg/dL (<2.0); WBC,Urine 4 /hpf (0-5)
[2016-07-23 16:37] LABS: Glucose,Whole Blood 279 mg/dL (75-99)
[2016-07-23] MEDS: HEPARIN SODIUM,PORCINE 5,000 UNIT/ML 1 ML VIAL SQ SCH ×2 (17:53→23:54)
--- NOTE | 2016-07-23 18:29 | XR ---
EXAMINATION TYPE: XR shoulder complete RT DATE OF EXAM: 07/23/2016 COMPARISON: NONE HISTORY: Pain TECHNIQUE: 2 views FINDINGS: There is an impacted comminuted fracture of the humeral neck and humeral head. There is no dislocation. Scapula is intact. Fragments are displaced up to almost 2 cm. IMPRESSION: Comminuted impacted humeral neck fracture.
--- NOTE | 2016-07-23 19:43 | US ---
EXAMINATION TYPE: US venous doppler duplex UE RT DATE OF EXAM: 07/23/2016 COMPARISON: NONE CLINICAL HISTORY: Swelling to right hand, pain. Patient has a fractured right humerus. Exam is very l imited due to the patient being unable to move her arm away from her body or turn her hand palm side up. Patient is in severe pain during the exam. Large amount of soft tissue edema noted to right arm a t the area of the antecubital fossa SIDE PERFORMED: Right Right Arm: Negative for DVT as visualized. Unable to evaluate basilic vein, radial veins, or ulnar ve ins. IMPRESSION: No evidence of deep venous thrombosis in the right arm. There is patency demonstrated in the jugular subclavian axillary and brachial veins.
[2016-07-23 21:15] LABS: Glucose,Whole Blood 227 mg/dL (75-99)
--- NOTE | 2016-07-23 21:54 | HP ---
DATE OF ADMISSION: 07/22/2016 REASON FOR ADMISSION: Abnormal labs and generalized weakness. HISTORY OF PRESENT ILLNESS: This is an 81-year-old female who was sent in for evaluation with abnormal labs. Patient apparently sustained a fall with a right humerus fracture in the past. Patient apparently has a history of COPD is maintained on medications by Dr. Hills. Patient recently in the hospital was noted to have acute kidney injury. However, creatinine was stable around 1.6 at that time of discharge. Patient comes into the hospital with abnormal labs, including creatinine of 3.16 and a BUN of 82 with generalized weakness. Patient states that her urine output has been decreasing. Denies having any abdominal pain, fevers, chills, chest pain, difficulty breathing, nausea, vomiting, or diarrhea. Past medical history includes COPD, diabetes mellitus, dyslipidemia, hypertension, [place], thyroid disorder and chronic hypoxic respiratory failure and a recent right humeral fracture. PAST SURGICAL HISTORY: Includes orthopedic surgery, tonsillectomy, breast surgery, right carotid endarterectomy, right knee replacement, bilateral cataract replacement, lumpectomy on the left side, EGD and esophageal dilatation. SOCIAL HISTORY: ( ) no alcohol or illicit drug use reported. FAMILY HISTORY: Not pertinent her current admission. No renal cell cancer is reported. MEDICATIONS: Include: 1. Tramadol. 2. Hydralazine. 3. DuoNeb. 4. Multivitamin. 5. Zoloft. 6. Breo. 7. Plavix. 8. Pepcid. ALLERGIES: MULTIPLE ALLERGIES INCLUDING DOXYCYCLINE AND IODINATED CONTRAST MEDIA, SULFA DRUGS AND BACLOFEN. Fourteen-point review of systems was done; none pertinent other than was mentioned above. PHYSICAL EXAM: VITALS: Temperature is 98.2, heart rate 72, respiratory rate 20, blood pressure 121/84. Saturating 97% on 3 liters supplemental oxygen. GENERAL APPEARANCE: Alert, oriented x3. Does not appear to be in distress. NECK: Supple. No JVD. Right arm there is 1+ pitting edema noted. Tender to palpation. Unable to perform any range of motion. LUNGS: Diminished breath sounds, however, no rhonchi, wheezing or crackles. HEART: S1, S2 heard. Regular rate and rhythm. No murmurs appreciated. ABDOMEN: Soft, nontender, no organomegaly. Bowel sounds intact. LOWER EXTREMITIES: Trace edema noted. NEUROLOGIC: No focal motor or sensory deficits noted. Right upper extremity tenderness due to the previous right humeral fracture. Laboratory data include sodium 146, potassium 5.2, chloride 107, bicarb 30, BUN 82, creatinine 3.16. Urine analysis reveals 1+ protein, 1+ glucose. Hemoglobin is 7.1, hematocrit 23.5, platelets of 314. White count of 16.4. Abdominal ultrasound is noted to have a complex cyst. ASSESSMENT AND PLAN: 1. Acute kidney injury. This is likely due to acute tubular necrosis, rule out rhabdomyolysis. However, urinalysis does not show significant hematuria. 2. Right comminuted femoral fracture. 3. Chronic hypoxic hypercapnic respiratory failure. 4. Acute on chronic anemia appears to have some iron deficiency, previous hemoglobin was 8.9 on prior admission. 5. Previous lumpectomy. 6. Peripheral arterial disease. 7. Chronic obstructive pulmonary disease. 8. Dyslipidemia. 9. Accelerated hypertension, currently on this admission. 10. Generalized weakness. PLAN: 1. Nephrology has been consulted. 2. Abdominal ultrasound is reviewed. 3. We will start the patient on Norvasc. 4. Obtain a stat CK level. 5. A right upper arm DVT study will also be done. 6. Start the patient on heparin subcu 5000 q.8 hours. 7. X-ray of the shoulder will also be done. 8. Continue maintaining oxygen. 9. Patient's white count is likely reactive. 10. No signs of infection noted. 11. We will repeat x-ray in the a.m. as well. 12. Will follow.
[2016-07-23] MEDS ORDERED: SODIUM POLYSTYRENE SULFONATE 15 GM/60 ML BOTTLE PO STA (22:52)
[2016-07-23] MEDS: HYDROmorphone 1 MG/ML 1 ML SYRINGE IVP PRN (23:54)
[2016-07-24 02:19] LABS: Glucose,Whole Blood 151 mg/dL (75-99)
[2016-07-24] MEDS: HYDROcodone/APAP 5-325MG 1 EACH TAB PO PRN ×5 (02:44→20:56)
[2016-07-24 06:15] LABS: Glucose,Whole Blood 132 mg/dL (75-99)
[2016-07-24] MEDS: SODIUM CHLORIDE 0.9% 1,000 ML IV SCH (06:17)
[2016-07-24] MEDS: INSULIN LISPRO (humaLOG) 300 UNIT/3 ML VIAL SQ SCH ×4 (06:17→23:09)
[2016-07-24] MEDS: HYDROmorphone 1 MG/ML 1 ML SYRINGE IVP PRN (06:35)
[2016-07-24] MEDS: IPRATROPIUM-ALBUTEROL 3 ML NEB INHALATION PRN ×4 (06:57→19:47)
[2016-07-24 07:03] LABS: Anisocytosis Slight; Basophils % (A) 0 %; CH 24.6; CHCM 30.1; Eosinophils # (A) 0.4 k/uL (0-0.7); Eosinophils % (A) 2 %; HCT 23.1 % (34.0-46.0); HDW 3.24; HGB 7.2 gm/dL (11.4-16.0); Hypochromasia Marked; Luc % (Auto) 1; Lymphocytes # (A) 0.9 k/uL (1.0-4.8); Lymphocytes % (A) 5 %; MCH 25.5 pg (25.0-35.0); MCV 82.1 fL (80.0-100.0); Mean Platelet Volume 7.3; Monocytes # (A) 0.9 k/uL (0-1.0); Monocytes % (A) 5 %; Neutrophils # (A) 15.3 k/uL (1.3-7.7); Neutrophils % (A) 87 %; RBC 2.81 m/uL (3.80-5.40); RDW 16.3 % (11.5-15.5); WBC 17.6 k/uL (3.8-10.6); WBC (Perox) 18.09
[2016-07-24 07:22] LABS: Calcium 8.5 mg/dL (8.4-10.2); Magnesium 2.7 mg/dL (1.6-2.3); Potassium 5.3 mmol/L (3.5-5.1); Total Bilirubin 0.5 mg/dL (0.2-1.3); Total Protein 5.6 g/dL (6.3-8.2)
[2016-07-24] MEDS: HEPARIN SODIUM,PORCINE 5,000 UNIT/ML 1 ML VIAL SQ SCH ×3 (07:55→23:24)
[2016-07-24] MEDS: amLODIPine 5 MG TAB PO SCH (07:56)
[2016-07-24] MEDS: hydrALAZINE HCL 50 MG TAB PO SCH (07:56)
[2016-07-24] MEDS: SODIUM CHLORIDE 0.45% 1,000 ML IV SCH ×2 (07:57→12:08)
--- NOTE | 2016-07-24 08:04 | XR ---
EXAMINATION TYPE: XR chest 1V portable DATE OF EXAM: 07/24/2016 COMPARISON: Prior chest x-ray 07/14/2016 HISTORY: Difficulty breathing TECHNIQUE: Single frontal view of the chest is obtained. FINDINGS: The heart remains enlarged, there are overlying cardiac leads. No evident pneumothorax or sizable effusion. Interstitium is mildly increased. Patchy basilar density is present, retrocardiac i ncreased density noted. There is a comminuted fracture the proximal right humerus. IMPRESSION: Similar to prior exam. Underlying interstitial lung disease, cardiomegaly. Correlate to exclude pneumonia or possibly pulmonary venous hypertension and interstitial edema, follow-up PA and lateral chest x-ray may be of benefit, consider chest CT as indicated.
[2016-07-24] MEDS ORDERED: hydrALAZINE HCL 25 MG TAB PO SCH (11:00)
--- NOTE | 2016-07-24 11:07 | P.CNOR ---
History of Present Illness - [facility] Consult date: 07/24/16 Consult reason: fracture History of present illness: Patient is 81-year-old female who is known to our service. She had sustained an injury a about a week and a half ago when she had a fall and had an injury to her right proximal humerus. She had be admitted to the hospital at that point due to her inability to mobilize and was found have muscle medical issues. She had some respiratory issues and metabolic issues and has been worked up with medicine. From an orthopedic standpoint she has been treated conservatively for her right proximal humerus fracture with shoulder immobilization. She was able to be discharged to senior living facility but returned here with other medical issues last night. We are asked to see her again in regards to the proximal humerus fracture. She says that she has pain at her right arm. She is slightly confused but is able to answer some questions appropriately Review of Systems She denies chest pains or fevers. She denies numbness tingling in her arm. She feels that she has pain at her right shoulder which has been consistent for her. Past Medical History Past Medical History: COPD, Diabetes Mellitus, Hyperlipidemia, Hypertension, Myocardial Infarction (NM), Musculoskeletal Disorder (Right upper extremity proximal humerus fracture currently being treated conservatively), Osteoarthritis (OA), Thyroid Disorder Additional Past Medical History / Comment(s): COPD , anemia, chronic hypoxic respiratory failure and the patient has been on oxygen at 2.5 L/m nasal cannula , lt breast cancer, , chronic sinus disease,djd emphysema, thyroid nodule, chronic renal failure, chronic anemia, osteoarthritis Last Myocardial Infarction Date:: 04/15/16 History of Any Multi-Drug Resistant Organisms: None Reported Past Surgical History: Breast Surgery, Orthopedic Surgery, Tonsillectomy Additional Past Surgical History / Comment(s): 2002 lt lumpectomy and 35 radiation tx,2005 right carotid endarectomy, rt knee arthroscopy,2010 right knee replacement 2007 bilateral cataract , had esophageal dilation via EGD Past Anesthesia/Blood Transfusion Reactions: Postoperative Nausea & Vomiting ( PONV) Additional Past Anesthesia/Blood Transfusion Reaction / Comm: vomited after surg. Past Psychological History: No Psychological Hx Reported, Anxiety Additional Psychological History / Comment(s): Pt resides with her daughter, Jamilah Mason. She uses a walker to ambulate. She lives in a one level home. She has visiting nurses. She does not drive, her elo's take her to appts. She has home O2 at 3L/NC ATC. She has a nebulizer and a glucose meter. Smoking Status: Former smoker Past Alcohol Use History: None Reported Additional Past Alcohol Use History / Comment(s): per pt's daughter-pt quit smoking 20 years ago Past Drug Use History: None Reported - Past Family History Father Family Medical History: Coronary Artery Disease (CAD) Additional Family Medical History / Comment(s): young from heart problems Mother Family Medical History: Asthma, COPD Medications and Allergies Home Medications Medication Instructions Recorded Confirmed Type Vit A,C & E/Lutein/Minerals 1 tab PO QAM 10/06/13 07/22/16 History [Ocuvite with Lutein Tablet] Fluticasone/Vilanterol [Breo 1 puff INHALATION RT-DAILY@0900 04/14/16 07/22/16 History Ellipta 200-25 Mcg INH] Ipratropium-Albuterol Nebulize 3 ml INHALATION RT-QID 04/14/16 07/22/16 History [Duoneb 0.5 mg-3 mg/3 ml Soln] Sertraline [Zoloft] 50 mg PO HS 04/14/16 07/22/16 History hydrALAZINE HCL [Apresoline] 50 mg PO TID 05/19/16 07/22/16 History Clopidogrel Bisulfate [Plavix] 75 mg PO QAM 07/12/16 07/22/16 History Famotidine [Pepcid] 20 mg PO QAM 07/12/16 07/22/16 History traMADol HCL [Ultram] 50 mg PO Q6HR PRN 07/22/16 07/22/16 History Allergies Allergy/AdvReac Type Severity Reaction Status Date / Time doxycycline Allergy Rash/Hives Verified 07/22/16 21:47 glucosamine Allergy Rash/Hives Verified 07/22/16 21:47 Iodinated Contrast Media - Allergy Rash/Hives Verified 07/22/16 21:47 Oral and [Iodinated Contrast Media - IV Dye] Sulfa (Sulfonamide Allergy Rash/Hives Verified 07/22/16 21:47 Antibiotics) baclofen AdvReac Confusion Verified 07/22/16 21:47 Physical Examination Osteopathic Statement: *. No significant issues noted on an osteopathic structural exam other than those noted in the History and Physical/Consult. - Shoulder right Appearance: swelling (At her right shoulder she has tenderness to palpation of the proximal humerus. She is unable to elevate her shoulder due to pain. Her elbow does have some intact motion though she has somewhat stiffness with her range of motion. She has good motion in her wrist and fingers. Her compartments are soft.) Results - Labs Labs: Abnormal Lab Results - Last 24 Hours (Table) 07/23/16 07/23/16 07/23/16 Range/Units 09:24 11:29 16:00 WBC (3.8-10.6) k/uL RBC (3.80-5.40) m/uL Hgb (11.4-16.0) gm/dL Hct (34.0-46.0) % RDW (11.5-15.5) % Neutrophils # (1.3-7.7) k/uL Lymphocytes # (1.0-4.8) k/uL Sodium (137-145) mmol/L Potassium (3.5-5.1) mmol/L Chloride (98-107) mmol/L BUN (7-17) mg/dL Creatinine (0.52-1.04) mg/dL Glucose (74-99) mg/dL POC Glucose (mg/dL) 202 H (75-99) mg/dL Magnesium (1.6-2.3) mg/dL Iron 25 L (37-170) ug/dL % Saturation 8.4 L (20-50) % Total Protein (6.3-8.2) g/dL Albumin (3.5-5.0) g/dL Urine Protein 1+ H (Negative) Urine Glucose (UA) 1+ H (Negative) Urine Bacteria Occasional H (None) /hpf 07/23/16 07/23/16 07/24/16 Range/Units 16:35 21:13 02:17 WBC (3.8-10.6) k/uL RBC (3.80-5.40) m/uL Hgb (11.4-16.0) gm/dL Hct (34.0-46.0) % RDW (11.5-15.5) % Neutrophils # (1.3-7.7) k/uL Lymphocytes # (1.0-4.8) k/uL Sodium (137-145) mmol/L Potassium (3.5-5.1) mmol/L Chloride (98-107) mmol/L BUN (7-17) mg/dL Creatinine (0.52-1.04) mg/dL Glucose (74-99) mg/dL POC Glucose (mg/dL) 279 H 227 H 151 H (75-99) mg/dL Magnesium (1.6-2.3) mg/dL Iron (37-170) ug/dL % Saturation (20-50) % Total Protein (6.3-8.2) g/dL Albumin (3.5-5.0) g/dL Urine Protein (Negative) Urine Glucose (UA) (Negative) Urine Bacteria (None) /hpf 07/24/16 07/24/16 07/24/16 Range/Units 06:14 06:22 06:22 WBC 17.6 H (3.8-10.6) k/uL RBC 2.81 L (3.80-5.40) m/uL Hgb 7.2 L (11.4-16.0) gm/dL Hct 23.1 L (34.0-46.0) % RDW 16.3 H (11.5-15.5) % Neutrophils # 15.3 H (1.3-7.7) k/uL Lymphocytes # 0.9 L (1.0-4.8) k/uL Sodium 147 H (137-145) mmol/L Potassium 5.3 H (3.5-5.1) mmol/L Chloride 109 H (98-107) mmol/L BUN 72 H (7-17) mg/dL Creatinine 2.88 H (0.52-1.04) mg/dL Glucose 123 H (74-99) mg/dL POC Glucose (mg/dL) 132 H (75-99) mg/dL Magnesium 2.7 H (1.6-2.3) mg/dL Iron (37-170) ug/dL % Saturation (20-50) % Total Protein 5.6 L (6.3-8.2) g/dL Albumin 3.2 L (3.5-5.0) g/dL Urine Protein (Negative) Urine Glucose (UA) (Negative) Urine Bacteria (None) /hpf H & H 07/22/16 07/24/16 Range/Units 21:45 06:22 Hgb 7.1 L D 7.2 L (11.4-16.0) gm/dL Hct 23.5 L 23.1 L (34.0-46.0) % Coagulation 07/22/16 Range/Units 21:45 INR 0.9 (<1.1) Result Diagrams: 07/24/16 06:22 07/24/16 06:22 - Diagnostic results Shoulder x-ray: report reviewed, image reviewed (Imaging of her right shoulder is reviewed she has a moderately displaced proximal humerus 3 part fracture with some angulation) Assessment and Plan Plan: Right proximal my humerus fracture, three-part with some incurvation and displacement Multiple medical issues From an orthopedic standpoint I think that the patient is best treated with conservative management for her right proximal humerus fracture. She did not have her shoulder mobilizer on and I placed it on her today at bedside. She should continue her right shoulder mobilizer essentially at all times. She the upper arm cuff should be intact but she may remove the forearm cuff or comfort and for daily mobilization at her right elbow. She should not try to do any mobilization for her shoulder yet. I would like to see if she is able to get up out of bed with physical therapy with her shoulder mobilizer intact and we will have physical therapy see her. I do not think that she is a candidate for surgical intervention and we'll plan to continue conservative treatment with shoulder mobilization over the next 4- 12 weeks.
--- NOTE | 2016-07-24 11:23 | P.PN ---
Subjective Patient is seen in follow-up for acute kidney injury on chronic kidney disease. It appears she has chronic kidney disease stage III with baseline creatinine near 1.2-1.5 secondary to nephrosclerosis. Her creatinine was 3.16 yesterday and is 2.88 today. She presented with right arm pain and is still sore. Appetite is poor. No vomiting or diarrhea. Vital signs are stable. General: The patient appeared well nourished and normally developed. HEENT: Head exam is unremarkable. Neck is without jugular venous distension. LUNGS: Lungs are clear to auscultation and percussion. Breath sounds decreased. HEART: Rate and Rhythm are regular. First and second heart sounds normal. No murmurs, rubs or gallops. ABDOMEN: Abdominal exam reveals normal bowel sounds. Non-tender and non- distended. No evidence of peritonitis. EXTREMITITES: Trace edema. Objective - Vital Signs Vital signs: Vital Signs Temp 97.5 F L 07/24/16 08:00 Pulse 74 07/24/16 08:00 Resp 20 07/24/16 08:00 BP 186/72 07/24/16 08:00 Pulse Ox 98 07/24/16 08:00 Intake & Output 07/23/16 07/24/16 07/24/16 18:59 06:59 18:59 Intake Total 565 500 60 Output Total 700 700 Balance -135 -200 60 Intake: Intake, IV Titration 120 400 Amount Sodium Chloride 0.45% 1, 50 400 000 ml @ 50 mls/hr IV . Q20H [facility] Rx#:[id number] Sodium Chloride 0.9% 1, 70 000 ml @ 20 mls/hr IV . Q24H [facility] Rx#:[id number] Oral 445 100 60 Output: Urine 700 700 Other: Voiding Method Bedpan Bedpan # Voids 1 2 - Labs CBC & Chem 7: 07/24/16 06:22 07/24/16 06:22 Labs: Abnormal Lab Results - Last 24 Hours (Table) 07/23/16 07/23/16 07/23/16 Range/Units 09:24 11:29 16:00 WBC (3.8-10.6) k/uL RBC (3.80-5.40) m/uL Hgb (11.4-16.0) gm/dL Hct (34.0-46.0) % RDW (11.5-15.5) % Neutrophils # (1.3-7.7) k/uL Lymphocytes # (1.0-4.8) k/uL Sodium (137-145) mmol/L Potassium (3.5-5.1) mmol/L Chloride (98-107) mmol/L BUN (7-17) mg/dL Creatinine (0.52-1.04) mg/dL Glucose (74-99) mg/dL POC Glucose (mg/dL) 202 H (75-99) mg/dL Magnesium (1.6-2.3) mg/dL Iron 25 L (37-170) ug/dL % Saturation 8.4 L (20-50) % Total Protein (6.3-8.2) g/dL Albumin (3.5-5.0) g/dL Urine Protein 1+ H (Negative) Urine Glucose (UA) 1+ H (Negative) Urine Bacteria Occasional H (None) /hpf 07/23/16 07/23/16 07/24/16 Range/Units 16:35 21:13 02:17 WBC (3.8-10.6) k/uL RBC (3.80-5.40) m/uL Hgb (11.4-16.0) gm/dL Hct (34.0-46.0) % RDW (11.5-15.5) % Neutrophils # (1.3-7.7) k/uL Lymphocytes # (1.0-4.8) k/uL Sodium (137-145) mmol/L Potassium (3.5-5.1) mmol/L Chloride (98-107) mmol/L BUN (7-17) mg/dL Creatinine (0.52-1.04) mg/dL Glucose (74-99) mg/dL POC Glucose (mg/dL) 279 H 227 H 151 H (75-99) mg/dL Magnesium (1.6-2.3) mg/dL Iron (37-170) ug/dL % Saturation (20-50) % Total Protein (6.3-8.2) g/dL Albumin (3.5-5.0) g/dL Urine Protein (Negative) Urine Glucose (UA) (Negative) Urine Bacteria (None) /hpf 07/24/16 07/24/16 07/24/16 Range/Units 06:14 06:22 06:22 WBC 17.6 H (3.8-10.6) k/uL RBC 2.81 L (3.80-5.40) m/uL Hgb 7.2 L (11.4-16.0) gm/dL Hct 23.1 L (34.0-46.0) % RDW 16.3 H (11.5-15.5) % Neutrophils # 15.3 H (1.3-7.7) k/uL Lymphocytes # 0.9 L (1.0-4.8) k/uL Sodium 147 H (137-145) mmol/L Potassium 5.3 H (3.5-5.1) mmol/L Chloride 109 H (98-107) mmol/L BUN 72 H (7-17) mg/dL Creatinine 2.88 H (0.52-1.04) mg/dL Glucose 123 H (74-99) mg/dL POC Glucose (mg/dL) 132 H (75-99) mg/dL Magnesium 2.7 H (1.6-2.3) mg/dL Iron (37-170) ug/dL % Saturation (20-50) % Total Protein 5.6 L (6.3-8.2) g/dL Albumin 3.2 L (3.5-5.0) g/dL Urine Protein (Negative) Urine Glucose (UA) (Negative) Urine Bacteria (None) /hpf Assessment and Plan Plan: Assessment: #1. Nonoliguric acute kidney injury mostly prerenal. Improving with IV hydration. Creatinine peaked at 3.16 this admission and is down to 2.88 today. #2. Chronic kidney disease stage III with baseline creatinine in the range of 1.2-1.5 secondary to nephrosclerosis. Left kidney smaller in size. #3. Anemia with iron deficiency. #4. Hypernatremia secondary to lack of oral water intake. #5. Hypertension with chronic kidney disease. Uncontrolled. Plan: I will change IV fluids 0.45% to be run at 50 mL an hour. Encourage oral intake including water. Increase hydralazine to 75 mg 3 times daily. Ferrlicit 125 mg IV daily for 3 days. First dose today. Repeat electrical lites in the morning.
[2016-07-24 11:42] LABS: Glucose,Whole Blood 145 mg/dL (75-99)
[2016-07-24] MEDS: SODIUM FERRIC GLUCONAT-SUCROSE 125 MG in SODIUM CHLORIDE 0.9% 100 ML IVPB SCH (12:59)
[2016-07-24 16:57] LABS: Glucose,Whole Blood 170 mg/dL (75-99)
[2016-07-24] MEDS: hydrALAZINE HCL 25 MG TAB PO SCH ×2 (17:18→20:54)
--- NOTE | 2016-07-24 18:19 | P.PN ---
Subjective REASON FOR ADMISSION: Abnormal labs and generalized weakness. HISTORY OF PRESENT ILLNESS: This is an 81-year-old female who was sent in for evaluation with abnormal labs. Patient apparently sustained a fall with a right humerus fracture in the past. Patient apparently has a history of COPD is maintained on medications by Dr. Hills. Patient recently in the hospital was noted to have acute kidney injury. However, creatinine was stable around 1.6 at that time of discharge. Patient comes into the hospital with abnormal labs, including creatinine of 3.16 and a BUN of 82 with generalized weakness. Patient states that her urine output has been decreasing. Denies having any abdominal pain, fevers, chills, chest pain, difficulty breathing, nausea, vomiting, or diarrhea. Past medical history includes COPD, diabetes mellitus, dyslipidemia, hypertension, [place], thyroid disorder and chronic hypoxic respiratory failure and a recent right humeral fracture. 07/24/16 Pt states to be feel better states to have a cough, no fevers, chills, nausea, vomiting, diarrhea PHYSICAL EXAM: . GENERAL APPEARANCE: Alert, oriented x3. Does not appear to be in distress. NECK: Supple. No JVD. Right arm there is 1+ pitting edema noted. Tender to palpation. Unable to perform any range of motion. LUNGS: Diminished breath sounds, however, no rhonchi, wheezing or crackles. HEART: S1, S2 heard. Regular rate and rhythm. No murmurs appreciated. ABDOMEN: Soft, nontender, no organomegaly. Bowel sounds intact. LOWER EXTREMITIES: Trace edema noted. NEUROLOGIC: No focal motor or sensory deficits noted. Right upper extremity tenderness due to the previous right humeral fracture. . Objective - Vital Signs Vital signs: Vital Signs Temp 97.6 F 07/24/16 15:07 Pulse 101 H 07/24/16 15:52 Resp 18 07/24/16 15:09 BP 140/68 07/24/16 15:07 Pulse Ox 94 L 07/24/16 15:07 Intake & Output 07/23/16 07/24/16 07/24/16 18:59 06:59 18:59 Intake Total 565 500 140 Output Total 700 700 Balance -135 -200 140 Weight 86.5 kg Intake: Intake, IV Titration 120 400 Amount Sodium Chloride 0.45% 1, 50 400 000 ml @ 50 mls/hr IV . Q20H [facility] Rx#:[id number] Sodium Chloride 0.9% 1, 70 000 ml @ 20 mls/hr IV . Q24H [facility] Rx#:[id number] Oral 445 100 140 Output: Urine 700 700 Other: Voiding Method Bedpan Bedpan # Voids 1 1 # Bowel Movements 0 - Labs CBC & Chem 7: 07/24/16 06:22 07/24/16 06:22 Labs: Abnormal Lab Results - Last 24 Hours (Table) 07/23/16 07/24/16 07/24/16 Range/Units 21:13 02:17 06:14 WBC (3.8-10.6) k/uL RBC (3.80-5.40) m/uL Hgb (11.4-16.0) gm/dL Hct (34.0-46.0) % RDW (11.5-15.5) % Neutrophils # (1.3-7.7) k/uL Lymphocytes # (1.0-4.8) k/uL Sodium (137-145) mmol/L Potassium (3.5-5.1) mmol/L Chloride (98-107) mmol/L BUN (7-17) mg/dL Creatinine (0.52-1.04) mg/dL Glucose (74-99) mg/dL POC Glucose (mg/dL) 227 H 151 H 132 H (75-99) mg/dL Magnesium (1.6-2.3) mg/dL Total Protein (6.3-8.2) g/dL Albumin (3.5-5.0) g/dL 07/24/16 07/24/16 07/24/16 Range/Units 06:22 06:22 11:40 WBC 17.6 H (3.8-10.6) k/uL RBC 2.81 L (3.80-5.40) m/uL Hgb 7.2 L (11.4-16.0) gm/dL Hct 23.1 L (34.0-46.0) % RDW 16.3 H (11.5-15.5) % Neutrophils # 15.3 H (1.3-7.7) k/uL Lymphocytes # 0.9 L (1.0-4.8) k/uL Sodium 147 H (137-145) mmol/L Potassium 5.3 H (3.5-5.1) mmol/L Chloride 109 H (98-107) mmol/L BUN 72 H (7-17) mg/dL Creatinine 2.88 H (0.52-1.04) mg/dL Glucose 123 H (74-99) mg/dL POC Glucose (mg/dL) 145 H (75-99) mg/dL Magnesium 2.7 H (1.6-2.3) mg/dL Total Protein 5.6 L (6.3-8.2) g/dL Albumin 3.2 L (3.5-5.0) g/dL 07/24/16 Range/Units 16:42 WBC (3.8-10.6) k/uL RBC (3.80-5.40) m/uL Hgb (11.4-16.0) gm/dL Hct (34.0-46.0) % RDW (11.5-15.5) % Neutrophils # (1.3-7.7) k/uL Lymphocytes # (1.0-4.8) k/uL Sodium (137-145) mmol/L Potassium (3.5-5.1) mmol/L Chloride (98-107) mmol/L BUN (7-17) mg/dL Creatinine (0.52-1.04) mg/dL Glucose (74-99) mg/dL POC Glucose (mg/dL) 170 H (75-99) mg/dL Magnesium (1.6-2.3) mg/dL Total Protein (6.3-8.2) g/dL Albumin (3.5-5.0) g/dL Assessment and Plan Plan: ASSESSMENT AND PLAN: 1. Acute kidney injury.due to prerenal etiology 2. Right humeral comminuted fracture. 3. Chronic hypoxic hypercapnic respiratory failure. 4. Acute on chronic anemia appears to have some iron deficiency, previous hemoglobin was 8.9 on prior admission. 5. Previous lumpectomy. 6. Peripheral arterial disease. 7. Chronic obstructive pulmonary disease. 8. Dyslipidemia. 9. Accelerated hypertension, currently on this admission. 10. Generalized weakness. 11. CAP, acute PLAN: start pt on levaquin breathing is stable repeat cxr in the am atypical organism coverage as well renal function is improving will need to go back to [facility] on dc pain is controlled previous fracture no surgical intervention
[2016-07-24] MEDS ORDERED: LEVOFLOXACIN 500MG-D5W PMX 500 MG in DEXTROSE/WATER 1 100ML.BAG IVPB ONE (19:00)
[2016-07-24 21:33] LABS: Glucose,Whole Blood 133 mg/dL (75-99)
[2016-07-25] MEDS: HYDROcodone/APAP 5-325MG 1 EACH TAB PO PRN ×5 (01:14→22:04)
[2016-07-25 02:11] LABS: Glucose,Whole Blood 101 mg/dL (75-99)
[2016-07-25 06:06] LABS: Glucose,Whole Blood 113 mg/dL (75-99)
[2016-07-25 06:24] LABS: Anisocytosis Slight; Basophils # (A) 0.1 k/uL (0-0.2); Basophils % (A) 0 %; CH 24.7; CHCM 30.1; Eosinophils # (A) 0.3 k/uL (0-0.7); Eosinophils % (A) 2 %; HCT 23.4 % (34.0-46.0); HGB 7.3 gm/dL (11.4-16.0); Hypochromasia Marked; Luc # (Auto) 0.16; Luc % (Auto) 1; Lymphocytes # (A) 0.7 k/uL (1.0-4.8); Lymphocytes % (A) 4 %; MCH 25.8 pg (25.0-35.0); MCHC 31.2 g/dL (31.0-37.0); MCV 82.6 fL (80.0-100.0); Mean Platelet Volume 7.8; Monocytes # (A) 0.7 k/uL (0-1.0); Monocytes % (A) 4 %; Neutrophils # (A) 14.4 k/uL (1.3-7.7); Neutrophils % (A) 89 %; RBC 2.84 m/uL (3.80-5.40); RDW 16.3 % (11.5-15.5); WBC 16.2 k/uL (3.8-10.6); WBC (Perox) 17.67
[2016-07-25] MEDS: INSULIN LISPRO (humaLOG) 300 UNIT/3 ML VIAL SQ SCH ×4 (06:48→21:12)
[2016-07-25] MEDS: SODIUM CHLORIDE 0.9% 1,000 ML IV SCH (06:53)
[2016-07-25 06:59] LABS: Potassium 5.4 mmol/L (3.5-5.1)
[2016-07-25] MEDS: IPRATROPIUM-ALBUTEROL 3 ML NEB INHALATION PRN ×2 (08:01→11:17)
[2016-07-25] MEDS: HEPARIN SODIUM,PORCINE 5,000 UNIT/ML 1 ML VIAL SQ SCH ×3 (08:10→23:41)
[2016-07-25] MEDS: hydrALAZINE HCL 25 MG TAB PO SCH ×3 (08:10→21:15)
[2016-07-25] MEDS: amLODIPine 5 MG TAB PO SCH (08:10)
--- NOTE | 2016-07-25 09:21 | P.PN ---
Progress Note - Text Patient is a 81-year-old female who is seen and examined at bedside for follow- up evaluation for right proximal humerus fracture. She had sustained an injury to her right proximal humerus approximately week and a half ago. She was seen and examined while in the hospital. She was discharged to rehabilitation. After exacerbation of multiple medical problems, she was readmitted yesterday for further evaluation and treatment. She is seen in the bedside for follow-up evaluation for her right proximal humerus fracture. Her shoulder immobilizer continues to remain intact and fitted appropriately. She is currently receiving a breathing treatment but is able to answer questions appropriately though somewhat drowsy. Say she is not currently experiencing significant pain at the right shoulder and has not been using her right shoulder. She does have some pain at the right shoulder with palpation. Her pain is exacerbated if she does perform any movement of the right upper extremity. She is known to have COPD. Patient is currently being treated for acute renal injury per medicine. Physical Exam: Patient is awake but somewhat drowsy; patient is able to answer questions appropriately Vital signs appear stable Adequate chest excursion with deep inspiration and expiration; currently receiving a breathing treatment Abdomen soft nontender Some pain with palpation over the right proximal humerus at the fracture site Significant swelling over the entire bilateral upper extremities Some bruising around the fracture site Unable to elevate the right shoulder due to pain No pain with palpation of the right elbow, wrist, hand, thumb, or fingers of the right hand Active for range of motion of the right wrist and fingers without any difficulty Right upper extremity shoulder immobilizer currently intact Pertinent studies: X-rays the right shoulder: Moderately displaced proximal three-part humerus fracture with some angulation Assessment: Comminuted right proximal humerus fracture Status post fall Generalized weakness COPD; currently receiving a breathing treatment Acute renal injury Plan: 1. We will currently planned to continue with conservative treatment in regards to her comminuted right proximal humerus fracture. Patient has been placed in a right shoulder immobilizer. She should keep this immobilizer intact at all times. She should avoid excessive activities in regards to her right upper extremity. She should remove her elbow from the immobilizer/sling and work on range of motion of the elbow daily. She may continue to use her right hand as needed. 2. Medicine to continue following the patient for her other medical diagnoses and further workup. Patient currently known to have COPD. She is also being treated for an acute kidney injury. We will defer further evaluation and plan of care to medicine. 4. We will continue follow patient; from an orthopedic standpoint, patient is clear for discharge once cleared by medicine 5. Following discharge, patient may follow-up with Jason Buenrostro PA-C or Dr. Claus Nuno at [facility] in approximately 2 weeks for further evaluation 6. Patient has been discussed in detail with Dr. Claus Nuno and he agrees with this plan
[2016-07-25 11:25] LABS: Glucose,Whole Blood 111 mg/dL (75-99)
[2016-07-25] MEDS: SODIUM FERRIC GLUCONAT-SUCROSE 125 MG in SODIUM CHLORIDE 0.9% 100 ML IVPB SCH (12:08)
--- NOTE | 2016-07-25 12:48 | PN ---
Patient is seen for followup for acute kidney injury on top of chronic kidney disease. It appears to be mainly prerenal. Serum creatinine on admission was 3.28. Patient is maintained on 50 mL of normal saline and her creatinine is now down to 2.8. She has had good urine output and there has been no urine retention. Patient has had a history of a fall and has a fracture in her right arm which is currently immobilized. Oral intake fair. She states she is overall feeling slightly better. On examination, blood pressure is 136/66, heart rate 88 per minute. She is afebrile. HEART: S1, S2. LUNGS: Bilateral breath sounds are heard. ABDOMEN: Soft, nontender. Lower extremities show no significant edema. There is edema noted in her right upper extremity secondary to the fracture and immobilization. STITCH BONDING MACHINE TENDER: Grossly intact. Patient is weak, but is able to move all 4 extremities. Labs show sodium 146, potassium 5.4, chloride 109, BUN 66, serum creatinine 2.8. Hemoglobin of 7.3 g/dL. ASSESSMENT: 1. Acute kidney injury, currently nonoliguric, most likely acute tubular necrosis with an element of hypovolemia. Patient is maintained on half-normal saline, which we can continue. She is encouraged to increase her oral intake as well. There are no nephrotoxic agents on board. 2. Chronic kidney disease, [employer] stage 3, with previous creatinine at about 1.5 mg/dL, lowest being 1.2 in March 2016. Etiology is likely nephrosclerosis 3. Hypertension, currently controlled. 4. Anemia with severe iron deficiency, maintained on IV iron. No active bleeding noted at this time. Should check stool for occult blood to rule out underlying gastrointestinal bleed, particularly in view of mild hyperkalemia. 5. Mild hyperkalemia associated with acute kidney injury. Need to rule out underlying gastrointestinal bleed. Will check stool for occult blood. 6. Status post fall and fracture, right humerus. Patient has been evaluated by Orthopedic Surgery. PLAN: Continue conservative management. Continue IV fluids. Encourage increased oral intake. Check stool for occult blood. Continue IV iron and repeat labs in a.m.
[2016-07-25 16:44] LABS: Glucose,Whole Blood 112 mg/dL (75-99)
[2016-07-25] MEDS ORDERED: MAGNESIUM HYDROXIDE 2,400 MG/10 ML CUP PO PRN (16:46)
--- NOTE | 2016-07-25 16:54 | P.PN ---
Subjective REASON FOR ADMISSION: Abnormal labs and generalized weakness. HISTORY OF PRESENT ILLNESS: This is an 81-year-old female who was sent in for evaluation with abnormal labs. Patient apparently sustained a fall with a right humerus fracture in the past. Patient apparently has a history of COPD is maintained on medications by Dr. Hills. Patient recently in the hospital was noted to have acute kidney injury. However, creatinine was stable around 1.6 at that time of discharge. Patient comes into the hospital with abnormal labs, including creatinine of 3.16 and a BUN of 82 with generalized weakness. Patient states that her urine output has been decreasing. Denies having any abdominal pain, fevers, chills, chest pain, difficulty breathing, nausea, vomiting, or diarrhea. Past medical history includes COPD, diabetes mellitus, dyslipidemia, hypertension, NE, thyroid disorder and chronic hypoxic respiratory failure and a recent right humeral fracture. 07/24/16 Pt states to be feel better states to have a cough, no fevers, chills, nausea, vomiting, diarrhea 07/25/16 left arm edema worse today iv iron has infiltrated in left subcut hand peripheral iv denies having chest pain, maury, nausea. No bm in the recent days PHYSICAL EXAM: . GENERAL APPEARANCE: Alert, oriented x3. Does not appear to be in distress. NECK: Supple. No JVD. Right arm there is 1+ pitting edema noted. Tender to palpation. Unable to perform any range of motion. LUNGS: Diminished breath sounds, however, no rhonchi, wheezing or crackles. HEART: S1, S2 heard. Regular rate and rhythm. No murmurs appreciated. ABDOMEN: Soft, nontender, no organomegaly. Bowel sounds intact. Anasarca noted NEUROLOGIC: No focal motor or sensory deficits noted. Right upper extremity tenderness due to the previous right humeral fracture. . Objective - Vital Signs Vital signs: Vital Signs Temp 97.5 F L 07/25/16 15:11 Pulse 90 07/25/16 15:11 Resp 20 07/25/16 15:11 BP 164/75 07/25/16 15:11 Pulse Ox 98 07/25/16 15:11 Intake & Output 07/24/16 07/25/16 07/25/16 18:59 06:59 18:59 Intake Total 200 1230 630 Output Total 100 1225 Balance 200 1130 -595 Weight 85.5 kg Intake: Intake, IV Titration 1230 150 Amount Levofloxacin 250Mg-D5w 50 50 Pmx 250 mg In Dextrose/ Water 1 50ml.bag @ 50 mls /hr IVPB Q48H [facility] Rx#: [id number] Sodium Chloride 0.45% 1, 1000 000 ml @ 50 mls/hr IV . Q20H [facility] Rx#:[id number] Sodium Chloride 0.9% 1, 180 000 ml @ 20 mls/hr IV . Q24H [facility] Rx#:[id number] Sodium Ferric Gluconat- 100 Sucrose 125 mg In Sodium Chloride 0.9% 100 ml @ 100 mls/hr IVPB DAILY@ 1200 [facility] Rx#:[id number] Oral 200 480 Output: Urine 100 1225 Straight 1050 Other: Voiding Method Bedpan Bedpan Bedpan # Voids 1 2 - Labs CBC & Chem 7: 07/25/16 05:57 07/25/16 05:57 Labs: Abnormal Lab Results - Last 24 Hours (Table) 07/24/16 07/24/16 07/25/16 Range/Units 16:42 21:31 02:09 WBC (3.8-10.6) k/uL RBC (3.80-5.40) m/uL Hgb (11.4-16.0) gm/dL Hct (34.0-46.0) % RDW (11.5-15.5) % Neutrophils # (1.3-7.7) k/uL Lymphocytes # (1.0-4.8) k/uL Sodium (137-145) mmol/L Potassium (3.5-5.1) mmol/L Chloride (98-107) mmol/L BUN (7-17) mg/dL Creatinine (0.52-1.04) mg/dL POC Glucose (mg/dL) 170 H 133 H 101 H (75-99) mg/dL 07/25/16 07/25/16 07/25/16 Range/Units 05:57 05:57 06:03 WBC 16.2 H (3.8-10.6) k/uL RBC 2.84 L (3.80-5.40) m/uL Hgb 7.3 L (11.4-16.0) gm/dL Hct 23.4 L (34.0-46.0) % RDW 16.3 H (11.5-15.5) % Neutrophils # 14.4 H (1.3-7.7) k/uL Lymphocytes # 0.7 L (1.0-4.8) k/uL Sodium 146 H (137-145) mmol/L Potassium 5.4 H (3.5-5.1) mmol/L Chloride 109 H (98-107) mmol/L BUN 66 H (7-17) mg/dL Creatinine 2.80 H (0.52-1.04) mg/dL POC Glucose (mg/dL) 113 H (75-99) mg/dL 07/25/16 07/25/16 Range/Units 11:15 16:40 WBC (3.8-10.6) k/uL RBC (3.80-5.40) m/uL Hgb (11.4-16.0) gm/dL Hct (34.0-46.0) % RDW (11.5-15.5) % Neutrophils # (1.3-7.7) k/uL Lymphocytes # (1.0-4.8) k/uL Sodium (137-145) mmol/L Potassium (3.5-5.1) mmol/L Chloride (98-107) mmol/L BUN (7-17) mg/dL Creatinine (0.52-1.04) mg/dL POC Glucose (mg/dL) 111 H 112 H (75-99) mg/dL Assessment and Plan Plan: ASSESSMENT AND PLAN: 1. Acute kidney injury.due to prerenal etiology 2. Right humeral comminuted fracture. 3. Chronic hypoxic hypercapnic respiratory failure. 4. Acute on chronic anemia appears to have some iron deficiency, previous hemoglobin was 8.9 on prior admission. 5. Previous lumpectomy. 6. Peripheral arterial disease. 7. Chronic obstructive pulmonary disease. 8. Dyslipidemia. 9. Accelerated hypertension, currently on this admission. 10. Generalized weakness. 11. CAP, acute PLAN: renal function stable will need a dose of lasix in the next 24 hrs hb stable moniter left arm, rule out dvt pain is controlled previous fracture no surgical intervention
[2016-07-25] MEDS ORDERED: LEVOFLOXACIN 250MG-D5W PMX 250 MG in DEXTROSE/WATER 1 50ML.BAG IVPB SCH (19:00)
[2016-07-25 21:11] LABS: Glucose,Whole Blood 114 mg/dL (75-99)
[2016-07-26 02:04] LABS: Glucose,Whole Blood 113 mg/dL (75-99)
[2016-07-26] MEDS: IPRATROPIUM-ALBUTEROL 3 ML NEB INHALATION PRN ×4 (03:56→16:49)
[2016-07-26] MEDS: HYDROmorphone 1 MG/ML 1 ML SYRINGE IVP PRN (04:38)
[2016-07-26 06:13] LABS: Glucose,Whole Blood 116 mg/dL (75-99)
[2016-07-26 06:21] LABS: Anisocytosis Slight; Basophils % (A) 0 %; CH 24.6; CHCM 29.3; Eosinophils # (A) 0.2 k/uL (0-0.7); Eosinophils % (A) 2 %; HCT 23.1 % (34.0-46.0); HDW 3.09; Hypochromasia Marked; Luc # (Auto) 0.18; Luc % (Auto) 1; Lymphocytes # (A) 0.5 k/uL (1.0-4.8); Lymphocytes % (A) 4 %; MCH 25.1 pg (25.0-35.0); MCHC 29.8 g/dL (31.0-37.0); MCV 84.5 fL (80.0-100.0); Monocytes # (A) 0.6 k/uL (0-1.0); Monocytes % (A) 4 %; Neutrophils # (A) 11.9 k/uL (1.3-7.7); Neutrophils % (A) 89 %; RBC 2.74 m/uL (3.80-5.40); RDW 16.2 % (11.5-15.5); WBC 13.3 k/uL (3.8-10.6); WBC (Perox) 14.31
[2016-07-26 06:27] LABS: Calcium 9.2 mg/dL (8.4-10.2); Potassium 4.8 mmol/L (3.5-5.1); Total Bilirubin 0.3 mg/dL (0.2-1.3); Total Protein 5.2 g/dL (6.3-8.2)
[2016-07-26 06:30] LABS: HGB 6.9 gm/dL (11.4-16.0)
[2016-07-26] MEDS: INSULIN LISPRO (humaLOG) 300 UNIT/3 ML VIAL SQ SCH ×4 (06:52→21:26)
--- NOTE | 2016-07-26 07:37 | XR ---
EXAMINATION TYPE: XR chest 1V portable DATE OF EXAM: 07/26/2016 CLINICAL HISTORY: Difficulty breathing progress study. TECHNIQUE: Single AP portable upright view of the chest is obtained. COMPARISON: Chest x-ray from 2 days earlier and older exam July 14, 2016 FINDINGS: There is persistent cardiomegaly. There is persistent bibasilar opacities. Diffuse interst itial prominence bilaterally is redemonstrated. There is new left upper lung lateral opacity. Suspect ed tiny bilateral pleural effusions with blunting of lateral costophrenic angles. Minimally displaced fracture deformity right proximal humerus is redemonstrated correlates with injury July 12, 2016. IMPRESSION: Suspect CHF exacerbation as there is cardiomegaly with suspected mild interstitial edema and tiny bilateral pleural effusions, clinical correlation advised. In addition there is right greate r than left bibasilar atelectasis and/or infiltrate and patchy lateral left upper lung infiltrate and /or edema felt present. Latter is new from prior study.
[2016-07-26] MEDS ORDERED: FUROSEMIDE 10 MG/ML 4 ML VIAL IV SCH (09:00)
[2016-07-26] MEDS: HYDROcodone/APAP 5-325MG 1 EACH TAB PO PRN ×3 (09:36→23:14)
[2016-07-26] MEDS: hydrALAZINE HCL 25 MG TAB PO SCH ×4 (09:39→21:26)
[2016-07-26] MEDS: HEPARIN SODIUM,PORCINE 5,000 UNIT/ML 1 ML VIAL SQ SCH (09:40)
[2016-07-26 11:34] LABS: Glucose,Whole Blood 123 mg/dL (75-99)
--- NOTE | 2016-07-26 11:57 | PN ---
Ms. Fan is an 81-year-old female who is being followed for acute renal failure secondary to acute tubular necrosis on underlying chronic kidney disease with baseline creatinine around 1.5. The patient initially admitted status post fall and has right arm fracture, which is currently immobilized. Patient seems to have a known history of obstructive sleep apnea and has been using CPAP at home; however, she has been refusing CPAP in the hospital as per nursing staff. Her mentations have been fluctuating. She could tell me where she is, what year and who is the President and then randomly, she will start talking conversations about picking papers from the floor and talking about the intermediate not answering appropriately. No overnight events as per staff. This morning hemoglobin found to be low 6.9 with severe iron deficiency. She has been started on Ferrlecit also. Clinically significant volume overload at present. Documented urine output yesterday around 1225 with negative of around 1 liter. VITAL SIGNS: Afebrile, heart rate 88 per minute, respiratory 18 per minute, blood pressure 121/55, sats 95% on room air. GENERAL APPEARANCE: The patient sitting up in bed with the head end raised. LUNGS: Decreased breath sounds at bases. CARDIOVASCULAR: Regular rate and rhythm. S1, S2. ABDOMEN: Soft, nontender. EXTREMITIES: Bilateral positive edema. LABS: Hemoglobin 6.9, hematocrit 23.1, WBC is 13.3, sodium 144, potassium 4.8, chloride 107, CO2 of 30, creatinine 2.7, blood glucose under 60. IMPRESSION: 1. Nonoliguric acute injury secondary to acute tubular necrosis, creatinine gradually improving. 2.7 today baseline at 1.5. 2. Chronic kidney disease stage III. Baseline creatinine 1.5, likely from ( ) nephrosclerosis. 3. Acute severe anemia with iron deficiency currently on IV Ferrlecit. Hemoglobin today down to 6.9. 4. Bilateral lower extremity edema competent could be related to Norvasc also. 5. Mental status changes, rule out any CO2 narcosis given the patient is CO2 retainer as per staff and has been on CPAP at home, also could be component of the pain medications ( ). RECOMMENDATIONS: 1. Discontinue IV fluids. 2. Trial of Lasix 40 IV b.i.d. 3. Type and cross and give 1 unit of packed RBCs if okay with medicine team. 4. Strict I's and O's with daily weight. 5. Repeat basic metabolic panel in the morning. 6. Check ABGs to rule out any CO2 retention. 7. Encourage the patient to use CPAP at night, although given her mentation at this time, unlikely to comprehend much. 8. Case discussed with the nursing staff.
[2016-07-26 13:30] LABS: ABG Base Excess 1.7 mmol/L; ABG HCO3 27 mmol/L (21-25); ABG PCO2 52 mmHg (35-45); ABG PH 7.33 (7.35-7.45); ABG PO2 95 mmHg (83-108); ABG TCO2 29 mmol/L (19-24)
[2016-07-26] MEDS ORDERED: FUROSEMIDE 40 MG TAB PO STA (14:09)
[2016-07-26 16:44] LABS: Glucose,Whole Blood 152 mg/dL (75-99)
[2016-07-26] MEDS: SODIUM FERRIC GLUCONAT-SUCROSE 125 MG in SODIUM CHLORIDE 0.9% 100 ML IVPB SCH (18:36)
[2016-07-26 21:06] LABS: Glucose,Whole Blood 122 mg/dL (75-99)
[2016-07-26] MEDS: FUROSEMIDE 40 MG TAB PO SCH (21:26)
[2016-07-27 02:17] LABS: Glucose,Whole Blood 103 mg/dL (75-99)
[2016-07-27 06:16] LABS: Anisocytosis Slight; Basophils % (A) 0 %; CH 24.8; CHCM 29.3; Eosinophils # (A) 0.3 k/uL (0-0.7); Eosinophils % (A) 2 %; HCT 22.8 % (34.0-46.0); HDW 2.99; Hypochromasia Marked; Luc # (Auto) 0.17; Luc % (Auto) 2; Lymphocytes # (A) 0.6 k/uL (1.0-4.8); Lymphocytes % (A) 5 %; MCH 25.9 pg (25.0-35.0); MCHC 30.6 g/dL (31.0-37.0); MCV 84.7 fL (80.0-100.0); Mean Platelet Volume 7.6; Monocytes # (A) 0.5 k/uL (0-1.0); Monocytes % (A) 4 %; Neutrophils # (A) 10.1 k/uL (1.3-7.7); Neutrophils % (A) 87 %; RBC 2.69 m/uL (3.80-5.40); RDW 16.7 % (11.5-15.5); WBC 11.6 k/uL (3.8-10.6); WBC (Perox) 11.89
[2016-07-27 06:18] LABS: Potassium 4.4 mmol/L (3.5-5.1)
[2016-07-27 06:22] LABS: Glucose,Whole Blood 118 mg/dL (75-99)
[2016-07-27] MEDS: INSULIN LISPRO (humaLOG) 300 UNIT/3 ML VIAL SQ SCH ×4 (06:33→22:04)
[2016-07-27] MEDS ORDERED: LIDOCAINE 2% INJ 20 MG/ML (20 ML MDV) ONE (08:06)
--- NOTE | 2016-07-27 08:11 | PN ---
DATE OF SERVICE: 07/26/2016 INTERVAL HISTORY: Mrs. Beltrán is an 81-year-old female with past medical history of COPD, diabetes mellitus, hypertension, thyroid disorder, chronic hypoxic respiratory failure, dyslipidemia, and a recent right humeral fracture sent to the hospital for abnormal labs and generalized weakness. The patient's creatinine was high when it was checked and so she has been sent to the hospital for further evaluation. Patient had a recent hospital stay 2 weeks back for right humerus fracture that is being managed conservatively. Patient had decreased urinary output and had also decreased p.o. intake. When they checked her labs her creatinine was around 3 and so sent to the hospital for further evaluation. Patient's creatinine at the time of discharge during previous hospital visit was 1.6. The patient is a poor historian so most of the history is taken from the nursing staff and previous notes. Per the nursing staff report, patient was having difficulty in IV access, so she did not get her Lasix and her respiratory status has been worsening. The patient was also refusing to take any p.o. medications. The patient's hemoglobin has been at around 7 and this morning it was found to be at 6.9, but no evidence of active bleeding. Patient has excessive bruising on the right side of the body. The patient is having significant edema in all her 4 extremities. Also there has been decreased urinary output. The patient was sitting in a chair beside her bed and states that she has been all over and mostly on the right side of her upper extremity. She appears to be confused at times and in talking to her she agreed to take p.o. Lasix along with pain medications and her blood pressure medications. Review of systems could not be done as the patient is a poor historian but definitely there is significant amount of fluid overload and mild expiratory distress. Patient's vitals: Temperature 96.2, heart rate 88, respiratory rate 18, blood pressure 192/80, saturating at 94% on 3 L of oxygen via nasal cannula. GENERAL EXAMINATION: She is sitting up in the chair beside her bed in mild respiratory discomfort. HEAD: The patient has periorbital edema. NECK: No JVD. HEART: S1, S2 heard. LUNGS: Patient has significant crackles in the lower lung bases and decreased breath sounds bilaterally. ABDOMEN: Soft. EXTREMITIES: Patient has significant edema in all her 4 extremities. Right upper extremity is attached to the right side of the chest with half of a binder. SCRAP SAWYER: She is alert, awake, oriented x2. No focal neurological deficits. SKIN: Patient has some bruising on the right side of her right upper extremity. Patient's labs: White count of 13.3, hemoglobin is 6.9, platelets of 306. ABG 7.3, 352, 95. Sodium 144, potassium 4.8, chloride 107, bicarb 30, BUN 58, creatinine 2.70. Patient's medications have been reviewed. She is on milk of magnesia, levofloxacin, Dilaudid, sliding scale of insulin, hydralazine, Lasix, sodium gluconate and IV albuterol, [place], Tylenol. ASSESSMENT AND PLAN: 1. Acute kidney injury most likely acute tubular necrosis. Creatinine gradually trending down. 2. Fluid overload. The patient's IV fluids have been discontinued and 40 mg p.o. Lasix has been given. The patient does not have IV access as of now. 3. 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 4. Iron deficiency anemia. Hemoglobin at 6.9. 5. Chronic hypoxic hypercapnic respiratory failure. 6. Peripheral arterial disease. 7. Right humeral neck fracture, comminuted, impacted. 8. Accelerated hypertension. 9. Chronic obstructive pulmonary disease. 10. Generalized weakness. PLAN: Plan is to discontinue the patient's IV fluids as there is significant volume overload. The patient was given 40 mg p.o. Lasix. Will try to get IV access. Patient did have right upper extremity Doppler done that was negative for deep venous thrombosis. Conservative management of the right humeral fracture as per ortho recommendations. Overall prognosis is poor. Patient is a NO CODE. Further recommendations to follow depending on the progress of the patient.
[2016-07-27] MEDS: HYDROcodone/APAP 5-325MG 1 EACH TAB PO PRN ×3 (08:18→21:10)
[2016-07-27] MEDS: hydrALAZINE HCL 25 MG TAB PO SCH ×3 (08:19→21:09)
[2016-07-27] MEDS: FUROSEMIDE 40 MG TAB PO SCH (08:19)
[2016-07-27] MEDS: IPRATROPIUM-ALBUTEROL 3 ML NEB INHALATION PRN (11:07)
--- NOTE | 2016-07-27 11:11 | XR ---
EXAMINATION TYPE: XR chest 1V DATE OF EXAM: 07/27/2016 CLINICAL HISTORY: Central line placement. TECHNIQUE: Single AP portable upright view of the chest is obtained. COMPARISON: Chest x-ray from one day earlier FINDINGS: There is new right internal jugular central venous catheter with tip at cavoatrial junctio n. There is persistent cardiomegaly. There is persistent patchy bibasilar opacities. Diffuse intersti tial prominence bilaterally is redemonstrated. There is improved aeration left upper lobe. Suspected tiny bilateral pleural effusions with blunting of lateral costophrenic angles. Minimally displaced fr acture deformity right proximal humerus is redemonstrated . IMPRESSION: No evidence of pneumothorax status post central line placement. Acute interstitial edema on background of chronic fibrosis felt present. Cardiomegaly with tiny bilateral pleural effusions re demonstrated.
[2016-07-27] MEDS: SODIUM FERRIC GLUCONAT-SUCROSE 125 MG in SODIUM CHLORIDE 0.9% 100 ML IVPB SCH (11:23)
[2016-07-27] MEDS: HYDROmorphone 1 MG/ML 1 ML SYRINGE IVP PRN ×3 (11:24→23:40)
[2016-07-27 11:35] LABS: Glucose,Whole Blood 125 mg/dL (75-99)
--- NOTE | 2016-07-27 13:41 | PN ---
The patient is being followed for acute kidney injury secondary to acute tubular necrosis, along with underlying CKD with baseline around 1.5. Yesterday the patient was started to have acute anemia, along with significant volume overload. Recommendations were for packed RBCs along with IV Lasix, however, per nursing staff, they were unable to get any IV access after multiple attempts. Patient is scheduled for possible Central line versus PICC line today. She was started on Lasix oral yesterday. Good urine output. Negative 1 L this morning. She did agree to using CPAP last although kept on trying to take it off. She is clinically looking much better today. No other overnight events. VITAL SIGNS: Afebrile, blood pressure 144/63, sats 93 on CPAP. Input and output negative 1 L. GENERAL APPEARANCE: The patient is currently on CPAP. No acute distress. LUNGS: Clear to auscultation bilaterally. CARDIOVASCULAR: Regular rate and rhythm. S1, S2. ABDOMEN: Soft, nontender. EXTREMITIES: Positive edema. LABORATORY DATA: Hemoglobin 7.0, WBC 11.6, RBCs 2.69, sodium 147, potassium 4.4, creatinine 2.8. IMPRESSION: 1. Nonoliguric acute kidney injury secondary to acute tubular necrosis, creatinine has been stable from the last few days with creatinine around 2.8. 2. Chronic kidney disease, baseline creatinine 1.5, likely from arterial nephrosclerosis. 3. Valium overload with lower extremity edema, currently on oral Lasix started July 26, 2016 given lack of IV access maintaining negative balance. 4. Acute severe anemia with iron deficiency currently on IV Ferrlecit. Plan for packed RBCs today. Yesterday, could not be done given no IV access. 5. Her mental status changes improved and used CPAP last night. RECOMMENDATIONS: 1. Once IV access placed, recommend switching Lasix to IV 40 b.i.d. 2. The CPAP only at nighttime. Can take off during the daytime, further recommendations per pulmonology. 3. Continue to monitor strict input and output. Sykes was placed July 25, 2016. 4. Repeat BMP in the morning. Thank you, Dr. Cordoba for allowing me to participate in the care of this patient. We will follow the patient with you.
--- NOTE | 2016-07-27 15:48 | CONS ---
DATE OF CONSULTATION: 07/27/2016. REASON FOR CONSULTATION: 1. Chronic hypoxic respiratory failure. 2. Severe chronic obstructive pulmonary disease. 3. Obstructive sleep apnea. 4. Poor peripheral IV access. HISTORY OF PRESENTING ILLNESS: Ms. Misty Beltrán is an 81-year-old female who is seen, evaluated, examined on the stepdown unit for problems as dictated above. The patient has frequent falls, she had a right humeral fracture as well. Has a binder across the chest as well for immobilization. Patient has very poor peripheral access, extensive edema and erythema on bilateral extremities has been noted. Multiple attempts to obtain peripheral IV has been unsuccessful as well. Patient has been having chronic shortness of breath. She has been on breathing treatments and supplemental oxygen. She feels that her shortness of breath is not much different from baseline. Patient overall is a poor historian, not much data can be on obtained from her. Most of the data has been obtained from the chart. Patient presented into the emergency department on 07/22/2016 with abnormal labs, generalized weakness and dehydration. Past medical history is significant for COPD, chronic hypoxic respiratory failure, obstructive sleep apnea, obesity hypoventilation. The patient has been on home oxygen as well. Patient also has diabetes mellitus type 2, dyslipidemia, hypertension, hypertensive cardiovascular disease, prior myocardial infarction. Degenerative joint disease, osteoarthritis, thyroid disorder, history of left breast cancer, chronic sinusitis, history of thyroid nodule, chronic renal failure, which is being monitored and observed as well, history of chronic anemia now worsening. PAST SURGICAL HISTORY: Significant for right-sided carotid endarterectomy, history of lumpectomy and radiation therapy, left knee arthroscopic surgery, right knee arthroplasty, bilateral cataract extraction, history of EGD and esophageal dilatation. ALLERGIES: DOXYCYCLINE AND GLUCOSAMINE, IV DYE, SULFA MEDICATIONS AND BACLOFEN. Medications at home include: 1. Multivitamin. 2. Breo once daily. 3. DuoNeb unit dose updraft 4 times a day. 4. Sertraline 50 mg daily. 5. Hydralazine 50 mg 2 times a day. 6. Plavix 75 mg daily. 7. Pepcid 20 mg daily. 8. Tramadol 50 mg daily. Current medications while in the hospital include: 1. Tylenol as needed. 2. Tylenol with Codeine 4 times a day. 3. DuoNeb unit dose 4 times a day. 4. Iron sulfate, but Iron IV cannot be given due to lack of IV access. 5. Lasix 40 mg daily. 6. Hydralazine 25 mg daily. 7. Dilaudid for pain control. 8. Sliding scale insulin. 9. Levaquin 250 every other day. 10. Milk of magnesia. Patient is due for 2 units of blood transfusion and could not be given due to lack of IV access. FAMILY HISTORY AND SOCIAL HISTORY: Significant for extensive smoking and nicotine use. Both parents are . The patient quit smoking about 15 to 20 years ago. No history of substance used. Family history is significant for coronary artery disease on paternal side, history of lung problems, chronic obstructive pulmonary disease on maternal side. On examination, her most recent vitals include blood pressure is 154/63, respiratory rate 20, pulse 90, temperature is 96, saturation 93% on 3 liters oxygen. HEENT EXAMINATION: Narrow pharyngeal opening is present. Oral mucosa is on the drier tender side. NECK: Supple. Prior evidence of right-sided carotid endarterectomy. HEART: Regular rate and rhythm. S1 and S2 audible. ABDOMEN: Soft. EXTREMITIES: Extensive edema and swelling of the upper extremities is present. +1 edema in the lower extremities as well. LUNGS: Bilateral poor entry is present without significant rales, rhonchi, or rub. HEART: Regular rate and rhythm. NEUROLOGICAL EXAMINATION: Awake, opens eyes. Follows simple commands. Moving all 4 extremities. Upper extremity requires transthoracic band. Last chest x-ray performed yesterday, reviewed and compared with the prior x-ray revealed CHF-like changes, cardiomegaly, interstitial edema. Very small bilateral pleural effusion, bibasilar atelectasis and infiltrate cannot be excluded. Left upper lobe infiltrate also noted as well. Duplex ultrasound of the lower extremity revealed no evidence of DVT in the right lower extremity, patency demonstrative, jugular subclavian axillary and brachial veins. Shoulder x-ray right shoulder moderately displaced proximal humerus fracture. IMPRESSION: 1. Severe chronic obstructive pulmonary disease, acute on chronic hypoxic respiratory failure. 2. Recurrent falls with right humeral fracture. 3. Bibasilar atelectasis with small effusion doubt pneumonia being an issue. However, will monitor and observe closely. Okay to use of empiric antibiotics at this point of time in the form of Levaquin. 4. Bilateral upper extremity edema with swelling and inability to obtain peripheral IV. We will consider placing a triple lumen catheter. 5. Severe anemia and chronic renal failure with BUN and creatinine 58 and 2.8. The patient is for blood transfusion 2 units. 6. Morbid obesity. Obstructive sleep apnea with component of obesity hypoventilation. Will monitor and observe clinical course closely. The patient is advised to continue the CPAP machine. We will follow clinical course closely. Further recommendations pending.
[2016-07-27 16:53] LABS: Glucose,Whole Blood 207 mg/dL (75-99)
[2016-07-27] MEDS ORDERED: LEVOFLOXACIN 250 MG TAB PO SCH (17:00)
[2016-07-27 21:32] LABS: Glucose,Whole Blood 119 mg/dL (75-99)
[2016-07-27] MEDS: FUROSEMIDE 10 MG/ML 4 ML VIAL IV SCH (23:28)
[2016-07-28 02:21] LABS: Glucose,Whole Blood 104 mg/dL (75-99)
[2016-07-28 06:03] LABS: Glucose,Whole Blood 117 mg/dL (75-99)
[2016-07-28] MEDS: INSULIN LISPRO (humaLOG) 300 UNIT/3 ML VIAL SQ SCH ×4 (06:04→21:24)
[2016-07-28 07:00] LABS: Anisocytosis Slight; Basophils % (A) 0 %; CH 24.9; CHCM 30.6; Eosinophils # (A) 0.4 k/uL (0-0.7); Eosinophils % (A) 3 %; HCT 23.3 % (34.0-46.0); HDW 3.18; HGB 7.1 gm/dL (11.4-16.0); Hypochromasia Marked; Luc # (Auto) 0.22; Luc % (Auto) 2; Lymphocytes # (A) 0.7 k/uL (1.0-4.8); Lymphocytes % (A) 5 %; MCH 24.9 pg (25.0-35.0); MCHC 30.5 g/dL (31.0-37.0); MCV 81.7 fL (80.0-100.0); Mean Platelet Volume 7.5; Monocytes # (A) 0.7 k/uL (0-1.0); Monocytes % (A) 5 %; Neutrophils # (A) 12.4 k/uL (1.3-7.7); Neutrophils % (A) 86 %; RBC 2.85 m/uL (3.80-5.40); RDW 16.8 % (11.5-15.5); WBC 14.4 k/uL (3.8-10.6); WBC (Perox) 14.99
[2016-07-28 07:26] LABS: Potassium 4.1 mmol/L (3.5-5.1)
--- NOTE | 2016-07-28 07:59 | PCN ---
DATE OF PROCEDURE: 07/27/2016 PROCEDURE: Central line placement. INDICATIONS: 1. Severe anemia. 2. Severe chronic obstructive pulmonary disease, emphysema. 3. Poor IV access. 4. History of breast cancer. OPERATIVE DETAIL: Patient was prepared and draped in the usual fashion. Informed consent obtained from the patient as well as daughter present at bedside. Procedure explained to the patient at length. On the right anterior lateral part of the neck was thoroughly cleaned. Ultrasound was utilized to confirm the presence of an internal jugular vein. After identifying the location of the internal jugular vein, the area was thoroughly cleaned. Maximum barrier protection was performed, 1% lidocaine was infiltrated into anterior lateral wall of the neck at the anterior border of sternocleidomastoid. Using a modified Seldinger technique triple-lumen catheter inserted into the right internal jugular vein without any difficulty. All 3 ports were flushed, secured with #3 silk. Patient tolerated the procedure well. No complication noted. Chest x-ray post-procedure is pending.
--- NOTE | 2016-07-28 08:12 | XR ---
EXAMINATION TYPE: XR chest 1V portable DATE OF EXAM: 07/28/2016 COMPARISON: Prior chest x-ray 07/27/2016 HISTORY: Right lower lobe pneumonia TECHNIQUE: Single frontal view of the chest is obtained. FINDINGS: Right-sided jugular central venous catheter is again noted, heart remains enlarged. There are overlying cardiac leads. No evident pneumothorax or pleural effusion. Interstitium mildly increas ed. Prominent lung volumes could be indicative of COPD. Patient is rotated. Patchy basilar density pr esent. IMPRESSION: Similar to previous exam. Consider PA and lateral chest x-ray for better evaluation.
[2016-07-28] MEDS: HYDROcodone/APAP 5-325MG 1 EACH TAB PO PRN ×2 (08:53→22:30)
[2016-07-28] MEDS: hydrALAZINE HCL 25 MG TAB PO SCH ×3 (08:54→22:31)
[2016-07-28] MEDS: FUROSEMIDE 10 MG/ML 4 ML VIAL IV SCH ×2 (08:54→21:21)
--- NOTE | 2016-07-28 10:22 | P.PN ---
Subjective This is an 81-year-old female who is being seen, evaluated and examined today on the selective care unit. Patient is known to have frequent falls, she has a right humeral fracture as well. She also has abdominal binder across the chest wall for immobilization. Patient had very poor peripheral access, extensive edema and erythema on bilateral extremities also was noted. Multiple attempts to obtain a peripheral AP had been unsuccessful and patient underwent a central line placement yesterday. Patient also did receive 2 units of packed red blood cells for anemia this admission. Currently the patient is using 3 L of supplemental oxygen. Patient states she uses 3 L of oxygen at home as well. Patient continues to use CPAP machine at night and when necessary. Patient currently denies any cough or sputum production. Objective - Vital Signs Vital signs: Vital Signs Temp 97.1 F L 07/28/16 00:00 Pulse 86 07/28/16 04:00 Resp 20 07/28/16 04:00 BP 136/62 07/28/16 04:00 Pulse Ox 93 L 07/28/16 04:00 Intake & Output 07/27/16 07/28/16 07/28/16 18:59 06:59 18:59 Intake Total 75 100 120 Output Total 2800 900 Balance -2725 -800 120 Weight 83 kg Intake: Oral 75 100 120 Output: Urine 2800 900 Other: Voiding Method Indwelling Catheter Indwelling Catheter # Bowel Movements 0 - Exam GENERAL EXAM: Alert, comfortable in no apparent distress. HEAD: Normocephalic. EYES: Normal reaction of pupils, equal size. NOSE: Clear with pink turbinates. THROAT: No erythema or exudates. NECK: No masses, no JVD. Triple-lumen central line present CHEST: No chest wall deformity. Binder in place LUNGS: Bilateral poor air entry is present. Is diminished. CVS: S1 and S2 normal with no audible mumurs, regular rhythm. ABDOMEN: No hepatosplenomegaly, normal bowel sounds, no guarding or rigidity. EXTREMITIES: Bilateral upper extremity edema noted, pedal pulses palpable. SKIN: No rashes CENTRAL NERVOUS SYSTEM: No focal deficits, tone is normal in all 4 extremities. - Labs CBC & Chem 7: 07/28/16 06:03 07/28/16 06:03 Labs: Abnormal Lab Results - Last 24 Hours (Table) 07/26/16 07/27/16 07/27/16 Range/Units 07:19 11:34 16:50 WBC (3.8-10.6) k/uL RBC (3.80-5.40) m/uL Hgb (11.4-16.0) gm/dL Hct (34.0-46.0) % MCH (25.0-35.0) pg MCHC (31.0-37.0) g/dL RDW (11.5-15.5) % Neutrophils # (1.3-7.7) k/uL Lymphocytes # (1.0-4.8) k/uL Sodium (137-145) mmol/L Carbon Dioxide (22-30) mmol/L BUN (7-17) mg/dL Creatinine (0.52-1.04) mg/dL Glucose (74-99) mg/dL POC Glucose (mg/dL) 125 H 207 H (75-99) mg/dL Crossmatch See Detail 07/27/16 07/28/16 07/28/16 Range/Units 21:12 02:20 06:00 WBC (3.8-10.6) k/uL RBC (3.80-5.40) m/uL Hgb (11.4-16.0) gm/dL Hct (34.0-46.0) % MCH (25.0-35.0) pg MCHC (31.0-37.0) g/dL RDW (11.5-15.5) % Neutrophils # (1.3-7.7) k/uL Lymphocytes # (1.0-4.8) k/uL Sodium (137-145) mmol/L Carbon Dioxide (22-30) mmol/L BUN (7-17) mg/dL Creatinine (0.52-1.04) mg/dL Glucose (74-99) mg/dL POC Glucose (mg/dL) 119 H 104 H 117 H (75-99) mg/dL Crossmatch 07/28/16 07/28/16 Range/Units 06:03 06:03 WBC 14.4 H (3.8-10.6) k/uL RBC 2.85 L (3.80-5.40) m/uL Hgb 7.1 L (11.4-16.0) gm/dL Hct 23.3 L (34.0-46.0) % MCH 24.9 L (25.0-35.0) pg MCHC 30.5 L (31.0-37.0) g/dL RDW 16.8 H (11.5-15.5) % Neutrophils # 12.4 H (1.3-7.7) k/uL Lymphocytes # 0.7 L (1.0-4.8) k/uL Sodium 146 H (137-145) mmol/L Carbon Dioxide 31 H (22-30) mmol/L BUN 58 H (7-17) mg/dL Creatinine 2.57 H (0.52-1.04) mg/dL Glucose 106 H (74-99) mg/dL POC Glucose (mg/dL) (75-99) mg/dL Crossmatch Assessment and Plan Plan: Assessment Severe chronic obstructive pulmonary disease Acute on chronic hypoxic respiratory failure Recent falls with right humeral fracture Bibasilar atelectasis with small effusion doubt pneumonia Severe anemia Chronic renal failure Morbid obesity Obstructive sleep apnea with component of obesity hypoventilation Plan Medications have been reviewed and will be continued as ordered. Continue with pulmonary hygiene, coughing and deep breathing exercises, and supportive care. Supplemental oxygen to maintain oxygen saturations of 92% or better. Continue nebulizer treatments. Continue with antibiotics. GI and DVT prophylaxis. Continue CPAP machine. Initiate and encourage incentive spirometer. We will continue to monitor labs/results and adjust treatment as necessary. Further recommendations pending. I performed an examination of the patient and discussed their management with the nurse practitioner. I have reviewed the nurse practitioner's note and agree with the documented findings and plan of care.
--- NOTE | 2016-07-28 10:34 | PN ---
DATE OF SERVICE: 07/27/2016 INTERVAL HISTORY: Mrs. Beltrán is an 81-year-old female with a past medical history of COPD, diabetes mellitus, hypertension, thyroid disorder, chronic hypoxic respiratory failure, dyslipidemia, recent history of right humeral fracture, sent to the hospital for abnormal labs and generalized weakness. Patient's creatinine was high and so her sent her to the hospital for further evaluation. Patient was given IV fluids in view of her elevated creatinine, but eventually patient was in fluid overload. Yesterday, the patient was supposed to get IV Lasix, but had a problem getting IV access, so she was given p.o. Lasix and she did have a negative balance of 1 L of fluid. As they tried multiple times to get an IV access on the patient, she developed a bruise on the left antecubital fossa. There is significant redness. Eventually they had to put in a central line. She has a right IJ in place currently. The patient is lying in her bed, states that her difficulty in breathing is improved to some extent but still feels pretty weak and tired. REVIEW OF SYSTEMS: CONSTITUTIONAL: She denies having any fevers, chills, or rigors. RESPIRATORY: Difficulty in breathing is present, no cough. CARDIAC: No chest pain. No palpitations. GI: No abdominal pain, nausea, vomiting, or diarrhea. DINING SERVICE INSPECTOR: Patient complains of generalized weakness and also pain in her right upper extremity. Patient's medications have been reviewed. She is on Tylenol, Dickens, DuoNeb, Lasix, hydralazine, Dilaudid, sliding scale of insulin, levofloxacin, milk of magnesia. Patient's vitals: Temperature 97.6, heart rate 88, respiratory rate 18, blood pressure 136/62, saturating at 96% on 3 L of nasal cannula. GENERAL EXAMINATION: Patient is lying in bed, appears to be in no acute distress. HEAD: Atraumatic, normocephalic, there is periorbital edema. NECK: No JVD. HEART: S1, S2 heard. LUNGS: Significant crackles in the lower lung bases. Decreased breath sounds bilaterally. ABDOMEN: Soft. EXTREMITIES: Patient has significant edema in all her 4 extremities. Right upper extremity is attached to the right side of the chest with abdominal binder. The left upper extremity has redness in the antecubital fossa and positive for mild tenderness. DINING SERVICE INSPECTOR: She is alert, awake, oriented x2 to 3. No focal neurological deficits. Patient's labs: White count of 11.6, hemoglobin is 7, platelets of 295. Sodium 147, potassium 4.4, chloride 107, bicarb 30, BUN 58, creatinine 2.80. ASSESSMENT AND PLAN: 1. Acute kidney injury, most likely acute tubular necrosis, creatinine gradually trending down. 2. Fluid overload, probably due to the IV fluids. The patient did get 40 mg p.o. Lasix yesterday, showed significant negative balance of 1 L. As the patient has IV access now, will continue with IV Lasix. 3. Chronic kidney disease stage III most likely from hypertensive nephrosclerosis. 4. Iron deficiency anemia, hemoglobin at 7. 5. Chronic hypoxic and hypercapnic respiratory failure. 6. Peripheral arterial disease. 7. Right humerus fracture, comminuted, impacted. 8. Accelerated hypertension. 9. Chronic obstructive pulmonary disease. 10. Generalized weakness. 11. Severe protein calorie malnutrition. PLAN: The patient's IV fluids have been discontinued. She is currently getting IV Lasix. We are trying to diurese her, but there is significant third spacing as the patient's albumin level is 3. Consider the management of the right humerus fracture as per Orthopedic recommendation. Patient is on levofloxacin which will cover the organisms in case she has cellulitis of the left antecubital fossa. But if the patient's rhythm increases or she develops a fever, tachycardia, will need to change the antibiotic. Overall, prognosis is poor. Patient is NO CODE. Further recommendations to follow depending on the progress of the patient.
[2016-07-28] MEDS: IPRATROPIUM-ALBUTEROL 3 ML NEB INHALATION PRN ×2 (11:13→15:28)
[2016-07-28 11:31] LABS: Glucose,Whole Blood 122 mg/dL (75-99)
--- NOTE | 2016-07-28 11:55 | PN ---
Patient is seen for follow-up for acute kidney injury. Patient is currently lying in bed. She is comfortable. An IV access was obtained and currently patient is maintained on IV Lasix since her volume status worsened over the weekend. She has significant edema all 4 extremities. Currently patient is not significantly short of breath. On examination, blood pressure is 169/76, heart rate 84 per minute. She is afebrile. Examination of the heart S1 and S2. Examination of the lungs: Bilateral breath sounds are heard. ABDOMEN: Soft, nontender. Examination of lower extremities shows edema 2+ bilaterally. In the extremities there is significant edema in right upper extremity but also her left upper extremity is swollen. CONFERENCE PLANNING MANAGER exam is grossly intact. Labs show sodium 146, potassium 4.1, BUN 58, serum creatinine 2.57. Hemoglobin 7.1 g/dL. ASSESSMENT: 1. Acute kidney injury, most likely acute tubular necrosis, currently nonoliguric, maintained on Lasix which I will continue for now. 2. Hypertension, partly volume sensitive, continue with hydralazine. 3. Fracture of the right humerus. Currently immobilized arm. 4. Anemia with evidence of significant iron deficiency, maintained on IV iron. PLAN: Continue with IV Lasix. Repeat labs in a.m.
[2016-07-28] MEDS: HYDROmorphone 1 MG/ML 1 ML SYRINGE IVP PRN (15:51)
[2016-07-28] MEDS: DOCUSATE 100 MG CAP PO SCH (15:55)
[2016-07-28 16:20] LABS: Glucose,Whole Blood 147 mg/dL (75-99)
[2016-07-28] MEDS: CARVEDILOL 6.25 MG TAB PO SCH (17:52)
[2016-07-28 20:36] LABS: Glucose,Whole Blood 150 mg/dL (75-99)
[2016-07-29 02:06] LABS: Glucose,Whole Blood 130 mg/dL (75-99)
[2016-07-29] MEDS: HYDROcodone/APAP 5-325MG 1 EACH TAB PO PRN ×2 (05:15→20:12)
[2016-07-29 06:14] LABS: Glucose,Whole Blood 129 mg/dL (75-99)
[2016-07-29] MEDS: CARVEDILOL 6.25 MG TAB PO SCH ×2 (06:43→17:12)
[2016-07-29] MEDS: IPRATROPIUM-ALBUTEROL 3 ML NEB INHALATION PRN ×2 (07:28→19:59)
[2016-07-29 07:32] LABS: Potassium 3.9 mmol/L (3.5-5.1)
--- NOTE | 2016-07-29 07:37 | PN ---
DATE OF SERVICE: 07/28/2016 INTERVAL HISTORY: This is an 81-year-old female with the past medical history of COPD, diabetes mellitus, hypertension, thyroid disorder, chronic hypoxic respiratory failure, dyslipidemia and recent history of right humeral fracture, sent to the hospital for abnormal labs and generalized weakness. Patient's creatinine was high and she was given IV fluids but eventually patient was in fluid overload. Patient's IV fluids have been discontinued and as she initially had difficulty in getting an IV access, she was given p.o. Lasix which was then later changed to IV Lasix since yesterday. Patient is diuresing appropriately. Patient also developed a bruise on the left arm ( ) fossa due to multiple tries for getting and IV access which seems to be prudent today. The patient has a central line in place, it is the right IJ. Today, patient is lying in bed, states that ( ) but has generalized weakness and fatigue. REVIEW OF SYSTEMS: CONSTITUTIONAL: Denies having a fever, chills, or rigors. RESPIRATORY: Difficulty in breathing is better, no cough. CARDIAC: No chest pain or palpitations. GI: No abdominal pain, nausea, vomiting or diarrhea. RESEARCH PROJECT COORDINATOR: Patient denies having any focal weakness. Patient's medications have been reviewed. On examination, patient's vital signs, temperature is 96.6, heart rate 90, respiratory rate is 18, blood pressure 159/71, saturating at 94% on 2 L nasal cannula. GENERAL EXAMINATION: Patient is lying in bed, appears to be no acute distress. ( ) NECK: No JVD. HEART: S1, S2 heard. LUNGS: Significant breath sounds in the lung bases. ABDOMEN: Soft. EXTREMITIES: Patient has significant ( ) extremities. Right upper extremity is attached to the right side of the chest with an abdominal binder. Patient's left upper extremity has an ( ). Patient's labs: White count of 14.4, hemoglobin of 9.1, platelets of 346, sodium 145, potassium 4.1, bicarb 31, BUN 58, creatinine 2.75. ASSESSMENT AND PLAN: 1. Acute kidney injury, most likely acute tubular necrosis, creatinine gradually trending down. 2. Fluid overload secondary to IV fluids. Patient is currently on IV Lasix and diuresing currently. 3. Chronic kidney disease stage III, most likely from hypertensive nephrosclerosis. 4. Iron deficiency anemia, hemoglobin is ( ). 5. Chronic hypoxic and hypercapnic respiratory failure. 6. Peripheral arterial disease. 7. Right humeral fracture, comminuted, impacted. 8. Relative hypertension. 9. Chronic obstructive pulmonary disease. 10. Generalized weakness. 11. Mild protein calorie malnutrition. PLAN: The patient is currently getting IV Lasix and diuresing. Patient also ( ). Continue the management for her right humeral fracture. Patient is on Levaquin which will be continued. Patient's blood pressure has been running high, therefore a ( ) medication regimen. Patient is ( ).
[2016-07-29] MEDS: INSULIN LISPRO (humaLOG) 300 UNIT/3 ML VIAL SQ SCH ×4 (07:41→23:24)
[2016-07-29 08:47] LABS: Anisocytosis Slight; Basophils % (A) 0 %; CH 25.1; CHCM 30.8; Eosinophils # (A) 0.4 k/uL (0-0.7); Eosinophils % (A) 3 %; HCT 23.4 % (34.0-46.0); HDW 3.15; HGB 7.2 gm/dL (11.4-16.0); Hypochromasia Moderate; Luc # (Auto) 0.19; Luc % (Auto) 1; Lymphocytes # (A) 0.7 k/uL (1.0-4.8); Lymphocytes % (A) 5 %; MCH 25.2 pg (25.0-35.0); MCHC 30.7 g/dL (31.0-37.0); MCV 81.9 fL (80.0-100.0); Mean Platelet Volume 7.4; Monocytes # (A) 0.7 k/uL (0-1.0); Monocytes % (A) 5 %; Neutrophils % (A) 86 %; RBC 2.86 m/uL (3.80-5.40); RDW 17.2 % (11.5-15.5); WBC (Perox) 14.58
[2016-07-29] MEDS: DOCUSATE 100 MG CAP PO SCH (09:26)
[2016-07-29] MEDS: FUROSEMIDE 10 MG/ML 4 ML VIAL IV SCH ×2 (09:26→23:23)
[2016-07-29] MEDS: hydrALAZINE HCL 25 MG TAB PO SCH ×2 (09:26→12:54)
[2016-07-29 11:37] LABS: Glucose,Whole Blood 145 mg/dL (75-99)
--- NOTE | 2016-07-29 13:09 | CDI ---
In responding to this query, please exercise your independent professional judgment. The [facility] Coding Staff and Clinical Documentation Specialists appreciate your assistance in clarifying documentation, maintaining compliance with coding guidelines, accurately documenting patients condition and capturing severity of illness. The fact that a question is asked does not imply that any particular answer is desired or expected. Communication forms are a method of clarifying documentation and are not made part of the Legal Health Record. Thank you in advance for your clarification. Last Revision, April 2016 Tammy Talbert [address] [address] Documentation Clarification Form Date: 07/29/2016 12:49:00 PM From: Sandra Angeles RN, CCDS Admit Date: 07/22/2016 10:23:00 PM Patient Name: Mita Beltrán Visit Number: [id number] Dr. Ny Schreiber/ Dr. Rocha Fluid Overload is documented in multiple progress notes and requires further clairification.. History/Risk Factors: COPD, DM, dyslipidemia, htn, [place], thyroid disorder and chronic hypoxic respirtatory failure Clinical Indicators: 04/15 Echocardiogram Results :EF 60-65% Chest X Ray: cardiomegly and bilateral pleural effussions Treatment: Lasix 40mg IVP In your professional opinion, can you please clarify the acuity and type of CHF if known? Systolic Heart Failure: Acute Chronic Acute on Chronic Diastolic Heart Failure: Acute Chronic Acute on Chronic Systolic & Diastolic Heart Failure: Acute Chronic Acute on Chronic Unable to determine Other, please specify Please document in your progress notes and discharge summary in order to capture severity of illness and risk of mortality. Include clinical findings that support your diagnosis. FYI: Press F11 to launch patient chart. Place X here if this finding has no clinical significance, is not applicable or if you are not able to provide any additional documentation. CHRIS
[2016-07-29] MEDS ORDERED: amLODIPine 5 MG TAB PO SCH (13:30)
[2016-07-29] MEDS ORDERED: hydrALAZINE HCL 50 MG TAB PO STA (13:56)
[2016-07-29] MEDS ORDERED: FUROSEMIDE 10 MG/ML 4 ML VIAL IV STA (13:57)
[2016-07-29] MEDS ORDERED: LEVOFLOXACIN 250MG-D5W PMX 250 MG in DEXTROSE/WATER 1 50ML.BAG IVPB SCH (16:00)
[2016-07-29] MEDS: hydrALAZINE HCL 50 MG TAB PO SCH ×2 (16:02→23:24)
--- NOTE | 2016-07-29 16:44 | P.PN ---
Subjective REASON FOR ADMISSION: Abnormal labs and generalized weakness. HISTORY OF PRESENT ILLNESS: This is an 81-year-old female who was sent in for evaluation with abnormal labs. Patient apparently sustained a fall with a right humerus fracture in the past. Patient apparently has a history of COPD is maintained on medications by Dr. Hills. Patient recently in the hospital was noted to have acute kidney injury. However, creatinine was stable around 1.6 at that time of discharge. Patient comes into the hospital with abnormal labs, including creatinine of 3.16 and a BUN of 82 with generalized weakness. Patient states that her urine output has been decreasing. Denies having any abdominal pain, fevers, chills, chest pain, difficulty breathing, nausea, vomiting, or diarrhea. Past medical history includes COPD, diabetes mellitus, dyslipidemia, hypertension, [place], thyroid disorder and chronic hypoxic respiratory failure and a recent right humeral fracture. 07/24/16 Pt states to be feel better states to have a cough, no fevers, chills, nausea, vomiting, diarrhea 07/25/16 left arm edema worse today iv iron has infiltrated in left subcut hand peripheral iv denies having chest pain, maury, nausea. No bm in the recent days Hospital course Patient's renal function appears to be stable however her blood pressures have been elevated today Patient is currently on hydralazine 75 mg by mouth 3 times a day Lasix 40 mg IV twice a day and Corag 3.125 twice a day Patient continues to have significant anasarca No overnight events on the telemetry No headaches nausea vomiting diarrhea reported patient has a Sykes catheter in place PHYSICAL EXAM: . GENERAL APPEARANCE: Alert, oriented x3. Does not appear to be in distress. NECK: Supple. No JVD. Anasarca noted Tender to palpation. Unable to perform any range of motion. LUNGS: Diminished breath sounds, however, no rhonchi, wheezing or crackles. HEART: S1, S2 heard. Regular rate and rhythm. No murmurs appreciated. ABDOMEN: Soft, nontender, no organomegaly. Bowel sounds intact. Anasarca noted NEUROLOGIC: No focal motor or sensory deficits noted. Right upper extremity tenderness due to the previous right humeral fracture. . Objective - Vital Signs Vital signs: Vital Signs Temp 97.2 F L 07/29/16 04:00 Pulse 77 07/29/16 12:00 Resp 18 07/29/16 12:00 BP 198/83 07/29/16 12:00 Pulse Ox 97 07/29/16 12:00 Intake & Output 07/28/16 07/29/16 07/29/16 18:59 06:59 18:59 Intake Total 480 120 Output Total 2100 2400 Balance -1620 -2280 Weight 79.5 kg 79.5 kg Intake: Oral 480 120 Output: Urine 2100 2400 Straight 2400 Other: Voiding Method Indwelling Catheter Indwelling Catheter Indwelling Catheter # Voids 1 - Labs CBC & Chem 7: 07/29/16 06:06 07/29/16 06:06 Labs: Abnormal Lab Results - Last 24 Hours (Table) 07/28/16 07/29/16 07/29/16 Range/Units 20:35 02:04 06:06 WBC 14.0 H (3.8-10.6) k/uL RBC 2.86 L (3.80-5.40) m/uL Hgb 7.2 L (11.4-16.0) gm/dL Hct 23.4 L (34.0-46.0) % MCHC 30.7 L (31.0-37.0) g/dL RDW 17.2 H (11.5-15.5) % Neutrophils # 12.0 H (1.3-7.7) k/uL Lymphocytes # 0.7 L (1.0-4.8) k/uL Carbon Dioxide (22-30) mmol/L BUN (7-17) mg/dL Creatinine (0.52-1.04) mg/dL Glucose (74-99) mg/dL POC Glucose (mg/dL) 150 H 130 H (75-99) mg/dL 07/29/16 07/29/16 07/29/16 Range/Units 06:06 06:13 11:34 WBC (3.8-10.6) k/uL RBC (3.80-5.40) m/uL Hgb (11.4-16.0) gm/dL Hct (34.0-46.0) % MCHC (31.0-37.0) g/dL RDW (11.5-15.5) % Neutrophils # (1.3-7.7) k/uL Lymphocytes # (1.0-4.8) k/uL Carbon Dioxide 34 H (22-30) mmol/L BUN 54 H (7-17) mg/dL Creatinine 2.36 H (0.52-1.04) mg/dL Glucose 110 H (74-99) mg/dL POC Glucose (mg/dL) 129 H 145 H (75-99) mg/dL Assessment and Plan Plan: ASSESSMENT AND PLAN: 1. Acute kidney injury.due to prerenal etiology 2. Right humeral comminuted fracture. 3. Chronic hypoxic hypercapnic respiratory failure. 4. Acute on chronic anemia appears to have some iron deficiency, previous hemoglobin was 8.9 on prior admission. 5. Previous lumpectomy. 6. Peripheral arterial disease. 7. Chronic obstructive pulmonary disease. 8. Dyslipidemia. 9. Accelerated hypertension, currently on this admission. 10. Generalized weakness. 11. CAP, acute PLAN: Continue Lasix 40 IV twice a day we'll give an additional dose of Lasix 40 IV Increase hydralazine 100 mg 3 times a day Continue Coreg 3.125 twice a day
[2016-07-29 17:03] LABS: Glucose,Whole Blood 134 mg/dL (75-99)
--- NOTE | 2016-07-29 19:43 | PN ---
Patient is seen for followup for acute kidney injury and fluid overload. She remains on IV Lasix and renal function has been improving. On examination today, blood pressure is 134/61, heart rate 62 per minute. She is afebrile. Blood pressure was initially quite high at about 200/80 earlier this morning., Heart rate 62 per minute. The patient is afebrile. HEART: S1 and S2. LUNGS: Bilateral breath sounds are heard. No crackles or wheezing are heard. ABDOMEN: Soft, nontender. Lower extremities show edema 2+ bilaterally, upper and lower extremities, worse in the right upper extremity, which is immobilized. There is some redness noted on 2 areas in the left arm. These are marked with a pen. Labs show sodium 145, potassium 3.9, BUN 54, serum creatinine 2.36. Hemoglobin at 7.2 g/dL. ASSESSMENT: 1. Acute kidney injury, most likely acute tubular necrosis, currently slowly improving. 2. Volume overload and significant edema, currently maintained on IV Lasix with some improvement in volume status; however, patient remains significantly edematous. Will continue with the Lasix and repeat laboratories in a.m. 3. Mild metabolic alkalosis, possibly related to diuresis; however carbon dioxide is not significantly elevated. I will continue with the IV Lasix for now. Consider adding Diamox if alkalosis is worse. 4. Anemia with no active bleeding noted, status post IV iron. 5. Hypertension, uncontrolled. Patient is maintained Coreg and oral hydralazine with IV Lasix. I will increase the Coreg to 12.5 mg b.i.d. PLAN: Continue IV Lasix. Increase Coreg to 12.5 mg b.i.d. Repeat labs in a.m.
--- NOTE | 2016-07-29 20:23 | PN ---
DATE OF SERVICE: 07/29/2016 Ms. Mita Beltrán was seen, evaluated and examined. She is an 81-year-old morbidly obese female with severe anemia. Patient also has problems associated with severe COPD and chronic hypoxic respiratory failure. Patient has component of obesity hypoventilation as well as severe obstructive sleep apnea. She has been using her CPAP machine. She still has shortness of breath with minimal activity and exertion. She is getting iron therapy for her severe anemia. Her last set of vitals include blood pressure went up to 190/83, respiratory rate 18, pulse 77, temperature is 98, saturation 97% on 3L oxygen. HEENT: Atraumatic, normocephalic. Pharynx is clear. NECK: Supple without lymphadenopathy, jugular venous distention or carotid bruit. LUNGS: Bilateral poor air entry is present without significant rales, rhonchi or rub. HEART: Regular rate and rhythm. S1 and S2 audible. ABDOMEN: Soft. No rebound or rigidity. EXTREMITIES: +1 peripheral pulses. NEUROLOGICAL: Otherwise, awake and alert. Labs reviewed. Medications reviewed. Her white cell count is 14,000, hemoglobin 7.2, hematocrit 23, platelet count 348,000. Sodium is 140, potassium 3.9, BUN and creatinine are 24 and 2.36, glucose 110. Current medications are reviewed and include: 1. Tylenol as needed along with: 2. Hydrocodone. 3. DuoNeb unit dose 4 times a day. 4. Coreg 6.25 b.i.d. 5. Colace 100 mg daily. 6. Lasix 40 mg b.i.d. 7. Hydralazine 100 mg 3 times a day. 8. Dilaudid for pain control. 9. Also on Levaquin 250 mg every other day along with 10. Milk of magnesia. IMPRESSION: 1. Obstructive sleep apnea of severe category along with obesity hypoventilation. Would recommend to maintain patient on current setting of continuous positive airway pressure. 2. Severe chronic obstructive pulmonary disease, emphysema with chronic hypoxic respiratory failure. Maintain patient on breathing treatments. Will hold on steroids. 3. Severe anemia, likely multifactorial with component of renal failure and iron deficiency. The patient is being monitored and observed. 4. History of recurrent falls with right humeral fracture. 5. Acute on chronic renal failure. The patient is being monitored and observed closely. Renal functions overall and have been stable. Will follow.
[2016-07-29 21:08] LABS: Glucose,Whole Blood 139 mg/dL (75-99)
[2016-07-30 02:02] LABS: Glucose,Whole Blood 122 mg/dL (75-99)
[2016-07-30 06:10] LABS: Glucose,Whole Blood 160 mg/dL (75-99)
[2016-07-30 06:28] LABS: Calcium 8.9 mg/dL (8.4-10.2); Magnesium 2.3 mg/dL (1.6-2.3); Potassium 3.7 mmol/L (3.5-5.1); Total Bilirubin 0.5 mg/dL (0.2-1.3); Total Protein 5.1 g/dL (6.3-8.2)
[2016-07-30 06:45] LABS: Anisocytosis Slight; Basophils % (A) 0 %; CH 25.1; CHCM 30.7; Eosinophils # (A) 0.5 k/uL (0-0.7); Eosinophils % (A) 4 %; HCT 24.8 % (34.0-46.0); HDW 3.12; HGB 7.6 gm/dL (11.4-16.0); Hypochromasia Marked; Luc % (Auto) 2; Lymphocytes # (A) 0.7 k/uL (1.0-4.8); Lymphocytes % (A) 6 %; MCH 25.2 pg (25.0-35.0); MCHC 30.7 g/dL (31.0-37.0); Mean Platelet Volume 6.9; Monocytes # (A) 0.5 k/uL (0-1.0); Monocytes % (A) 4 %; Neutrophils # (A) 10.4 k/uL (1.3-7.7); Neutrophils % (A) 84 %; RBC 3.02 m/uL (3.80-5.40); RDW 17.4 % (11.5-15.5); WBC 12.3 k/uL (3.8-10.6); WBC (Perox) 12.22
[2016-07-30] MEDS: INSULIN LISPRO (humaLOG) 300 UNIT/3 ML VIAL SQ SCH ×4 (06:48→22:40)
[2016-07-30] MEDS ORDERED: CARVEDILOL 12.5 MG TAB PO SCH (07:30)
[2016-07-30] MEDS: IPRATROPIUM-ALBUTEROL 3 ML NEB INHALATION PRN ×4 (08:46→20:06)
[2016-07-30] MEDS: FUROSEMIDE 10 MG/ML 4 ML VIAL IV SCH (09:02)
[2016-07-30] MEDS: hydrALAZINE HCL 50 MG TAB PO SCH ×3 (09:03→22:40)
[2016-07-30] MEDS: DOCUSATE 100 MG CAP PO SCH (09:03)
[2016-07-30] MEDS: HYDROcodone/APAP 5-325MG 1 EACH TAB PO PRN ×3 (09:13→18:06)
--- NOTE | 2016-07-30 09:56 | P.PN ---
Subjective This is an 81-year-old female who is being seen, evaluated and examined today on the selective care unit. Patient is known to have frequent falls, she has a right humeral fracture as well. She also has abdominal binder across the chest wall for immobilization. Patient had very poor peripheral access, extensive edema and erythema on bilateral extremities also was noted. Multiple attempts to obtain a peripheral AP had been unsuccessful and patient underwent a central line placement. Patient also did receive 2 units of packed red blood cells for anemia this admission. Patient is also receiving iron therapy. Currently the patient is using 3 L of supplemental oxygen. Patient states she uses 3 L of oxygen at home as well. Patient continues to use CPAP machine at night and when necessary. Patient does have shortness of breath with minimal activity and exertion as well as extensive conversation. Patient currently denies any cough or sputum production. Objective - Vital Signs Vital signs: Vital Signs Temp 97.0 F L 07/30/16 04:00 Pulse 84 07/30/16 09:02 Resp 18 07/30/16 08:00 BP 184/74 07/30/16 08:00 Pulse Ox 100 07/30/16 08:00 Intake & Output 07/29/16 07/30/16 07/30/16 18:59 06:59 18:59 Intake Total 320 Output Total 2400 1900 Balance -2080 -1900 Weight 79.5 kg 81.5 kg Intake: Oral 320 Output: Urine 2400 1900 Straight 2400 Other: Voiding Method Indwelling Catheter Indwelling Catheter Indwelling Catheter # Voids 1 # Bowel Movements 0 - Exam GENERAL EXAM: Alert, comfortable in no apparent distress. HEAD: Normocephalic. EYES: Normal reaction of pupils, equal size. NOSE: Clear with pink turbinates. THROAT: No erythema or exudates. NECK: No masses, no JVD. Triple-lumen central line present CHEST: No chest wall deformity. Binder in place LUNGS: Bilateral poor air entry is present. Bases diminished. CVS: S1 and S2 normal with no audible mumurs, regular rhythm. ABDOMEN: No hepatosplenomegaly, normal bowel sounds, no guarding or rigidity. EXTREMITIES: Bilateral upper extremity edema noted, pedal pulses palpable. SKIN: No rashes CENTRAL NERVOUS SYSTEM: No focal deficits, tone is normal in all 4 extremities. - Labs CBC & Chem 7: 07/30/16 06:18 07/30/16 05:44 Labs: Abnormal Lab Results - Last 24 Hours (Table) 07/29/16 07/29/16 07/29/16 Range/Units 11:34 16:41 21:06 WBC (3.8-10.6) k/uL RBC (3.80-5.40) m/uL Hgb (11.4-16.0) gm/dL Hct (34.0-46.0) % MCHC (31.0-37.0) g/dL RDW (11.5-15.5) % Neutrophils # (1.3-7.7) k/uL Lymphocytes # (1.0-4.8) k/uL Carbon Dioxide (22-30) mmol/L BUN (7-17) mg/dL Creatinine (0.52-1.04) mg/dL Glucose (74-99) mg/dL POC Glucose (mg/dL) 145 H 134 H 139 H (75-99) mg/dL Total Protein (6.3-8.2) g/dL Albumin (3.5-5.0) g/dL 07/30/16 07/30/16 07/30/16 Range/Units 02:01 05:44 06:08 WBC (3.8-10.6) k/uL RBC (3.80-5.40) m/uL Hgb (11.4-16.0) gm/dL Hct (34.0-46.0) % MCHC (31.0-37.0) g/dL RDW (11.5-15.5) % Neutrophils # (1.3-7.7) k/uL Lymphocytes # (1.0-4.8) k/uL Carbon Dioxide 35 H (22-30) mmol/L BUN 53 H (7-17) mg/dL Creatinine 2.38 H (0.52-1.04) mg/dL Glucose 138 H (74-99) mg/dL POC Glucose (mg/dL) 122 H 160 H (75-99) mg/dL Total Protein 5.1 L (6.3-8.2) g/dL Albumin 2.7 L (3.5-5.0) g/dL 07/30/16 Range/Units 06:18 WBC 12.3 H (3.8-10.6) k/uL RBC 3.02 L (3.80-5.40) m/uL Hgb 7.6 L (11.4-16.0) gm/dL Hct 24.8 L (34.0-46.0) % MCHC 30.7 L (31.0-37.0) g/dL RDW 17.4 H (11.5-15.5) % Neutrophils # 10.4 H (1.3-7.7) k/uL Lymphocytes # 0.7 L (1.0-4.8) k/uL Carbon Dioxide (22-30) mmol/L BUN (7-17) mg/dL Creatinine (0.52-1.04) mg/dL Glucose (74-99) mg/dL POC Glucose (mg/dL) (75-99) mg/dL Total Protein (6.3-8.2) g/dL Albumin (3.5-5.0) g/dL Assessment and Plan Plan: Assessment Severe chronic obstructive pulmonary disease Acute on chronic hypoxic respiratory failure Recent falls with right humeral fracture Bibasilar atelectasis with small effusion doubt pneumonia Severe anemia likely multifactorial Chronic renal failure Morbid obesity Obstructive sleep apnea with component of obesity hypoventilation Plan Medications have been reviewed and will be continued as ordered. Continue with pulmonary hygiene, coughing and deep breathing exercises, and supportive care. Supplemental oxygen to maintain oxygen saturations of 92% or better. Continue nebulizer treatments. Continue with antibiotics, hold on any steroids. GI and DVT prophylaxis. Continue CPAP machine. Initiate and encourage incentive spirometer. We will continue to monitor labs/results and adjust treatment as necessary. Further recommendations pending. I performed an examination of the patient and discussed their management with the nurse practitioner. I have reviewed the nurse practitioner's note and agree with the documented findings and plan of care.
--- NOTE | 2016-07-30 10:40 | XR ---
EXAMINATION TYPE: XR shoulder limited RT DATE OF EXAM: 07/30/2016 COMPARISON: 07/23/2016 HISTORY: Follow-up fracture TECHNIQUE: One view are submitted. FINDINGS: Persistent displaced comminuted fracture right humeral neck and head. Findings are stable. Subsegment al changes involving the right lung base. Right-sided central venous catheter noted. Arthropathy of t he AC joint. IMPRESSION: 1. Persistent comminuted right humeral neck fracture with displacement.
[2016-07-30 11:12] LABS: Glucose,Whole Blood 168 mg/dL (75-99)
--- NOTE | 2016-07-30 11:29 | P.PN ---
Progress Note - Text Imaging of the patient's right shoulder is reviewed. She is known to have a comminuted proximal humerus fracture. There is some displacement but it appears to be holding relatively stable. I think her best option is to continue with conservative treatment. We will continue her shoulder immobilizer for likely 6 weeks post injury. In another week we can start gentle range of motion exercises for her right shoulder.
--- NOTE | 2016-07-30 12:48 | P.PN ---
Subjective REASON FOR ADMISSION: Abnormal labs and generalized weakness. HISTORY OF PRESENT ILLNESS: This is an 81-year-old female who was sent in for evaluation with abnormal labs. Patient apparently sustained a fall with a right humerus fracture in the past. Patient apparently has a history of COPD is maintained on medications by Dr. Hills. Patient recently in the hospital was noted to have acute kidney injury. However, creatinine was stable around 1.6 at that time of discharge. Patient comes into the hospital with abnormal labs, including creatinine of 3.16 and a BUN of 82 with generalized weakness. Patient states that her urine output has been decreasing. Denies having any abdominal pain, fevers, chills, chest pain, difficulty breathing, nausea, vomiting, or diarrhea. Past medical history includes COPD, diabetes mellitus, dyslipidemia, hypertension, [place], thyroid disorder and chronic hypoxic respiratory failure and a recent right humeral fracture. 07/24/16 Pt states to be feel better states to have a cough, no fevers, chills, nausea, vomiting, diarrhea 07/25/16 left arm edema worse today iv iron has infiltrated in left subcut hand peripheral iv denies having chest pain, maury, nausea. No bm in the recent days Hospital course Patient's renal function appears to be stable however her blood pressures have been elevated today Patient is currently on hydralazine 75 mg by mouth 3 times a day Lasix 40 mg IV twice a day and Corag 3.125 twice a day Patient continues to have significant anasarca No overnight events on the telemetry No headaches nausea vomiting diarrhea reported patient has a Sykes catheter in place 07/30/2016 Patient appears to be doing well edema in her left upper extremity is improved and bilateral lower extremities is improved significantly Denies having any headaches blurry vision nausea vomiting has had a bowel movement overnight Pressures are more stable at this time as well PHYSICAL EXAM: . GENERAL APPEARANCE: Alert, oriented x3. Does not appear to be in distress. NECK: Supple. No JVD. Anasarca noted Tender to palpation. Unable to perform any range of motion. LUNGS: Diminished breath sounds, however, no rhonchi, wheezing or crackles. HEART: S1, S2 heard. Regular rate and rhythm. No murmurs appreciated. ABDOMEN: Soft, nontender, no organomegaly. Bowel sounds intact. Significant improvement 1+ pitting edema bilaterally in the lower extremities right upper ext. continue to have edema NEUROLOGIC: No focal motor or sensory deficits noted. Right upper extremity tenderness due to the previous right humeral fracture. . Objective - Vital Signs Vital signs: Vital Signs Temp 97.0 F L 07/30/16 04:00 Pulse 90 07/30/16 12:08 Resp 18 07/30/16 11:52 BP 157/72 07/30/16 11:52 Pulse Ox 99 07/30/16 11:52 Intake & Output 07/29/16 07/30/16 07/30/16 18:59 06:59 18:59 Intake Total 320 240 Output Total 2400 1900 2200 Balance -2079 -1899 -1959 Weight 79.5 kg 81.5 kg Intake: Oral 320 240 Output: Urine 2400 1900 2200 Straight 2400 Other: Voiding Method Indwelling Catheter Indwelling Catheter Indwelling Catheter # Voids 1 1 # Bowel Movements 0 - Labs CBC & Chem 7: 07/30/16 06:18 07/30/16 05:44 Labs: Abnormal Lab Results - Last 24 Hours (Table) 07/29/16 07/29/16 07/30/16 Range/Units 16:41 21:06 02:01 WBC (3.8-10.6) k/uL RBC (3.80-5.40) m/uL Hgb (11.4-16.0) gm/dL Hct (34.0-46.0) % MCHC (31.0-37.0) g/dL RDW (11.5-15.5) % Neutrophils # (1.3-7.7) k/uL Lymphocytes # (1.0-4.8) k/uL Carbon Dioxide (22-30) mmol/L BUN (7-17) mg/dL Creatinine (0.52-1.04) mg/dL Glucose (74-99) mg/dL POC Glucose (mg/dL) 134 H 139 H 122 H (75-99) mg/dL Total Protein (6.3-8.2) g/dL Albumin (3.5-5.0) g/dL 07/30/16 07/30/16 07/30/16 Range/Units 05:44 06:08 06:18 WBC 12.3 H (3.8-10.6) k/uL RBC 3.02 L (3.80-5.40) m/uL Hgb 7.6 L (11.4-16.0) gm/dL Hct 24.8 L (34.0-46.0) % MCHC 30.7 L (31.0-37.0) g/dL RDW 17.4 H (11.5-15.5) % Neutrophils # 10.4 H (1.3-7.7) k/uL Lymphocytes # 0.7 L (1.0-4.8) k/uL Carbon Dioxide 35 H (22-30) mmol/L BUN 53 H (7-17) mg/dL Creatinine 2.38 H (0.52-1.04) mg/dL Glucose 138 H (74-99) mg/dL POC Glucose (mg/dL) 160 H (75-99) mg/dL Total Protein 5.1 L (6.3-8.2) g/dL Albumin 2.7 L (3.5-5.0) g/dL 07/30/16 Range/Units 11:07 WBC (3.8-10.6) k/uL RBC (3.80-5.40) m/uL Hgb (11.4-16.0) gm/dL Hct (34.0-46.0) % MCHC (31.0-37.0) g/dL RDW (11.5-15.5) % Neutrophils # (1.3-7.7) k/uL Lymphocytes # (1.0-4.8) k/uL Carbon Dioxide (22-30) mmol/L BUN (7-17) mg/dL Creatinine (0.52-1.04) mg/dL Glucose (74-99) mg/dL POC Glucose (mg/dL) 168 H (75-99) mg/dL Total Protein (6.3-8.2) g/dL Albumin (3.5-5.0) g/dL Assessment and Plan Plan: ASSESSMENT AND PLAN: 1. Acute kidney injury.due to prerenal etiology 2. Right humeral comminuted fracture. 3. Chronic hypoxic hypercapnic respiratory failure. 4. Acute on chronic anemia appears to have some iron deficiency, previous hemoglobin was 8.9 on prior admission. 5. Previous lumpectomy. 6. Peripheral arterial disease. 7. Chronic obstructive pulmonary disease. 8. Dyslipidemia. 9. Accelerated hypertension, currently on this admission. 10. Generalized weakness. 11. CAP, acute PLAN: Change to Lasix by mouth 40 mg twice a day Strict I's and O's Continue blood pressure monitoring will likely discharge the patient to [facility] in the next 24 hours Right arm restrictions as per Dr. Nuno Increase hydralazine 100 mg 3 times a day Continue Coreg 3.125 twice a day
--- NOTE | 2016-07-30 13:12 | PN ---
Patient is seen for followup for acute kidney injury. Patient is currently maintained on IV Lasix for significant edema and volume overload. Her creatinine has been stable and slightly improved since admission with creatinine going down to 2.3 from 3.28 on initial admission. Her hemoglobin is staying at about 7.1 to 7.6 g/dL. Patient had severe iron deficiency for which she has received IV iron. On examination today, blood pressure is 157/72, heart rate 72 per minute. She is afebrile. EXAMINATION OF THE HEART: S1 and S2. EXAMINATION OF THE LUNGS: Bilateral breath sounds are heard. ABDOMEN: Soft, nontender. Examination of lower extremities shows edema 2+ bilaterally upper and lower extremities, which seems to be slowly improving. PROCUREMENT REPRESENTATIVE exam is grossly intact. Patient is moving all 4 extremities. Her right arm is currently immobilized in a sling. Labs show sodium 143, potassium 3.7, BUN 53, serum creatinine 2.38. Hemoglobin was 7.6 g/dL. ASSESSMENT: 1. Acute kidney injury, most likely acute tubular necrosis, currently stable maintained on IV Lasix, which we can continue for now. 2. Anemia with no active bleeding, status post IV iron, hemoglobin slightly better. 3. Fracture right humerus, currently immobilized. 4. Significant edema and hypervolemia, maintained on IV Lasix. 5. Hypertension, slightly improved. Patient was started on Coreg. This was further increased to 25 mg b.i.d.
[2016-07-30] MEDS: FUROSEMIDE 40 MG TAB PO SCH (15:58)
[2016-07-30 16:37] LABS: Glucose,Whole Blood 159 mg/dL (75-99)
[2016-07-30] MEDS: CARVEDILOL 12.5 MG TAB PO SCH (17:22)
[2016-07-30 21:06] LABS: Glucose,Whole Blood 149 mg/dL (75-99)
[2016-07-31 06:11] LABS: Glucose,Whole Blood 109 mg/dL (75-99)
[2016-07-31 06:43] LABS: Anisocytosis Slight; Basophils % (A) 0 %; CH 24.6; CHCM 28.9; Eosinophils # (A) 0.4 k/uL (0-0.7); Eosinophils % (A) 4 %; HCT 24.7 % (34.0-46.0); HDW 2.85; HGB 7.3 gm/dL (11.4-16.0); Hypochromasia Marked; Luc # (Auto) 0.16; Luc % (Auto) 2; Lymphocytes # (A) 0.7 k/uL (1.0-4.8); Lymphocytes % (A) 7 %; MCH 25.2 pg (25.0-35.0); MCHC 29.4 g/dL (31.0-37.0); MCV 85.6 fL (80.0-100.0); Mean Platelet Volume 6.8; Monocytes # (A) 0.5 k/uL (0-1.0); Monocytes % (A) 5 %; Neutrophils # (A) 9.1 k/uL (1.3-7.7); Neutrophils % (A) 83 %; RBC 2.88 m/uL (3.80-5.40); RDW 17.1 % (11.5-15.5); WBC 10.9 k/uL (3.8-10.6); WBC (Perox) 11.48
[2016-07-31 06:51] LABS: Potassium 3.6 mmol/L (3.5-5.1); Total Bilirubin 0.3 mg/dL (0.2-1.3); Total Protein 4.9 g/dL (6.3-8.2)
[2016-07-31] MEDS: CARVEDILOL 12.5 MG TAB PO SCH (07:21)
[2016-07-31] MEDS: INSULIN LISPRO (humaLOG) 300 UNIT/3 ML VIAL SQ SCH ×2 (07:59→12:11)
[2016-07-31] MEDS: IPRATROPIUM-ALBUTEROL 3 ML NEB INHALATION PRN ×3 (08:14→15:29)
[2016-07-31] MEDS: hydrALAZINE HCL 50 MG TAB PO SCH ×2 (08:17→15:08)
[2016-07-31] MEDS: DOCUSATE 100 MG CAP PO SCH (08:17)
[2016-07-31] MEDS: FUROSEMIDE 40 MG TAB PO SCH ×2 (08:19→15:10)
[2016-07-31] MEDS: HYDROcodone/APAP 5-325MG 1 EACH TAB PO PRN ×2 (08:39→13:31)
--- NOTE | 2016-07-31 10:34 | P.PN ---
Subjective This is an 81-year-old female who is being seen, evaluated and examined today on the selective care unit. Patient is known to have frequent falls, she has a right humeral fracture as well. She also has abdominal binder across the chest wall for immobilization. Patient had very poor peripheral access, extensive edema and erythema on bilateral extremities also was noted. Multiple attempts to obtain a peripheral AP had been unsuccessful and patient underwent a central line placement. Patient also did receive 2 units of packed red blood cells for anemia this admission. Patient is also receiving iron therapy. Currently the patient is using 3 L of supplemental oxygen. Patient states she uses 3 L of oxygen at home as well. Patient continues to use CPAP machine at night and when necessary. Patient does have shortness of breath with activity and exertion. Patient currently denies any cough or sputum production. Patient has proximal humerus fracture, and is following with Dr. Nuno. Patient is a potential discharge today to rehab facility. Objective - Vital Signs Vital signs: Vital Signs Temp 97.6 F 07/31/16 08:00 Pulse 75 07/31/16 08:32 Resp 20 07/31/16 08:00 BP 134/62 07/31/16 08:00 Pulse Ox 98 07/31/16 08:16 Intake & Output 07/30/16 07/31/16 07/31/16 18:59 06:59 18:59 Intake Total 480 600 200 Output Total 2200 1000 375 Balance -1720 -400 -175 Weight 80 kg Intake: Oral 480 600 200 Output: Urine 2200 1000 375 Uretheral (Sykes) 375 Other: Voiding Method Indwelling Catheter Indwelling Catheter Indwelling Catheter # Voids 1 1 # Bowel Movements 0 - Exam GENERAL EXAM: Alert, comfortable in no apparent distress. HEAD: Normocephalic. EYES: Normal reaction of pupils, equal size. NOSE: Clear with pink turbinates. THROAT: No erythema or exudates. NECK: No masses, no JVD. Triple-lumen central line present CHEST: No chest wall deformity. Binder in place LUNGS: Bilateral poor air entry is present. Bases diminished. CVS: S1 and S2 normal with no audible mumurs, regular rhythm. ABDOMEN: No hepatosplenomegaly, normal bowel sounds, no guarding or rigidity. EXTREMITIES: Bilateral upper extremity edema noted, pedal pulses palpable. SKIN: No rashes CENTRAL NERVOUS SYSTEM: No focal deficits, tone is normal in all 4 extremities. - Labs CBC & Chem 7: 07/31/16 06:23 07/31/16 06:23 Labs: Abnormal Lab Results - Last 24 Hours (Table) 07/30/16 07/30/16 07/30/16 Range/Units 11:07 16:32 21:04 WBC (3.8-10.6) k/uL RBC (3.80-5.40) m/uL Hgb (11.4-16.0) gm/dL Hct (34.0-46.0) % MCHC (31.0-37.0) g/dL RDW (11.5-15.5) % Neutrophils # (1.3-7.7) k/uL Lymphocytes # (1.0-4.8) k/uL Carbon Dioxide (22-30) mmol/L BUN (7-17) mg/dL Creatinine (0.52-1.04) mg/dL POC Glucose (mg/dL) 168 H 159 H 149 H (75-99) mg/dL Total Protein (6.3-8.2) g/dL Albumin (3.5-5.0) g/dL 07/31/16 07/31/16 07/31/16 Range/Units 06:04 06:23 06:23 WBC 10.9 H (3.8-10.6) k/uL RBC 2.88 L (3.80-5.40) m/uL Hgb 7.3 L (11.4-16.0) gm/dL Hct 24.7 L (34.0-46.0) % MCHC 29.4 L (31.0-37.0) g/dL RDW 17.1 H (11.5-15.5) % Neutrophils # 9.1 H (1.3-7.7) k/uL Lymphocytes # 0.7 L (1.0-4.8) k/uL Carbon Dioxide 35 H (22-30) mmol/L BUN 48 H (7-17) mg/dL Creatinine 2.30 H (0.52-1.04) mg/dL POC Glucose (mg/dL) 109 H (75-99) mg/dL Total Protein 4.9 L (6.3-8.2) g/dL Albumin 2.7 L (3.5-5.0) g/dL Assessment and Plan Plan: Assessment Severe chronic obstructive pulmonary disease Acute on chronic hypoxic respiratory failure Recent falls with right humeral fracture Bibasilar atelectasis with small effusion doubt pneumonia Severe anemia likely multifactorial Chronic renal failure Morbid obesity Obstructive sleep apnea with component of obesity hypoventilation Plan Pateint can be cleared for discharge from a pulmonary stand point to a rehab facilty in the near future. Medications have been reviewed and will be continued as ordered. Continue with pulmonary hygiene, coughing and deep breathing exercises, and supportive care. Supplemental oxygen to maintain oxygen saturations of 92% or better. Continue nebulizer treatments. Continue with antibiotics, hold on any steroids. GI and DVT prophylaxis. Continue CPAP machine. Initiate and encourage incentive spirometer. We will continue to monitor labs/results and adjust treatment as necessary. Further recommendations pending. I performed an examination of the patient and discussed their management with the nurse practitioner. I have reviewed the nurse practitioner's note and agree with the documented findings and plan of care.
[2016-07-31 11:33] VITALS: BMI 32.2
[2016-07-31 11:37] VITALS: RESP 18
[2016-07-31 12:03] LABS: Glucose,Whole Blood 170 mg/dL (75-99)
--- NOTE | 2016-07-31 14:58 | PN ---
Patient is seen for followup for acute kidney injury. She is currently lying in bed, she is comfortable. Patient states overall she is feeling better. On examination, blood pressure is 146/65, heart rate 68 per minute. She is afebrile. Examination of the heart, S1 and S2. Examination of the lungs, bilateral breath sounds are heard. Abdomen is soft, nontender. Examination of lower extremities shows edema which seems to have improved, although there is still 1+ edema noted in her lower extremities. Bilateral upper extremity edema has improved as well. There was an edema on her left upper extremity which has also improved. [employer] examination is grossly intact. Right arm is immobilized. Labs show sodium 142, potassium 3.6, BUN 48, serum creatinine 2.3 mg/dL, hemoglobin 7.3 g/dL. ASSESSMENT: 1. Acute kidney injury, acute tubular necrosis, renal function now stable with creatinine staying at 2.3 mg/dL. Patient has an indwelling Sykes catheter. 2. Volume overload and significant edema, maintained on Lasix, which is now switched to p.o. 3. Hypertension, better controlled. Continue with the Coreg, hydralazine, and loop diuretics. 4. Fracture right humerus, currently immobilized with no plans for surgery. 5. Anemia with significant iron deficiency, status post IV iron. No active bleeding noted at this time. 6. Chronic kidney disease, NKF stage III, with previous creatinine was 1.5 mg/dL secondary to nephrosclerosis, creatinine was 1.2 in March of 2016. PLAN: Continue with the oral diuretics. Patient will need followup as outpatient. Consider void trial and if patient is discharged to rehab facility, we can try to remove the catheter there as well.
--- NOTE | 2016-07-31 15:08 | P.DS ---
Providers Date of admission: 07/22/16 22:23 Attending physician: Mukul Cordoba Consults: 07/22/16 22:22 Consult Physician Urgent Consulting Provider: Abby Salinas Consult Reason/Comments: arf Do you want consulting provider notified?: Yes 07/23/16 21:30 Consult Physician Routine Consulting Provider: Josh Nuno Consult Reason/Comments: Fracture humerus Do you want consulting provider notified?: Yes, Notify in am 07/26/16 18:08 Consult Physician Stat Consulting Provider: Arnaud Cantrell Consult Reason/Comments: Central Line needed Do you want consulting provider notified?: Yes Primary care physician: Stated None Hospital Course: This is an 81-year-old female who was sent in for evaluation with abnormal labs. Patient apparently sustained a fall with a right humerus fracture in the past. Patient apparently has a history of COPD is maintained on medications by Dr. Hills. Patient recently in the hospital was noted to have acute kidney injury. However, creatinine was stable around 1.6 at that time of discharge. Patient comes into the hospital with abnormal labs, including creatinine of 3.16 and a BUN of 82 with generalized weakness. Patient states that her urine output has been decreasing. Denies having any abdominal pain, fevers, chills, chest pain, difficulty breathing, nausea, vomiting, or diarrhea. Past medical history includes COPD, diabetes mellitus, dyslipidemia, hypertension, MT, thyroid disorder and chronic hypoxic respiratory failure and a recent right humeral fracture. 07/24/16 Pt states to be feel better states to have a cough, no fevers, chills, nausea, vomiting, diarrhea 07/25/16 left arm edema worse today iv iron has infiltrated in left subcut hand peripheral iv denies having chest pain, maury, nausea. No bm in the recent days Hospital course Patient's renal function appears to be stable however her blood pressures have been elevated today Patient is currently on hydralazine 75 mg by mouth 3 times a day Lasix 40 mg IV twice a day and Corag 3.125 twice a day Patient continues to have significant anasarca No overnight events on the telemetry No headaches nausea vomiting diarrhea reported patient has a Gay catheter in place 07/30/2016 Patient appears to be doing well edema in her left upper extremity is improved and bilateral lower extremities is improved significantly Denies having any headaches blurry vision nausea vomiting has had a bowel movement overnight Pressures are more stable at this time as well PHYSICAL EXAM: . GENERAL APPEARANCE: Alert, oriented x3. Does not appear to be in distress. NECK: Supple. No JVD. Anasarca noted Tender to palpation. Unable to perform any range of motion. LUNGS: Diminished breath sounds, however, no rhonchi, wheezing or crackles. HEART: S1, S2 heard. Regular rate and rhythm. No murmurs appreciated. ABDOMEN: Soft, nontender, no organomegaly. Bowel sounds intact. Significant improvement 1+ pitting edema bilaterally in the lower extremities right upper ext. continue to have edema NEUROLOGIC: No focal motor or sensory deficits noted. Right upper extremity tenderness due to the previous right humeral fracture. Assessment and Plan Plan: ASSESSMENT AND PLAN: 1. Acute kidney injury.due to prerenal etiology 2. Right humeral comminuted fracture. 3. Chronic hypoxic hypercapnic respiratory failure. 4. Acute on chronic anemia appears to have some iron deficiency, previous hemoglobin was 8.9 on prior admission. 5. Previous lumpectomy. 6. Peripheral arterial disease. 7. Chronic obstructive pulmonary disease. 8. Dyslipidemia. 9. Accelerated hypertension, currently on this admission. 10. Generalized weakness. 11. CAP, acute bp stable right arm restrictions dc gay in 24-48 with PVR checks after compression socks in the bilateral lower ext. cpap at night Patient Condition at Discharge: Fair Plan - Discharge Summary New Discharge Prescriptions: New Carvedilol [Coreg*] 25 mg PO BID-W/MEALS tab Docusate [Colace] 100 mg PO DAILY cap Furosemide [Lasix] 40 mg PO BID@0900,1600 tab hydrALAZINE HCL [Apresoline] 100 mg PO TID tab HYDROcodone/APAP 5-325MG [[place] 5-325] 1 each PO Q4HR PRN #15 tab PRN Reason: Moderate Pain Continue Vit A,C & E/Lutein/Minerals [Ocuvite with Lutein Tablet] 1 tab PO QAM Ipratropium-Albuterol Nebulize [Duoneb 0.5 mg-3 mg/3 ml Soln] 3 ml INHALATION RT-QID Fluticasone/Vilanterol [Breo Ellipta 200-25 Mcg INH] 1 puff INHALATION RT- DAILY@0900 Sertraline [Zoloft] 50 mg PO HS Clopidogrel Bisulfate [Plavix] 75 mg PO QAM Famotidine [Pepcid] 20 mg PO QAM Discontinued hydrALAZINE HCL [Apresoline] 50 mg PO TID traMADol HCL [Ultram] 50 mg PO Q6HR PRN PRN Reason: Pain Discharge Medication List Vit A,C & E/Lutein/Minerals [Ocuvite with Lutein Tablet] 1 tab PO QAM 10/06/13 [ History] Fluticasone/Vilanterol [Breo Ellipta 200-25 Mcg INH] 1 puff INHALATION RT-DAILY@ 0900 04/14/16 [History] Ipratropium-Albuterol Nebulize [Duoneb 0.5 mg-3 mg/3 ml Soln] 3 ml INHALATION RT -QID 04/14/16 [History] Sertraline [Zoloft] 50 mg PO HS 04/14/16 [History] Clopidogrel Bisulfate [Plavix] 75 mg PO QAM 07/12/16 [History] Famotidine [Pepcid] 20 mg PO QAM 07/12/16 [History] Carvedilol [Coreg*] 25 mg PO BID-W/MEALS tab 07/31/16 [Rx] Docusate [Colace] 100 mg PO DAILY cap 07/31/16 [Rx] Furosemide [Lasix] 40 mg PO BID@0900,1600 tab 07/31/16 [Rx] HYDROcodone/APAP 5-325MG [[place] 5-325] 1 each PO Q4HR PRN #15 tab 07/31/16 [Rx] hydrALAZINE HCL [Apresoline] 100 mg PO TID tab 07/31/16 [Rx] Follow up Appointment(s)/Referral(s): Jason Buenrostro, PIERCE [PHYSICIAN CLAIM CLINICIAN] - 2 Weeks (Patient may follow-up with Jason Buenrostro PA-C or Dr. Claus Nuno at [facility] in 2 weeks following discharge. ) Edu Cordero, [Doctor of Osteopathic Medicine] - 1 Week (At [facility]) None,Stated [Primary Care Provider] - 1-2 days Activity/Diet/Wound Care/Special Instructions: 1. Keep shoulder immobilizer intact over the right upper extremity, brace on at al times. 2. Encouraged to remove strap over the right wrist to work on gentle range of motion of the right elbow 3. Avoid excessive activities in regards to right upper extremity; non- weightbearing the right shoulder 4. 3LNC at all times, unless CPAP is on 5. Regular diet, Dysphagia II- food to be chopped up, assistance if needed 6. Glucernia TID 7. DNR at [facility] 8. Dr. Cordero to follow up with patient at [facility] 9. Home CPAP machine to be worn for 8 hours per day. Bleed in 5L 02 10. RALPH gay on 08/01/2016, monitor for s/sx of retention, inserted 07/26/2016 for retention. ralph gay in AM 08/01/2016, inserted 07/26/2016 for retention Discharge Disposition: TRANSFER TO SNF/ECF
[2016-07-31 15:35] VITALS: BP 165/74; TEMP 97
[2016-07-31 15:44] VITALS: PULSE 74
== END 2016-07-31 16:46 | DRG 682 ==
LOC: EC 20:32 → 6SEL 22:23
PROVIDERS: ADMIT Hospitalist; ATTEND Hospitalist
PROC: 02HV33Z Insertion of Infusion Device into Superior Vena Cava, Percutaneous Approach (ICD-10-PCS; principal; 2016-07-27)
PROC: B548ZZA Ultrasonography of Superior Vena Cava, Guidance (ICD-10-PCS; 2016-07-27)
DX: N17.0 Acute kidney failure with tubular necrosis (principal); I50.31 Acute diastolic (congestive) heart failure; E87.0 Hyperosmolality and hypernatremia; E87.3 Alkalosis; J96.11 Chronic respiratory failure with hypoxia; E66.2 Morbid (severe) obesity with alveolar hypoventilation; E44.1 Mild protein-calorie malnutrition; J96.12 Chronic respiratory failure with hypercapnia; J98.11 Atelectasis; E11.21 Type 2 diabetes mellitus with diabetic nephropathy; J44.9 Chronic obstructive pulmonary disease, unspecified; E11.22 Type 2 diabetes mellitus with diabetic chronic kidney disease; E78.5 Hyperlipidemia, unspecified; D63.8 Anemia in other chronic diseases classified elsewhere; I73.9 Peripheral vascular disease, unspecified; D50.9 Iron deficiency anemia, unspecified; Z66 Do not resuscitate; I25.10 Atherosclerotic heart disease of native coronary artery without angina pectoris; I25.2 Old myocardial infarction; N18.3 Chronic kidney disease, stage 3 (moderate); M19.91 Primary osteoarthritis, unspecified site; E07.9 Disorder of thyroid, unspecified; G47.33 Obstructive sleep apnea (adult) (pediatric); R29.6 Repeated falls; E87.5 Hyperkalemia; E86.1 Hypovolemia; E87.70 Fluid overload, unspecified; I13.10 Hypertensive heart and chronic kidney disease without heart failure, with stage 1 through stage 4 chronic kidney disease, or unspecified chronic kidney disease; J32.9 Chronic sinusitis, unspecified; S42.211D Unspecified displaced fracture of surgical neck of right humerus, subsequent encounter for fracture with routine healing; Z68.32 Body mass index [BMI] 32.0-32.9, adult; Z99.81 Dependence on supplemental oxygen; Z96.651 Presence of right artificial knee joint; Z98.41 Cataract extraction status, right eye; Z98.42 Cataract extraction status, left eye; Z92.3 Personal history of irradiation; Z87.891 Personal history of nicotine dependence; Z85.3 Personal history of malignant neoplasm of breast; Z79.02 Long term (current) use of antithrombotics/antiplatelets; Z79.51 Long term (current) use of inhaled steroids; Z79.899 Other long term (current) drug therapy; Z88.2 Allergy status to sulfonamides; Z88.8 Allergy status to other drugs, medicaments and biological substances; Z88.1 Allergy status to other antibiotic agents; Z91.041 Radiographic dye allergy status
CPT/HCPCS: 36415; 36600; 71010; 76770; 80048; 80053; 81001; 82550; 82553; 82805; 83036; 83540; 83550; 83735; 84484; 85025; 85610; 85730; 86850; 86900; 86901; 86920; 94640; 94660; 94760; 96360; 99285

== ENCOUNTER 2016-08-02 10:14 | Emergency (ER) | payer MEDICARE ==
--- NOTE | 2016-08-02 10:45 | ED ---
General Adult HPI - General Chief complaint: Shortness of Breath Stated complaint: Difficulty Breathing Time Seen by Provider: 08/02/16 10:27 Source: patient, EMS, RN notes reviewed Mode of arrival: EMS Limitations: no limitations - History of Present Illness Initial comments: Patient is a pleasant 81-year-old female presenting to the emergency department with dyspnea. Onset was when she woke this morning. Patient admits to not using her BiPAP last night. He should states her breathing is normal at this time and has no complaints. Patient was recently in the hospital for kidney failure and anemia. Blood work from yesterday both showed improvement on this. - Related Data Home Medications Medication Instructions Recorded Confirmed Vit A,C & E/Lutein/Minerals 1 tab PO DAILY@0900 10/06/13 08/02/16 [Ocuvite with Lutein Tablet] Fluticasone/Vilanterol [Breo 1 puff INHALATION RT-DAILY@0900 04/14/16 08/02/16 Ellipta 200-25 Mcg INH] Ipratropium-Albuterol Nebulize 3 ml INHALATION RT-QID 04/14/16 08/02/16 [Duoneb 0.5 mg-3 mg/3 ml Soln] Sertraline [Zoloft] 50 mg PO HS@2100 04/14/16 08/02/16 Clopidogrel Bisulfate [Plavix] 75 mg PO HS@2100 07/12/16 08/02/16 Famotidine [Pepcid] 20 mg PO DAILY@0600 07/12/16 08/02/16 Carvedilol [Coreg*] 25 mg PO BID@0900,1700 08/02/16 08/02/16 Docusate [Colace] 100 mg PO DAILY@0900 08/02/16 08/02/16 Furosemide [Lasix] 40 mg PO BID@0600,1400 08/02/16 08/02/16 HYDROcodone/APAP 5-325MG [[place] 1 tab PO Q4HR PRN 08/02/16 08/02/16 5-325] hydrALAZINE HCL [Apresoline] 100 mg PO TID@0600,1200,2100 08/02/16 08/02/16 Allergies Allergy/AdvReac Type Severity Reaction Status Date / Time doxycycline Allergy Rash/Hives Verified 08/02/16 11:03 glucosamine Allergy Rash/Hives Verified 08/02/16 11:03 Iodinated Contrast Media - Allergy Rash/Hives Verified 08/02/16 11:03 Oral and [Iodinated Contrast Media - IV Dye] Sulfa (Sulfonamide Allergy Rash/Hives Verified 08/02/16 11:03 Antibiotics) baclofen AdvReac Confusion Verified 08/02/16 11:03 Review of Systems ROS Statement: Those systems with pertinent positive or pertinent negative responses have been documented in the HPI. ROS Other: All systems not noted in ROS Statement are negative. Constitutional: Denies: fever Eyes: Denies: eye pain ENT: Denies: ear pain Respiratory: Reports: dyspnea (Resolved). Denies: cough Cardiovascular: Denies: chest pain Endocrine: Denies: fatigue Gastrointestinal: Denies: abdominal pain Genitourinary: Denies: dysuria Musculoskeletal: Denies: back pain Skin: Denies: rash Past Medical History Past Medical History: COPD, Diabetes Mellitus, Hyperlipidemia, Hypertension, Myocardial Infarction ([place]), Musculoskeletal Disorder, Osteoarthritis (OA), Thyroid Disorder Additional Past Medical History / Comment(s): COPD , anemia, chronic hypoxic respiratory failure and the patient has been on oxygen at 2.5 L/m nasal cannula , lt breast cancer, , chronic sinus disease,djd emphysema, thyroid nodule, chronic renal failure, chronic anemia, osteoarthritis Last Myocardial Infarction Date:: 04/15/16 History of Any Multi-Drug Resistant Organisms: None Reported Past Surgical History: Breast Surgery, Orthopedic Surgery, Tonsillectomy Additional Past Surgical History / Comment(s): 2002 lt lumpectomy and 35 radiation tx,2004 right carotid endarectomy, rt knee arthroscopy,2010 right knee replacement 2007 bilateral cataract , had esophageal dilation via EGD Past Anesthesia/Blood Transfusion Reactions: Postoperative Nausea & Vomiting ( PONV) Additional Past Anesthesia/Blood Transfusion Reaction / Comment(s): vomited after surg. Past Psychological History: No Psychological Hx Reported, Anxiety Smoking Status: Former smoker Past Alcohol Use History: None Reported Past Drug Use History: None Reported - Past Family History Father Family Medical History: Coronary Artery Disease (CAD) Additional Family Medical History / Comment(s): young from heart problems Mother Family Medical History: Asthma, COPD General Exam Limitations: no limitations General appearance: alert, in no apparent distress Head exam: Present: atraumatic Eye exam: Present: normal appearance, PERRL ENT exam: Present: normal oropharynx Neck exam: Present: normal inspection Respiratory exam: Present: normal lung sounds bilaterally Cardiovascular Exam: Present: regular rate, normal rhythm GI/Abdominal exam: Present: soft. Absent: tenderness Extremities exam: Present: other (Right humerus tenderness which patient attributes to recent fracture) Neurological exam: Present: alert Psychiatric exam: Present: normal affect, normal mood Skin exam: Present: normal color Course Vital Signs 08/02/16 08/02/16 10:24 11:55 Temperature 97.5 F L 97.6 F Pulse Rate 88 72 Respiratory 20 17 Rate Blood Pressure 162/67 168/75 O2 Sat by Pulse 96 99 Oximetry EKG Findings - EKG Comments: EKG Findings:: Normal sinus rhythm at 79. AL 192. QRS 78. QT 402. QTC 460. Normal axis. Normal QRS. Normal ST-T. Medical Decision Making - Medical Decision Making Patient reexamined and remained symptom-free. Pulse ox remains 99% on 3 L. Case discussed in detail with Dr. miner who does feel comfortable with discharge the patient following a single dose of Lasix. - Lab Data Result diagrams: 08/02/16 10:58 08/02/16 10:58 Lab Results 08/02/16 08/02/16 08/02/16 Range/Units 10:58 10:58 10:58 WBC 15.7 H (3.8-10.6) k/uL RBC 3.16 L (3.80-5.40) m/uL Hgb 8.1 L (11.4-16.0) gm/dL Hct 25.8 L (34.0-46.0) % MCV 81.7 (80.0-100.0) fL MCH 25.7 (25.0-35.0) pg MCHC 31.5 (31.0-37.0) g/dL RDW 17.7 H (11.5-15.5) % Plt Count 295 (150-450) k/uL Neutrophils % 92 % Lymphocytes % 2 % Monocytes % 3 % Eosinophils % 1 % Basophils % 0 % Neutrophils # 14.5 H (1.3-7.7) k/uL Lymphocytes # 0.3 L (1.0-4.8) k/uL Monocytes # 0.5 (0-1.0) k/uL Eosinophils # 0.2 (0-0.7) k/uL Basophils # 0.0 (0-0.2) k/uL Hypochromasia Moderate Anisocytosis Slight PT (9.0-12.0) sec INR (<1.1) APTT (22.0-30.0) sec Sodium 144 (137-145) mmol/L Potassium 4.0 (3.5-5.1) mmol/L Chloride 94 L (98-107) mmol/L Carbon Dioxide 38 H (22-30) mmol/L Anion Gap 12 mmol/L BUN 56 H (7-17) mg/dL Creatinine 2.05 H (0.52-1.04) mg/dL Est GFR (MDRD) Af Amer 28 (>60 ml/min/1.73 sqM) Est GFR (MDRD) Non-Af 23 (>60 ml/min/1.73 sqM) Glucose 140 H (74-99) mg/dL Calcium 9.5 (8.4-10.2) mg/dL Total Bilirubin 0.7 (0.2-1.3) mg/dL AST 38 H (14-36) U/L ALT 30 (9-52) U/L Alkaline Phosphatase 78 (38-126) U/L NT-Pro-B Natriuret Pep 58482 pg/mL Total Protein 6.1 L (6.3-8.2) g/dL Albumin 3.4 L (3.5-5.0) g/dL 08/02/16 Range/Units 12:20 WBC (3.8-10.6) k/uL RBC (3.80-5.40) m/uL Hgb (11.4-16.0) gm/dL Hct (34.0-46.0) % MCV (80.0-100.0) fL MCH (25.0-35.0) pg MCHC (31.0-37.0) g/dL RDW (11.5-15.5) % Plt Count (150-450) k/uL Neutrophils % % Lymphocytes % % Monocytes % % Eosinophils % % Basophils % % Neutrophils # (1.3-7.7) k/uL Lymphocytes # (1.0-4.8) k/uL Monocytes # (0-1.0) k/uL Eosinophils # (0-0.7) k/uL Basophils # (0-0.2) k/uL Hypochromasia Anisocytosis PT 9.7 (9.0-12.0) sec INR 0.9 (<1.1) APTT 22.8 (22.0-30.0) sec Sodium (137-145) mmol/L Potassium (3.5-5.1) mmol/L Chloride (98-107) mmol/L Carbon Dioxide (22-30) mmol/L Anion Gap mmol/L BUN (7-17) mg/dL Creatinine (0.52-1.04) mg/dL Est GFR (MDRD) Af Amer (>60 ml/min/1.73 sqM) Est GFR (MDRD) Non-Af (>60 ml/min/1.73 sqM) Glucose (74-99) mg/dL Calcium (8.4-10.2) mg/dL Total Bilirubin (0.2-1.3) mg/dL AST (14-36) U/L ALT (9-52) U/L Alkaline Phosphatase (38-126) U/L NT-Pro-B Natriuret Pep pg/mL Total Protein (6.3-8.2) g/dL Albumin (3.5-5.0) g/dL - Radiology Data Radiology results: image reviewed (Chest x-ray shows right basilar atelectasis versus infiltrate. Mild central venous congestion not excluded. Chem-8 a right humeral neck fracture.) Disposition Clinical Impression: Congestive heart failure Disposition: HOME SELF-CARE Condition: Stable Additional Instructions: Please follow-up with Dr. Guo in the next couple days for recheck. Return for difficulty in breathing, low oxygen, weakness, worsening symptoms or other concerns. Referrals: Mandeep Guo MD [Primary Care Provider] - 1-2 days Time of Disposition: 13:12
[2016-08-02 11:09] LABS: Anisocytosis Slight; Basophils % (A) 0 %; CH 25.1; CHCM 30.9; Eosinophils # (A) 0.2 k/uL (0-0.7); Eosinophils % (A) 1 %; HCT 25.8 % (34.0-46.0); HGB 8.1 gm/dL (11.4-16.0); Hypochromasia Moderate; Luc # (Auto) 0.17; Luc % (Auto) 1; Lymphocytes # (A) 0.3 k/uL (1.0-4.8); Lymphocytes % (A) 2 %; MCH 25.7 pg (25.0-35.0); MCHC 31.5 g/dL (31.0-37.0); MCV 81.7 fL (80.0-100.0); Monocytes # (A) 0.5 k/uL (0-1.0); Monocytes % (A) 3 %; Neutrophils # (A) 14.5 k/uL (1.3-7.7); Neutrophils % (A) 92 %; RBC 3.16 m/uL (3.80-5.40); RDW 17.7 % (11.5-15.5); WBC 15.7 k/uL (3.8-10.6); WBC (Perox) 16.28
[2016-08-02 11:21] LABS: Calcium 9.5 mg/dL (8.4-10.2); Total Bilirubin 0.7 mg/dL (0.2-1.3)
--- NOTE | 2016-08-02 11:21 | XR ---
EXAMINATION TYPE: XR chest 2V DATE OF EXAM: 08/02/2016 COMPARISON: 07/28/2016 TECHNIQUE: PA and lateral views submitted. HISTORY: Difficulty breathing FINDINGS: Coarsened interstitium. Subsegmental changes at both lung bases. Surgical clips overlying the left babs ng base. Comminuted fracture of the right femur seen. No pneumothorax. Heart size stable. Suspected t iny bilateral pleural effusions on the lateral view. Degenerative changes finding. IMPRESSION: 1. Right basilar subsegmental atelectasis or infiltrate with tiny effusions. 2. Comminuted right humeral neck fracture displacement. Mild central venous congestion not excluded.
[2016-08-02 11:29] LABS: Total Protein 6.1 g/dL (6.3-8.2)
[2016-08-02 12:00] VITALS: TEMP 97.6
[2016-08-02 12:41] LABS: INR 0.9 (<1.1); Partial Thromboplastin Time 22.8 sec (22.0-30.0); Prothrombin Time 9.7 sec (9.0-12.0)
[2016-08-02] MEDS ORDERED: FUROSEMIDE 10 MG/ML 4 ML VIAL IV STA (13:12)
--- NOTE | 2016-08-02 13:16 | ED ---
Medical Decision Making - Lab Data Result diagrams: 08/02/16 10:58 08/02/16 10:58 Lab Results 08/02/16 08/02/16 08/02/16 Range/Units 10:58 10:58 10:58 WBC 15.7 H (3.8-10.6) k/uL RBC 3.16 L (3.80-5.40) m/uL Hgb 8.1 L (11.4-16.0) gm/dL Hct 25.8 L (34.0-46.0) % MCV 81.7 (80.0-100.0) fL MCH 25.7 (25.0-35.0) pg MCHC 31.5 (31.0-37.0) g/dL RDW 17.7 H (11.5-15.5) % Plt Count 295 (150-450) k/uL Neutrophils % 92 % Lymphocytes % 2 % Monocytes % 3 % Eosinophils % 1 % Basophils % 0 % Neutrophils # 14.5 H (1.3-7.7) k/uL Lymphocytes # 0.3 L (1.0-4.8) k/uL Monocytes # 0.5 (0-1.0) k/uL Eosinophils # 0.2 (0-0.7) k/uL Basophils # 0.0 (0-0.2) k/uL Hypochromasia Moderate Anisocytosis Slight PT (9.0-12.0) sec INR (<1.1) APTT (22.0-30.0) sec Sodium 144 (137-145) mmol/L Potassium 4.0 (3.5-5.1) mmol/L Chloride 94 L (98-107) mmol/L Carbon Dioxide 38 H (22-30) mmol/L Anion Gap 12 mmol/L BUN 56 H (7-17) mg/dL Creatinine 2.05 H (0.52-1.04) mg/dL Est GFR (MDRD) Af Amer 28 (>60 ml/min/1.73 sqM) Est GFR (MDRD) Non-Af 23 (>60 ml/min/1.73 sqM) Glucose 140 H (74-99) mg/dL Calcium 9.5 (8.4-10.2) mg/dL Total Bilirubin 0.7 (0.2-1.3) mg/dL AST 38 H (14-36) U/L ALT 30 (9-52) U/L Alkaline Phosphatase 78 (38-126) U/L NT-Pro-B Natriuret Pep 65876 pg/mL Total Protein 6.1 L (6.3-8.2) g/dL Albumin 3.4 L (3.5-5.0) g/dL 08/02/16 Range/Units 12:20 WBC (3.8-10.6) k/uL RBC (3.80-5.40) m/uL Hgb (11.4-16.0) gm/dL Hct (34.0-46.0) % MCV (80.0-100.0) fL MCH (25.0-35.0) pg MCHC (31.0-37.0) g/dL RDW (11.5-15.5) % Plt Count (150-450) k/uL Neutrophils % % Lymphocytes % % Monocytes % % Eosinophils % % Basophils % % Neutrophils # (1.3-7.7) k/uL Lymphocytes # (1.0-4.8) k/uL Monocytes # (0-1.0) k/uL Eosinophils # (0-0.7) k/uL Basophils # (0-0.2) k/uL Hypochromasia Anisocytosis PT 9.7 (9.0-12.0) sec INR 0.9 (<1.1) APTT 22.8 (22.0-30.0) sec Sodium (137-145) mmol/L Potassium (3.5-5.1) mmol/L Chloride (98-107) mmol/L Carbon Dioxide (22-30) mmol/L Anion Gap mmol/L BUN (7-17) mg/dL Creatinine (0.52-1.04) mg/dL Est GFR (MDRD) Af Amer (>60 ml/min/1.73 sqM) Est GFR (MDRD) Non-Af (>60 ml/min/1.73 sqM) Glucose (74-99) mg/dL Calcium (8.4-10.2) mg/dL Total Bilirubin (0.2-1.3) mg/dL AST (14-36) U/L ALT (9-52) U/L Alkaline Phosphatase (38-126) U/L NT-Pro-B Natriuret Pep pg/mL Total Protein (6.3-8.2) g/dL Albumin (3.5-5.0) g/dL Disposition Clinical Impression: Congestive heart failure Disposition: HOME SELF-CARE Condition: Stable Instructions: Heart Failure (ED) Additional Instructions: Please follow-up with Dr. Guo in the next couple days for recheck. Return for difficulty in breathing, low oxygen, weakness, worsening symptoms or other concerns. Referrals: Mandeep Guo MD [Primary Care Provider] - 1-2 days
[2016-08-02 14:31] VITALS: BP 166/74; PULSE 79; RESP 20
== END 2016-08-02 13:50 | disposition home or self-care (01) ==
LOC: EC 10:14
DX: I13.0 Hypertensive heart and chronic kidney disease with heart failure and stage 1 through stage 4 chronic kidney disease, or unspecified chronic kidney disease (principal); I50.9 Heart failure, unspecified; N18.9 Chronic kidney disease, unspecified; S42.291D Other displaced fracture of upper end of right humerus, subsequent encounter for fracture with routine healing; J44.9 Chronic obstructive pulmonary disease, unspecified; I25.2 Old myocardial infarction; E78.5 Hyperlipidemia, unspecified; F41.9 Anxiety disorder, unspecified; Z85.3 Personal history of malignant neoplasm of breast; Z86.2 Personal history of diseases of the blood and blood-forming organs and certain disorders involving the immune mechanism; Z99.81 Dependence on supplemental oxygen; Z88.1 Allergy status to other antibiotic agents; Z88.2 Allergy status to sulfonamides; Z88.5 Allergy status to narcotic agent; Z88.8 Allergy status to other drugs, medicaments and biological substances; Z91.041 Radiographic dye allergy status; Z79.02 Long term (current) use of antithrombotics/antiplatelets; Z79.51 Long term (current) use of inhaled steroids; Z79.899 Other long term (current) drug therapy; Z87.891 Personal history of nicotine dependence
CPT/HCPCS: 99285; 96374; 36415; 93005; 83880; 80053; 85025; 85610; 85730; 71020; J1940

== ENCOUNTER 2016-08-08 00:03 | Emergency (ER) | payer MEDICARE ==
[2016-08-08 00:13] VITALS: RESP 18; TEMP 97.5
--- NOTE | 2016-08-08 00:14 | ED ---
General Adult HPI - General Stated complaint: Low Hemoglobin Time Seen by Provider: 08/08/16 00:03 Source: patient, EMS, RN notes reviewed, old records reviewed Mode of arrival: EMS - History of Present Illness Initial comments: This is a 81-year-old female with history of multiple medical problems including a recent fracture over right humerus who is here for blood transfusion. She was found have a hemoglobin of 6.8 and a blood draw today down from 7 which she has been in the previous one. No reports of GI bleeding no nausea vomiting no blood per rectum. No abdominal pain. She has no reports of dizziness blurry vision or other symptoms - Related Data Home Medications Medication Instructions Recorded Confirmed Vit A,C & E/Lutein/Minerals 1 tab PO DAILY@0900 10/06/13 08/02/16 [Ocuvite with Lutein Tablet] Fluticasone/Vilanterol [Breo 1 puff INHALATION RT-DAILY@0900 04/14/16 08/02/16 Ellipta 200-25 Mcg INH] Ipratropium-Albuterol Nebulize 3 ml INHALATION RT-QID 04/14/16 08/02/16 [Duoneb 0.5 mg-3 mg/3 ml Soln] Sertraline [Zoloft] 50 mg PO HS@2100 04/14/16 08/02/16 Clopidogrel Bisulfate [Plavix] 75 mg PO HS@209907/12/16 08/02/16 Famotidine [Pepcid] 20 mg PO DAILY@0600 07/12/16 08/02/16 Carvedilol [Coreg*] 25 mg PO BID@0900,1700 08/02/16 08/02/16 Docusate [Colace] 100 mg PO DAILY@0900 08/02/16 08/02/16 Furosemide [Lasix] 40 mg PO BID@0600,1400 08/02/16 08/02/16 HYDROcodone/APAP 5-325MG [[place] 1 tab PO Q4HR PRN 08/02/16 08/02/16 5-325] hydrALAZINE HCL [Apresoline] 100 mg PO TID@0600,1200,2100 08/02/16 08/02/16 Allergies Allergy/AdvReac Type Severity Reaction Status Date / Time doxycycline Allergy Rash/Hives Verified 08/08/16 00:13 glucosamine Allergy Rash/Hives Verified 08/08/16 00:13 Iodinated Contrast Media - Allergy Rash/Hives Verified 08/08/16 00:13 Oral and [Iodinated Contrast Media - IV Dye] Sulfa (Sulfonamide Allergy Rash/Hives Verified 08/08/16 00:13 Antibiotics) baclofen AdvReac Confusion Verified 08/08/16 00:13 Review of Systems ROS Statement: Those systems with pertinent positive or pertinent negative responses have been documented in the HPI. ROS Other: All systems not noted in ROS Statement are negative. Past Medical History Past Medical History: COPD, Diabetes Mellitus, Hyperlipidemia, Hypertension, Myocardial Infarction ([place]), Musculoskeletal Disorder, Osteoarthritis (OA), Thyroid Disorder Additional Past Medical History / Comment(s): COPD , anemia, chronic hypoxic respiratory failure and the patient has been on oxygen at 2.5 L/m nasal cannula , lt breast cancer, , chronic sinus disease,djd emphysema, thyroid nodule, chronic renal failure, chronic anemia, osteoarthritis Last Myocardial Infarction Date:: 04/15/16 History of Any Multi-Drug Resistant Organisms: None Reported Past Surgical History: Breast Surgery, Orthopedic Surgery, Tonsillectomy Additional Past Surgical History / Comment(s): 2002 lt lumpectomy and 35 radiation tx,2005 right carotid endarectomy, rt knee arthroscopy,2010 right knee replacement 2007 bilateral cataract , had esophageal dilation via EGD Past Anesthesia/Blood Transfusion Reactions: Postoperative Nausea & Vomiting ( PONV) Additional Past Anesthesia/Blood Transfusion Reaction / Comment(s): vomited after surg. Past Psychological History: No Psychological Hx Reported, Anxiety Smoking Status: Former smoker Past Alcohol Use History: None Reported Past Drug Use History: None Reported - Past Family History Father Family Medical History: Coronary Artery Disease (CAD) Additional Family Medical History / Comment(s): young from heart problems Mother Family Medical History: Asthma, COPD General Exam - General Exam Comments Initial Comments: This is a well-developed well-nourished awake alert oriented 3 female General appearance: alert, in no apparent distress Head exam: Present: atraumatic, normocephalic, normal inspection Eye exam: Present: normal appearance, PERRL, EOMI. Absent: scleral icterus, conjunctival injection, periorbital swelling ENT exam: Present: normal exam, mucous membranes moist Neck exam: Present: normal inspection. Absent: tenderness, meningismus, lymphadenopathy Respiratory exam: Present: normal lung sounds bilaterally. Absent: respiratory distress, wheezes, rales, rhonchi, stridor Cardiovascular Exam: Present: regular rate, normal rhythm, normal heart sounds. Absent: systolic murmur, diastolic murmur, rubs, gallop, clicks GI/Abdominal exam: Present: soft, normal bowel sounds. Absent: distended, tenderness, guarding, rebound, rigid Extremities exam: Present: normal inspection, normal capillary refill, other ( Right upper extremity is in a sling and immobilizer. No ecchymosis). Absent: full ROM, tenderness, pedal edema, joint swelling, calf tenderness Back exam: Present: normal inspection Neurological exam: Present: alert, oriented X3, CN II-XII intact Psychiatric exam: Present: normal affect, normal mood Skin exam: Present: warm, dry, intact, pallor. Absent: rash Course Vital Signs 08/08/16 00:07 Temperature 97.5 F L Pulse Rate 65 Respiratory 18 Rate Blood Pressure 171/74 O2 Sat by Pulse 98 Oximetry Medical Decision Making - Medical Decision Making The patient was admitted to the emergency department with the understanding that she required a blood transfusion. It is reported hemoglobin was low 7. On our evaluation her hemoglobin was 8.0. Patient is asymptomatic she will be discharged back to the assisted. - Lab Data Result diagrams: 08/08/16 00:11 Lab Results 08/08/16 Range/Units 00:11 WBC 7.8 (3.8-10.6) k/uL RBC 3.04 L (3.80-5.40) m/uL Hgb 8.0 L (11.4-16.0) gm/dL Hct 25.4 L (34.0-46.0) % MCV 83.5 D (80.0-100.0) fL MCH 26.4 (25.0-35.0) pg MCHC 31.6 (31.0-37.0) g/dL RDW 17.4 H (11.5-15.5) % Plt Count 395 (150-450) k/uL Neutrophils % 74 % Lymphocytes % 10 % Monocytes % 8 % Eosinophils % 5 % Basophils % 1 % Neutrophils # 5.8 (1.3-7.7) k/uL Lymphocytes # 0.8 L (1.0-4.8) k/uL Monocytes # 0.6 (0-1.0) k/uL Eosinophils # 0.4 (0-0.7) k/uL Basophils # 0.1 (0-0.2) k/uL Hypochromasia Marked Anisocytosis Slight Disposition Clinical Impression: Chronic anemia, Condition not found Disposition: HOME SELF-CARE Condition: Good Instructions: Anemia (ED) Referrals: Mandeep Guo MD [Primary Care Provider] - 1-2 days
[2016-08-08 00:46] LABS: Anisocytosis Slight; Basophils # (A) 0.1 k/uL (0-0.2); Basophils % (A) 1 %; CH 24.8; CHCM 29.8; Eosinophils # (A) 0.4 k/uL (0-0.7); Eosinophils % (A) 5 %; HCT 25.4 % (34.0-46.0); HDW 2.85; Hypochromasia Marked; Luc # (Auto) 0.23; Luc % (Auto) 3; Lymphocytes # (A) 0.8 k/uL (1.0-4.8); Lymphocytes % (A) 10 %; MCH 26.4 pg (25.0-35.0); MCHC 31.6 g/dL (31.0-37.0); Mean Platelet Volume 7.3; Monocytes # (A) 0.6 k/uL (0-1.0); Monocytes % (A) 8 %; Neutrophils # (A) 5.8 k/uL (1.3-7.7); Neutrophils % (A) 74 %; RBC 3.04 m/uL (3.80-5.40); RDW 17.4 % (11.5-15.5); WBC 7.8 k/uL (3.8-10.6); WBC (Perox) 8.19
[2016-08-08 00:47] LABS: MCV 83.5 fL (80.0-100.0)
[2016-08-08 02:40] VITALS: BP 167/76; PULSE 68
== END 2016-08-08 02:40 | disposition home or self-care (01) ==
LOC: EC 00:03
DX: D64.9 Anemia, unspecified (principal); J44.9 Chronic obstructive pulmonary disease, unspecified; I12.9 Hypertensive chronic kidney disease with stage 1 through stage 4 chronic kidney disease, or unspecified chronic kidney disease; N18.9 Chronic kidney disease, unspecified; Z85.3 Personal history of malignant neoplasm of breast; Z87.891 Personal history of nicotine dependence; Z88.2 Allergy status to sulfonamides; Z88.1 Allergy status to other antibiotic agents; Z91.041 Radiographic dye allergy status; Z88.8 Allergy status to other drugs, medicaments and biological substances; Z79.01 Long term (current) use of anticoagulants; Z79.02 Long term (current) use of antithrombotics/antiplatelets; Z79.51 Long term (current) use of inhaled steroids; Z79.899 Other long term (current) drug therapy
CPT/HCPCS: 36415; 85025; 99284

== ENCOUNTER 2016-08-14 14:40 | Inpatient (IN) | payer MEDICARE ==
[2016-08-14 16:30] LABS: Anisocytosis Slight; Basophils % (A) 0 %; CH 24.7; CHCM 29.7; Eosinophils # (A) 0.1 k/uL (0-0.7); Eosinophils % (A) 1 %; HCT 25.1 % (34.0-46.0); HDW 2.84; HGB 7.4 gm/dL (11.4-16.0); Hypochromasia Marked; Luc # (Auto) 0.14; Luc % (Auto) 1; Lymphocytes # (A) 0.6 k/uL (1.0-4.8); Lymphocytes % (A) 6 %; MCH 24.5 pg (25.0-35.0); MCHC 29.4 g/dL (31.0-37.0); MCV 83.5 fL (80.0-100.0); Monocytes # (A) 0.4 k/uL (0-1.0); Monocytes % (A) 3 %; Neutrophils # (A) 10.1 k/uL (1.3-7.7); Neutrophils % (A) 88 %; RDW 16.5 % (11.5-15.5); WBC 11.5 k/uL (3.8-10.6); WBC (Perox) 11.18
--- NOTE | 2016-08-14 16:33 | ED ---
General Adult HPI - General Chief complaint: Altered Mental Status Stated complaint: Altered Mental Status Time Seen by Provider: 08/14/16 16:00 Source: patient, EMS, RN notes reviewed Mode of arrival: EMS Limitations: physical limitation - History of Present Illness Initial comments: This is an 81-year-old female who resides in a detention and was sent in because of altered mental status for the last 2 hours. Prior to that she was alert and oriented to her baseline according to staff. Daughter states yesterday she had a similar episode and eventually came around it was back to her baseline. According to the daughter there was no history of any fever cough or chills. There is no history of any pain that the patient was complaining of. There was no history of any recent trauma. There was no history of any vomiting or diarrhea. - Related Data Home Medications Medication Instructions Recorded Confirmed Vit A,C & E/Lutein/Minerals 1 tab PO DAILY 10/06/13 08/14/16 [Ocuvite with Lutein Tablet] Fluticasone/Vilanterol [Breo 1 puff INHALATION RT-DAILY 04/14/16 08/14/16 Ellipta 200-25 Mcg INH] Ipratropium-Albuterol Nebulize 3 ml INHALATION RT-QID 04/14/16 08/14/16 [Duoneb 0.5 mg-3 mg/3 ml Soln] Sertraline [Zoloft] 50 mg PO HS 04/14/16 08/14/16 Clopidogrel Bisulfate [Plavix] 75 mg PO HS 07/12/16 08/14/16 Famotidine [Pepcid] 20 mg PO DAILY 07/12/16 08/14/16 Docusate [Colace] 100 mg PO DAILY 08/02/16 08/14/16 Furosemide [Lasix] 40 mg PO BID@0600,1200 08/02/16 08/14/16 HYDROcodone/APAP 5-325MG [[place] 1 tab PO Q4HR PRN 08/02/16 08/14/16 5-325] hydrALAZINE HCL [Apresoline] 100 mg PO TID@0600,1200,2100 08/02/16 08/14/16 ALPRAZolam [Xanax] 0.25 mg PO BID PRN 08/14/16 08/14/16 Carvedilol [Coreg] 25 mg PO BID 08/14/16 08/14/16 Lactulose 20 gm PO BID PRN 08/14/16 08/14/16 Allergies Allergy/AdvReac Type Severity Reaction Status Date / Time doxycycline Allergy Rash/Hives Verified 08/08/16 00:13 glucosamine Allergy Rash/Hives Verified 08/08/16 00:13 Iodinated Contrast Media - Allergy Rash/Hives Verified 08/08/16 00:13 Oral and [Iodinated Contrast Media - IV Dye] Sulfa (Sulfonamide Allergy Rash/Hives Verified 08/08/16 00:13 Antibiotics) baclofen AdvReac Confusion Verified 08/08/16 00:13 Review of Systems ROS Statement: Those systems with pertinent positive or pertinent negative responses have been documented in the HPI. ROS Other: All systems not noted in ROS Statement are negative. Past Medical History Past Medical History: COPD, Diabetes Mellitus, Hyperlipidemia, Hypertension, Myocardial Infarction ([place]), Musculoskeletal Disorder, Osteoarthritis (OA), Thyroid Disorder Additional Past Medical History / Comment(s): COPD , anemia, chronic hypoxic respiratory failure and the patient has been on oxygen at 2.5 L/m nasal cannula , lt breast cancer, , chronic sinus disease,djd emphysema, thyroid nodule, chronic renal failure, chronic anemia, osteoarthritis Last Myocardial Infarction Date:: 04/15/16 History of Any Multi-Drug Resistant Organisms: None Reported Past Surgical History: Breast Surgery, Orthopedic Surgery, Tonsillectomy Additional Past Surgical History / Comment(s): 2002 lt lumpectomy and 35 radiation tx,2005 right carotid endarectomy, rt knee arthroscopy,2009 right knee replacement 2006 bilateral cataract , had esophageal dilation via EGD Past Anesthesia/Blood Transfusion Reactions: Postoperative Nausea & Vomiting ( PONV) Additional Past Anesthesia/Blood Transfusion Reaction / Comment(s): vomited after surg. Past Psychological History: No Psychological Hx Reported, Anxiety Smoking Status: Former smoker Past Alcohol Use History: None Reported Past Drug Use History: None Reported - Past Family History Father Family Medical History: Coronary Artery Disease (CAD) Additional Family Medical History / Comment(s): young from heart problems Mother Family Medical History: Asthma, COPD General Exam - General Exam Comments Initial Comments: GENERAL: Patient is well-developed and well-nourished. Patient is nontoxic and well- hydrated and is in no acute distress. Patient is very lethargic ENT: Neck is soft and supple. No significant lymphadenopathy is noted. Oropharynx is clear. Moist mucous membranes. Neck has full range of motion without eliciting any pain. EYES: The sclera were anicteric and conjunctiva were pink and moist. Extraocular movements were intact and pupils were equal round and reactive to light. Eyelids were unremarkable. PULMONARY: Unlabored respirations. Good breath sounds bilaterally. No audible rales rhonchi or wheezing was noted. CARDIOVASCULAR: There is a regular rate and rhythm without any murmurs gallops or rubs. ABDOMEN: Soft and nontender with normal bowel sounds. No palpable organomegaly was noted. There is no palpable pulsatile mass. SKIN: Skin is clear with no lesions or rashes and otherwise unremarkable. NEUROLOGIC: Patient is alert and oriented 2. Cranial nerves II through XII are grossly intact. Motor and sensory are also intact. Normal speech, volume and content. Symmetrical smile. MUSCULOSKELETAL: Normal extremities with adequate strength and full range of motion. Minimal edema LYMPHATICS: No significant lymphadenopathy is noted PSYCHIATRIC: Unable to assess since she is so lethargic Limitations: physical limitation Course Vital Signs 08/14/16 08/14/16 08/14/16 14:42 15:38 17:13 Temperature 95.7 F L 95.7 F L 96.2 F L Pulse Rate 62 61 60 Respiratory 22 18 14 Rate Blood Pressure 176/106 145/68 137/60 O2 Sat by Pulse 98 99 97 Oximetry 08/14/16 08/14/16 17:48 18:30 Temperature 96.8 F L 97.3 F L Pulse Rate 65 65 Respiratory 20 14 Rate Blood Pressure 182/79 155/67 O2 Sat by Pulse 93 L 97 Oximetry Medical Decision Making - Medical Decision Making EKG shows normal sinus rhythm at 62 bpm ME interval is 174 QRS is 82 QT interval 442 QTC is 448 patient EKG shows no ST segment elevation or depression or T-wave abdomen is noted. Chest x-ray shows questionable infiltrate. I spoke with Shell dyson and admitted the patient wrote admitting orders. - Lab Data Result diagrams: 08/14/16 15:55 08/14/16 15:55 Lab Results 08/14/16 08/14/16 08/14/16 Range/Units 15:55 15:55 15:55 WBC 11.5 H (3.8-10.6) k/uL RBC 3.00 L (3.80-5.40) m/uL Hgb 7.4 L (11.4-16.0) gm/dL Hct 25.1 L (34.0-46.0) % MCV 83.5 (80.0-100.0) fL MCH 24.5 L (25.0-35.0) pg MCHC 29.4 L (31.0-37.0) g/dL RDW 16.5 H (11.5-15.5) % Plt Count 397 (150-450) k/uL Neutrophils % 88 % Lymphocytes % 6 % Monocytes % 3 % Eosinophils % 1 % Basophils % 0 % Neutrophils # 10.1 H (1.3-7.7) k/uL Lymphocytes # 0.6 L (1.0-4.8) k/uL Monocytes # 0.4 (0-1.0) k/uL Eosinophils # 0.1 (0-0.7) k/uL Basophils # 0.0 (0-0.2) k/uL Hypochromasia Marked Anisocytosis Slight PT (9.0-12.0) sec INR (<1.1) APTT (22.0-30.0) sec Sodium 144 (137-145) mmol/L Potassium 3.9 (3.5-5.1) mmol/L Chloride 93 L (98-107) mmol/L Carbon Dioxide 43 H* (22-30) mmol/L Anion Gap 8 mmol/L BUN 37 H (7-17) mg/dL Creatinine 1.98 H (0.52-1.04) mg/dL Est GFR (MDRD) Af Amer 29 (>60 ml/min/1.73 sqM) Est GFR (MDRD) Non-Af 24 (>60 ml/min/1.73 sqM) Glucose 134 H (74-99) mg/dL Plasma Lactic Acid Dmitri (0.7-2.0) mmol/L Calcium 9.5 (8.4-10.2) mg/dL Total Bilirubin 0.4 (0.2-1.3) mg/dL AST 17 (14-36) U/L ALT 27 (9-52) U/L Alkaline Phosphatase 93 (38-126) U/L Total Creatine Kinase <20 L (30-135) U/L CK-MB (CK-2) 1.6 (0.0-2.4) ng/mL CK-MB (CK-2) Rel Index 0.0 Troponin I 0.043 H* (0.000-0.034) ng/mL Total Protein 5.6 L (6.3-8.2) g/dL Albumin 3.1 L (3.5-5.0) g/dL Urine Color Urine Appearance (Clear) Urine pH (5.0-8.0) Ur Specific [place] (1.001-1.035) Urine Protein (Negative) Urine Glucose (UA) (Negative) Urine Ketones (Negative) Urine Blood (Negative) Urine Nitrite (Negative) Urine Bilirubin (Negative) Urine Urobilinogen (<2.0) mg/dL Ur Leukocyte Esterase (Negative) Urine RBC (0-5) /hpf Urine WBC (0-5) /hpf Ur Squamous Epith Cells (0-4) /hpf Amorphous Sediment (None) /hpf Urine Bacteria (None) /hpf Hyaline Casts (0-2) /lpf 08/14/16 08/14/16 08/14/16 Range/Units 15:55 15:55 16:42 WBC (3.8-10.6) k/uL RBC (3.80-5.40) m/uL Hgb (11.4-16.0) gm/dL Hct (34.0-46.0) % MCV (80.0-100.0) fL MCH (25.0-35.0) pg MCHC (31.0-37.0) g/dL RDW (11.5-15.5) % Plt Count (150-450) k/uL Neutrophils % % Lymphocytes % % Monocytes % % Eosinophils % % Basophils % % Neutrophils # (1.3-7.7) k/uL Lymphocytes # (1.0-4.8) k/uL Monocytes # (0-1.0) k/uL Eosinophils # (0-0.7) k/uL Basophils # (0-0.2) k/uL Hypochromasia Anisocytosis PT 10.1 (9.0-12.0) sec INR 1.0 (<1.1) APTT 22.7 (22.0-30.0) sec Sodium (137-145) mmol/L Potassium (3.5-5.1) mmol/L Chloride (98-107) mmol/L Carbon Dioxide (22-30) mmol/L Anion Gap mmol/L BUN (7-17) mg/dL Creatinine (0.52-1.04) mg/dL Est GFR (MDRD) Af Amer (>60 ml/min/1.73 sqM) Est GFR (MDRD) Non-Af (>60 ml/min/1.73 sqM) Glucose (74-99) mg/dL Plasma Lactic Acid Dmitri 0.7 (0.7-2.0) mmol/L Calcium (8.4-10.2) mg/dL Total Bilirubin (0.2-1.3) mg/dL AST (14-36) U/L ALT (9-52) U/L Alkaline Phosphatase (38-126) U/L Total Creatine Kinase (30-135) U/L CK-MB (CK-2) (0.0-2.4) ng/mL CK-MB (CK-2) Rel Index Troponin I (0.000-0.034) ng/mL Total Protein (6.3-8.2) g/dL Albumin (3.5-5.0) g/dL Urine Color Light Yellow Urine Appearance Cloudy H (Clear) Urine pH 6.0 (5.0-8.0) Ur Specific [place] 1.008 (1.001-1.035) Urine Protein 2+ H (Negative) Urine Glucose (UA) Negative (Negative) Urine Ketones Negative (Negative) Urine Blood Negative (Negative) Urine Nitrite Negative (Negative) Urine Bilirubin Negative (Negative) Urine Urobilinogen <2.0 (<2.0) mg/dL Ur Leukocyte Esterase Negative (Negative) Urine RBC <1 (0-5) /hpf Urine WBC 2 (0-5) /hpf Ur Squamous Epith Cells 13 H (0-4) /hpf Amorphous Sediment Rare H (None) /hpf Urine Bacteria Rare H (None) /hpf Hyaline Casts 2 (0-2) /lpf Disposition Clinical Impression: Altered mental status, Hypothermia, Anemia Disposition: ADMITTED IP TO THIS HOSP Referrals: Mandeep Guo MD [Primary Care Provider] - 1-2 days Time of Disposition: 18:35
[2016-08-14 16:37] LABS: Partial Thromboplastin Time 22.7 sec (22.0-30.0); Prothrombin Time 10.1 sec (9.0-12.0)
[2016-08-14 16:41] LABS: Calcium 9.5 mg/dL (8.4-10.2); Potassium 3.9 mmol/L (3.5-5.1); Total Bilirubin 0.4 mg/dL (0.2-1.3); Total Protein 5.6 g/dL (6.3-8.2)
[2016-08-14 16:51] LABS: Creatine Kinase <20 U/L (30-135)
[2016-08-14 17:03] LABS: Creatine Kinase MB 1.6 ng/mL (0.0-2.4)
[2016-08-14 17:10] LABS: Amorphous Sediment,Urine Rare /hpf; Appearance,Urine Cloudy (Clear); Bacteria,Urine Rare /hpf; Bilirubin,Urine Negative (Negative); Glucose,Urine (UA) Negative (Negative); Ketones,Urine Negative (Negative); Leukocyte Esterase,Urine Negative (Negative); Nitrite,Urine Negative (Negative); Particle Count 2305; Protein,Urine 2+ (Negative); RBC,Urine <1 /hpf (0-5); Specific Gravity,Urine 1.008 (1.001-1.035); Squamous Epithelial Cell,Urine 13 /hpf (0-4); UA Billing (MACRO vs. MICRO) MICRO; Urobilinogen,Urine <2.0 mg/dL (<2.0); WBC,Urine 2 /hpf (0-5)
[2016-08-14 17:11] LABS: Troponin I 0.043 ng/mL (0.000-0.034)
--- NOTE | 2016-08-14 18:10 | CT ---
EXAMINATION TYPE: CT brain wo con DATE OF EXAM: 08/14/2016 COMPARISON: NONE HISTORY: Patient poor historian. Pain. CT DLP: 3409 mGycm Automated exposure control for dose reduction was used. FINDINGS: There is no acute intracranial hemorrhage, mass effect, or midline shift identified. No definite new attenuation defect. The ventricles are slightly more prominent in size than the prior study, with the ventricles overall being more prominent than the sulcal pattern. This is a nonspecific finding, but can be seen in the c linical setting of normal pressure hydrocephalus. The globes are intact and the visualized sinuses are clear. Skeletal structures are unremarkable. IMPRESSION: 1. No acute intracranial hemorrhage, mass effect, or midline shift is seen. 2. Nonspecific mild ventriculomegaly pattern, which can be seen in the clinical setting of normal pre ssure hydrocephalus.
--- NOTE | 2016-08-14 18:56 | XR ---
EXAMINATION TYPE: XR chest 2V DATE OF EXAM: 08/14/2016 COMPARISON: August 02, 2016 HISTORY: Fever TECHNIQUE: Frontal and lateral views of the chest are obtained. FINDINGS: There is diffuse silhouetting of the pulmonary vasculature bilaterally by a fine reticular pattern throughout the lung parenchyma with several areas of septal lines. The findings are in keepi ng with moderate marked interstitial phase pulmonary edema, presumably of cardiogenic etiology given the mildly enlarged cardiac silhouette and small bilateral pleural effusions. There is no focal consolidative lung opacity to suggest pneumonia. There are no abnormal gas collections. Fracture dislocation at the right humeral head is noted. Impression: 1. Moderate-marked interstitial phase pulmonary edema, likely cardiogenic etiology. 2. Fracture dislocation at the right humeral head is noted.
[2016-08-14] MEDS ORDERED: LEVOFLOXACIN 750MG-D5W PMX 750 MG in DEXTROSE/WATER 1 150ML.BAG IVPB STA (18:59)
[2016-08-14] MEDS ORDERED: PNEUMONIA PROTOCOL UTILIZED 1 EACH MISC PO PRN (19:00)
[2016-08-14] MEDS ORDERED: VANCOMYCIN 1,750 MG in SODIUM CHLORIDE 0.9% 250 ML IVPB STA (20:46)
[2016-08-14] MEDS ORDERED: IV VANCOMYCIN PER PHARMACY 1 EACH MISC MISCELLANE PRN (20:47)
[2016-08-14] MEDS ORDERED: LACTULOSE 20 GM/30 ML CUP PO PRN (20:50)
[2016-08-14] MEDS ORDERED: CLOPIDOGREL 75 MG TAB PO SCH (21:15)
[2016-08-14] MEDS: CARVEDILOL 12.5 MG TAB PO SCH (22:45)
[2016-08-14] MEDS: hydrALAZINE HCL 50 MG TAB PO SCH (22:45)
[2016-08-14] MEDS: PANTOPRAZOLE 40 MG/10 ML VIAL IVP SCH (23:42)
[2016-08-15] MEDS ORDERED: PIPERACILLIN-TAZOBACTAM 3.375 GM in DEXTROSE/WATER 1 50ML.BAG IVPB SCH
[2016-08-15] MEDS: PIPERACILLIN-TAZOBACTAM 3.375 GM in DEXTROSE/WATER 1 50ML.BAG IVPB SCH ×3 (02:07→23:58)
[2016-08-15 05:50] LABS: Glucose,Whole Blood 113 mg/dL (75-99)
[2016-08-15] MEDS: FUROSEMIDE 40 MG TAB PO SCH ×2 (06:41→12:27)
[2016-08-15] MEDS: hydrALAZINE HCL 50 MG TAB PO SCH ×3 (06:41→22:27)
[2016-08-15] MEDS: CARVEDILOL 12.5 MG TAB PO SCH ×2 (06:42→17:05)
[2016-08-15 06:48] LABS: Calcium 9.2 mg/dL (8.4-10.2); Potassium 3.9 mmol/L (3.5-5.1)
[2016-08-15 06:49] LABS: Anisocytosis Slight; Basophils % (A) 0 %; CH 24.6; CHCM 30.3; Eosinophils # (A) 0.3 k/uL (0-0.7); Eosinophils % (A) 3 %; HDW 3.03; Hypochromasia Marked; Luc # (Auto) 0.21; Luc % (Auto) 2; Lymphocytes # (A) 0.7 k/uL (1.0-4.8); Lymphocytes % (A) 7 %; MCH 25.5 pg (25.0-35.0); MCHC 31.4 g/dL (31.0-37.0); MCV 81.5 fL (80.0-100.0); Mean Platelet Volume 7.8; Monocytes # (A) 0.5 k/uL (0-1.0); Monocytes % (A) 5 %; Neutrophils # (A) 8.7 k/uL (1.3-7.7); Neutrophils % (A) 83 %; RDW 16.7 % (11.5-15.5); WBC 10.4 k/uL (3.8-10.6); WBC (Perox) 10.79
[2016-08-15 06:57] LABS: HGB 6.9 gm/dL (11.4-16.0)
[2016-08-15] MEDS: IPRATROPIUM-ALBUTEROL 3 ML NEB INHALATION SCH ×4 (07:01→19:57)
[2016-08-15] MEDS: SYMBICORT 160-4.5 MCG INHALER INHALATION SCH ×2 (07:01→19:57)
[2016-08-15] MEDS: DOCUSATE 100 MG CAP PO SCH (08:26)
--- NOTE | 2016-08-15 09:02 | XR ---
EXAMINATION TYPE: XR chest 2V DATE OF EXAM: 08/15/2016 HISTORY: pneumonia. REFERENCE: Previous study dated 08/14/2016. FINDINGS: There is a fracture of the right humeral head and neck. This is unchanged from previous. The lungs are overinflated. The heart is upper limits of normal in size. Right lower lobe infiltrate has partially cleared. There is some residual airspace disease persisting. The left lung is clear. Th ere is vascular congestion and subtle interstitial change. This has improved. IMPRESSION: 1. COPD. 2. BORDERLINE CARDIOMEGALY. 3. IMPROVING RIGHT LOWER LOBE INFILTRATE. 4. IMPROVING CHANGES OF PULMONARY EDEMA.
[2016-08-15] MEDS: PANTOPRAZOLE 40 MG/10 ML VIAL IVP SCH (09:07)
[2016-08-15] MEDS: VIT A,C & E-LUTEIN-MINERALS 1 EACH TAB PO SCH (09:07)
[2016-08-15 11:35] LABS: Glucose,Whole Blood 169 mg/dL (75-99)
[2016-08-15] MEDS ORDERED: FUROSEMIDE 10 MG/ML 2 ML VIAL IV STA (12:16)
--- NOTE | 2016-08-15 12:16 | P.CRDCN ---
History of Present Illness Consult date: 08/15/16 Reason for Consult (text): CHF, elevated trops Chief complaint: Altered mental status History of present illness: This is a pleasant 81-year-old female who resides in [facility]. Has a known history of COPD, diabetes, previous [place], hyperlipidemia and hypertension. Presented after EMS was called due to altered mental status. Patient was found to be hypothermic and anemic. Patient does not recall the events surrounding her admission and is unclear as to why she was admitted to the hospital. CT of the brain showed no acute intracranial hemorrhage, mass effect or midline shift with nonspecific mild ventriculomegaly pattern. EKG shows normal sinus rhythm with sinus arrhythmia. This x-ray showed moderate interstitial pulmonary edema with a repeat x-ray done this morning that showed improving right lower lobe infiltrate and improving pulmonary edema. Patient is currently on IV antibiotics. Laboratory values showed a troponin 0.043, BNP 12,300, BUN 39 and creatinine 1.91 with a normal TSH. Patient was found to have a hemoglobin of 6.9 this morning and is receiving 1 unit of packed red blood cells. On examination, patient is resting comfortably in bed with no specific complaints except for feeling somewhat restless. Past Medical History Past Medical History: COPD, Diabetes Mellitus, Hyperlipidemia, Hypertension, Myocardial Infarction ([place]), Musculoskeletal Disorder, Osteoarthritis (OA), Thyroid Disorder Additional Past Medical History / Comment(s): COPD , anemia, chronic hypoxic respiratory failure and the patient has been on oxygen at 3L/m nasal cannula, lt breast cancer, chronic sinus disease,djd emphysema, thyroid nodule, chronic renal failure, chronic anemia, osteoarthritis Last Myocardial Infarction Date:: 04/15/16 History of Any Multi-Drug Resistant Organisms: None Reported Past Surgical History: Breast Surgery, Orthopedic Surgery, Tonsillectomy Additional Past Surgical History / Comment(s): 2002 lt lumpectomy and 35 radiation tx,2005 right carotid endarectomy, rt knee arthroscopy,2010 right knee replacement 2007 bilateral cataract , had esophageal dilation via EGD Past Anesthesia/Blood Transfusion Reactions: Postoperative Nausea & Vomiting ( PONV) Additional Past Anesthesia/Blood Transfusion Reaction / Comment(s): vomited after surg. Past Psychological History: No Psychological Hx Reported, Anxiety Additional Psychological History / Comment(s): Pt resides at [facility]. She has home O2 at 3L/NC ATC. She has a nebulizer and a glucose meter. Smoking Status: Former smoker Past Alcohol Use History: None Reported Past Drug Use History: None Reported - Past Family History Father Family Medical History: Coronary Artery Disease (CAD) Additional Family Medical History / Comment(s): young from heart problems Mother Family Medical History: Asthma, COPD Medications and Allergies Home Medications Medication Instructions Recorded Confirmed Type Vit A,C & E/Lutein/Minerals 1 tab PO DAILY 10/06/13 08/14/16 History [Ocuvite with Lutein Tablet] Fluticasone/Vilanterol [Breo 1 puff INHALATION RT-DAILY 04/14/16 08/14/16 History Ellipta 200-25 Mcg INH] Ipratropium-Albuterol Nebulize 3 ml INHALATION RT-QID 04/14/16 08/14/16 History [Duoneb 0.5 mg-3 mg/3 ml Soln] Sertraline [Zoloft] 50 mg PO HS 04/14/16 08/14/16 History Clopidogrel Bisulfate [Plavix] 75 mg PO HS 07/12/16 08/14/16 History Famotidine [Pepcid] 20 mg PO DAILY 07/12/16 08/14/16 History Docusate [Colace] 100 mg PO DAILY 08/02/16 08/14/16 History Furosemide [Lasix] 40 mg PO BID@0600,1200 08/02/16 08/14/16 History HYDROcodone/APAP 5-325MG [[place] 1 tab PO Q4HR PRN 08/02/16 08/14/16 History 5-325] hydrALAZINE HCL [Apresoline] 100 mg PO TID@0600,1200,2100 08/02/16 08/14/16 History ALPRAZolam [Xanax] 0.25 mg PO BID PRN 08/14/16 08/14/16 History Carvedilol [Coreg] 25 mg PO BID 08/14/16 08/14/16 History Lactulose 20 gm PO BID PRN 08/14/16 08/14/16 History Allergies Allergy/AdvReac Type Severity Reaction Status Date / Time doxycycline Allergy Rash/Hives Verified 08/08/16 00:13 glucosamine Allergy Rash/Hives Verified 08/08/16 00:13 Iodinated Contrast Media - Allergy Rash/Hives Verified 08/08/16 00:13 Oral and [Iodinated Contrast Media - IV Dye] Sulfa (Sulfonamide Allergy Rash/Hives Verified 08/08/16 00:13 Antibiotics) baclofen AdvReac Confusion Verified 08/08/16 00:13 Physical Exam Vitals: Vital Signs Temp Pulse Pulse Resp BP BP Pulse Ox 08/15/16 11:32 72 08/15/16 11:23 72 08/15/16 11:17 96.9 F L 77 16 154/73 08/15/16 11:16 97.0 F L 66 16 154/66 99 08/15/16 11:07 98.0 F 66 16 154/66 99 08/15/16 08:00 95.9 F L 71 16 157/63 99 08/15/16 07:15 76 08/15/16 07:00 72 08/15/16 04:00 98.1 F 71 20 149/52 91 L 08/15/16 00:00 97.0 F L 76 18 142/51 97 08/14/16 22:32 97.5 F L 72 18 145/81 97 08/14/16 21:30 97.5 F L 72 18 145/81 97 08/14/16 19:42 98.3 F 67 18 153/67 96 08/14/16 19:01 97.7 F 68 15 95 08/14/16 18:30 97.3 F L 65 14 155/67 97 08/14/16 17:48 96.8 F L 65 20 182/79 93 L 08/14/16 17:13 96.2 F L 60 14 137/60 97 08/14/16 15:38 95.7 F L 61 18 145/68 99 08/14/16 14:42 95.7 F L 62 22 176/106 98 Intake and Output 08/14/16 08/15/16 08/15/16 22:59 06:59 14:59 Intake Total 150 450 25 Balance 150 450 25 Intake: IV 450 Levofloxacin 750Mg-D5w 150 Pmx 750 mg In Dextrose/ Water 1 150ml.bag @ 100 mls/hr IVPB ONCE STA Rx#: [id number] Piperacillin-Tazobactam 3 50 .375 gm In Dextrose/Water 1 50ml.bag @ 12.5 mls/hr IVPB Q12H [facility] Rx#: [id number] Vancomycin 1,750 mg In 250 Sodium Chloride 0.9% 250 ml @ 125 mls/hr IVPB ONCE STA Rx#:[id number] Amount of Fluid Infused ( 150 ml) Oral 25 Blood Product 0 Rc As-3 Unit 0 [id number] Other: # Voids 3 # Bowel Movements 1 Weight 77.11 kg 68.5 kg PHYSICAL EXAMINATION: HEENT: Head is atraumatic, normocephalic. Pupils equal, round. Neck is supple. There is no elevated jugular venous pressure. HEART EXAMINATION: Heart sounds regular, S1 and S2 normal with a systolic murmur at the base. CHEST EXAMINATION: Lungs Velcro crackles bilateral bases. No chest wall tenderness is noted on palpation or with deep breathing. ABDOMEN: Soft, nontender. Bowel sounds are heard. No organomegaly noted. EXTREMITIES: 2+ peripheral pulses with no evidence of peripheral edema and no calf tenderness noted. NEUROLOGIC patient is awake, alert and oriented x2. . Results 08/15/16 06:12 08/15/16 06:12 Cardiac Enzymes 08/14/16 08/14/16 Range/Units 15:55 15:55 AST 17 (14-36) U/L CK-MB (CK-2) 1.6 (0.0-2.4) ng/mL Troponin I 0.043 H* (0.000-0.034) ng/mL Coagulation 08/14/16 Range/Units 15:55 PT 10.1 (9.0-12.0) sec APTT 22.7 (22.0-30.0) sec CBC 08/14/16 08/15/16 Range/Units 15:55 06:12 WBC 11.5 H 10.4 (3.8-10.6) k/uL RBC 3.00 L 2.70 L (3.80-5.40) m/uL Hgb 7.4 L 6.9 L* (11.4-16.0) gm/dL Hct 25.1 L 22.0 L (34.0-46.0) % Plt Count 397 305 (150-450) k/uL Comprehensive Metabolic Panel 08/14/16 08/15/16 Range/Units 15:55 06:12 Sodium 144 144 (137-145) mmol/L Potassium 3.9 3.9 (3.5-5.1) mmol/L Chloride 93 L 96 L (98-107) mmol/L Carbon Dioxide 43 H* 39 H (22-30) mmol/L BUN 37 H 39 H (7-17) mg/dL Creatinine 1.98 H 1.91 H (0.52-1.04) mg/dL Glucose 134 H 92 (74-99) mg/dL Calcium 9.5 9.2 (8.4-10.2) mg/dL AST 17 (14-36) U/L ALT 27 (9-52) U/L Alkaline Phosphatase 93 (38-126) U/L Total Protein 5.6 L (6.3-8.2) g/dL Albumin 3.1 L (3.5-5.0) g/dL Current Medications Generic Name Dose Route Start Last Admin Trade Name Freq PRN Reason Stop Dose Admin Albuterol/Ipratropium 3 ml 08/15/16 08:00 08/15/16 11:23 Duoneb 0.5 Mg-3 Mg/3 Ml Soln INHALATION 3 ml RT-QID [facility] Administration Alprazolam 0.25 mg 08/14/16 20:50 Xanax PO BID PRN Anxiety Budesonide/Formoterol Fumarate 2 puff 08/15/16 08:00 08/15/16 07:01 Symbicort 160-4.5 Mcg Inhaler INHALATION 2 puff RT-BID [facility] Administration Carvedilol 25 mg 08/14/16 21:15 08/15/16 06:42 Coreg PO 25 mg BID-W/MEALS K[facility] Administration Clopidogrel Bisulfate 75 mg 08/14/16 21:15 08/14/16 22:46 Plavix PO 75 mg HS [facility] Administration Docusate Sodium 100 mg 08/15/16 09:00 08/15/16 08:26 Colace PO Not Given DAILY [facility] Furosemide 40 mg 08/15/16 06:00 08/15/16 06:41 Lasix PO 40 mg BID@0600,1200 [facility] Administration Hydralazine HCl 100 mg 08/14/16 21:15 08/15/16 06:41 Apresoline PO 100 mg TID@0600,1200,2100 [facility] Administration Piperacillin/Tazobactam/ 50 mls @ 12.5 mls/hr 08/15/16 00:00 08/15/16 02:07 Dextrose 3.375 gm/ IV Solution IVPB 12.5 mls/hr Q12H [facility] Administration Vancomycin HCl 1,250 mg/ 250 mls @ 125 mls/hr 08/15/16 16:00 Sodium Chloride IVPB 08/15/16 17:59 ONCE ONE Lactulose 20 gm 08/14/16 20:50 Cephulac PO BID PRN Constipation Miscellaneous Information 1 each 08/14/16 19:00 Pneumonia Protocol Utilized PO ONCE PRN Per Protocol Miscellaneous Information 1 each 08/14/16 20:47 Pharmacy To Dose Iv Vancomycin MISCELLANE DIRECTED PRN Per Protocol Multivitamins/Minerals 1 each 08/15/16 09:00 08/15/16 09:07 Ivite PO 1 each DAILY [facility] Administration Pantoprazole Sodium 40 mg 08/14/16 21:15 08/15/16 09:07 Protonix IVP 40 mg DAILY [facility] Administration Intake and Output 08/14/16 08/15/16 08/15/16 22:59 06:59 14:59 Intake Total 150 450 25 Balance 150 450 25 Intake: IV 450 Levofloxacin 750Mg-D5w 150 Pmx 750 mg In Dextrose/ Water 1 150ml.bag @ 100 mls/hr IVPB ONCE STA Rx#: [id number] Piperacillin-Tazobactam 3 50 .375 gm In Dextrose/Water 1 50ml.bag @ 12.5 mls/hr IVPB Q12H [facility] Rx#: [id number] Vancomycin 1,750 mg In 250 Sodium Chloride 0.9% 250 ml @ 125 mls/hr IVPB ONCE STA Rx#:[id number] Amount of Fluid Infused ( 150 ml) Oral 25 Blood Product 0 Rc As-3 Unit 0 [id number] Other: # Voids 3 # Bowel Movements 1 Weight 77.11 kg 68.5 kg 08/15/16 06:12 08/15/16 06:12 EKG Interpretations (text) Normal sinus rhythm with sinus arrhythmia Assessment and Plan Plan: Assessment and plan #1 congestive heart failure, likely diastolic, acute on chronic #2 anemia #3 hypothermia #4 elevated troponin, not consistent with myocardial ischemia #5 renal failure, chronic From Cardiology's perspective, we will obtain a 2-D echo with Doppler. Will give one dose of IV Lasix following transfusion and change the patient to IV lasix. We will stop plavix due to anemia. Further recommendations to follow. [employer] note has been reviewed, I agree with a documented findings and plan of care. Patient was seen and examined.
--- NOTE | 2016-08-15 15:36 | P.CNPUL ---
History of Present Illness Consult date: 08/15/16 Reason for consult: COPD History of present illness: This is an 81-year-old female who resides in a assisted and was sent in because of altered mental status for the last 2 hours. The patient is a assisted resident and she resides at the [facility] on [facility]. Prior to that she was alert and oriented to her baseline according to staff. Daughter states yesterday she had a similar episode and eventually came around it was back to her baseline. I was asked to evaluate this patient knowing that she is very well-known to me. She has advanced COPD P left taking care of her pulmonary needs for many years. At time of my evaluation, the patient was wide awake and alert and she was following commands and answering questions appropriately. I do not see any signs of any mental status change. She has recognized me. She has been conversing normally. No slurred speech. No headaches. No neck stiffness. No fever or chills. She is quite debilitated to the point where she is unable to ambulate and walk for the time being. Yet she is able to move all 4 extremities and her neurologic exam is nonfocal at this point. The CAT scan of the brain was also done and the patient has no evidence of any acute intracranial hemorrhage or mass effect or midline shift. There is a nonspecific mild ventriculomegaly. The chest x-ray was consistent with COPD and cardiomegaly. There is improvement in the right lower lobe pulmonary infiltrate. There is also evidence of increased pulmonary vascular markings/edema. The patient's was also noted to have a hemoglobin of 6.9. She has chronic anemia and hemoglobin is ranging below 10 for the past several months. No signs of any acute bleeding and the patient is receiving a unit of packed RBC. She has also chronic renal failure and creatinine is stable at 1.9. BNP level is elevated at 12,300 Aggressive electrolyte liver function studies are all within normal limits. The patient was started on Lasix 40 mg IV push every 12 hours. The patient was started on an empiric antibiotic coverage with a combination of Zosyn and vancomycin. She is on breathing treatments around the clock utilizing DuoNeb nebulized treatments. She is also on Symbicort as a maintenance. Review of Systems Very poor baseline performance and functional status along with advanced COPD and various other comorbidities. The patient was found to have a right humeral fracture based on a recent fall forward the patient was briefly hospitalized approximately 3-4 weeks ago. She is known to have chronic hypoxic respiratory failure. She short of breath at all times even at rest. She has also issues with chronic anemia. Unfortunately she has become quite debilitated to the point where the patient is unable to move around and ablate without assistance. No recent falls. Her last bout of 4 was approximately 2-4 weeks ago she sustained a fracture and had a comminuted fracture in the right humerus. All systems: negative Constitutional: Denies chills, Denies fever Eyes: denies blurred vision, denies pain Ears, nose, mouth and throat: Denies headache, Denies sore throat Cardiovascular: Denies chest pain, Denies shortness of breath Respiratory: Denies cough Gastrointestinal: Denies abdominal pain, Denies diarrhea, Denies nausea, Denies vomiting Genitourinary: Denies dysuria, Denies hematuria Musculoskeletal: Denies myalgias Integumentary: Denies pruritus, Denies rash Neurological: Denies numbness, Denies weakness Psychiatric: Denies anxiety, Denies depression Endocrine: Denies fatigue, Denies weight change Past Medical History Past Medical History: COPD, Diabetes Mellitus, Hyperlipidemia, Hypertension, Myocardial Infarction ([place]), Musculoskeletal Disorder, Osteoarthritis (OA), Thyroid Disorder Additional Past Medical History / Comment(s): COPD , obstructive sleep apnea maintained on CPAP therapy, diabetes mellitus, coronary artery disease with previous [place], chronic anemia, chronic hypoxic respiratory failure and the patient has been on oxygen at 3L/m nasal cannula, lt breast cancer, chronic sinus disease,djd emphysema, thyroid nodule, chronic renal failure, chronic anemia, osteoarthritis right humerus comminuted fracture, peripheral vascular disease, hypertension, hyperlipidemia, generalized debility and difficulty with mobility. Last Myocardial Infarction Date:: 04/15/16 History of Any Multi-Drug Resistant Organisms: None Reported Past Surgical History: Breast Surgery, Orthopedic Surgery, Tonsillectomy Additional Past Surgical History / Comment(s): 2002 lt lumpectomy and 35 radiation tx,2005 right carotid endarectomy, rt knee arthroscopy,2010 right knee replacement 2007 bilateral cataract , had esophageal dilation via EGD Past Anesthesia/Blood Transfusion Reactions: Postoperative Nausea & Vomiting ( PONV) Additional Past Anesthesia/Blood Transfusion Reaction / Comment(s): vomited after surg. Past Psychological History: No Psychological Hx Reported, Anxiety Additional Psychological History / Comment(s): Pt resides at [facility]. She has home O2 at 3L/NC ATC. She has a nebulizer and a glucose meter. Smoking Status: Former smoker Past Alcohol Use History: None Reported Past Drug Use History: None Reported - Past Family History Father Family Medical History: Coronary Artery Disease (CAD) Additional Family Medical History / Comment(s): young from heart problems Mother Family Medical History: Asthma, COPD Medications and Allergies Home Medications Medication Instructions Recorded Confirmed Type Vit A,C & E/Lutein/Minerals 1 tab PO DAILY 10/06/13 08/14/16 History [Ocuvite with Lutein Tablet] Fluticasone/Vilanterol [Breo 1 puff INHALATION RT-DAILY 04/14/16 08/14/16 History Ellipta 200-25 Mcg INH] Ipratropium-Albuterol Nebulize 3 ml INHALATION RT-QID 04/14/16 08/14/16 History [Duoneb 0.5 mg-3 mg/3 ml Soln] Sertraline [Zoloft] 50 mg PO HS 04/14/16 08/14/16 History Clopidogrel Bisulfate [Plavix] 75 mg PO HS 07/12/16 08/14/16 History Famotidine [Pepcid] 20 mg PO DAILY 07/12/16 08/14/16 History Docusate [Colace] 100 mg PO DAILY 08/02/16 08/14/16 History Furosemide [Lasix] 40 mg PO BID@0600,1200 08/02/16 08/14/16 History HYDROcodone/APAP 5-325MG [[place] 1 tab PO Q4HR PRN 08/02/16 08/14/16 History 5-325] hydrALAZINE HCL [Apresoline] 100 mg PO TID@0600,1200,2100 08/02/16 08/14/16 History ALPRAZolam [Xanax] 0.25 mg PO BID PRN 08/14/16 08/14/16 History Carvedilol [Coreg] 25 mg PO BID 08/14/16 08/14/16 History Lactulose 20 gm PO BID PRN 08/14/16 08/14/16 History Allergies Allergy/AdvReac Type Severity Reaction Status Date / Time doxycycline Allergy Rash/Hives Verified 08/08/16 00:13 glucosamine Allergy Rash/Hives Verified 08/08/16 00:13 Iodinated Contrast Media - Allergy Rash/Hives Verified 08/08/16 00:13 Oral and [Iodinated Contrast Media - IV Dye] Sulfa (Sulfonamide Allergy Rash/Hives Verified 08/08/16 00:13 Antibiotics) baclofen AdvReac Confusion Verified 08/08/16 00:13 Physical Exam Vitals: Vital Signs Temp Pulse Pulse Resp BP BP Pulse Ox 08/15/16 15:20 64 08/15/16 14:08 97.4 F L 62 16 132/62 08/15/16 11:47 97.0 F L 66 16 155/74 08/15/16 11:32 72 08/15/16 11:23 72 08/15/16 11:17 96.9 F L 77 16 154/73 08/15/16 11:16 97.0 F L 66 16 154/66 99 08/15/16 11:07 98.0 F 66 16 154/66 99 08/15/16 08:00 95.9 F L 71 16 157/63 99 08/15/16 07:15 76 08/15/16 07:00 72 08/15/16 04:00 98.1 F 71 20 149/52 91 L 08/15/16 00:00 97.0 F L 76 18 142/51 97 08/14/16 22:32 97.5 F L 72 18 145/81 97 08/14/16 21:30 97.5 F L 72 18 145/81 97 08/14/16 19:42 98.3 F 67 18 153/67 96 08/14/16 19:01 97.7 F 68 15 95 08/14/16 18:30 97.3 F L 65 14 155/67 97 08/14/16 17:48 96.8 F L 65 20 182/79 93 L 08/14/16 17:13 96.2 F L 60 14 137/60 97 08/14/16 15:38 95.7 F L 61 18 145/68 99 Intake and Output 08/15/16 08/15/16 08/15/16 06:59 14:59 22:59 Intake Total 450 815 Output Total 400 Balance 450 415 Intake: IV 450 Levofloxacin 750Mg-D5w 150 Pmx 750 mg In Dextrose/ Water 1 150ml.bag @ 100 mls/hr IVPB ONCE STA Rx#: [id number] Piperacillin-Tazobactam 3 50 .375 gm In Dextrose/Water 1 50ml.bag @ 12.5 mls/hr IVPB Q12H [facility] Rx#: [id number] Vancomycin 1,750 mg In 250 Sodium Chloride 0.9% 250 ml @ 125 mls/hr IVPB ONCE STA Rx#:[id number] Oral 505 Blood Product 310 Rc As-3 Unit 310 [id number] Output: Urine 400 Other: # Voids 3 # Bowel Movements 1 1 Weight 68.5 kg 68.5 kg Patient Weight 08/16/16 06:59 Weight 68.5 kg Head exam was generally normal. There was no scleral icterus or corneal arcus. Mucous membranes were moist. The patient has some cushingoid features related to on and off steroid use for COPD treatment.Neck was supple and without jugular venous distension, thyromegaly, or carotid bruits. Carotids were easily palpable bilaterally. There was no adenopathy. Lung sounds are diminished bilaterally otherwise there is no wheezes or rhonchi any crackles.Cardiac exam revealed the PMI to be normally situated and sized. The rhythm was regular and no extrasystoles were noted during several minutes of auscultation. The first and second heart sounds were normal and physiologic splitting of the second heart sound was noted. There were no murmurs, rubs, clicks, or gallops.Abdominal exam revealed normal bowel sounds. The abdomen was soft, non- tender, and without masses, organomegaly, or appreciable enlargement of the abdominal aorta. Extremities are weak and the patient has limited range of motion the right upper extremity due to a comminuted fracture of the right humerus. Pulses are diminished. There is trace edema. There is no cyanosis or clubbing. Neurologically awake and alert and neurologic exam is nonfocal. Results - Laboratory Findings CBC and BMP: 08/15/16 06:12 08/15/16 06:12 PT/INR, D-dimer PT 10.1 sec (9.0-12.0) 08/14/16 15:55 INR 1.0 (<1.1) 08/14/16 15:55 Abnormal lab findings: Abnormal Labs 08/14/16 08/14/16 08/14/16 15:55 15:55 15:55 WBC 11.5 H RBC 3.00 L Hgb 7.4 L Hct 25.1 L MCH 24.5 L MCHC 29.4 L RDW 16.5 H Neutrophils # 10.1 H Lymphocytes # 0.6 L Chloride 93 L Carbon Dioxide 43 H* BUN 37 H Creatinine 1.98 H Glucose 134 H POC Glucose (mg/dL) Total Creatine Kinase <20 L Troponin I 0.043 H* Total Protein 5.6 L Albumin 3.1 L Urine Appearance Urine Protein Ur Squamous Epith Cells Amorphous Sediment Urine Bacteria Crossmatch 08/14/16 08/15/16 08/15/16 16:42 05:49 06:12 WBC RBC Hgb Hct MCH MCHC RDW Neutrophils # Lymphocytes # Chloride 96 L Carbon Dioxide 39 H BUN 39 H Creatinine 1.91 H Glucose POC Glucose (mg/dL) 113 H Total Creatine Kinase Troponin I Total Protein Albumin Urine Appearance Cloudy H Urine Protein 2+ H Ur Squamous Epith Cells 13 H Amorphous Sediment Rare H Urine Bacteria Rare H Crossmatch 08/15/16 08/15/16 08/15/16 06:12 07:10 11:33 WBC RBC 2.70 L Hgb 6.9 L* Hct 22.0 L MCH MCHC RDW 16.7 H Neutrophils # 8.7 H Lymphocytes # 0.7 L Chloride Carbon Dioxide BUN Creatinine Glucose POC Glucose (mg/dL) 169 H Total Creatine Kinase Troponin I Total Protein Albumin Urine Appearance Urine Protein Ur Squamous Epith Cells Amorphous Sediment Urine Bacteria Crossmatch See Detail - Diagnostic Findings Chest x-ray: image reviewed Assessment and Plan Plan: Assessment 1 advanced COPD with chronic hypoxic respiratory failure and suspected right basilar pneumonia currently on a combination of Zosyn and vancomycin. Note that the patient is FEV1 of less than 30% of predicted. 2 altered mental status, recovered and the patient's mental status is normal and the CAT scan of the brain is negative 3 chronic anemia interval drop in hemoglobin down to 6.9 status post transfusion with 2 units of packed RBC 4 coronary artery disease with previous myocardial infarctions 5 medical debility and recurrent falls with a previous history of a comminuted fracture in the right humerus 6 diabetes mellitus 7 hypertension 8 hyperlipidemia 9 breast cancer, history of with a previous lumpectomy 10 chronic renal failure 11 osteoarthritis 12 difficult with mobility and gait 13 obstructive sleep apnea maintained on CPAP therapy, 14 peripheral vascular disease Plan Complete a transfusion with packed RBC. Continue the same antibiotic coverage. Agree on the current treatment. Monitor renal function. Monitor electrolytes. Monitor hemoglobin. Continue diuresis. We'll to prognosis poor. The patient assisted resident. Quite debilitated and unable to perform activity as of daily life without any help.
[2016-08-15] MEDS ORDERED: VANCOMYCIN 1,250 MG in SODIUM CHLORIDE 0.9% 250 ML IVPB ONE (16:00)
[2016-08-15 16:40] LABS: Glucose,Whole Blood 143 mg/dL (75-99)
[2016-08-15] MEDS: FUROSEMIDE 10 MG/ML 4 ML VIAL IV SCH (17:05)
--- NOTE | 2016-08-15 17:07 | ECHOF ---
Referral Reason:CHF MEASUREMENTS -------- HEIGHT: 160.0 cm WEIGHT: 68.5 kg BP: 149/52 RVIDd: 2.3 cm (< 3.3) IVSd: 1.3 cm (0.6 - 1.1) LVIDd: 3.7 cm (3.9 - 5.3) LVPWd: 1.2 cm (0.6 - 1.1) IVSs: 1.6 cm LVIDs: 2.5 cm LVPWs: 1.8 cm LA Diam: 3.7 cm (2.7 - 3.8) LAESV Index (A-L): 44.93 ml/m Ao Diam: 2.9 cm (2.0 - 3.7) AV Cusp: 1.6 cm (1.5 - 2.6) LA Diam: 3.7 cm (2.7 - 3.8) MV EXCURSION: 21.171 mm (> 18.000) MV EF SLOPE: 77 mm/s (70 - 150) EPSS: 0.9 cm MV E Marcellus: 1.11 m/s MV DecT: 274 ms MV A Marcellus: 1.36 m/s MV E/A Ratio: 0.81 AV maxP.19 mmHg AV meanP.78 mmHg RAP: 5.00 mmHg RVSP: 43.81 mmHg FINDINGS -------- Sinus rhythm. This was a technically adequate study. There is mild concentric left ventricular hypertrophy. Overall left ventricular systolic function is low-normal with, an EF between 50 - 55 %. The right ventricle is normal in size. LA is severely dilated >40 ml/m2 The right atrial size is normal. Mild aortic stenosis with peak/mean pressure gradient of 21.19mmHg / 10.78mmHg , the aortic valve area by continuity equation is 1.6cm. Mild mitral annular calcification present. Mild mitral regurgitation is present. Mild tricuspid regurgitation present. There is mild pulmonary hypertension. The right ventricular systolic pressure, as measured by Doppler, is 43.81mmHg. Trace/mild (physiologic) pulmonic regurgitation. The aortic root size is normal. There is no pericardial effusion. CONCLUSIONS -------- 1. There is mild concentric left ventricular hypertrophy. 2. Trace/mild (physiologic) pulmonic regurgitation. 3. The aortic root size is normal. 4. There is no pericardial effusion. 5. Overall left ventricular systolic function is low-normal with, an EF between 50 - 55 %. 6. LA is severely dilated >40 ml/m2 7. Mild aortic stenosis with peak/mean pressure gradient of 21.19mmHg / 10.78mmHg , the aortic valve area by continuity equation is 1.6cm. 8. Mild mitral annular calcification present. 9. Mild mitral regurgitation is present. 10. Mild tricuspid regurgitation present. 11. There is mild pulmonary hypertension. 12. The right ventricular systolic pressure, as measured by Doppler, is 43.81mmHg. [employer] SUPERVISOR: Sultana Colon RDCS
[2016-08-15] MEDS ORDERED: LEVOFLOXACIN 500MG-D5W PMX 500 MG in DEXTROSE/WATER 1 100ML.BAG IVPB SCH (20:00)
[2016-08-15 20:46] LABS: Glucose,Whole Blood 149 mg/dL (75-99)
[2016-08-16] MEDS: ALPRAZolam 0.25 MG TAB PO PRN (01:36)
[2016-08-16 03:44] LABS: Anisocytosis Slight; Basophils % (A) 0 %; CHCM 29.9; Eosinophils # (A) 0.4 k/uL (0-0.7); Eosinophils % (A) 4 %; HCT 25.9 % (34.0-46.0); HDW 3.98; HGB 8.1 gm/dL (11.4-16.0); Hypochromasia Marked; Luc # (Auto) 0.23; Luc % (Auto) 2; Lymphocytes # (A) 0.7 k/uL (1.0-4.8); Lymphocytes % (A) 7 %; MCH 27.1 pg (25.0-35.0); MCHC 31.2 g/dL (31.0-37.0); Mean Platelet Volume 7.1; Monocytes # (A) 0.6 k/uL (0-1.0); Monocytes % (A) 6 %; Neutrophils # (A) 8.5 k/uL (1.3-7.7); Neutrophils % (A) 81 %; Poikilocytosis Slight; RBC 2.98 m/uL (3.80-5.40); RDW 16.9 % (11.5-15.5); WBC 10.5 k/uL (3.8-10.6); WBC (Perox) 10.85
[2016-08-16 04:30] LABS: Calcium 9.2 mg/dL (8.4-10.2); Potassium 3.5 mmol/L (3.5-5.1)
[2016-08-16 06:05] LABS: Glucose,Whole Blood 122 mg/dL (75-99)
[2016-08-16] MEDS: FUROSEMIDE 10 MG/ML 4 ML VIAL IV SCH (07:02)
[2016-08-16] MEDS: hydrALAZINE HCL 50 MG TAB PO SCH ×3 (07:02→20:11)
[2016-08-16] MEDS: CARVEDILOL 12.5 MG TAB PO SCH ×2 (07:02→17:47)
[2016-08-16] MEDS: SYMBICORT 160-4.5 MCG INHALER INHALATION SCH ×2 (08:17→20:37)
[2016-08-16] MEDS: IPRATROPIUM-ALBUTEROL 3 ML NEB INHALATION SCH ×4 (08:17→20:37)
[2016-08-16] MEDS: DOCUSATE 100 MG CAP PO SCH (09:33)
[2016-08-16] MEDS: VIT A,C & E-LUTEIN-MINERALS 1 EACH TAB PO SCH (09:33)
[2016-08-16] MEDS: PANTOPRAZOLE 40 MG TABLET PO SCH (09:33)
[2016-08-16] MEDS: PIPERACILLIN-TAZOBACTAM 3.375 GM in DEXTROSE/WATER 1 50ML.BAG IVPB SCH ×3 (11:42→23:09)
--- NOTE | 2016-08-16 11:53 | P.CNOR ---
History of Present Illness - [facility] Consult date: 08/16/16 Consult reason: fracture (Follow-up right proximal humerus fracture) History of present illness: This is an 81-year-old female admitted with mental status changes. She has history of a right proximal humerus fracture proximally one month ago. We're consulted for orthopedic follow-up regarding her fracture. Past Medical History Past Medical History: COPD, Diabetes Mellitus, Hyperlipidemia, Hypertension, Myocardial Infarction (CA), Musculoskeletal Disorder, Osteoarthritis (OA), Thyroid Disorder Additional Past Medical History / Comment(s): COPD , anemia, chronic hypoxic respiratory failure and the patient has been on oxygen at 3L/m nasal cannula, lt breast cancer, chronic sinus disease,djd emphysema, thyroid nodule, chronic renal failure, chronic anemia, osteoarthritis Last Myocardial Infarction Date:: 04/15/16 History of Any Multi-Drug Resistant Organisms: None Reported Past Surgical History: Breast Surgery, Orthopedic Surgery, Tonsillectomy Additional Past Surgical History / Comment(s): 2002 lt lumpectomy and 35 radiation tx,2004 right carotid endarectomy, rt knee arthroscopy,2009 right knee replacement 2006 bilateral cataract , had esophageal dilation via EGD Past Anesthesia/Blood Transfusion Reactions: Postoperative Nausea & Vomiting ( PONV) Additional Past Anesthesia/Blood Transfusion Reaction / Comm: vomited after surg. Past Psychological History: No Psychological Hx Reported, Anxiety Additional Psychological History / Comment(s): Pt resides at [facility]. She has home O2 at 3L/NC ATC. She has a nebulizer and a glucose meter. Smoking Status: Former smoker Past Alcohol Use History: None Reported Past Drug Use History: None Reported - Past Family History Father Family Medical History: Coronary Artery Disease (CAD) Additional Family Medical History / Comment(s): young from heart problems Mother Family Medical History: Asthma, COPD Medications and Allergies Home Medications Medication Instructions Recorded Confirmed Type Vit A,C & E/Lutein/Minerals 1 tab PO DAILY 10/06/13 08/14/16 History [Ocuvite with Lutein Tablet] Fluticasone/Vilanterol [Breo 1 puff INHALATION RT-DAILY 04/14/16 08/14/16 History Ellipta 200-25 Mcg INH] Ipratropium-Albuterol Nebulize 3 ml INHALATION RT-QID 04/14/16 08/14/16 History [Duoneb 0.5 mg-3 mg/3 ml Soln] Sertraline [Zoloft] 50 mg PO HS 04/14/16 08/14/16 History Clopidogrel Bisulfate [Plavix] 75 mg PO HS 07/12/16 08/14/16 History Famotidine [Pepcid] 20 mg PO DAILY 07/12/16 08/14/16 History Docusate [Colace] 100 mg PO DAILY 08/02/16 08/14/16 History Furosemide [Lasix] 40 mg PO BID@0600,1200 08/02/16 08/14/16 History HYDROcodone/APAP 5-325MG [Newton 1 tab PO Q4HR PRN 08/02/16 08/14/16 History 5-325] hydrALAZINE HCL [Apresoline] 100 mg PO TID@0600,1200,2100 08/02/16 08/14/16 History ALPRAZolam [Xanax] 0.25 mg PO BID PRN 08/14/16 08/14/16 History Carvedilol [Coreg] 25 mg PO BID 08/14/16 08/14/16 History Lactulose 20 gm PO BID PRN 08/14/16 08/14/16 History Allergies Allergy/AdvReac Type Severity Reaction Status Date / Time doxycycline Allergy Rash/Hives Verified 08/08/16 00:13 glucosamine Allergy Rash/Hives Verified 08/08/16 00:13 Iodinated Contrast Media - Allergy Rash/Hives Verified 08/08/16 00:13 Oral and [Iodinated Contrast Media - IV Dye] Sulfa (Sulfonamide Allergy Rash/Hives Verified 08/08/16 00:13 Antibiotics) baclofen AdvReac Confusion Verified 08/08/16 00:13 Physical Examination This is an 81-year-old female in no acute distress. She is resting comfortably. I am and unable to awaken her at this time. Family is present at bedside. There is a shoulder/wrist brace in place for shoulder mobilization. Capillary refill the fingers is less than 3 seconds. Neurovascular status to the upper extremities intact. Results Chest x-ray revealed reveals stable proximal humerus fracture. Shoulder x-rays are pending. - Labs Labs: Abnormal Lab Results - Last 24 Hours (Table) 08/15/16 08/15/16 08/15/16 Range/Units 07:10 16:36 20:45 RBC (3.80-5.40) m/uL Hgb (11.4-16.0) gm/dL Hct (34.0-46.0) % RDW (11.5-15.5) % Neutrophils # (1.3-7.7) k/uL Lymphocytes # (1.0-4.8) k/uL Chloride (98-107) mmol/L Carbon Dioxide (22-30) mmol/L BUN (7-17) mg/dL Creatinine (0.52-1.04) mg/dL Glucose (74-99) mg/dL POC Glucose (mg/dL) 143 H 149 H (75-99) mg/dL Crossmatch See Detail 08/16/16 08/16/16 08/16/16 Range/Units 03:26 03:26 06:04 RBC 2.98 L (3.80-5.40) m/uL Hgb 8.1 L (11.4-16.0) gm/dL Hct 25.9 L (34.0-46.0) % RDW 16.9 H (11.5-15.5) % Neutrophils # 8.5 H (1.3-7.7) k/uL Lymphocytes # 0.7 L (1.0-4.8) k/uL Chloride 92 L (98-107) mmol/L Carbon Dioxide 41 H* (22-30) mmol/L BUN 36 H (7-17) mg/dL Creatinine 2.10 H (0.52-1.04) mg/dL Glucose 109 H (74-99) mg/dL POC Glucose (mg/dL) 122 H (75-99) mg/dL Crossmatch Microbiology - Last 24 Hours (Table) 08/14/16 16:42 Urine Culture - Final Urine,Catheterized 08/14/16 15:55 Blood Culture - Preliminary Blood No Growth after 24 hours H & H 08/14/16 08/15/16 08/16/16 Range/Units 15:55 06:12 03:26 Hgb 7.4 L 6.9 L* 8.1 L (11.4-16.0) gm/dL Hct 25.1 L 22.0 L 25.9 L (34.0-46.0) % Coagulation 08/14/16 Range/Units 15:55 INR 1.0 (<1.1) Result Diagrams: 08/16/16 03:26 08/16/16 03:26 Assessment and Plan (1) Fracture of proximal end of right humerus Status: Acute (2) Fracture of proximal end of right humerus with routine healing Status: Acute Plan: The clinical findings are discussed with the patient's family. I will obtain dedicated shoulder films for evaluation. I will make further recommendations once x-rays are obtained.
[2016-08-16 12:01] LABS: Glucose,Whole Blood 136 mg/dL (75-99)
--- NOTE | 2016-08-16 12:45 | P.PN ---
Subjective This is an 81-year-old female who resides in a [facility] and was sent in because of altered mental status for the last 2 hours. The patient is a [facility] resident and she resides at the [facility] on [facility]. Prior to that she was alert and oriented to her baseline according to staff. Daughter states yesterday she had a similar episode and eventually came around it was back to her baseline. I was asked to evaluate this patient knowing that she is very well-known to me. She has advanced COPD P left taking care of her pulmonary needs for many years. At time of my evaluation, the patient was wide awake and alert and she was following commands and answering questions appropriately. I do not see any signs of any mental status change. She has recognized me. She has been conversing normally. No slurred speech. No headaches. No neck stiffness. No fever or chills. She is quite debilitated to the point where she is unable to ambulate and walk for the time being. Yet she is able to move all 4 extremities and her neurologic exam is nonfocal at this point. The CAT scan of the brain was also done and the patient has no evidence of any acute intracranial hemorrhage or mass effect or midline shift. There is a nonspecific mild ventriculomegaly. The chest x-ray was consistent with COPD and cardiomegaly. There is improvement in the right lower lobe pulmonary infiltrate. There is also evidence of increased pulmonary vascular markings/edema. The patient's was also noted to have a hemoglobin of 6.9. She has chronic anemia and hemoglobin is ranging below 10 for the past several months. No signs of any acute bleeding and the patient is receiving a unit of packed RBC. She has also chronic renal failure and creatinine is stable at 1.9. BNP level is elevated at 12,300 Aggressive electrolyte liver function studies are all within normal limits. The patient was started on Lasix 40 mg IV push every 12 hours. The patient was started on an empiric antibiotic coverage with a combination of Zosyn and vancomycin. She is on breathing treatments around the clock utilizing DuoNeb nebulized treatments. She is also on Symbicort as a maintenance. On 08/16/2016 I'm seeing this patient in follow-up. She is awake and alert and there has been no issues with her mentation at all. I am wondering whether the patient's altered mental status was related to a suboptimal BiPAP use. Her BiPAP is set at a pressure of 10/5 cm of water. I checked her compliancy and she has been using her BiPAP 26 out of the past 30 days. BiPAP use for more than 4 hours is been 12 out of 30 days. Average BiPAP uses around 4.6 hours during the days used. AHI while on treatment is down to 2.1. She is to be a bit more compliant with the treatment. She is not having any major it further difficulties. Resting comfortably in bed. She got a transfusion with packed RBC and subsequent hemoglobin is up to 8.1. Objective - Vital Signs Vital signs: Vital Signs Temp 97.3 F L 08/16/16 12:00 Pulse 76 08/16/16 12:03 Resp 18 08/16/16 12:00 BP 161/66 08/16/16 12:00 Pulse Ox 94 L 08/16/16 12:00 Intake & Output 08/15/16 08/16/16 08/16/16 18:59 06:59 18:59 Intake Total 915 Output Total 700 700 175 Balance 215 -700 -175 Weight 68.5 kg 68.5 kg Intake: Oral 605 Blood Product 310 Rc As-3 Unit 310 [id number] Output: Urine 700 700 175 Stool 0 Other: Voiding Method Bedside Commode Bedpan # Voids 1 # Bowel Movements 1 - Exam Head exam was generally normal. There was no scleral icterus or corneal arcus. Mucous membranes were moist. The patient has some cushingoid features related to on and off steroid use for COPD treatment.Neck was supple and without jugular venous distension, thyromegaly, or carotid bruits. Carotids were easily palpable bilaterally. There was no adenopathy. Lung sounds are diminished bilaterally otherwise there is no wheezes or rhonchi any crackles.Cardiac exam revealed the PMI to be normally situated and sized. The rhythm was regular and no extrasystoles were noted during several minutes of auscultation. The first and second heart sounds were normal and physiologic splitting of the second heart sound was noted. There were no murmurs, rubs, clicks, or gallops.Abdominal exam revealed normal bowel sounds. The abdomen was soft, non- tender, and without masses, organomegaly, or appreciable enlargement of the abdominal aorta. Extremities are weak and the patient has limited range of motion the right upper extremity due to a comminuted fracture of the right humerus. Pulses are diminished. There is trace edema. There is no cyanosis or clubbing. Neurologically awake and alert and neurologic exam is nonfocal. - Labs CBC & Chem 7: 08/16/16 03:26 08/16/16 03:26 Labs: Abnormal Lab Results - Last 24 Hours (Table) 08/15/16 08/15/16 08/15/16 Range/Units 07:10 16:36 20:45 RBC (3.80-5.40) m/uL Hgb (11.4-16.0) gm/dL Hct (34.0-46.0) % RDW (11.5-15.5) % Neutrophils # (1.3-7.7) k/uL Lymphocytes # (1.0-4.8) k/uL Chloride (98-107) mmol/L Carbon Dioxide (22-30) mmol/L BUN (7-17) mg/dL Creatinine (0.52-1.04) mg/dL Glucose (74-99) mg/dL POC Glucose (mg/dL) 143 H 149 H (75-99) mg/dL Crossmatch See Detail 08/16/16 08/16/16 08/16/16 Range/Units 03:26 03:26 06:04 RBC 2.98 L (3.80-5.40) m/uL Hgb 8.1 L (11.4-16.0) gm/dL Hct 25.9 L (34.0-46.0) % RDW 16.9 H (11.5-15.5) % Neutrophils # 8.5 H (1.3-7.7) k/uL Lymphocytes # 0.7 L (1.0-4.8) k/uL Chloride 92 L (98-107) mmol/L Carbon Dioxide 41 H* (22-30) mmol/L BUN 36 H (7-17) mg/dL Creatinine 2.10 H (0.52-1.04) mg/dL Glucose 109 H (74-99) mg/dL POC Glucose (mg/dL) 122 H (75-99) mg/dL Crossmatch 08/16/16 Range/Units 12:00 RBC (3.80-5.40) m/uL Hgb (11.4-16.0) gm/dL Hct (34.0-46.0) % RDW (11.5-15.5) % Neutrophils # (1.3-7.7) k/uL Lymphocytes # (1.0-4.8) k/uL Chloride (98-107) mmol/L Carbon Dioxide (22-30) mmol/L BUN (7-17) mg/dL Creatinine (0.52-1.04) mg/dL Glucose (74-99) mg/dL POC Glucose (mg/dL) 136 H (75-99) mg/dL Crossmatch Microbiology - Last 24 Hours (Table) 08/14/16 16:42 Urine Culture - Final Urine,Catheterized 08/14/16 15:55 Blood Culture - Preliminary Blood No Growth after 24 hours Assessment and Plan Plan: Assessment 1 advanced COPD with chronic hypoxic respiratory failure and suspected right basilar pneumonia currently on a combination of Zosyn and vancomycin. Note that the patient is FEV1 of less than 30% of predicted. 2 altered mental status, recovered and the patient's mental status is normal and the CAT scan of the brain is negative. Rule out secondary to suboptimal BiPAP use causing altered level of consciousness and awareness in a.m. 3 chronic anemia interval drop in hemoglobin down to 6.9 status post transfusion with 2 units of packed RBC and with improvement and subsequent hemoglobin breathing. 4 coronary artery disease with previous myocardial infarctions 5 medical debility and recurrent falls with a previous history of a comminuted fracture in the right humerus 6 diabetes mellitus 7 hypertension 8 hyperlipidemia 9 breast cancer, history of with a previous lumpectomy 10 chronic renal failure 11 osteoarthritis 12 difficult with mobility and gait 13 obstructive sleep apnea maintained on BiPAP therapy, the compliance and the BiPAP was checked. 14 peripheral vascular disease Plan We'll asked the patient to continue using the BiPAP at the same setting every night without any interruption. We'll continue the antibiotics for now. The patient a combination of Zosyn and vancomycin for suspected lower lobe pulmonary infiltrates/pneumonia. Monitor mental status. Monitor hemoglobin. Creatinine is stable. Long-term prognosis poor baseline above-mentioned comorbidities. We'll continue to follow.
--- NOTE | 2016-08-16 13:52 | P.PN ---
Subjective This pleasant 81-year-old female who resides at [facility]. Has a known history of COPD, diabetes, previous AK, hyperlipidemia and hypertension. Was brought in via EMS with altered mental status, hypothermia and anemia. Patient does not truly recall events surrounding her admission. Patient was found to have elevated BNP and was started on IV Lasix yesterday. Hemoglobin yesterday was 6.9 this morning is up to 8.1 after receiving one unit of packed red blood cells. Patient is feeling a bit better today. Echocardiogram completed yesterday showed an ejection fraction of 50-55% with some mild tenderness and mild MR. BUN is 36 and creatinine is 2.1 which is up from yesterday. Objective - Vital Signs Vital signs: Vital Signs Temp 97.3 F L 08/16/16 12:00 Pulse 76 08/16/16 12:03 Resp 18 08/16/16 12:00 BP 161/66 08/16/16 12:00 Pulse Ox 94 L 08/16/16 12:00 Intake & Output 08/15/16 08/16/16 08/16/16 18:59 06:59 18:59 Intake Total 915 Output Total 700 700 175 Balance 215 -700 -175 Weight 68.5 kg 68.5 kg Intake: Oral 605 Blood Product 310 Rc As-3 Unit 310 [id number] Output: Urine 700 700 175 Stool 0 Other: Voiding Method Bedside Commode Bedpan # Voids 1 # Bowel Movements 1 - Exam PHYSICAL EXAMINATION: HEENT: Head is atraumatic, normocephalic. Pupils equal, round. Neck is supple. There is no elevated jugular venous pressure. HEART EXAMINATION: Heart sounds regular, S1 and S2 normal with a systolic murmur. CHEST EXAMINATION: Lungs reveal diminished air entry with faint crackles at the bilateral bases. No chest wall tenderness is noted on palpation or with deep breathing. ABDOMEN: Soft, nontender. Bowel sounds are heard. No organomegaly noted. EXTREMITIES: 2+ peripheral pulses with no evidence of peripheral edema and no calf tenderness noted. NEUROLOGIC patient is awake, alert and oriented x2. . - Labs CBC & Chem 7: 08/16/16 03:26 08/16/16 03:26 Labs: Abnormal Lab Results - Last 24 Hours (Table) 08/15/16 08/15/16 08/15/16 Range/Units 07:10 16:36 20:45 RBC (3.80-5.40) m/uL Hgb (11.4-16.0) gm/dL Hct (34.0-46.0) % RDW (11.5-15.5) % Neutrophils # (1.3-7.7) k/uL Lymphocytes # (1.0-4.8) k/uL Chloride (98-107) mmol/L Carbon Dioxide (22-30) mmol/L BUN (7-17) mg/dL Creatinine (0.52-1.04) mg/dL Glucose (74-99) mg/dL POC Glucose (mg/dL) 143 H 149 H (75-99) mg/dL Crossmatch See Detail 08/16/16 08/16/16 08/16/16 Range/Units 03:26 03:26 06:04 RBC 2.98 L (3.80-5.40) m/uL Hgb 8.1 L (11.4-16.0) gm/dL Hct 25.9 L (34.0-46.0) % RDW 16.9 H (11.5-15.5) % Neutrophils # 8.5 H (1.3-7.7) k/uL Lymphocytes # 0.7 L (1.0-4.8) k/uL Chloride 92 L (98-107) mmol/L Carbon Dioxide 41 H* (22-30) mmol/L BUN 36 H (7-17) mg/dL Creatinine 2.10 H (0.52-1.04) mg/dL Glucose 109 H (74-99) mg/dL POC Glucose (mg/dL) 122 H (75-99) mg/dL Crossmatch 08/16/16 Range/Units 12:00 RBC (3.80-5.40) m/uL Hgb (11.4-16.0) gm/dL Hct (34.0-46.0) % RDW (11.5-15.5) % Neutrophils # (1.3-7.7) k/uL Lymphocytes # (1.0-4.8) k/uL Chloride (98-107) mmol/L Carbon Dioxide (22-30) mmol/L BUN (7-17) mg/dL Creatinine (0.52-1.04) mg/dL Glucose (74-99) mg/dL POC Glucose (mg/dL) 136 H (75-99) mg/dL Crossmatch Microbiology - Last 24 Hours (Table) 08/14/16 16:42 Urine Culture - Final Urine,Catheterized 08/14/16 15:55 Blood Culture - Preliminary Blood No Growth after 24 hours Assessment and Plan Plan: Assessment and plan #1 congestive heart failure, diastolic, acute on chronic #2 anemia #3 hypothermia #4 elevated troponin, not consistent with myocardial ischemia #5 renal failure, chronic From Cardiology's perspective, we will change Lasix to by mouth. Continue follow patient's renal function. Further recommendations to follow. DIGITAL COURT REPORTER note has been reviewed, I agree with a documented findings and plan of care. Patient was seen and examined.
[2016-08-16] MEDS: FUROSEMIDE 40 MG TAB PO SCH (15:26)
--- NOTE | 2016-08-16 16:44 | XR ---
EXAMINATION TYPE: XR shoulder limited RT DATE OF EXAM: 08/16/2016 COMPARISON: NONE HISTORY: Pain TECHNIQUE: Shoulder examined in 3 FINDINGS: Humeral head articulates with the glenoid. A fracture of the surgical neck of the humerus. This appea rs to be comminuted with avulsion of the greater tuberosity. IMPRESSION: 1. Comminuted Fracture proximal right humerus
[2016-08-16 16:48] LABS: Glucose,Whole Blood 179 mg/dL (75-99)
[2016-08-16 20:54] LABS: Glucose,Whole Blood 206 mg/dL (75-99)
[2016-08-17 05:52] LABS: Glucose,Whole Blood 127 mg/dL (75-99)
[2016-08-17] MEDS: CARVEDILOL 12.5 MG TAB PO SCH ×2 (06:33→17:05)
[2016-08-17] MEDS: hydrALAZINE HCL 50 MG TAB PO SCH ×3 (06:33→20:35)
[2016-08-17 07:21] LABS: Anisocytosis Slight; Basophils % (A) 0 %; CH 26.1; CHCM 30.4; Eosinophils # (A) 0.3 k/uL (0-0.7); Eosinophils % (A) 3 %; HDW 3.52; HGB 8.1 gm/dL (11.4-16.0); Hypochromasia Marked; Luc # (Auto) 0.17; Luc % (Auto) 2; Lymphocytes # (A) 0.8 k/uL (1.0-4.8); Lymphocytes % (A) 9 %; MCH 26.8 pg (25.0-35.0); MCHC 31.3 g/dL (31.0-37.0); MCV 85.8 fL (80.0-100.0); Mean Platelet Volume 7.1; Monocytes # (A) 0.6 k/uL (0-1.0); Monocytes % (A) 6 %; Neutrophils # (A) 7.6 k/uL (1.3-7.7); Neutrophils % (A) 80 %; Poikilocytosis Slight; RBC 3.03 m/uL (3.80-5.40); RDW 17.2 % (11.5-15.5); WBC 9.6 k/uL (3.8-10.6); WBC (Perox) 9.44
[2016-08-17 07:36] LABS: Calcium 9.4 mg/dL (8.4-10.2); Potassium 3.4 mmol/L (3.5-5.1)
[2016-08-17] MEDS: DOCUSATE 100 MG CAP PO SCH (08:01)
[2016-08-17] MEDS: VIT A,C & E-LUTEIN-MINERALS 1 EACH TAB PO SCH (08:01)
[2016-08-17] MEDS: PANTOPRAZOLE 40 MG TABLET PO SCH (08:01)
[2016-08-17] MEDS: FUROSEMIDE 40 MG TAB PO SCH ×2 (08:01→16:08)
[2016-08-17] MEDS: SYMBICORT 160-4.5 MCG INHALER INHALATION SCH ×2 (09:27→19:46)
[2016-08-17] MEDS: IPRATROPIUM-ALBUTEROL 3 ML NEB INHALATION SCH ×4 (09:27→19:46)
--- NOTE | 2016-08-17 09:45 | P.PN ---
Progress Note - Text The patient is seen and examined at bedside. She is appropriate today answering questions appropriately. She still has complaints of pain at her right shoulder with mobility. She is not complaining of pain in her elbow wrist or hand. She does feel some clicking at her right elbow with mobilization movement in her elbow. She denies numbness tingling in her right upper extremity. She has been using her brace. On exam she is alert and oriented. At her right shoulder she has pain with abduction and flexion beyond 20. She has mild global tenderness around her shoulder with palpation. There is no swelling or skin breakdown. At her elbow she has some stiffness but she is able to flex to about 120 and extend to about 20 shy of full extension. There is some arthritic type of crepitus with mobilization but she is not painful. There is no point tenderness. There is no swelling. Assessment and plan Right proximal humerus fracture, three-part fracture which is being treated conservatively The fracture is stabilizing in its current position. I would not plan any surgical intervention for her right shoulder. She will have stiffness due to her injury and the immobilization and we can start to do some gentle range of motion for her shoulder at this point. I think that we can discontinue her shoulder immobilizer while she is in bed and in a chair. I would like her to start getting up physical therapy to do some gentle range of motion for her shoulder and elbow and to continue her reconditioning and she has been quite deconditioned with her limited mobility over the past few weeks. We will plan to continue conservative treatment for her right shoulder and she can follow-up with us in the next 2 weeks for recheck evaluation. She should maintain nonweightbearing for her right shoulder with physical therapy. Multiple medical issues including altered mental status She will continue her medical management in this regard Global deconditioning which will hopefully make some improvement as she increases her activity with physical therapy. It is okay from an orthopedic standpoint for her to be discharged when she is cleared medicine.
--- NOTE | 2016-08-17 09:57 | HP ---
CHIEF COMPLAINT: Change in mental status and hypothyroidism. HISTORY OF PRESENT ILLNESS: This 81 year old woman with past medical history of multiple medical problems including history of COPD, diabetes mellitus, hypertension, hyperlipidemia, myocardial infarction, DJD, history of anxiety, being followed by Dr. Guo in the outpatient setting, recently admitted to [facility] with acute kidney injury, right, chronic hypoxic respiratory failure and also had anemia, hemoglobin 8.1. The patient was sent to [facility] for rehab where the patient was slightly improving but for the last couple of days, the patient is noticing change in mental status, drowsiness and weakness and also hypothyroidism and the patient was brought to [facility] and admitted for further evaluation and treatment. There is no history of any fever, rigors or chills. The patient is stuporous and unable to give coherent history. Most of the history is taken from my discussion with staff as well as review of the chart at this time. PAST MEDICAL HISTORY: COPD, diabetes, hyperlipidemia, hypertension, history of myocardial infarction, DJD, COPD, breast surgery, tonsillectomy. MEDICATIONS: Prior to admission include: 1. Apresoline 100 mg p.o. t.i.d. 2. Vitamin one po daily. 3. Zoloft 50 mg q6h. 4. Lactulose 20 gm p.o. b.i.d. p.r.n. 5. DuoNeb q.i.d. and p.r.n. 6. Minco 5 mg q4h p.r.n. 7. Lasix 40 mg p.o. b.i.d. 8. Breo Ellipta one puff daily. 9. Pepcid 20 mg daily. 10. Colace 100 mg p.o. b.i.d. 11. Plavix 75 mg daily. 12. Coreg 25 mg p.o. b.i.d. 13. Xanax 0.25 mg b.i.d. p.r.n. ALLERGIES: DOXYCYCLINE, GLUCOSAMINE, IODINATED CONTRAST, BACLOFEN. FAMILY HISTORY, SOCIAL HISTORY AND REVIEW OF SYSTEMS: Could not be taken because of the patient's change in mental status. From the chart, previous history of smoking. PHYSICAL EXAM: The patient is stuporous. Pulse is 68. Blood pressure is 153/ 77. Respiratory rate 18. Temperature 98.3. Pulse ox 98% on 2 L. Temperature was 95.7 rectal on admission. HEENT: Conjunctivae normal. Oral mucosa dry. NECK: No JVD. No carotid bruit. No thyroid enlargement. CARDIOVASCULAR: S1, S2 muffled. RESPIRATORY: Breath sounds diminished at the bases. A few scattered rhonchi and crackles. Expiratory wheezing also present. ABDOMEN: Soft, obese, nontender. No mass palpable. LEGS: No edema. No swelling. NERVOUS SYSTEM: Higher functions as mentioned earlier. Moves all four limbs. LYMPHATICS: No lymph nodes palpable in the neck, axillae or groin. SKIN: No ulcer, rash or bleeding. LABS: WBC 11.1, hemoglobin 7.4. Sodium 142, potassium 3.9, creatinine 1.98, troponin is 0.093. UA noted. The chest x-ray possibly pulmonary edema, cardiogenic etiology and fracture dislocation of the right humeral head. ASSESSMENT: 1. Hyperthermia, change in mental status, possible sepsis undetermined etiology. 2. Possible acute cellulitis of the right hand, rule out congestive heart failure. 3. Chronic obstructive pulmonary disease, acute exacerbation, acute on chronic hypoxic respiratory failure. 4. Change in mental status, secondary to metabolic encephalopathy, multifactorial. 5. Fracture dislocation of right humeral head. 6. History of chronic obstructive pulmonary disease. 7. Diabetes mellitus Type 2. 8. Hypertension. 9. Hyperlipidemia. 10. History of myocardial infarction. 11. History of degenerative joint disease. 12. History of hypothyroidism. 13. History of chronic hypoxic respiratory failure on 2.5 L nasal cannula. 14. History of thyroid nodule. 15. History of chronic kidney disease, Stage III. 16. History of breast surgery. 17. History of anxiety, not otherwise specified. 18. FULL CODE. RECOMMENDATIONS AND DISCUSSION: In this 81 year old woman who presented with multiple complex medical issues, we will monitor the patient closely, we will monitor the patient closely, continue the current medications, continue symptomatic treatment. We will initiate broad spectrum IV antibiotics. We will institute Zosyn and Vancomycin cultures. Consult Dr. Arana. Guarded prognosis because of multiple complex medical issues. Further recommendations to follow. [facility]
[2016-08-17] MEDS ORDERED: Potassium Replacement Protocol 1 EACH MISC MISCELLANE PRN (10:42)
[2016-08-17 11:46] LABS: Glucose,Whole Blood 160 mg/dL (75-99)
[2016-08-17] MEDS: PIPERACILLIN-TAZOBACTAM 3.375 GM in DEXTROSE/WATER 1 50ML.BAG IVPB SCH ×2 (11:54→23:27)
[2016-08-17] MEDS: ACETAMINOPHEN TAB 325 MG TAB PO PRN (11:55)
[2016-08-17] MEDS: POTASSIUM CHLORIDE ER 20 MEQ TAB.ER PO SCH ×2 (11:57→14:21)
--- NOTE | 2016-08-17 12:49 | P.PN ---
Subjective This is an 81-year-old female who resides in a halfway and was sent in because of altered mental status for the last 2 hours. The patient is a halfway resident and she resides at the [facility]. Prior to that she was alert and oriented to her baseline according to staff. Daughter states yesterday she had a similar episode and eventually came around it was back to her baseline. I was asked to evaluate this patient knowing that she is very well-known to me. She has advanced COPD P left taking care of her pulmonary needs for many years. At time of my evaluation, the patient was wide awake and alert and she was following commands and answering questions appropriately. I do not see any signs of any mental status change. She has recognized me. She has been conversing normally. No slurred speech. No headaches. No neck stiffness. No fever or chills. She is quite debilitated to the point where she is unable to ambulate and walk for the time being. Yet she is able to move all 4 extremities and her neurologic exam is nonfocal at this point. The CAT scan of the brain was also done and the patient has no evidence of any acute intracranial hemorrhage or mass effect or midline shift. There is a nonspecific mild ventriculomegaly. The chest x-ray was consistent with COPD and cardiomegaly. There is improvement in the right lower lobe pulmonary infiltrate. There is also evidence of increased pulmonary vascular markings/edema. The patient's was also noted to have a hemoglobin of 6.9. She has chronic anemia and hemoglobin is ranging below 10 for the past several months. No signs of any acute bleeding and the patient is receiving a unit of packed RBC. She has also chronic renal failure and creatinine is stable at 1.9. BNP level is elevated at 12,300 Aggressive electrolyte liver function studies are all within normal limits. The patient was started on Lasix 40 mg IV push every 12 hours. The patient was started on an empiric antibiotic coverage with a combination of Zosyn and vancomycin. She is on breathing treatments around the clock utilizing DuoNeb nebulized treatments. She is also on Symbicort as a maintenance. On 08/16/2016 I'm seeing this patient in follow-up. She is awake and alert and there has been no issues with her mentation at all. I am wondering whether the patient's altered mental status was related to a suboptimal BiPAP use. Her BiPAP is set at a pressure of 10/5 cm of water. I checked her compliancy and she has been using her BiPAP 26 out of the past 30 days. BiPAP use for more than 4 hours is been 12 out of 30 days. Average BiPAP uses around 4.6 hours during the days used. AHI while on treatment is down to 2.1. She is to be a bit more compliant with the treatment. She is not having any major it further difficulties. Resting comfortably in bed. She got a transfusion with packed RBC and subsequent hemoglobin is up to 8.1. On 08/17/2016 the patient has no specific complaints and she is wide awake. She has utilize her BiPAP very regularly last night and she uses for more than 10 hours. AHI is less than 5. No leaks on the mask. She is awake and interactive and communicating. No nausea. No vomiting. No abdominal pain. Function is stable. Blood sugars on 160 this morning. No other significant events overnight. Objective - Vital Signs Vital signs: Vital Signs Temp 98.3 F 08/17/16 08:00 Pulse 64 08/17/16 09:41 Resp 18 08/17/16 08:00 BP 125/50 08/17/16 08:00 Pulse Ox 96 08/17/16 08:00 Intake & Output 08/16/16 08/17/16 08/17/16 18:59 06:59 18:59 Intake Total 320 100 Output Total 375 550 Balance -55 -450 Weight 70.4 kg Intake: IV 100 Piperacillin-Tazobactam 3 100 .375 gm In Dextrose/Water 1 50ml.bag @ 12.5 mls/hr IVPB Q12H [facility] Rx#: [id number] Oral 320 Output: Urine 375 550 Stool 0 Other: # Voids 1 # Bowel Movements 1 - Exam Head exam was generally normal. There was no scleral icterus or corneal arcus. Mucous membranes were moist. The patient has some cushingoid features related to on and off steroid use for COPD treatment.Neck was supple and without jugular venous distension, thyromegaly, or carotid bruits. Carotids were easily palpable bilaterally. There was no adenopathy. Lung sounds are diminished bilaterally otherwise there is no wheezes or rhonchi any crackles.Cardiac exam revealed the PMI to be normally situated and sized. The rhythm was regular and no extrasystoles were noted during several minutes of auscultation. The first and second heart sounds were normal and physiologic splitting of the second heart sound was noted. There were no murmurs, rubs, clicks, or gallops.Abdominal exam revealed normal bowel sounds. The abdomen was soft, non- tender, and without masses, organomegaly, or appreciable enlargement of the abdominal aorta. Extremities are weak and the patient has limited range of motion the right upper extremity due to a comminuted fracture of the right humerus. Pulses are diminished. There is trace edema. There is no cyanosis or clubbing. Neurologically awake and alert and neurologic exam is nonfocal. - Labs CBC & Chem 7: 08/17/16 06:21 08/17/16 06:21 Labs: Abnormal Lab Results - Last 24 Hours (Table) 08/16/16 08/16/16 08/17/16 Range/Units 16:46 20:53 05:50 RBC (3.80-5.40) m/uL Hgb (11.4-16.0) gm/dL Hct (34.0-46.0) % RDW (11.5-15.5) % Lymphocytes # (1.0-4.8) k/uL Potassium (3.5-5.1) mmol/L Chloride (98-107) mmol/L Carbon Dioxide (22-30) mmol/L BUN (7-17) mg/dL Creatinine (0.52-1.04) mg/dL Glucose (74-99) mg/dL POC Glucose (mg/dL) 179 H 206 H 127 H (75-99) mg/dL 08/17/16 08/17/16 08/17/16 Range/Units 06:21 06:21 11:44 RBC 3.03 L (3.80-5.40) m/uL Hgb 8.1 L (11.4-16.0) gm/dL Hct 26.0 L (34.0-46.0) % RDW 17.2 H (11.5-15.5) % Lymphocytes # 0.8 L (1.0-4.8) k/uL Potassium 3.4 L (3.5-5.1) mmol/L Chloride 90 L (98-107) mmol/L Carbon Dioxide 41 H* (22-30) mmol/L BUN 34 H (7-17) mg/dL Creatinine 2.17 H (0.52-1.04) mg/dL Glucose 115 H (74-99) mg/dL POC Glucose (mg/dL) 160 H (75-99) mg/dL Microbiology - Last 24 Hours (Table) 08/14/16 15:55 Blood Culture - Preliminary Blood No Growth after 48 hours Assessment and Plan Plan: Assessment 1 advanced COPD with chronic hypoxic respiratory failure and suspected right basilar pneumonia currently on a combination of Zosyn and vancomycin. Note that the patient is FEV1 of less than 30% of predicted. 2 altered mental status, recovered and the patient's mental status is normal and the CAT scan of the brain is negative. Rule out secondary to suboptimal BiPAP use causing altered level of consciousness and awareness in a.m. 3 chronic anemia interval drop in hemoglobin down to 6.9 status post transfusion with 2 units of packed RBC and with improvement and subsequent hemoglobin breathing. 4 coronary artery disease with previous myocardial infarctions 5 medical debility and recurrent falls with a previous history of a comminuted fracture in the right humerus 6 diabetes mellitus 7 hypertension 8 hyperlipidemia 9 breast cancer, history of with a previous lumpectomy 10 chronic renal failure 11 osteoarthritis 12 difficult with mobility and gait 13 obstructive sleep apnea maintained on BiPAP therapy, the compliance and the BiPAP was checked. 14 peripheral vascular disease Plan Continue BiPAP treatment. Stop the vancomycin. Repeat chest x-ray. Discharge planning is in progress and the patient continues to improve. No evidence of any mental status change. Hemoglobin is stable. Renal function continues to be stable. Had a lengthy discussion with the patient on the importance of BiPAP therapy. She is committed to the treatment.
[2016-08-17] MEDS ORDERED: Acetaminophen-Codeine 300-30mg TAB PO PRN (14:46)
[2016-08-17] MEDS: Acetaminophen-Codeine 300-30mg TAB PO PRN (16:08)
[2016-08-17 16:48] LABS: Glucose,Whole Blood 184 mg/dL (75-99)
--- NOTE | 2016-08-17 17:09 | P.PN ---
Subjective Principal diagnosis: Altered mental status, severe anemia and diastolic congestive heart failure This patient seemed to be more alert and more comfortable. Doesn't appear to be acute distress. Patient received blood transfusion yesterday. Denies any chest pain or shortness of breath Objective - Vital Signs Vital signs: Vital Signs Temp 98.1 F 08/17/16 16:00 Pulse 65 08/17/16 16:37 Resp 18 08/17/16 16:00 BP 149/60 08/17/16 16:00 Pulse Ox 98 08/17/16 16:00 Intake & Output 08/16/16 08/17/16 08/17/16 18:59 06:59 18:59 Intake Total 320 100 50 Output Total 375 550 Balance -55 -450 50 Weight 70.4 kg Intake: IV 100 50 Piperacillin-Tazobactam 3 100 50 .375 gm In Dextrose/Water 1 50ml.bag @ 12.5 mls/hr IVPB Q12H [facility] Rx#: [id number] Oral 320 Output: Urine 375 550 Stool 0 Other: # Voids 1 # Bowel Movements 1 1 - Labs CBC & Chem 7: 08/17/16 06:21 08/17/16 06:21 Labs: Abnormal Lab Results - Last 24 Hours (Table) 08/16/16 08/17/16 08/17/16 Range/Units 20:53 05:50 06:21 RBC 3.03 L (3.80-5.40) m/uL Hgb 8.1 L (11.4-16.0) gm/dL Hct 26.0 L (34.0-46.0) % RDW 17.2 H (11.5-15.5) % Lymphocytes # 0.8 L (1.0-4.8) k/uL Potassium (3.5-5.1) mmol/L Chloride (98-107) mmol/L Carbon Dioxide (22-30) mmol/L BUN (7-17) mg/dL Creatinine (0.52-1.04) mg/dL Glucose (74-99) mg/dL POC Glucose (mg/dL) 206 H 127 H (75-99) mg/dL 08/17/16 08/17/16 08/17/16 Range/Units 06:21 11:44 16:46 RBC (3.80-5.40) m/uL Hgb (11.4-16.0) gm/dL Hct (34.0-46.0) % RDW (11.5-15.5) % Lymphocytes # (1.0-4.8) k/uL Potassium 3.4 L (3.5-5.1) mmol/L Chloride 90 L (98-107) mmol/L Carbon Dioxide 41 H* (22-30) mmol/L BUN 34 H (7-17) mg/dL Creatinine 2.17 H (0.52-1.04) mg/dL Glucose 115 H (74-99) mg/dL POC Glucose (mg/dL) 160 H 184 H (75-99) mg/dL Microbiology - Last 24 Hours (Table) 08/14/16 15:55 Blood Culture - Preliminary Blood No Growth after 48 hours Assessment and Plan (1) Altered mental status Status: Acute (2) Anemia Status: Acute (3) Hypothermia Status: Acute (4) Acute exacerbation of chronic obstructive airways disease Status: Acute (5) Congestive heart failure Status: Acute Plan: Patient seems to be improving as anemia is being corrected. We'll continue current medical therapy. We'll follow her as needed
[2016-08-17] MEDS: ALPRAZolam 0.25 MG TAB PO PRN (20:35)
[2016-08-17] MEDS ORDERED: VANCOMYCIN 1,250 MG in SODIUM CHLORIDE 0.9% 250 ML IVPB ONE (21:00)
[2016-08-17 21:01] LABS: Glucose,Whole Blood 183 mg/dL (75-99)
[2016-08-18 06:27] LABS: Glucose,Whole Blood 127 mg/dL (75-99)
[2016-08-18] MEDS: hydrALAZINE HCL 50 MG TAB PO SCH ×3 (06:36→20:46)
[2016-08-18] MEDS: CARVEDILOL 12.5 MG TAB PO SCH ×2 (06:36→16:43)
[2016-08-18 06:40] LABS: Anisocytosis Slight; Basophils % (A) 1 %; CH 26.4; CHCM 30.5; Eosinophils # (A) 0.3 k/uL (0-0.7); Eosinophils % (A) 3 %; HGB 8.5 gm/dL (11.4-16.0); Hypochromasia Marked; Luc # (Auto) 0.18; Luc % (Auto) 2; Lymphocytes % (A) 11 %; MCH 27.3 pg (25.0-35.0); MCHC 31.5 g/dL (31.0-37.0); MCV 86.6 fL (80.0-100.0); Monocytes # (A) 0.5 k/uL (0-1.0); Monocytes % (A) 6 %; Neutrophils % (A) 77 %; RBC 3.11 m/uL (3.80-5.40); RDW 17.6 % (11.5-15.5); WBC (Perox) 9.35
[2016-08-18 06:58] LABS: Calcium 9.1 mg/dL (8.4-10.2); Potassium 3.7 mmol/L (3.5-5.1)
[2016-08-18] MEDS: SYMBICORT 160-4.5 MCG INHALER INHALATION SCH ×2 (07:50→18:48)
[2016-08-18] MEDS: IPRATROPIUM-ALBUTEROL 3 ML NEB INHALATION SCH ×4 (07:51→18:48)
[2016-08-18] MEDS: FUROSEMIDE 40 MG TAB PO SCH ×2 (08:24→16:43)
[2016-08-18] MEDS: PANTOPRAZOLE 40 MG TABLET PO SCH (08:24)
[2016-08-18] MEDS: VIT A,C & E-LUTEIN-MINERALS 1 EACH TAB PO SCH (08:24)
[2016-08-18] MEDS: DOCUSATE 100 MG CAP PO SCH (08:24)
--- NOTE | 2016-08-18 08:24 | XR ---
EXAMINATION TYPE: XR chest 1V DATE OF EXAM: 08/18/2016 COMPARISON: 08/15/2016 HISTORY: Shortness of breath TECHNIQUE: Single frontal view of the chest is obtained. FINDINGS: Right humeral fracture noted. Underlying COPD and cardiomegaly are stable. Interstitial pa ttern seen. Surgical clips overlying the left chest wall. Tiny bilateral effusion and basilar infiltr ate noted. IMPRESSION: 1. COPD with persistent mild interstitial pattern which may be on the basis of mild CHF or pneumoniti s. 2. Tiny bilateral effusion and basilar infiltrate stable.
[2016-08-18] MEDS: Acetaminophen-Codeine 300-30mg TAB PO PRN ×3 (10:04→23:18)
[2016-08-18] MEDS: PIPERACILLIN-TAZOBACTAM 3.375 GM in DEXTROSE/WATER 1 50ML.BAG IVPB SCH ×2 (12:02→23:17)
[2016-08-18 12:08] LABS: Glucose,Whole Blood 185 mg/dL (75-99)
--- NOTE | 2016-08-18 12:21 | P.PN ---
Subjective Principal diagnosis: Acute on chronic hypoxic respiratory failure secondary to COPD and right basilar community-acquired pneumonia. This is an 81-year-old female who resides in a longterm and was sent in because of altered mental status for the last 2 hours. The patient is a longterm resident and she resides at the [facility]. Prior to that she was alert and oriented to her baseline according to staff. Daughter states yesterday she had a similar episode and eventually came around it was back to her baseline. I was asked to evaluate this patient knowing that she is very well-known to me. She has advanced COPD P left taking care of her pulmonary needs for many years. At time of my evaluation, the patient was wide awake and alert and she was following commands and answering questions appropriately. I do not see any signs of any mental status change. She has recognized me. She has been conversing normally. No slurred speech. No headaches. No neck stiffness. No fever or chills. She is quite debilitated to the point where she is unable to ambulate and walk for the time being. Yet she is able to move all 4 extremities and her neurologic exam is nonfocal at this point. The CAT scan of the brain was also done and the patient has no evidence of any acute intracranial hemorrhage or mass effect or midline shift. There is a nonspecific mild ventriculomegaly. The chest x-ray was consistent with COPD and cardiomegaly. There is improvement in the right lower lobe pulmonary infiltrate. There is also evidence of increased pulmonary vascular markings/edema. The patient's was also noted to have a hemoglobin of 6.9. She has chronic anemia and hemoglobin is ranging below 10 for the past several months. No signs of any acute bleeding and the patient is receiving a unit of packed RBC. She has also chronic renal failure and creatinine is stable at 1.9. BNP level is elevated at 12,300 Aggressive electrolyte liver function studies are all within normal limits. The patient was started on Lasix 40 mg IV push every 12 hours. The patient was started on an empiric antibiotic coverage with a combination of Zosyn and vancomycin. She is on breathing treatments around the clock utilizing DuoNeb nebulized treatments. She is also on Symbicort as a maintenance. On 08/16/2016 I'm seeing this patient in follow-up. She is awake and alert and there has been no issues with her mentation at all. I am wondering whether the patient's altered mental status was related to a suboptimal BiPAP use. Her BiPAP is set at a pressure of 10/5 cm of water. I checked her compliancy and she has been using her BiPAP 26 out of the past 30 days. BiPAP use for more than 4 hours is been 12 out of 30 days. Average BiPAP uses around 4.6 hours during the days used. AHI while on treatment is down to 2.1. She is to be a bit more compliant with the treatment. She is not having any major it further difficulties. Resting comfortably in bed. She got a transfusion with packed RBC and subsequent hemoglobin is up to 8.1. On 08/17/2016 the patient has no specific complaints and she is wide awake. She has utilize her BiPAP very regularly last night and she uses for more than 10 hours. AHI is less than 5. No leaks on the mask. She is awake and interactive and communicating. No nausea. No vomiting. No abdominal pain. Function is stable. Blood sugars on 160 this morning. No other significant events overnight. On 08/18/2016, patient is doing better, breathing a lot easier, remains on oxygen , remains on bronchodilators, and antibiotics. Overall, and dramatic improvement has been noted since admission. Chest x-ray is still suggestive of bilateral pleural effusions and right basilar infiltrates. Consistent with congestive heart failure and right lower lobe pneumonia. Objective - Vital Signs Vital signs: Vital Signs Temp 97.7 F 08/18/16 08:00 Pulse 76 08/18/16 11:55 Resp 20 08/18/16 08:00 BP 133/56 08/18/16 08:00 Pulse Ox 95 08/18/16 07:50 Intake & Output 08/17/16 08/18/16 08/18/16 18:59 06:59 18:59 Intake Total 110 50 180 Output Total 200 Balance 110 -150 180 Weight 67.4 kg Intake: IV 50 50 Piperacillin-Tazobactam 3 50 50 .375 gm In Dextrose/Water 1 50ml.bag @ 12.5 mls/hr IVPB Q12H [facility] Rx#: [id number] Oral 60 180 Output: Urine 200 Other: # Voids 3 # Bowel Movements 1 - Exam Physical Exam: Revealed an 81-year-old female in no distress. HEENT:[Neck is supple.] [No neck masses.] [No thyromegaly.] [No JVD.] Chest: Diminished breath sound bilaterally, crackles at the right base noted. No wheezing.] Cardiac Exam: [Normal S1 and S2, no S3 gallop, no murmur.] Abdomen: [Soft, nontender, no megaly, no rebound, no guarding, normal bowel sounds.] Extremities: [No clubbing, no edema, no cyanosis.] Neurological Exam: [No focal neurologic deficit.] - Labs CBC & Chem 7: 08/18/16 05:59 08/18/16 05:59 Labs: Abnormal Lab Results - Last 24 Hours (Table) 08/17/16 08/17/16 08/18/16 Range/Units 16:46 21:00 05:59 RBC 3.11 L (3.80-5.40) m/uL Hgb 8.5 L (11.4-16.0) gm/dL Hct 27.0 L (34.0-46.0) % RDW 17.6 H (11.5-15.5) % Chloride (98-107) mmol/L Carbon Dioxide (22-30) mmol/L BUN (7-17) mg/dL Creatinine (0.52-1.04) mg/dL Glucose (74-99) mg/dL POC Glucose (mg/dL) 184 H 183 H (75-99) mg/dL 08/18/16 08/18/16 08/18/16 Range/Units 05:59 06:25 12:01 RBC (3.80-5.40) m/uL Hgb (11.4-16.0) gm/dL Hct (34.0-46.0) % RDW (11.5-15.5) % Chloride 91 L (98-107) mmol/L Carbon Dioxide 40 H* (22-30) mmol/L BUN 34 H (7-17) mg/dL Creatinine 2.13 H (0.52-1.04) mg/dL Glucose 126 H (74-99) mg/dL POC Glucose (mg/dL) 127 H 185 H (75-99) mg/dL Microbiology - Last 24 Hours (Table) 08/14/16 15:55 Blood Culture - Preliminary Blood No Growth after 72 hours Assessment and Plan Plan: 1 advanced COPD with acute on chronic chronic hypoxic respiratory failure and suspected right basilar pneumonia , likely community-acquired. currently on a combination of Zosyn and vancomycin. Note that the patient is FEV1 of less than 30% of predicted. 2 altered mental status, recovered and the patient's mental status is normal and the CAT scan of the brain is negative. Rule out secondary to suboptimal BiPAP use causing altered level of consciousness and awareness in a.m. 3 chronic anemia interval drop in hemoglobin down to 6.9 status post transfusion with 2 units of packed RBC and with improvement and subsequent hemoglobin breathing. 4 coronary artery disease with previous myocardial infarctions 5 medical debility and recurrent falls with a previous history of a comminuted fracture in the right humerus 6 diabetes mellitus 7 hypertension 8 hyperlipidemia 9 breast cancer, history of with a previous lumpectomy 10 chronic renal failure 11 osteoarthritis 12 difficult with mobility and gait 13 obstructive sleep apnea maintained on BiPAP therapy, the compliance and the BiPAP was checked. 14 peripheral vascular disease Recommendation: Continue antibiotics, bronchodilators, diuretics, possible discharge planning in the next 24-48 hours. We'll continue to follow. Overall long-term prognosis is definitely poor and guarded considering his severe COPD. Time with Patient: Less than 30
--- NOTE | 2016-08-18 13:57 | P.PN ---
Subjective Principal diagnosis: Altered mental status This is a pleasant 81-year-old female who resides in [facility]. Has a known history of COPD, diabetes, previous VA, hyperlipidemia and hypertension. Presented after EMS was called due to altered mental status. Patient was found to be hypothermic and anemic. Patient does not recall the events surrounding her admission and is unclear as to why she was admitted to the hospital. CT of the brain showed no acute intracranial hemorrhage, mass effect or midline shift with nonspecific mild ventriculomegaly pattern. EKG shows normal sinus rhythm with sinus arrhythmia. This x-ray showed moderate interstitial pulmonary edema with a repeat x-ray done this morning that showed improving right lower lobe infiltrate and improving pulmonary edema. Patient is currently on IV antibiotics. Patient did receive packed red blood cells. Globin today is 8.5, potassium 3.7, BUn 34 and creatinine 2.1. He does state that her breathing is much better today, did not sleep well through the night last night. Chest x- ray performed today still suggestive of bilateral pleural effusions and right basilar infiltrate. Consistent with congestive heart failure and right lower lobe pneumonia. Objective - Vital Signs Vital signs: Vital Signs Temp 97.7 F 08/18/16 12:00 Pulse 67 08/18/16 12:00 Resp 20 08/18/16 12:00 BP 173/80 08/18/16 12:00 Pulse Ox 99 08/18/16 12:00 Intake & Output 08/17/16 08/18/16 08/18/16 18:59 06:59 18:59 Intake Total 110 50 180 Output Total 200 Balance 110 -150 180 Weight 67.4 kg Intake: IV 50 50 Piperacillin-Tazobactam 3 50 50 .375 gm In Dextrose/Water 1 50ml.bag @ 12.5 mls/hr IVPB Q12H [facility] Rx#: [id number] Oral 60 180 Output: Urine 200 Other: # Voids 3 # Bowel Movements 1 - Exam PHYSICAL EXAMINATION: HEENT: Head is atraumatic, normocephalic. Pupils equal, round. Neck is supple. There is no elevated jugular venous pressure. HEART EXAMINATION: Heart S1, S2 normal. No murmur or gallop heard. CHEST EXAMINATION: Lungs reveal diminished breath sounds bilaterally with crackles to the bilateral bases. ABDOMEN: Soft, nontender. Bowel sounds are heard. No organomegaly noted. EXTREMITIES: 2+ peripheral pulses with no evidence of peripheral edema and no calf tenderness noted. NEUROLOGIC patient is awake, alert and oriented -3. . - Labs CBC & Chem 7: 08/18/16 05:59 08/18/16 05:59 Labs: Abnormal Lab Results - Last 24 Hours (Table) 08/17/16 08/17/16 08/18/16 Range/Units 16:46 21:00 05:59 RBC 3.11 L (3.80-5.40) m/uL Hgb 8.5 L (11.4-16.0) gm/dL Hct 27.0 L (34.0-46.0) % RDW 17.6 H (11.5-15.5) % Chloride (98-107) mmol/L Carbon Dioxide (22-30) mmol/L BUN (7-17) mg/dL Creatinine (0.52-1.04) mg/dL Glucose (74-99) mg/dL POC Glucose (mg/dL) 184 H 183 H (75-99) mg/dL 08/18/16 08/18/16 08/18/16 Range/Units 05:59 06:25 12:01 RBC (3.80-5.40) m/uL Hgb (11.4-16.0) gm/dL Hct (34.0-46.0) % RDW (11.5-15.5) % Chloride 91 L (98-107) mmol/L Carbon Dioxide 40 H* (22-30) mmol/L BUN 34 H (7-17) mg/dL Creatinine 2.13 H (0.52-1.04) mg/dL Glucose 126 H (74-99) mg/dL POC Glucose (mg/dL) 127 H 185 H (75-99) mg/dL Microbiology - Last 24 Hours (Table) 08/14/16 15:55 Blood Culture - Preliminary Blood No Growth after 72 hours Assessment and Plan (1) Diastolic CHF, acute on chronic Status: Acute (2) Altered mental status Status: Acute (3) Anemia Status: Acute (4) Hypothermia Status: Acute (5) Acute exacerbation of chronic obstructive airways disease Status: Acute (6) Diabetes Status: Acute (7) Hypertension Status: Acute (8) Pneumonia Status: Acute (9) HTN (hypertension) Status: Chronic Plan: From cardiology's perspective, we'll recommend to continue the patient on her current medications. Arrangements are being made for possible discharge in 24- 48 hours. DNP note has been reviewed, I agree with a documented findings and plan of care. Patient was seen and examined.
--- NOTE | 2016-08-18 14:13 | P.PN ---
Progress Note - Text Discharge Summary: Providers Date of admission: 08/14/16 19:00 Date of Discharge: Attending physician: Mukul Cordoba Consults: 08/14/16 20:49 Consult Physician Routine Consulting Provider: Lea Arana Consult Reason/Comments: copd sepsis Do you want consulting provider notified?: Yes 08/14/16 20:52 Consult Physician Routine Consulting Provider: Renu Castillo Consult Reason/Comments: chf, high trops Do you want consulting provider notified?: Yes Primary care physician: Mandeep Rogelqvi Hospital Course: Final diagnoses: 1. Acute on chronic advanced COPD exacerbation, with suspected right basilar pneumonia, suspect community-acquired 2. Acute on chronic hypoxic respiratory failure, 3. Acute metabolic encephalopathy with altered mental status change, secondary to the above, improving 4. Anemia, of chronic disease 5. Acute diastolic congestive heart failure exacerbation 6. Medical debility, history of falls with hx recent right humerus fracture 7. Obstructive sleep apnea, on BiPAP 8. Diabetes mellitus 9. Hypertension 10. Acute on Chronic renal failure ......And multiple other medical issues Hospital course this is an 81-year-old female admitted with acute on chronic hypoxic respiratory failure, acute COPD exacerbation, right basilar community- acquired pneumonia, acute CHF exacerbation and multiple other medical issues. Evaluated by cardiology, pulmonary. Significant clinical improvement. Patient is being discharged to [facility] in stable condition with guarded prognosis. The impression and plan of care has been dictated as directed. : I performed a H&P examination of this patient and discussed the same with the dictator. I agree with the dictator's note. Any additional findings/opinions/ etc. will be noted. Please refer to discharge plan for DC meds.
[2016-08-18 16:50] LABS: Glucose,Whole Blood 164 mg/dL (75-99)
[2016-08-18 20:25] LABS: Glucose,Whole Blood 172 mg/dL (75-99)
[2016-08-19 05:59] LABS: Glucose,Whole Blood 121 mg/dL (75-99)
[2016-08-19 06:09] LABS: Anisocytosis Slight; Basophils % (A) 0 %; CHCM 30.3; Eosinophils # (A) 0.3 k/uL (0-0.7); Eosinophils % (A) 4 %; HDW 3.24; HGB 7.9 gm/dL (11.4-16.0); Hypochromasia Marked; Luc # (Auto) 0.19; Luc % (Auto) 2; Lymphocytes # (A) 0.9 k/uL (1.0-4.8); Lymphocytes % (A) 10 %; MCH 26.2 pg (25.0-35.0); MCHC 30.5 g/dL (31.0-37.0); MCV 85.7 fL (80.0-100.0); Monocytes # (A) 0.7 k/uL (0-1.0); Monocytes % (A) 7 %; Neutrophils # (A) 6.8 k/uL (1.3-7.7); Neutrophils % (A) 77 %; RBC 3.03 m/uL (3.80-5.40); RDW 17.4 % (11.5-15.5); WBC 8.9 k/uL (3.8-10.6); WBC (Perox) 9.72
[2016-08-19 06:22] LABS: Calcium 8.8 mg/dL (8.4-10.2); Potassium 3.7 mmol/L (3.5-5.1)
[2016-08-19] MEDS: hydrALAZINE HCL 50 MG TAB PO SCH ×3 (06:31→20:33)
[2016-08-19] MEDS: CARVEDILOL 12.5 MG TAB PO SCH ×2 (06:47→17:17)
[2016-08-19] MEDS: IPRATROPIUM-ALBUTEROL 3 ML NEB INHALATION SCH ×4 (08:35→19:49)
[2016-08-19] MEDS: SYMBICORT 160-4.5 MCG INHALER INHALATION SCH ×2 (08:35→19:48)
[2016-08-19] MEDS: ACETAMINOPHEN TAB 325 MG TAB PO PRN (08:56)
[2016-08-19] MEDS: VIT A,C & E-LUTEIN-MINERALS 1 EACH TAB PO SCH (08:57)
[2016-08-19] MEDS: DOCUSATE 100 MG CAP PO SCH ×2 (08:57→08:59)
[2016-08-19] MEDS: FUROSEMIDE 40 MG TAB PO SCH ×2 (08:57→17:17)
[2016-08-19] MEDS: PANTOPRAZOLE 40 MG TABLET PO SCH (08:57)
--- NOTE | 2016-08-19 11:08 | P.PN ---
Subjective Principal diagnosis: Acute on chronic hypoxic respiratory failure secondary to COPD and right basilar community-acquired pneumonia. This is an 81-year-old female who [facility] and was sent in because of altered mental status for the last 2 hours. The patient is a prison resident and she resides at the [facility] on [facility]. Prior to that she was alert and oriented to her baseline according to staff. Daughter states yesterday she had a similar episode and eventually came around it was back to her baseline. I was asked to evaluate this patient knowing that she is very well-known to me. She has advanced COPD P left taking care of her pulmonary needs for many years. At time of my evaluation, the patient was wide awake and alert and she was following commands and answering questions appropriately. I do not see any signs of any mental status change. She has recognized me. She has been conversing normally. No slurred speech. No headaches. No neck stiffness. No fever or chills. She is quite debilitated to the point where she is unable to ambulate and walk for the time being. Yet she is able to move all 4 extremities and her neurologic exam is nonfocal at this point. The CAT scan of the brain was also done and the patient has no evidence of any acute intracranial hemorrhage or mass effect or midline shift. There is a nonspecific mild ventriculomegaly. The chest x-ray was consistent with COPD and cardiomegaly. There is improvement in the right lower lobe pulmonary infiltrate. There is also evidence of increased pulmonary vascular markings/edema. The patient's was also noted to have a hemoglobin of 6.9. She has chronic anemia and hemoglobin is ranging below 10 for the past several months. No signs of any acute bleeding and the patient is receiving a unit of packed RBC. She has also chronic renal failure and creatinine is stable at 1.9. BNP level is elevated at 12,300 Aggressive electrolyte liver function studies are all within normal limits. The patient was started on Lasix 40 mg IV push every 12 hours. The patient was started on an empiric antibiotic coverage with a combination of Zosyn and vancomycin. She is on breathing treatments around the clock utilizing DuoNeb nebulized treatments. She is also on Symbicort as a maintenance. On 08/16/2016 I'm seeing this patient in follow-up. She is awake and alert and there has been no issues with her mentation at all. I am wondering whether the patient's altered mental status was related to a suboptimal BiPAP use. Her BiPAP is set at a pressure of 10/5 cm of water. I checked her compliancy and she has been using her BiPAP 26 out of the past 30 days. BiPAP use for more than 4 hours is been 12 out of 30 days. Average BiPAP uses around 4.6 hours during the days used. AHI while on treatment is down to 2.1. She is to be a bit more compliant with the treatment. She is not having any major it further difficulties. Resting comfortably in bed. She got a transfusion with packed RBC and subsequent hemoglobin is up to 8.1. On 08/17/2016 the patient has no specific complaints and she is wide awake. She has utilize her BiPAP very regularly last night and she uses for more than 10 hours. AHI is less than 5. No leaks on the mask. She is awake and interactive and communicating. No nausea. No vomiting. No abdominal pain. Function is stable. Blood sugars on 160 this morning. No other significant events overnight. On 08/18/2016, patient is doing better, breathing a lot easier, remains on oxygen , remains on bronchodilators, and antibiotics. Overall, and dramatic improvement has been noted since admission. Chest x-ray is still suggestive of bilateral pleural effusions and right basilar infiltrates. Consistent with congestive heart failure and right lower lobe pneumonia. On 08/19/2016, patient continues to do relatively well from the pulmonary perspective, improving, breathing easier, however she has a significant swelling and pain in the right upper extremity. Hence I recommended a venous Doppler to be done today, possibility of deep vein thromboses in the right arm should be considered. In the meantime the patient continues on treatment for congestive heart failure and pneumonia. Last chest x-ray is showing some improvement. Clinically the patient is also improved. Labs were reviewed, CBC showed a hemoglobin of 7.9. BUN is 26 creatinine is 2.11 Objective - Vital Signs Vital signs: Vital Signs Temp 97 F L 08/19/16 03:27 Pulse 72 08/19/16 08:50 Resp 18 08/19/16 08:00 BP 143/64 08/19/16 08:00 Pulse Ox 99 08/19/16 03:27 Intake & Output 08/18/16 08/19/16 08/19/16 18:59 06:59 18:59 Intake Total 610 90 Output Total 700 500 Balance 610 -610 -500 Weight 68.3 kg 68.3 kg Intake: IV 50 90 0.9@10mls/hr 90 Piperacillin-Tazobactam 3 50 .375 gm In Dextrose/Water 1 50ml.bag @ 12.5 mls/hr IVPB Q12H [facility] Rx#: [id number] Oral 560 Output: Urine 700 500 Stool 0 Other: Voiding Method Bedside Commode Bedside Commode Bedpan Bedpan # Voids 1 # Bowel Movements 0 - Exam Physical Exam: Revealed an 81-year-old female in no distress. HEENT:[Neck is supple.] [No neck masses.] [No thyromegaly.] [No JVD.] Chest: Diminished breath sound bilaterally, crackles at the right base noted. No wheezing.] Cardiac Exam: [Normal S1 and S2, no S3 gallop, no murmur.] Abdomen: [Soft, nontender, no megaly, no rebound, no guarding, normal bowel sounds.] Extremities: [No clubbing, no cyanosis, however the right upper extremity seems to be quite swollen and tender. From the elbow all the way down to the hand. Neurological Exam: [No focal neurologic deficit.] - Labs CBC & Chem 7: 08/19/16 05:43 08/19/16 05:50 Labs: Abnormal Lab Results - Last 24 Hours (Table) 08/18/16 08/18/16 08/18/16 Range/Units 12:01 16:46 20:24 RBC (3.80-5.40) m/uL Hgb (11.4-16.0) gm/dL Hct (34.0-46.0) % MCHC (31.0-37.0) g/dL RDW (11.5-15.5) % Lymphocytes # (1.0-4.8) k/uL Chloride (98-107) mmol/L Carbon Dioxide (22-30) mmol/L BUN (7-17) mg/dL Creatinine (0.52-1.04) mg/dL Glucose (74-99) mg/dL POC Glucose (mg/dL) 185 H 164 H 172 H (75-99) mg/dL 08/19/16 08/19/16 08/19/16 Range/Units 05:43 05:50 05:55 RBC 3.03 L (3.80-5.40) m/uL Hgb 7.9 L (11.4-16.0) gm/dL Hct 26.0 L (34.0-46.0) % MCHC 30.5 L (31.0-37.0) g/dL RDW 17.4 H (11.5-15.5) % Lymphocytes # 0.9 L (1.0-4.8) k/uL Chloride 92 L (98-107) mmol/L Carbon Dioxide 39 H (22-30) mmol/L BUN 36 H (7-17) mg/dL Creatinine 2.11 H (0.52-1.04) mg/dL Glucose 104 H (74-99) mg/dL POC Glucose (mg/dL) 121 H (75-99) mg/dL Microbiology - Last 24 Hours (Table) 08/14/16 15:55 Blood Culture - Preliminary Blood No Growth after 96 hours Assessment and Plan Plan: 1 advanced COPD with acute on chronic chronic hypoxic respiratory failure and suspected right basilar pneumonia , likely community-acquired. currently on a combination of Zosyn and vancomycin. Note that the patient is FEV1 of less than 30% of predicted. 2 altered mental status, recovered and the patient's mental status is normal and the CAT scan of the brain is negative. Rule out secondary to suboptimal BiPAP use causing altered level of consciousness and awareness in a.m. 3 chronic anemia interval drop in hemoglobin down to 6.9 status post transfusion with 2 units of packed RBC and with improvement and subsequent hemoglobin breathing. 4 coronary artery disease with previous myocardial infarctions 5 medical debility and recurrent falls with a previous history of a comminuted fracture in the right humerus 6 diabetes mellitus 7 hypertension 8 hyperlipidemia 9 breast cancer, history of with a previous lumpectomy 10 chronic renal failure 11 osteoarthritis 12 difficult with mobility and gait 13 obstructive sleep apnea maintained on BiPAP therapy, the compliance and the BiPAP was checked. 14 peripheral vascular disease 15 acute right upper extremity swelling, patient will have a venous Doppler, and based on the findings further recommendations will follow. In the meantime continue to keep the arm elevated as much as possible. Recommendation: Continue antibiotics, bronchodilators, diuretics, possible discharge planning in the next 24-48 hours. We'll continue to follow. Overall long-term prognosis is definitely poor and guarded considering his severe COPD. Time with Patient: Less than 30
--- NOTE | 2016-08-19 11:22 | US ---
EXAMINATION TYPE: US venous doppler duplex UE RT DATE OF EXAM: 08/19/2016 COMPARISON: US CLINICAL HISTORY: rt arm swelling r/o dvt. Right hand swelling x 1 day SIDE PERFORMED: Right Right Arm: Appears negative for DVT IMPRESSION: Negative exam. No evidence of deep venous thrombosis in the right arm.
[2016-08-19 11:30] LABS: Glucose,Whole Blood 148 mg/dL (75-99)
[2016-08-19] MEDS: Acetaminophen-Codeine 300-30mg TAB PO PRN (12:05)
[2016-08-19] MEDS: PIPERACILLIN-TAZOBACTAM 3.375 GM in DEXTROSE/WATER 1 50ML.BAG IVPB SCH ×2 (12:06→23:15)
[2016-08-19 16:58] LABS: Glucose,Whole Blood 175 mg/dL (75-99)
[2016-08-19 20:53] LABS: Glucose,Whole Blood 160 mg/dL (75-99)
[2016-08-19 23:19] VITALS: RESP 16
[2016-08-20 06:43] VITALS: BP 185/84; TEMP 96.3
[2016-08-20 07:38] LABS: Calcium 8.9 mg/dL (8.4-10.2); Potassium 3.5 mmol/L (3.5-5.1)
[2016-08-20] MEDS: FUROSEMIDE 40 MG TAB PO SCH ×2 (08:29→15:30)
[2016-08-20] MEDS: DOCUSATE 100 MG CAP PO SCH (08:29)
[2016-08-20] MEDS: CARVEDILOL 12.5 MG TAB PO SCH (08:29)
[2016-08-20] MEDS: hydrALAZINE HCL 50 MG TAB PO SCH ×2 (08:29→12:23)
[2016-08-20] MEDS: PANTOPRAZOLE 40 MG TABLET PO SCH (08:30)
[2016-08-20] MEDS: VIT A,C & E-LUTEIN-MINERALS 1 EACH TAB PO SCH (08:30)
[2016-08-20] MEDS: IPRATROPIUM-ALBUTEROL 3 ML NEB INHALATION SCH ×3 (09:13→16:38)
[2016-08-20] MEDS: SYMBICORT 160-4.5 MCG INHALER INHALATION SCH (09:13)
[2016-08-20 10:55] LABS: Anisocytosis Slight; Basophils # (A) 0.1 k/uL (0-0.2); Basophils % (A) 1 %; CH 25.8; CHCM 29.9; Eosinophils # (A) 0.3 k/uL (0-0.7); Eosinophils % (A) 3 %; HCT 27.7 % (34.0-46.0); HDW 3.15; HGB 8.8 gm/dL (11.4-16.0); Hypochromasia Marked; Luc # (Auto) 0.14; Luc % (Auto) 1; Lymphocytes # (A) 0.9 k/uL (1.0-4.8); Lymphocytes % (A) 8 %; MCH 27.2 pg (25.0-35.0); MCHC 31.6 g/dL (31.0-37.0); Monocytes # (A) 0.7 k/uL (0-1.0); Monocytes % (A) 6 %; Neutrophils # (A) 8.8 k/uL (1.3-7.7); Neutrophils % (A) 81 %; RBC 3.23 m/uL (3.80-5.40); WBC 10.8 k/uL (3.8-10.6); WBC (Perox) 11.26
[2016-08-20 11:56] VITALS: BMI 26.6
[2016-08-20] MEDS: PIPERACILLIN-TAZOBACTAM 3.375 GM in DEXTROSE/WATER 1 50ML.BAG IVPB SCH (12:23)
--- NOTE | 2016-08-20 13:18 | P.PN ---
Subjective Principal diagnosis: Acute on chronic hypoxic respiratory failure secondary to COPD and right basilar community-acquired pneumonia. This is an 81-year-old female who resides in a half-way and was sent in because of altered mental status for the last 2 hours. The patient is a half-way resident and she resides at the [facility] on [facility] [place]. Prior to that she was alert and oriented to her baseline according to staff. Daughter states yesterday she had a similar episode and eventually came around it was back to her baseline. I was asked to evaluate this patient knowing that she is very well-known to me. She has advanced COPD P left taking care of her pulmonary needs for many years. At time of my evaluation, the patient was wide awake and alert and she was following commands and answering questions appropriately. I do not see any signs of any mental status change. She has recognized me. She has been conversing normally. No slurred speech. No headaches. No neck stiffness. No fever or chills. She is quite debilitated to the point where she is unable to ambulate and walk for the time being. Yet she is able to move all 4 extremities and her neurologic exam is nonfocal at this point. The CAT scan of the brain was also done and the patient has no evidence of any acute intracranial hemorrhage or mass effect or midline shift. There is a nonspecific mild ventriculomegaly. The chest x-ray was consistent with COPD and cardiomegaly. There is improvement in the right lower lobe pulmonary infiltrate. There is also evidence of increased pulmonary vascular markings/edema. The patient's was also noted to have a hemoglobin of 6.9. She has chronic anemia and hemoglobin is ranging below 10 for the past several months. No signs of any acute bleeding and the patient is receiving a unit of packed RBC. She has also chronic renal failure and creatinine is stable at 1.9. BNP level is elevated at 12,300 Aggressive electrolyte liver function studies are all within normal limits. The patient was started on Lasix 40 mg IV push every 12 hours. The patient was started on an empiric antibiotic coverage with a combination of Zosyn and vancomycin. She is on breathing treatments around the clock utilizing DuoNeb nebulized treatments. She is also on Symbicort as a maintenance. On 08/16/2016 I'm seeing this patient in follow-up. She is awake and alert and there has been no issues with her mentation at all. I am wondering whether the patient's altered mental status was related to a suboptimal BiPAP use. Her BiPAP is set at a pressure of 10/5 cm of water. I checked her compliancy and she has been using her BiPAP 26 out of the past 30 days. BiPAP use for more than 4 hours is been 12 out of 30 days. Average BiPAP uses around 4.6 hours during the days used. AHI while on treatment is down to 2.1. She is to be a bit more compliant with the treatment. She is not having any major it further difficulties. Resting comfortably in bed. She got a transfusion with packed RBC and subsequent hemoglobin is up to 8.1. On 08/17/2016 the patient has no specific complaints and she is wide awake. She has utilize her BiPAP very regularly last night and she uses for more than 10 hours. AHI is less than 5. No leaks on the mask. She is awake and interactive and communicating. No nausea. No vomiting. No abdominal pain. Function is stable. Blood sugars on 160 this morning. No other significant events overnight. On 08/18/2016, patient is doing better, breathing a lot easier, remains on oxygen , remains on bronchodilators, and antibiotics. Overall, and dramatic improvement has been noted since admission. Chest x-ray is still suggestive of bilateral pleural effusions and right basilar infiltrates. Consistent with congestive heart failure and right lower lobe pneumonia. On 08/19/2016, patient continues to do relatively well from the pulmonary perspective, improving, breathing easier, however she has a significant swelling and pain in the right upper extremity. Hence I recommended a venous Doppler to be done today, possibility of deep vein thromboses in the right arm should be considered. In the meantime the patient continues on treatment for congestive heart failure and pneumonia. Last chest x-ray is showing some improvement. Clinically the patient is also improved. Labs were reviewed, CBC showed a hemoglobin of 7.9. BUN is 26 creatinine is 2.11 Reevaluated today on 08/20/2016, patient is feeling better, breathing easier, her right upper extremity swelling is significantly improved, venous Doppler is negative for deep vein thrombosis. Labs were reviewed, hemoglobin is 8.8 WBC count is 10.8 bicarb is 43 BUN is 36 creatinine is 2.05. Overall, the patient is feeling much better. Objective - Vital Signs Vital signs: Vital Signs Temp 96.3 F L 08/20/16 06:42 Pulse 72 08/20/16 09:28 Resp 16 08/20/16 08:00 BP 185/84 08/20/16 06:42 Pulse Ox 99 08/20/16 06:42 Intake & Output 08/19/16 08/20/16 08/20/16 18:59 06:59 18:59 Intake Total 220 Output Total 500 0 Balance -280 0 Weight 68.3 kg 68.3 kg Intake: Oral 220 Output: Urine 500 Stool 0 0 Other: Voiding Method Bedside Commode Bedside Commode Bedpan Bedpan # Voids 1 1 # Bowel Movements 0 0 - Exam Physical Exam: Revealed an 81-year-old female in no distress. HEENT:[Neck is supple.] [No neck masses.] [No thyromegaly.] [No JVD.] Chest: Diminished breath sound bilaterally, crackles at the right base noted. No wheezing.] Cardiac Exam: [Normal S1 and S2, no S3 gallop, no murmur.] Abdomen: [Soft, nontender, no megaly, no rebound, no guarding, normal bowel sounds.] Extremities: [No clubbing, no cyanosis, however the right upper extremity is less swollen, there is Doppler report was reviewed. Neurologic: No focal neurologic deficit. - Labs CBC & Chem 7: 08/20/16 07:01 08/20/16 07:01 Labs: Abnormal Lab Results - Last 24 Hours (Table) 08/19/16 08/19/16 08/20/16 Range/Units 16:48 20:51 07:01 WBC (3.8-10.6) k/uL RBC (3.80-5.40) m/uL Hgb (11.4-16.0) gm/dL Hct (34.0-46.0) % RDW (11.5-15.5) % Neutrophils # (1.3-7.7) k/uL Lymphocytes # (1.0-4.8) k/uL Chloride 92 L (98-107) mmol/L Carbon Dioxide 43 H* (22-30) mmol/L BUN 36 H (7-17) mg/dL Creatinine 2.05 H (0.52-1.04) mg/dL Glucose 116 H (74-99) mg/dL POC Glucose (mg/dL) 175 H 160 H (75-99) mg/dL 08/20/16 Range/Units 07:01 WBC 10.8 H (3.8-10.6) k/uL RBC 3.23 L (3.80-5.40) m/uL Hgb 8.8 L (11.4-16.0) gm/dL Hct 27.7 L (34.0-46.0) % RDW 17.0 H (11.5-15.5) % Neutrophils # 8.8 H (1.3-7.7) k/uL Lymphocytes # 0.9 L (1.0-4.8) k/uL Chloride (98-107) mmol/L Carbon Dioxide (22-30) mmol/L BUN (7-17) mg/dL Creatinine (0.52-1.04) mg/dL Glucose (74-99) mg/dL POC Glucose (mg/dL) (75-99) mg/dL Microbiology - Last 24 Hours (Table) 08/14/16 15:55 Blood Culture - Preliminary Blood No Growth after 120 hours Assessment and Plan Plan: 1 advanced COPD with acute on chronic chronic hypoxic respiratory failure and suspected right basilar pneumonia , likely community-acquired. currently on a combination of Zosyn and vancomycin. Note that the patient is FEV1 of less than 30% of predicted. 2 altered mental status, recovered and the patient's mental status is normal and the CAT scan of the brain is negative. Rule out secondary to suboptimal BiPAP use causing altered level of consciousness and awareness in a.m. 3 chronic anemia interval drop in hemoglobin down to 6.9 status post transfusion with 2 units of packed RBC and with improvement and subsequent hemoglobin breathing. 4 coronary artery disease with previous myocardial infarctions 5 medical debility and recurrent falls with a previous history of a comminuted fracture in the right humerus 6 diabetes mellitus 7 hypertension 8 hyperlipidemia 9 breast cancer, history of with a previous lumpectomy 10 chronic renal failure 11 osteoarthritis 12 difficult with mobility and gait 13 obstructive sleep apnea maintained on BiPAP therapy, the compliance and the BiPAP was checked. 14 peripheral vascular disease 15 acute right upper extremity swelling, patient will have a venous Doppler, and based on the findings further recommendations will follow. In the meantime continue to keep the arm elevated as much as possible. Recommendation: Continue antibiotics, bronchodilators, diuretics, consider discharge planning to [facility] today. Follow-up on outpatient basis. Time with Patient: Less than 30
[2016-08-20 13:26] VITALS: PULSE 72
--- NOTE | 2016-08-20 21:39 | DS ---
FINAL DIAGNOSES: 1. Chronic obstructive pulmonary disease, acute exacerbation, with acute bibasilar pneumonia, possibly community-acquired. 2. Acute on chronic hypoxic respiratory failure. 3. Acute metabolic encephalopathy with change in mental status secondary to above, improving. 4. Anemia of chronic disease. 5. Acute diastolic congestive heart failure, acute exacerbation. 6. Medical debility with history of falls with history of recent right humerus fracture. 7. History of sleep apnea, on BiPap. 8. Diabetes mellitus, type 2. 9. Hypertension. 10. Acute on chronic renal failure. 11. Multiple medical issues. DISCHARGE DISPOSITION: The patient will be transferred to [facility] on the [place] in stable condition with guarded prognosis. Total time taken 35 minutes. HISTORY OF PRESENT ILLNESS: This 81-year-old woman with a past medical history of multiple medical problems, being followed by Dr. Guo in the [facility], was admitted with COPD, acute exacerbation, with hypoxic respiratory failure and multiple other complex medical issues. The patient was treated symptomatically. The patient improved significantly. On exam, vitals are stable. CARDIOVASCULAR: S1, S2 muffled. RESPIRATORY: Breath sounds diminished at the bases. A few scattered rhonchi. ABDOMEN: Soft. NERVOUS SYSTEM: No focal deficit. DISCHARGE ADVICE AND MEDICATIONS: 1. Diet is cardiac. 2. Activity limited until followup. 3. Follow up with Dr. Guo in [facility] in 2 to 3 days. 4. Follow up with Dr. Hills as advised. 5. CBC, BMP in 2 to 3 days. 6. Tylenol 650 q.6 p.r.n. 7. Tylenol #3 one to two q.6 p.r.n. 8. Xanax 0.25 b.i.d. p.r.n. for anxiety. 9. Augmentin 875 mg p.o. b.i.d. for 5 days. 10. Coreg 25 mg p.o. b.i.d. 11. Colace 100 mg p.o. daily. 12. Breo Ellipta 1 puff daily. 13. Lasix 40 mg p.o. b.i.d. 14. Apresoline 100 mg p.o. t.i.d. 15. DuoNeb q.i.d and p.r.n. for shortness of breath. 16. Lactulose 20 grams p.o. b.i.d. p.r.n. for constipation. 17. Protonix 40 mg p.o. daily. 18. Zoloft 50 mg at bedtime. 19. Vitamin A, C, E, lutein, minerals 1 p.o. daily. Once again, the patient will be discharged in stable condition with guarded prognosis. MTDD
--- NOTE | 2016-08-21 07:39 | PN ---
DATE OF SERVICE: 08/18/2016 This 81-year-old woman was admitted with COPD exacerbation, also had change in mental status. Patient has also resumed BiPAP. Patient is being closely monitored on telemetry. No chest pain or palpitation. No fever. On exam, alert and oriented x2. Pulse is 66, blood pressure 150/70, respirations 17, temperature 97.8, pulse ox 97% on room air. HEENT: Conjunctivae normal. NECK: No jugular venous distension. CARDIOVASCULAR SYSTEM: S1, S2, muffled. RESPIRATORY: Breath sounds diminished at the bases, bilateral scattered rhonchi , no crackles. ABDOMEN: Soft, nontender. LEGS: No edema, no swelling. NERVOUS SYSTEM: No focal deficits. Labs are reviewed. ASSESSMENT: 1. Chronic obstructive pulmonary disease acute exacerbation with acute bibasilar pneumonia, possibly community-acquired. 2. Acute on chronic hypoxic respiratory failure. 3. Change in mental status with acute metabolic encephalopathy. 4. Anemia of chronic disease. 5. Acute diastolic congestive heart failure with acute exacerbation. 6. Multiple medical issues. RECOMMENDATION: Recommend to continue with the current medications, continue with the bronchodilators, tapering steroids. Continue with monitoring. Further recommendations to follow. Closely follow with Dr. Hills. CHRIS
--- NOTE | 2016-08-21 07:43 | PN ---
DATE OF SERVICE: 08/19/2016 This 81-year-old woman who was admitted with COPD exacerbation bibasilar pneumonia is being closely monitored. The patient also had acute respiratory failure also, no chest pain or palpitation. No fever. On exam, alert and oriented x2. Pulse 71, blood pressure 143/66, respirations 20, temperature 97.3, pulse ox 90% on 3 L. HEENT: Conjunctivae normal. NECK: No jugular venous distention. CARDIOVASCULAR: S1 and S2, muffled. RESPIRATORY: Breath sounds diminished at the bases. A few scattered rhonchi, no crackles. ABDOMEN: Soft, nontender. LEGS: No edema. NERVOUS SYSTEM: No focal deficits. Labs are reviewed. ASSESSMENT: 1. Chronic obstructive pulmonary disease acute exacerbation with possibly bibasilar pneumonia, community acquired. 2. Acute on chronic hypoxic respiratory failure. 3. Acute metabolic encephalopathy, change in mental status secondary to above. 4. Anemia of chronic disease. 5. Acute diastolic congestive heart failure. 6. Medical debility. 7. History of sleep apnea. 8. Diabetes mellitus type 2. 9. Hypertension. RECOMMENDATION AND DISCUSSION: Recommend to continue the current medications. Continue with monitoring and symptomatic treatment. Continue with bronchodilators. Otherwise, monitor closely. Further recommendations to follow. MTDD
--- NOTE | 2016-08-21 07:48 | PN ---
DATE OF SERVICE: 08/17/2016 This 81-year-old woman was admitted with COPD acute exacerbation, also change in mental status. Patient also had pneumonia. Also patient on broad spectrum IV antibiotics. No chest pain, no palpitation, no fever. On exam, alert and oriented x2. The pulse is 68, blood pressure 130/60, respirations 18, temperature is 98.4, pulse ox 97% on 3 L. HEENT: Conjunctivae normal. NECK: No jugular venous distension. CARDIOVASCULAR SYSTEM: S1, S2, muffled. RESPIRATORY: Breath sounds diminished at the bases, bilateral scattered rhonchi. ABDOMEN: Soft. LEGS: No swelling, no edema. NERVOUS SYSTEM: No focal deficits. Labs are reviewed. ASSESSMENT: 1. Chronic obstructive pulmonary disease acute exacerbation with bibasilar pneumonia, possibly community-acquired. 2. Change in mental status. 3. Acute on chronic hypoxic respiratory failure. 4. Anemia of chronic disease. 5. Acute diastolic congestive heart failure. RECOMMENDATION: Recommend to continue with the current medications. Continue with the monitoring and symptomatic treatment. Otherwise, continue to monitor. MTDD
--- NOTE | 2016-08-21 07:51 | PN ---
DATE OF SERVICE: 08/16/2016 This 81-year-old woman who was admitted with COPD acute exacerbation also had features of pneumonia. The patient had change in mental status and metabolic encephalopathy. The patient is also using CPAP. No chest pain or palpitation. No fever. On exam, alert and oriented x2. The pulse is 71, blood pressure is 149/60, respirations 18, temperature is 98.1, pulse ox 98% on 3 L. HEENT: Conjunctivae normal. NECK: No jugular venous distention. CARDIOVASCULAR: S1 and S2, muffled. RESPIRATORY: Breath sounds diminished at the bases. A few scattered rhonchi and crackles. ABDOMEN: Soft. LEGS: No edema. NERVOUS SYSTEM: No focal deficits. Labs are reviewed. ASSESSMENT: 1. Chronic obstructive pulmonary disease acute exacerbation with acute bibasilar pneumonia, possibly community acquired. 2. Acute on chronic hypoxic respiratory failure. 3. Metabolic encephalopathy. 4. Acute diastolic congestive heart failure. 5. Medical debility. 6. History of sleep apnea, on BiPAP. 7. Diabetes mellitus type 2. 8. Hypertension. RECOMMENDATIONS AND DISCUSSION: Recommend to continue the current medication. Continue symptomatic treatment. Further recommendations to follow. MTDD
--- NOTE | 2016-08-21 08:10 | PN ---
DATE OF SERVICE: This 81-year-old woman is admitted with COPD acute exacerbation as well as features of pneumonia, also history of confusion. The patient is on CPAP. Dr. Hills is following the patient closely. Patient is on steroids and antibiotics and bronchodilators. PAST MEDICAL HISTORY: Reviewed. REVIEW OF SYSTEM: CARDIOVASCULAR: No angina. RESPIRATORY: As mentioned earlier. GI: As mentioned earlier. : No dysuria. NERVOUS SYSTEM: No numbness or weakness. Current medications are reviewed. They include bronchodilators, antibiotics. PHYSICAL EXAM: Patient alert and oriented x2. Pulse 65, blood pressure 139/75, respirations 18 , temperature is normal, pulse ox 92% on 3 of CPAP. HEENT: Conjunctivae normal. NECK: No jugular venous distension. CARDIOVASCULAR SYSTEM: S1, S2, muffled. RESPIRATORY: Breath sounds diminished at the bases, bilateral scattered rhonchi , no crackles. ABDOMEN: Soft, nontender. LEGS: No edema, no swelling. NERVOUS SYSTEM: No focal deficits. Labs are reviewed. ASSESSMENT: 1. Chronic obstructive pulmonary disease acute exacerbation with acute bibasilar pneumonia, possibly community-acquired. 2. Acute on chronic hypoxic respiratory failure. 3. Acute metabolic encephalopathy with change in mental status. 4. Anemia or chronic disease. 5. Acute diastolic congestive heart failure with acute exacerbation. 6. Medical debility with history of falls. 7. History of recent right humerus fracture. 8. History of sleep apnea on BiPAP. 9. Diabetes mellitus type 2. 10. Hypertension. 11. Acute on chronic renal failure. 12. Multiple medical issues. RECOMMENDATION AND DISCUSSION: Recommend to continue with the current medication. Continue with the monitoring and symptomatic treatment. Otherwise , closely monitor. Guarded prognosis. Further recommendations to follow. MTDD
== END 2016-08-20 17:13 | DRG 190 ==
LOC: EC 14:40 → 6SEL 19:00 → 4MS4W 08-19 17:48
PROVIDERS: ADMIT Hospitalist; ATTEND Hospitalist
PROC: 30233N1 Transfusion of Nonautologous Red Blood Cells into Peripheral Vein, Percutaneous Approach (ICD-10-PCS; principal; 2016-08-15)
DX: J44.0 Chronic obstructive pulmonary disease with (acute) lower respiratory infection (principal); J18.9 Pneumonia, unspecified organism; I50.33 Acute on chronic diastolic (congestive) heart failure; G93.41 Metabolic encephalopathy; N17.9 Acute kidney failure, unspecified; J96.11 Chronic respiratory failure with hypoxia; T68.XXXA Hypothermia, initial encounter; I13.0 Hypertensive heart and chronic kidney disease with heart failure and stage 1 through stage 4 chronic kidney disease, or unspecified chronic kidney disease; E11.22 Type 2 diabetes mellitus with diabetic chronic kidney disease; G93.89 Other specified disorders of brain; E11.51 Type 2 diabetes mellitus with diabetic peripheral angiopathy without gangrene; N18.3 Chronic kidney disease, stage 3 (moderate); J44.1 Chronic obstructive pulmonary disease with (acute) exacerbation; I25.10 Atherosclerotic heart disease of native coronary artery without angina pectoris; I25.2 Old myocardial infarction; M19.91 Primary osteoarthritis, unspecified site; G47.33 Obstructive sleep apnea (adult) (pediatric); E78.5 Hyperlipidemia, unspecified; R29.6 Repeated falls; S42.201D Unspecified fracture of upper end of right humerus, subsequent encounter for fracture with routine healing; F41.9 Anxiety disorder, unspecified; D63.8 Anemia in other chronic diseases classified elsewhere; E03.9 Hypothyroidism, unspecified; Z85.3 Personal history of malignant neoplasm of breast; Z82.5 Family history of asthma and other chronic lower respiratory diseases; Z87.891 Personal history of nicotine dependence; Z91.81 History of falling; Z96.651 Presence of right artificial knee joint; Z98.42 Cataract extraction status, left eye; Z98.41 Cataract extraction status, right eye; Z99.81 Dependence on supplemental oxygen; Z79.899 Other long term (current) drug therapy
CPT/HCPCS: 36415; 70450; 71010; 71020; 80048; 80053; 80202; 81001; 82550; 82553; 83605; 83880; 84443; 84484; 85025; 85610; 85730; 86850; 86900; 86901; 86920; 87040; 87086; 93005; 93306; 94640; 94760; 96365; 99285